=== PATIENT | male | born 1960 | race Two or more races ===

== ENCOUNTER 2023-02-27 11:47 | Emergency (ER) | payer OTHER, SELFPAY ==
[2023-02-27] VITALS (18 sets, daily range): BP systolic 170; BP diastolic 98; PULSE 60–78; RESP 14–24; TEMP 37.1; O2SAT 97; BMI 38.4
--- NOTE | 2023-02-27 12:08 | ECG_ITS ---
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
--- NOTE | 2023-02-27 12:08 | US_ITS ---
[facility] [place] [id number] Patient Name: BABAR GILLETTE MRN: [id number] date: 1960 Sex: M Assigned Patient Location: ER Current Patient Location: ER Accession/Order Number: [id number] Exam Date: 02/27/2023 12:30 Report Date: 02/27/2023 14:05 At the request of: ROSELYN FONTANEZ Procedure: US venous doppler LE RT EXAMINATION: US venous doppler LE RT HISTORY: pain, swelling of right leg COMPARISON: No relevant comparison available. FINDINGS: REGION: Right lower extremity THROMBI: None. COMPRESSIBILITY: Normal compressibility. FLOW: Normal waveform and antegrade flow between 5 and 20 cm/s. OTHER: None. US/US venous doppler LE RT IMPRESSION: 1. No deep vein thrombus within the right lower extremity. Electronically authenticated by: RAMSEY PATEL Date: 02/27/2023 14:05
--- NOTE | 2023-02-27 12:09 | US_ITS ---
[facility] [place] [address] Patient Name: BABAR GILLETTE MRN: [id number] date: 1960 Sex: M Assigned Patient Location: ER Current Patient Location: ER Accession/Order Number: [id number] Exam Date: 02/27/2023 12:40 Report Date: 02/27/2023 14:13 At the request of: ROSELYN FONTANEZ Procedure: US arterial duplex LE RT EXAMINATION: US arterial duplex LE RT HISTORY: pain COMPARISON: No relevant comparison available. TECHNIQUE: Color duplex Doppler ultrasound evaluation analysis was performed in the usual manner. FINDINGS: Right iliac and common femoral artery demonstrate normal arterial waveform. Degradation of waveforms throughout the femoral artery with biphasic waveform proximally in monophasic waveform within mid and distal femoral artery. Monophasic, venous type waveform within popliteal and marrow calf arteries. External Iliac PSV: 67.3 cm/s External Iliac EDV: 0.0 cm/s Common Femoral PSV: 54.1 cm/s Common Femoral EDV: 0.0 cm/s Superficial Femoral Proximal PSV: 18.1 cm/s Proximal EDV: 0.0 cm/s Mid PSV: 42.9 cm/s Mid EDV: 9.4 cm/s Distal PSV: Distal EDV: Popliteal Proximal PSV: 7.0 cm/s Popliteal Proximal EDV: 0.0 cm/s Posterior Tibial Proximal PSV: 10.3 cm/s Proximal EDV: 6.0 cm/s Mid PSV: 9.2 cm/s Mid EDV: 6.0 cm/s Distal PSV: 15.3 cm/s Distal EDV: 12.8 cm/s Anterior Tibial Proximal PSV: 18.1 cm/s Proximal EDV: 11.7 cm/s Mid PSV: 11.4 cm/s Mid EDV: 6.7 cm/s Distal PSV: 15.3 cm/s Distal EDV: 12.8 cm/s US/US arterial duplex LE RT IMPRESSION: 1. Narrowing of the vessels of the right leg secondary to calcified and noncalcified plaque, with decreased flow and abnormal waveform throughout. Electronically authenticated by: RAMSEY PATEL Date: 02/27/2023 14:13
[2023-02-27 12:33] LABS: Basophils Percent Auto 0.5 % (0.2-2.0); Eosinophils Absolute Auto 0.1 10^3/uL (0.0-0.7); Hematocrit 44.2 % (42.0-54.0); Hemoglobin 15.1 g/dL (14.0-18.0); Immature Granulocytes Abs Auto 0.01 10^3/uL (0.00-0.03); Immature Granulocytes Pct Auto 0.2 % (0.0-0.5); Lymphocytes Absolute Auto 2.2 10^3/uL (1.2-3.8); Lymphocytes Percent Auto 36.5 % (20.5-60.0); Mean Corpuscular HGB Conc 34.2 g/dL (29.9-35.2); Mean Corpuscular Hemoglobin 31.7 pg (25.9-34.0); Mean Corpuscular Volume 92.7 fL (80.0-94.0); Mean Platelet Volume 10.1 fL (9.5-13.5); Monocytes Absolute Auto 0.3 10^3/uL (0.3-0.8); Monocytes Percent Auto 5.4 % (1.7-12.0); Neutrophils Absolute Auto 3.4 10^3/uL (1.4-6.5); Neutrophils Percent Auto 56.4 % (43.0-75.0); Platelet Count 256 10^3/uL (150-450); Red Blood Count 4.77 10^6/uL (4.70-6.10); Red Cell Distribution Width 13.2 % (11.0-15.0)
[2023-02-27 12:36] LABS: Anion Gap 8.1; BUN Creatinine Ratio 11.8; Calcium 8.7 mg/dL (8.5-10.1); Carbon Dioxide 27.8 mmol/L (21.0-32.0); Chloride 105 mmol/L (98-107); Estimated GFR (African America >60 (>=60); Estimated GFR (Non-African Ame >60 (>=60); Glucose 117 mg/dL (74-106); Potassium 3.9 mmol/L (3.5-5.1); Sodium 137 mmol/L (136-145)
[2023-02-27 12:49] LABS: Partial Thromboplastin Time 24.9 sec (22.3-36.2); Prothrombin Time 9.6 sec (9.0-11.6)
[2023-02-27 12:51] LABS: INR <0.93
--- NOTE | 2023-02-27 13:06 | ED.EXTPRO1 ---
HPI - Extremity Problem General Chief complaint: Extremity Problem, Nontraumatic Stated complaint: LOWER LEG PAIN, RIGHT Time Seen by Provider: 02/27/23 12:00 Source: patient Mode of arrival: walk-in Limitations: no limitations History of Present Illness HPI Narrative: 62-year-old male presents for right leg pain. He's been having some issues since August of this year and he was in his physician's office today. The patient was directed here for further care. He is complaining of pain in the calf and a cold and numb feeling in his right foot. He had worsening symptoms for about three days. There has been no injury and he has no known history of peripheral vascular disease or deep vein thrombosis. No symptoms in the left leg and the pain is moderate in the right. Related Data Previous Rx's Medication Instructions Recorded hydrocodone 5 mg-acetaminophen 325 1 tab PO Q6H PRN pain 5 days #20 02/27/23 mg tablet tabs Allergies Allergy/AdvReac Type Severity Reaction Status Date / Time No Known Drug Allergies Allergy Verified 02/27/23 11:54 Review of Systems ROS Narrative A ten point review of systems is negative except as noted above. PFSH PFSH Social History Smoking status: Never smoker Exam Narrative Exam Narrative: Nurses note and vital signs reviewed and patient is not hypoxic. General: The patient appears well and in no apparent distress. Patient is resting comfortably on cart. Skin: Warm, dry, no pallor noted. There is no rash noted. Head: Normocephalic, atraumatic Eye: Normal conjunctiva, no drainage Ears, Nose, Mouth, and Throat: oral mucosa is moist. Nares patent. Mouth without vesicles. Ear canals patent. Tm's without Erythema Cardiovascular: Regular Rate and Rhythm; left dorsalis pedis pulses 2+ and capillary refill is brisk in his left foot. The right dorsalis pedis is quite diminished and the right foot is slightly cool to touch compared to contralateral. It is not pale. He has tenderness in the right calf, not the left. Respiratory: Patient is in no distress, no accessory muscle use, lungs are clear to auscultation, no wheezing, rales or rhonchi Back: non-tender GI: soft and nontender Musculoskeletal: The patient has no evidence of calf tenderness, no pitting edema, symmetrical pulses noted bilaterally Neurological: A&O, normal speech Psychiatric: Cooperative Constitutional Vital Signs, click to edit/add: Last Vital Signs Temp 98.7 F 02/27/23 11:55 Pulse 73 02/27/23 11:55 Resp 20 02/27/23 11:55 BP 170/98 H 02/27/23 11:55 Pulse Ox 97 02/27/23 11:55 O2 Del Method Room Air 02/27/23 11:55 Course Vital Signs Vital signs: Vital Signs Temperature 98.7 F 02/27/23 11:55 Pulse Rate 73 02/27/23 11:55 Respiratory Rate 20 02/27/23 11:55 Blood Pressure 170/98 H 02/27/23 11:55 Pulse Oximetry 97 02/27/23 11:55 Oxygen Delivery Method Room Air 02/27/23 11:55 Temperature 98.7 F 02/27/23 11:55 Pulse Rate 73 02/27/23 11:55 Respiratory Rate 20 02/27/23 11:55 Blood Pressure 170/98 H 02/27/23 11:55 Pulse Oximetry 97 02/27/23 11:55 Oxygen Delivery Method Room Air 02/27/23 11:55 MDM - Extremity (Nontraumatic) MDM Narrative Medical decision making narrative: Peripheral arterial disease is identified on the arterial Doppler. No deep vein thrombosis is present. He'll be referred to vascular surgeon and findings are discussed with the patient and his . Differential Diagnosis Differential diagnosis: Likely deep vein thrombosis of lower extremity and other (peripheral arterial disease) Lab Data Labs: Lab Results 02/27/23 Range/Units 12:21 WBC 6.0 (4.0-11.0) 10^3/uL RBC 4.77 (4.70-6.10) 10^6/uL Hgb 15.1 (14.0-18.0) g/dL Hct 44.2 (42.0-54.0) % MCV 92.7 (80.0-94.0) fL MCH 31.7 (25.9-34.0) pg MCHC 34.2 (29.9-35.2) g/dL RDW 13.2 (11.0-15.0) % Plt Count 256 (150-450) 10^3/uL MPV 10.1 (9.5-13.5) fL Neut % (Auto) 56.4 (43.0-75.0) % Lymph % (Auto) 36.5 (20.5-60.0) % [place] % (Auto) 5.4 (1.7-12.0) % Eos % (Auto) 1.0 (0.9-7.0) % Baso % (Auto) 0.5 (0.2-2.0) % Neut # (Auto) 3.4 (1.4-6.5) 10^3/uL Lymph # (Auto) 2.2 (1.2-3.8) 10^3/uL [place] # (Auto) 0.3 (0.3-0.8) 10^3/uL Eos # (Auto) 0.1 (0.0-0.7) 10^3/uL Baso # (Auto) 0.0 (0.0-0.1) 10^3/uL Abs Immat Gran (auto) 0.01 (0.00-0.03) 10^3/uL Imm/Tot Granulo (auto) 0.2 (0.0-0.5) % PT 9.6 (9.0-11.6) sec INR <0.93 APTT 24.9 (22.3-36.2) sec Sodium 137 (136-145) mmol/L Potassium 3.9 (3.5-5.1) mmol/L Chloride 105 (98-107) mmol/L Carbon Dioxide 27.8 (21.0-32.0) mmol/L Anion Gap 8.1 BUN 12.0 (7.0-18.0) mg/dL Creatinine 1.02 (0.70-1.30) mg/dL Est GFR ( Amer) >60 (>=60) Est GFR (Non-Af Amer) >60 (>=60) BUN/Creatinine Ratio 11.8 Glucose 117 H (74-106) mg/dL Calcium 8.7 (8.5-10.1) mg/dL Imaging Data arterial Doppler, venous Doppler: Radiologist's impression: Procedure: US venous doppler LE RT EXAMINATION: US venous doppler LE RT HISTORY: pain, swelling of right leg COMPARISON: No relevant comparison available. FINDINGS: REGION: Right lower extremity THROMBI: None. COMPRESSIBILITY: Normal compressibility. FLOW: Normal waveform and antegrade flow between 5 and 20 cm/s. OTHER: None. IMPRESSION: 1. No deep vein thrombus within the right lower extremity. Electronically authenticated by: RAMSEY PATEL Date: 02/27/2023 Procedure: US arterial duplex LE RT EXAMINATION: US arterial duplex LE RT HISTORY: pain COMPARISON: No relevant comparison available. TECHNIQUE: Color duplex Doppler ultrasound evaluation analysis was performed in the usual manner. FINDINGS: Right iliac and common femoral artery demonstrate normal arterial waveform. Degradation of waveforms throughout the femoral artery with biphasic waveform proximally in monophasic waveform within mid and distal femoral artery. Monophasic, venous type waveform within popliteal and marrow calf arteries. External Iliac PSV: 67.3 cm/s External Iliac EDV: 0.0 cm/s Common Femoral PSV: 54.1 cm/s Common Femoral EDV: 0.0 cm/s Superficial Femoral Proximal PSV: 18.1 cm/s Proximal EDV: 0.0 cm/s Mid PSV: 42.9 cm/s Mid EDV: 9.4 cm/s Distal PSV: Distal EDV: Popliteal Proximal PSV: 7.0 cm/s Popliteal Proximal EDV: 0.0 cm/s Posterior Tibial Proximal PSV: 10.3 cm/s Proximal EDV: 6.0 cm/s Mid PSV: 9.2 cm/s Mid EDV: 6.0 cm/s Distal PSV: 15.3 cm/s Distal EDV: 12.8 cm/s Anterior Tibial Proximal PSV: 18.1 cm/s Proximal EDV: 11.7 cm/s Mid PSV: 11.4 cm/s Mid EDV: 6.7 cm/s Distal PSV: 15.3 cm/s Distal EDV: 12.8 cm/s IMPRESSION: 1. Narrowing of the vessels of the right leg secondary to calcified and noncalcified plaque, with decreased flow and abnormal waveform throughout. Electronically authenticated by: RAMSEY PATEL Date: 02/27/2023 14:13 Discharge Plan Discharge Chief Complaint: Extremity Problem, Nontraumatic Clinical Impression: PAD (peripheral artery disease) Patient Disposition: Home, Self-Care Time of Disposition Decision: 14:42 Condition: Good Mode of Transportation: Private Vehicle Prescriptions / Home Meds: New hydrocodone-acetaminophen 5-325 mg tablet 1 tab PO Q6H PRN (Reason: pain) 5 Days Qty: 20 0RF Instructions: Peripheral Artery Disease (ED) Stand Alone Forms: Portal Instructions Referrals: BENIGNO WATSON [Primary Care Provider] - 1 week
== END 2023-02-27 15:11 | disposition home or self-care (01) ==
PROVIDERS: Emergency Provider Emergency Medicine; PCP Nurse Practitioner Family
DX: I73.9 Peripheral vascular disease, unspecified (principal)
CPT/HCPCS: 36415; 80048; 85025; 85610; 85730; 93005; 93926; 93971; 99285

== ENCOUNTER 2023-04-11 11:43 | Emergency (ER) | payer OTHER, SELFPAY ==
[2023-04-11 11:46] VITALS: BP 178/114; PULSE 94; RESP 16; TEMP 36.4; O2SAT 98; BMI 33.5
[2023-04-11 11:49] VITALS: BP 160/100
--- NOTE | 2023-04-11 11:55 | ED.LOWEXI1 ---
HPI - Extremity Injury (Lower) General Chief Complaint: Extremity Injury, Lower Stated Complaint: LOWER EXTREMITY PAIN RIGHT FOOT Time Seen by Provider: 04/11/23 11:45 Source: patient Mode of arrival: Wheelchair History of Present Illness HPI Narrative: 63-year-old male presents for injury to his right 5th toenail. The nail got caught in his sandal and it was pulled up. This happened just before coming into the emergency department. No other injury was sustained and the pain is mild. He has a history of vascular disease and has had leg bypass surgery. Related Data Previous Rx's Medication Instructions Recorded hydrocodone 5 mg-acetaminophen 325 1 tab PO Q6H PRN pain 5 days #20 02/27/23 mg tablet tabs cephalexin 500 mg capsule 500 mg PO TID 7 days #21 caps 04/11/23 Allergies Allergy/AdvReac Type Severity Reaction Status Date / Time No Known Drug Allergies Allergy Verified 02/27/23 11:54 Review of Systems ROS Narrative A ten point review of systems is negative except as noted above. PFSH PFSH Social History Smoking status: Never smoker Exam Narrative Exam Narrative: Nurses note and vital signs reviewed and patient is not hypoxic. General: The patient appears well and in no apparent distress. Patient is resting comfortably on cart. Skin: Warm, dry, no pallor noted. There is no rash noted. Head: Normocephalic, atraumatic Eye: Normal conjunctiva, no drainage Ears, Nose, Mouth, and Throat: oral mucosa is moist. Nares patent. Cardiovascular: not tachycardic Respiratory: Patient is in no distress, no accessory muscle use, lungs are clear to auscultation, no wheezing, rales or rhonchi Back: non-tender GI: nontender Musculoskeletal: right 5th toenail is partially avulsed but is firmly attached at the base. There is no bleeding or erythema. Neurological: A&O, normal speech Psychiatric: Cooperative Constitutional Vital Signs, click to edit/add: Last Vital Signs Temp 97.5 F L 04/11/23 11:46 Pulse 94 H 04/11/23 11:46 Resp 16 04/11/23 11:46 BP 160/100 H 04/11/23 11:49 Pulse Ox 98 04/11/23 11:46 O2 Del Method Room Air 04/11/23 11:46 Course Vital Signs Vital signs: Vital Signs Temperature 97.5 F L 04/11/23 11:46 Pulse Rate 94 H 04/11/23 11:46 Respiratory Rate 16 04/11/23 11:46 Blood Pressure 178/114 H 04/11/23 11:46 Pulse Oximetry 98 04/11/23 11:46 Oxygen Delivery Method Room Air 04/11/23 11:46 Temperature 97.5 F L 04/11/23 11:46 Pulse Rate 94 H 04/11/23 11:46 Respiratory Rate 16 04/11/23 11:46 Blood Pressure 160/100 H 04/11/23 11:49 Pulse Oximetry 98 04/11/23 11:46 Oxygen Delivery Method Room Air 04/11/23 11:46 MDM - Extremity Injury (Lower) MDM Narrative Medical decision making narrative: I've elected to leave the nail in place since it is firmly attached at the base. He was advised that he will most likely lose this nail but he'll follow-up with podiatry. I'm concerned about an infection and he is placed on Keflex. Treatment diagnosis and follow-up were discussed with the patient. Differential Diagnosis Differential diagnosis: Likely other (nail avulsion, partial nail avulsion) Discharge Plan Discharge Chief Complaint: Extremity Injury, Lower Clinical Impression: Avulsion of nail Patient Disposition: Home, Self-Care Time of Disposition Decision: 11:54 Condition: Good Mode of Transportation: Private Vehicle Prescriptions / Home Meds: New cephalexin 500 mg capsule 500 mg PO TID 7 Days Qty: 21 0RF No Action hydrocodone-acetaminophen 5-325 mg tablet 1 tab PO Q6H PRN (Reason: pain) 5 Days Qty: 20 0RF Instructions: Wound Healing and Your Diet (ED) Stand Alone Forms: Portal Instructions Referrals: BENIGNO WATSON [Primary Care Provider] - 1 week
[2023-04-11] MEDS: CEPHALEXIN 500 MG CAPSULE PO (11:58)
--- NOTE | 2023-04-11 12:12 | PC.NURSE ---
1150- PT STATES WAS ATTEMPTING TO PUT ON SANDAL AND PINKY TOENAIL GOT CAUGHT TO TOP OF SANDAL AND BENT BACKWARDS. THE NAIL APPEARS TO BE LOOSE WITH SCANT AMOUNT OF DRIED BLOOD.
== END 2023-04-11 12:10 | disposition home or self-care (01) ==
PROVIDERS: Emergency Provider Emergency Medicine; PCP Nurse Practitioner Family
DX: S91.204A Unspecified open wound of right lesser toe(s) with damage to nail, initial encounter (principal); W23.0XXA Caught, crushed, jammed, or pinched between moving objects, initial encounter
CPT/HCPCS: 99283

== ENCOUNTER 2023-08-02 14:17 | Emergency (ER) | payer OTHER, SELFPAY ==
[2023-08-02 14:23] VITALS: BP 176/95
[2023-08-02 14:24] VITALS: BP 176/95; PULSE 96; RESP 18; TEMP 36.6; O2SAT 95; O2SAT 97; BMI 31.3
--- NOTE | 2023-08-02 14:29 | ECG_ITS ---
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
[2023-08-02 14:45] VITALS: BP 158/94
[2023-08-02 15:00] VITALS: BP 148/90
--- NOTE | 2023-08-02 15:02 | ED.GENADUL1 ---
HPI - General Adult General Chief complaint: Recheck/Abnormal Lab/Rx Stated complaint: HIGH BLOOD PRESSURE Time Seen by Provider: 08/02/23 14:22 Source: patient Mode of arrival: walk-in Limitations: language barrier History of Present Illness HPI narrative: Patient is a 63-year-old male who is presenting to the ER with chief complaint and concern of hypertension. Patient's is at bedside. Patient very pleasant along with his . Patient has just started amlodipine 10 mg and has been taking it religiously for the past 8 to 9 days. Patient was admitted to the hospital last Saturday, for elevated blood pressure. Patient states his systolic blood pressure was in the 200s. Patient was seen at [facility]. Patient was started on blood pressure medication and then he went back to the ER again when his systolic pressure was in the 190s. Patient has some mild numbness and tingling to left arm/hand throughout the day intermittently, currently does not have any symptoms like that in the ER at this time. Patient states that he is taking his blood pressure every 20 minutes at home. Patient admits to some conscious anxiety and now his blood pressure has improved in the ER with no treatment prior to me arriving to the room for HPI and physical exam. Patient says that he feels safe in the ER, and he feels at ease. Patient currently has no headache, chest pain, shortness of breath, abdominal pain, nausea, vomiting, or any other acute complaints. Patient has had a stress test and echocardiogram approximately 4 months ago before he had surgery on his right knee. Patient has a female title vehicle service attendant at [facility] right now that he is seeing. Patient just saw his title vehicle service attendant 2 days ago. Patient is presenting with hypertension with no other acute symptoms. Patient's states that he is very nervous and anxious about this, takes his blood pressure too many times at home, and is not having any problems or symptoms. Patient is very pleasant, animated, and patient is now agreeing that yes this may be the root of the problem with his elevated blood pressure. All systems are negative except as noted/marked. All systems reviewed and otherwise negative. Nurses note and vital signs reviewed and patient is not hypoxic. General: The patient appears well and in no apparent distress. Patient smiling, laughing throughout exam along with his . patient is resting comfortably on cart. Patient is not toxic, lethargic, or listless Skin: Warm, dry, no pallor noted. There is no rash noted. No petechiae, purpura. Head: Normocephalic, atraumatic Eye: Normal conjunctiva, no drainage, EOMI. PERRL Ears, Nose, Mouth, and Throat: oral mucosa is moist. Nares patent. Mouth without vesicles. Cardiovascular: Regular Rate and Rhythm, no murmur, gallop, rub Respiratory: Patient is in no distress, no accessory muscle use, lungs are clear to auscultation, no wheezing, rales or rhonchi Back: non-tender, no CVA tenderness bilaterally to percussion. No CT LS midline pain GI: obese, no tenderness to palpation, no masses appreciated. No rebound, guarding, or rigidity noted. No distention Musculoskeletal: Patient has full range of motion of all of the extremities, no motor, sensory, or focal neurological deficits Neurological: A&O x4, normal speech; NIH 0 Psychiatric: Cooperative Related Data Home Medications Medication Instructions Recorded Confirmed amlodipine 10 mg tablet 10 mg PO DAILY 08/02/23 08/02/23 aspirin 81 mg tablet,delayed 81 mg PO DAILY 08/02/23 08/02/23 release Allergies Allergy/AdvReac Type Severity Reaction Status Date / Time No Known Drug Allergies Allergy Verified 02/27/23 11:54 [facility] Social History Smoking status: Never smoker Exam Constitutional Vital Signs, click to edit/add: Last Vital Signs Temp 97.9 F 08/02/23 14:24 Pulse 96 H 08/02/23 14:24 Resp 18 08/02/23 14:24 BP 148/90 H 08/02/23 15:00 Pulse Ox 97 08/02/23 14:24 O2 Del Method Room Air 08/02/23 14:24 Course Vital Signs Vital signs: Vital Signs Blood Pressure 176/95 H 08/02/23 14:23 Temperature 97.9 F 08/02/23 14:24 Pulse Rate 96 H 08/02/23 14:24 Respiratory Rate 18 08/02/23 14:24 Blood Pressure 148/90 H 08/02/23 15:00 Pulse Oximetry 97 08/02/23 14:24 Oxygen Delivery Method Room Air 08/02/23 14:24 Medical Decision Making MDM Narrative Medical decision making narrative: 10 min discussion was had with patient and his at discharge. Patient blood pressure had improved with doing no intervention in the ER. Patient will continue taking Norvasc 10 mg daily. Patient had education only taking his blood pressure twice today, he will start using and collecting a blood pressure log. This was discussed with patient and his . Patient will check his blood pressure before work once, and he is aware that might be more elevated in the morning because he has not taken his blood pressure pill yet. Patient will take his blood pressure again when he gets home from work or in the evening. Patient agrees to not take his blood pressure multiple times during the day. He is hearing this recommendation from his , title vehicle service attendant, and me. Patient looks well, has no headache, chest pain, shortness of breath, syncopal episodes, or any other acute symptoms at this time. Patient agrees no acute indication of lab testing, radiographs testing at this time. Patient just had this type of testing was admitted to the hospital at [facility] last week. Patient and happy with care, agree with the plan and will follow-up with cardiology. ECG Data Attestation: I personally reviewed and interpreted this ECG as follows: (EKG interpretation. Normal sinus rhythm at 91 beats a minute. Normal axis deviation. No acute ST elevation, no acute ectopy. QTc of 379. T wave inversion in the anterior leads. No significant reciprocal changes) Discharge Plan Discharge Stand Alone Forms: Portal Instructions Chief Complaint: Recheck/Abnormal Lab/Rx Clinical Impression: Hypertension Patient Disposition: Home, Self-Care Time of Disposition Decision: 15:24 Prescriptions / Home Meds: No Action amlodipine 10 mg tablet 10 mg PO DAILY aspirin 81 mg tablet,delayed release (DR/EC) 81 mg PO DAILY Instructions: Hypertension (ED) Additional Instructions: Only take your blood pressure twice a day, once in the morning, and once in the evening. Record the time of the blood pressure and what the results are. Do not continue taking your blood pressure over and over again, your blood pressure will most likely elevate secondary to subconscious anxiety as discussed. If your blood pressure is consistently 140/90 and higher, make sure that you follow-up with your title vehicle service attendant for a small dose change if needed. Referrals: BENIGNO WATSON [Primary Care Provider] - 1 week Discharge Date/Time: 08/02/23 15:41
== END 2023-08-02 15:41 | disposition home or self-care (01) ==
PROVIDERS: Emergency Provider Emergency Medicine; PCP Nurse Practitioner Family
DX: I10 Essential (primary) hypertension (principal); Z79.82 Long term (current) use of aspirin; Z79.899 Other long term (current) drug therapy
CPT/HCPCS: 93005; 99283

== ENCOUNTER 2024-03-01 18:39 | Emergency (ER) | payer OTHER, SELFPAY ==
[2024-03-01] VITALS (14 sets, daily range): BP systolic 163–166; BP diastolic 89–98; PULSE 100–116; TEMP 36.8; O2SAT 91–98; BMI 27.8
--- OUTSIDE RECORDS SUMMARY | 2024-03-01 18:46 | XMS_ITS | CCD ---
Author Organization [facility] [place] [facility] Team Providers Care Airline Pilot/First Officer Name Role Phone ELLI WATSON Admitting Unavailable ELLI WATSON Attending Unavailable WALTER, ELLI Primary Care Unavailable WALTER, ELLI Admitting Unavailable WALTER, ELLI Attending Unavailable ELLI WATSON Consulting Unavailable WALTER, ELLI Primary Care Unavailable ELLI WATSON S Primary Care Physician [phone] Jax HAWTHORNE Attending Unavailable Jax HAWTHORNE Attending Unavailable ELLI WATSON Referring Unavailable Walter, IOS DEVELOPER-C Elli Loyd Primary Care Provider DO Mohamud Block Emergency Provider MD Justin Deras Attending Provider [phone] MARIA GUADALUPE Watson-[place] Loyd Primary Care Provider DO Mohamud Block Emergency Provider MD Justin Deras Admit Provider [phone] MD Justin Deras Attending Provider MD Roberto Carlos Velazquez Other Provider Masha Mayorga Unavailable Justin Deras Unavailable [place] Watson Primary Care Provider DO Mohamud Block Emergency Provider MD Justin Deras Admit Provider [phone] MD Justin Deras Attending Provider [phone] MD Roberto Carlos Velazquez Other Provider Azul Jimenez Unavailable Santiago, Kianna Unavailable NON STAFF Primary Care Provider UnavailMD Adrian Bliss Jr Emergency Provider Rachel, GENERAL FARMWORKER- Josie E Emergency Provider DO Jack Kianna A Primary Care Provider MD Justin Deras Attending Provider [phone] DO Sara Santiagoria A Primary Care Provider DO Mariah Wolfe Emergency Provider MD Justin Deras Admit Provider [phone] MD Justin Deras Attending Provider Kianna Santiago Primary Care Unavailable Bullimore, Josie E Admitting Unavailable Bullimore, Josie E Attending Unavailable Sara Santiagoria A Primary Care Unavailable Justin Deras Admitting Unavailabl e Augusta, Justin Quintana Attending Unavailabl e Elli Watson Rach Primary Care Unavailable Augusta, Justin Quintana Admitting Unavailabl e Augusta, Justin Quintana Attending Unavailabl e Walter Elli Rach Primary Care Unavailable Roberto Carlos Velazquez Unavailable Augusta, Justin Quintana Admitting Unavailabl e Augusta, Justin Quintana Attending Unavailabl e Jack, Kianna A Primary Care Unavailable Augusta, Justin Quintana Attending Unavailabl e Augusta, Justin Quintana Admitting Unavailabl Adrian Westfall Jr Admitting Unavailable Adrian Ivory Jr Attending Unavailable NON STAFF Primary Care Unavailable MERLIN ROCA Referring Unavailable JACK KIANNA [place] Primary Care Unavailable AMBANI, RACHID Referring Unavailable AMBANIDORAI Attending Unavailable JACK, KIANNA [place] Primary Care Unavailable JACK, KIANNA [place] Primary Care Unavailable AMBANI, RACHID Referring Unavailable MERLIN ROCA Attending Unavailable JACK, KIANNA [place] Primary Care Unavailable Sara Santiago DOria [place] Primary Care Provider [phone] Allergies Allergy Classification Reported Allergen(s) Allergy Type Date of Onset Reaction(s) Facility (1 source) No Known Medication Allergies; Translations: [No Known Medication Allergies] Propensity to adverse reactions (disorder) [facility] Repository Medications Current Medications Medication Drug Class(es) Dates Sig (Normalized) Sig (Original) amLODIPine 10 mg oral tablet (20 sources) Dihydropyridine Calcium Channel Kathe Start: 03-12-2023 End: 09-04-2023 take 10 mg by mouth once daily Amlodipine Active 10 MG PO Daily 90 September 04, 2023 3:39pm apixaban 5 mg oral tablet (2 sources) Factor Xa Inhibitor Start: 02-05-2024 End: 03-06-2024 take 1 tablet by mouth twice daily apixaban (ELIQUIS) 5 mg tab(s) Take 1 tablet by mouth two times a day. 60 tablet 02/05/2024 03/06/2024 Active aspirin 81 mg delayed release oral tablet (20 sources) Platelet Aggregation Inhibitor, Nonsteroidal Anti-inflammatory Drug Start: 02-03-2024 aspirin, enteric coated (ASPIRIN, ENTERIC COATED) 81 mg EC tablet once daily. 02/03/2024 Active Start: 02-03-2024 aspirin Active .ROUTE February 03, 2024 12:00am QD Start: 09-04-2023 End: 02-03-2024 take 81 mg by mouth twice daily Aspirin Discontinued 81 MG PO Twice daily September 04, 2023 3:52pm February 03, 2024 12:52pm Start: 03-12-2023 End: 09-04-2023 take 81 mg by mouth once daily Aspirin Discontinued 81 MG PO Daily March 12, 2023 12:00am September 04, 2023 3:52pm atorvastatin 40 mg oral tablet (20 sources) HMG-CoA Reductase Inhibitor Start: 09-04-2023 End: 09-04-2023 atorvastatin (LIPITOR) 40 mg tablet once daily. 09/04/2023 Active Start: 03-12-2023 End: 07-31-2023 take 40 mg by mouth once daily in the evening Atorvastatin Discontinued 40 MG PO Every evening March 12, 2023 12:00am July 31, 2023 9:50am ciclopirox 80 mg/ml topical solution (3 sources) Start: 06-21-2023 Ciclodan 8 % 1 application Externally Once a day for 30 days Jun, Active lisinopril 10 mg oral tablet (14 sources) Angiotensin Converting Enzyme Inhibitor Start: 08-27-2023 take 1 tablet by mouth once daily Lisinopril Active 0 .ROUTE .COMPLEX August 27, 2023 1:37pm TAKE 1 TABLET BY MOUTH EVERY DAY FOR 30 DAYS Start: 08-05-2023 End: 08-27-2023 lisinopril (ZESTRIL) 10 mg t ablet 10 mg once daily. 08/27/2023 Active omeprazole 20 mg delayed release oral capsule (12 sources) Proton Pump Inhibitor Start: 09-04-2023 omeprazo le (PRILOSEC) 20 mg capsule 20 mg once daily. 09/04/2023 Active Start: 10-11-2022 take 1 mg by mouth once daily omeprazole 40 mg Cap-DR mg cap(s), Oral, Daily, Refills(s) 0 Start Date: 10/11/22 Status: Ordered Completed/Discontinued Medications Medication Drug Class(es) Dates Sig (Normalized) Sig (Original) acetaminophen 325 mg / oxyCODONE hydrochloride 5 mg oral tablet (6 sources) Opioid Agonist Start: 03-20-2023 take 1 tablet by mouth every six hours oxyCODONE-Acetamino phen 5-325 MG 1 tablet as needed Orally every 6 hrs for 7 days Mar, Not-Taking/PRN chlorthalidone 25 mg oral tablet (15 sources) Thiazide-like Diuretic Start: 03-12-2023 End: 07-31-2023 take 25 mg by mouth once daily in the morning Chlorthalidone Discontinued 25 MG PO Every morning March 12, 2023 12:00am July 31, 2023 9:50am clopidogrel 75 mg oral tablet (16 sources) P2Y12 Platelet Inhibitor Start: 03-12-2023 End: 07-31-2023 take 75 mg by mouth once daily Clopidogrel Discontinued 75 MG PO Daily March 12, 2023 12:00am July 31, 2023 9:50am docusate sodium 100 mg oral tablet (6 sources) Start: 03-20-2023 take 1 tablet by mouth every twelve hours Docusate Sodium 100 MG 1 tablet as needed Orally BID for 30 days Mar, Not-Taking/PRN hydrALAZINE hydrochloride 25 mg oral tablet (15 sources) Arteriolar Vasodilator Start: 03-12-2023 End: 07-31-2023 take 25 mg by mouth twice daily Hydralazine Discontinued 25 MG PO Twice daily March 12, 2023 12:00am July 31, 2023 9:50am oxyCODONE hydrochloride 10 mg oral tablet (10 sources) Opioid Agonist Start: 04-25-2023 take 1 tablet by mouth every six hours oxyCODONE HCl 10 MG 1 tablet as needed Orally every 6 hrs for 10 days Apr, Not-Taking/PRN Start: 04-04-2023 End: 07-31-2023 take 10 mg by mouth every six hours Oxycodone Discontinued 10 MG PO Every 6 hours 08 03April 04, 2023 July 31, 2023 9:50am valsartan 80 mg oral tablet (16 sources) Angiotensin 2 Receptor Kathe Start: 03-12-2023 End: 07-31-2023 take 80 mg by mouth once daily Valsartan Discontinued 80 MG PO Daily March 12, 2023 12:00am July 31, 2023 9:50am Problems Active Problems Problem Classification Problem Date Documented Date Episodic/Chronic Complication of device; implant or graft (3 sources) Other specified complication of vascular prosthetic devices, implants and grafts, initial encounter; Translations: [Occlusion of arterial bypass graft] Onset: 02-05-2024 02-05-2024 Chronic Coronary atherosclerosis and other heart disease (1 source) Coronary atherosclerosis and other heart disease; Translations: [Atherosclerosis of barrow arteries of extremities with intermittent claudication, bilateral legs] Onset: 04-25-2023 Diabetes mellitus without complication (6 sources) Prediabetes; Translations: [Prediabetes] 09-04-2023 Episodic Disorders of lipid metabolism (13 sources) Hyperlipidemia; Translations: [Hyperlipidemia, unspecified] 08-02-2023 Chronic Esophageal disorders (17 sources) Gastroesophageal reflux disease; Translations: [Gastro-esophageal reflux disease without esophagitis] 10-11-2022 Chronic Essential hypertension (20 sources) Hypertensive disorder; Translations: [Essential (primary) hypertension] Onset: 03-06-2023 03-06-2023 Chronic Genitourinary symptoms and ill-defined conditions (1 source) Sensation as if bladder still full; Translations: [Feeling of incomplete bladder emptying] Onset: 10-12-2022 Episodic Hyperplasia of prostate (3 sources) Benign prostatic hypertrophy with outflow obstruction; Translations: [Benign prostatic hyperplasia with lower urinary tract symptoms] Onset: 10-12-2022 Chronic Hypertension with complications and secondary hypertension (7 sources) Hypertensive urgency ; Translations: [Hypertensive urgency] 08-03-2023 Chronic Mycoses (1 source) Tinea unguium Episodic Other aftercare (1 source) Encounter for surgical aftercare following surgery on the circulatory system Episodic Other circulatory disease (2 sources) History of arterial bypass of lower limb artery; Translations: [Presence of other vascular implants and grafts] Onset: 02-05-2024 02-05-2024 Chronic Other connective tissue disease (1 source) Pain in right foot; Translations: [Right foot pain] Onset: 02-05-2024 Episodic Other nervous system disorders (1 source) Other acute postprocedural pain Episodic Peripheral and visceral atherosclerosis (20 sources) Critical lower limb ischemia ; Translations: [Atherosclerosis of barrow arteries of extremities with rest pain, right leg] Onset: 03-06-2023 03-06-2023 Chronic Residual codes; unclassified (7 sources) Difficulty sleeping ; Translations: [Sleep disorder, unspecified] 07-31-2023 Episodic Unclassified (2 sources) Finding of sensation of bladder 10-12-2022 Past or Other Problems Problem Classification Problem Date Documented Da te Episodic/Chronic Conditions associated with dizziness or vertigo (8 sources) Dizziness; Translations: [Dizziness and giddiness] Onset: 07-31-2023 08-03-2023 Episodic Other screening for suspected conditions (not mental disorders or infectious disease) (20 sources) Elevated prostate specific antigen [PSA]; Translations: [Encounter for screening for malignant neoplasm of prostate] Onset: 07-23-2022 Episodic Results Test Name Value Interpretation Reference Range Facility [facility] 02-25-2024 CNOV Office Visit (SCOTT ) -- MESFIN BROWN ([id number]) 1960 M HEATH Date Time Provider Department 02/25/24 8:00 AM RACHID MICHELLE During your visit today, we recorded the following information about you: Temperature Pulse Respiration Blood pressure 98 degrees 96/minute 16/minute 159/93 Rachid Michelle MD 02/25/2024 10:19 AM Signed [facility] [place] DEPARTMENT OF VASCULAR SURGERY OUTPATIENT VISIT DATE February 25, 2024 OUTPATIENT VISIT TYPE ESTABLISHED SERVICE DATE: 02/25/2024 SERVICE TIME: 10:11 AM PRIMARY CARE PHYSICIAN: Kianna Santiago DO HISTORY OF PRESENT ILLNESS: Mr. Brown is a 63 year old male who presents today for a vascular surgery follow-up visit for right lower extremity peripheral arterial disease. Patient has a history of CLTI s/p right akPop-DP bypass 02/2023 who presents following an episode of acute limb ischemia treated with angioplasty and lysis at [facility]. He was found to have an occluded bypass but no symptoms in January. He know states he has occasional pain in his forefoot. He does have a wound on the plantar aspect of his 4th toe that has been slow healing. PAST MEDICAL HISTORY Diagnosis Date PAD (peripheral artery disease) ([facility]) 02/05/2024 PAST SURGICAL HISTORY Procedure Laterality Date ARTERIAL BYPASS Right 02/2023 Right above-knee pop to DP SVG bypass for ALI SOCIAL HISTORY Social History Tobacco Use Smoking status: Never Smokeless tobacco: Never MEDICATIONS: aspirin, enteric coated (ASPIRIN, ENTERIC COATED) 81 mg EC tablet once daily. atorvastatin (LIPITOR) 40 mg tablet once daily. lisinopril (ZESTRIL) 10 mg tablet 10 mg once daily. valsartan (DIOVAN) 80 mg tablet 80 mg once daily. omeprazole (PRILOSEC) 20 mg capsule 20 mg once daily. apixaban (ELIQUIS) 5 mg tab(s) Take 1 tablet by mouth two times a day. ALLERGIES: ALLERGIES No Known Allergies PHYSICAL EXAM: BP 159/93 (BP Site: Right Arm, BP Position: Sitting) Pulse 96 Temp 36.7 ?C (98 ?F) (Oral) Resp 16 SpO2 95% General: Alert and oriented, No acute distress, Healthy appearance Integumentary: Normal color, no rash, no lesions. HEENT: EOM, pupils equal, round and reactive. Cardiovascular: Normal S1 AND S2, no rubs, murmurs or gallops. No JVD., Pulse regular. Lungs: Normal breath sounds, no wheezes or crackles. Abdomen: Soft, non-tender, no rigidity. Extremities: No deformity, no edema or tenderness, no joint swelling or clubbing. Neurological: Normal cognition and motor skills. Vascular: Femoral Pulse Right: Normal - Left: Normal Posterior Tibial Right: Absent - Left: Dopplerable Only Dorsalis Pedal Right: Absent - Left: Dopplerable Only Diagnostic tests reviewed for today's visit: Most recent imaging with STEVENSON on right 0.17 and no toe pressure IMPRESSION: Mr. Brown is a 63 year old male with PAD and CLTI s/p Right AK Pop to DP bypass now occluded . PLAN and RECOMMENDATIONS: Patient still is relatively symptom free with small wound on his plantar aspect of his right fourth toe Recommend he continues his anticoagulation and to walk as much as possible Encouraged him to call me if he develops rest pain or worsening tissue loss as this may be a sign that he needs an angiogram to assess if there are any other revascularization attempts Follow-up in 3 months to re-assess symptoms SIGNATURE: Rachid Michelle MD PATIENT NAME: Mesfin Brown DATE: February 25, 2024 TIME: 10:11 AM Referring Provider: RACHID MICHELLE [[id number]] Allergies As of Date: 02/25/2024 (No Known Allergies) Date Reviewed: 02/25/2024 Reviewed by: Amber Blake RN - Fully Assessed Reason for Visit: Established Patient [175] Primary Visit Diagnosis:Peripheral arterial disease (HCC) [I73.9] Other Visit Diagnosis:Critical lower limb ischemia (HCC) [I70.229] Prescriptions as of 02/25/2024 - aspirin, enteric coated (ASPIRIN, ENTERIC COATED) 81 mg EC tablet once daily. - atorvastatin (LIPITOR) 40 mg tablet once daily. - lisinopril (ZESTRIL) 10 mg tablet 10 mg once daily. - valsartan (DIOVAN) 80 mg tablet 80 mg once daily. - omeprazole (PRILOSEC) 20 mg capsule 20 mg once daily. - apixaban (ELIQUIS) 5 mg tab(s) Take 1 tablet by mouth two times a day. Problem List As Of Date 02/25/2024 Noted Resolved History of arterial bypass of lower extremity [*02/05/2024 Diagnosed: 02/2023 PAD (peripheral artery disease) (HCC) [I73.9] 02/05/2024 Critical limb ischemia of right lower extremity*02/05/2024 Occlusion of right femorotibial bypass graft (H*02/05/2024 Level of Service: OFFICE/OUTPATIENT ESTABLISHED MOD [facility] 30 MIN [38759] Additional E/M codes: VISIT CPLX INHERENT EANDM ASSOC WITH MED * Encounter Status:Closed by RACHID MICHELLE on 02/25/24 Normal [facility] PVR ANK/SNEED/TOE MARGUERITE VAS LAB on 02-25-2024 PVR ANK/SNEED/TOE MARGUERITE VAS LAB Non-Invasive Vascular Laboratory [facility] F30 Lower Extremity Arterial Physiology Study Bilateral/Complete Date of service/time: 02/25/2024 9:08:18 AM Name: MESFIN BROWN Date of : 1960 Age: 63 years Gender: M Clinical Indication Peripheral arterial disease and Known occluded right popliteal-dorsalis pedis bypass graft. TECHNIQUE -------- An arterial physiological examination was performed, including measurement of blood pressures using continuous wave Doppler and recording of plethysmographic with or without Doppler waveforms at the below-mentioned limb segments. FINDINGS -------- RIGHT SIDE AT REST Right Pressures Brachial: 134 mmHg Ankle dorsalis pedis: 0 mmHg STEVENSON: 0.00 Not audible. Ankle posterior tibial: 64 mmHg STEVENSON: 0.48 Digit: 0 mmHg Right PVR Waveforms Ankle: Moderately dampened. Transmetatarsal: Severely dampened. Digit: Severely dampened. LEFT SIDE AT REST Left Pressures Brachial: 132 mmHg Ankle dorsalis pedis: 186 mmHg STEVENSON: 1.39 Ankle posterior tibial: 170 mmHg STEVENSON: 1.27 Digit: 136 mmHg Left PVR Waveforms Ankle: Normal. Transmetatarsal: Normal. Digit: Normal. IMPRESSION RIGHT SIDE Resting right ankle brachial index: 0.48 Right toe brachial index: 0.00 Abnormal ankle brachial index at rest diagnostic of peripheral artery disease. Abnormal toe brachial index at rest is evidence of peripheral artery disease. Right ankle: Moderate disease at rest. LEFT SIDE Resting left ankle brachial index: 1.39 Left toe brachial index: 1.01 Normal ankle brachial index at rest in the left leg. Normal toe brachial index at rest in the left leg. Left ankle: Normal at rest. Technologist: Michelle Magana RVT, RDMS Ordering physician: RACHID MICHELLE Interpreting physician: FORD Petersen MD Final CC [employer] [facility] Image : [id number] See Link below for Image Normal [facility] Basic metabolic 2000 panelon 02-05-2024 Anion gap [Moles/Vol] 12 mmol/L Normal 8-15 [facility] Comment on above: Order Comment: Speci men Type: BLOOD SPECIMEN Ordering Facility: [facility] Address: [address] [place] [address] Performed By: #### 2 4321-2 #### [facility] CLIA [id number] [address] [place] [address] [place] Calcium [Mass/Vol] 8.9 mg/dL Normal 8.5-10.2 [facility] Comment on above: Order Comment: Speci men Type: BLOOD SPECIMEN Ordering Facility: [facility] Address: [address] [place] [address] Performed By: #### 2 4321-2 #### [facility] CLIA [id number] [address] [place] [address] [place] Chloride [Moles/Vol] 106 mmol/L Normal 98-107 [facility] Comment on above: Order Comment: Speci men Type: BLOOD SPECIMEN Ordering Facility: [facility] Address: [address] [place] [address] Performed By: #### 2 4321-2 #### [facility] CLIA [id number] [address] [place] [address] [place] CO2 [Moles/Vol] 21 mmol/L Low 22-30 [facility] Comment on above: Order Comment: Speci men Type: BLOOD SPECIMEN Ordering Facility: [facility] Address: [address] [place] [address] Performed By: #### 2 4321-2 #### [facility] CLIA [id number] [address] [place] [address] [place] Creatinine [Mass/Vol] 0.77 mg/dL Normal 0.73-1.22 [facility] Comment on above: Order Comment: Speci men Type: BLOOD SPECIMEN Ordering Facility: [facility] Address: [address] [place] [address] Performed By: #### 2 4321-2 #### [facility] CLIA [id number] [address] [place] [address] [place] Creatinine and Glomerular filtration rate.predicted panel (S/P/Bld) 101 mL/min/1.73m??? Normal >=60 [facility] Comment on above: Order Comment: Speci men Type: BLOOD SPECIMEN Ordering Facility: [facility] Address: [address] [place] [address] Result Comment: Jocelyn mated Glomerular Filtration Rate (eGFR) is calculated using the 2020 CKD-EPI creatinine equation. This equation utilizes serum creatinine, sex, and age as parameters. The creatinine assay has traceable calibration to isotope dilution-mass spectrometry. Refer to KDIGO guidelines for clinical interpretation. In patients with unstable renal function, e.g. those with acute kidney injury, the eGFR may not accurately reflect actual GFR. Performed By: #### 2 4321-2 #### [facility] CLIA [id number] [address] [place] [address] [place] Glucose [Mass/Vol] 113 mg/dL High 74-99 [facility] Comment on above: Order Comment: Speci men Type: BLOOD SPECIMEN Ordering Facility: [facility] Address: [address] [place] [address] Result Comment: The [place] Diabetes [employer] (ADA) provides guidance for cutoff values for fasting glucose and random glucose. The ADA defines fasting as no caloric intake for at least 8 hours. Fasting plasma glucose results between 100 to 125 mg/dL indicate increased risk for diabetes (prediabetes). Fasting plasma glucose results greater than or equal to 126 mg/dL meet the criteria for diagnosis of diabetes. In the absence of unequivocal hyperglycemia, results should be confirmed by repeat testing. In a patient with classic symptoms of hyperglycemia or hyperglycemic crisis, random plasma glucose results greater than or equal to 200 mg/dL meet the criteria for diagnosis of diabetes. Reference: Standards of Medical Care in Diabetes 2016, [place] [employer]. Diabetes Care. 2016.39(Suppl 1). Performed By: #### 2 4321-2 #### [facility] CLIA [id number] [address] [place] [address] [place] Potassium [Moles/Vol] 3.8 mmol/L Normal 3.7-5.1 [facility] Comment on above: Order Comment: Julia galindo Type: BLOOD SPECIMEN Ordering Facility: [facility] Address: [address] [place] [address] Performed By: #### 2 4321-2 #### [facility] CLIA [id number] [address] [place] [address] [place] Sodium [Moles/Vol] 139 mmol/L Normal 136-144 [facility] Comment on above: Order Comment: Julia galindo Type: BLOOD SPECIMEN Ordering Facility: [facility] Address: [address] [place] [address] Performed By: #### 2 4321-2 #### [facility] CLIA [id number] [address] [place] [address] [place] Urea nitrogen [Mass/Vol] 7 mg/dL Low 9-24 [facility] Comment on above: Order Comment: Julia galindo Type: BLOOD SPECIMEN Ordering Facility: [facility] Address: [address] [place] [address] Performed By: #### 2 4321-2 #### [facility] CLIA [id number] [address] [place] [address] [place] CBC panel Auto (Bld)on 02-04 Erythrocyte distribution width (RBC) [Ratio] 13.3 % Normal 11.5-15.0 [facility] Comment on above: Order Comment: Speci men Type: BLOOD SPECIMEN Ordering Facility: [facility] Address: [address] [place] [address] Performed By: #### 5 8410-2 #### [facility] CLIA [id number] [address] [place] [address] [place] Hematocrit (Bld) [Volume fraction] 41.4 % Normal 39.0-51.0 [facility] Comment on above: Order Comment: Speci men Type: BLOOD SPECIMEN Ordering Facility: [facility] Address: [address] [place] [address] Performed By: #### 5 8410-2 #### [facility] CLIA [id number] [address] [place] [address] [place] Hemoglobin (Bld) [Mass/Vol] 14.2 g/dL Normal 13.0-17.0 [facility] Comment on above: Order Comment: Speci men Type: BLOOD SPECIMEN Ordering Facility: [facility] Address: [address] [place] [address] Performed By: #### 5 8410-2 #### [facility] CLIA [id number] [address] [place] [address] [place] MCH (RBC) [Entitic mass] 30.9 pg Normal 26.0-34.0 [facility] Comment on above: Order Comment: Speci men Type: BLOOD SPECIMEN Ordering Facility: [facility] Address: [address] [place] [address] Performed By: #### 5 8410-2 #### [facility] CLIA [id number] [address] [place] [address] [place] MCHC (RBC) [Mass/Vol] 34.3 g/dL Normal 30.5-36.0 [facility] Comment on above: Order Comment: Speci men Type: BLOOD SPECIMEN Ordering Facility: [facility] Address: [address] [place] [address] Performed By: #### 5 8410-2 #### [facility] CLIA [id number] [address] [place] [address] [place] MCV (RBC) [Entitic vol] 90.2 fL Normal 80.0-100.0 [facility] Comment on above: Order Comment: Speci men Type: BLOOD SPECIMEN Ordering Facility: [facility] Address: [address] [place] [address] Performed By: #### 5 8410-2 #### [facility] CLIA [id number] [address] [place] [address] [place] Nucleated RBC (Bld) [#/Vol] 10*3/uL Normal <0.01 [facility] Comment on above: Order Comment: Speci men Type: BLOOD SPECIMEN Ordering Facility: [facility] Address: [address] [place] [address] Performed By: #### 5 8410-2 #### [facility] CLIA [id number] [address] [place] [address] [place] Platelet mean volume (Bld) [Entitic vol] 9.6 fL Normal 9.0-12.7 [facility] Comment on above: Order Comment: Speci men Type: BLOOD SPECIMEN Ordering Facility: [facility] Address: [address] [place] [address] Performed By: #### 5 8410-2 #### [facility] CLIA [id number] [address] [place] [address] [place] Platelets (Bld) [#/Vol] 224 10*3/uL Normal 150-400 [facility] Comment on above: Order Comment: Speci men Type: BLOOD SPECIMEN Ordering Facility: [facility] Address: [address] [place] [address] Performed By: #### 5 8410-2 #### [facility] CLIA [id number] [address] [place] [address] [place] RBC (Bld) [#/Vol] 4.59 10*6/uL Normal 4.20-6.00 [facility] Comment on above: Order Comment: Speci men Type: BLOOD SPECIMEN Ordering Facility: [facility] Address: [address] [place] [address] Performed By: #### 5 8410-2 #### [facility] CLIA [id number] [address] [place] [address] [place] WBC (Bld) [#/Vol] 7.68 10*3/uL Normal 3.70-11.00 [facility] Comment on above: Order Comment: Speci men Type: BLOOD SPECIMEN Ordering Facility: [facility] Address: [address] [place] [address] Performed By: #### 5 8410-2 #### [facility] CLIA [id number] [address] [place] [address] [place] CONSULTon 02-05-2024 CONSULT HNO ID: [id number] Author: RACHID MICHELLE MD Service: Vascular Surgery Author Type: Physician Type: Consults Filed: 02/05/2024 21:00 Note Text: [facility] Service Date: 02/05/2024 Admit Date: 02/05/2024 Service Time: 12:48 PM LOS: 0 Vascular Physician: Rachid Michelle MD Subjective Chief Complaint: Threatened bypass HPI: Mesfin Brown is a 63 year old male referred by No att. providers found for an opinion regarding management of threatened RLE bypass. 63M with PMH right above-knee pop-DP bypass 02/2023 at [facility] (Dr. Ross) for ALI with severe tibial disease. He did not have any issues with this bypass and had normal duplex in April, until last weekend, when he experienced acute lower extremity pain and presented to his local ED. He was taken for urgent angiogram with concern for ALI. 02/02 angio with R SFA and tibial balloon angioplasty, tPA, EKOS. Intra-op findings of patent above-knee pop to DP bypass following these interventions, however repeat angio on 02/03 showed it to be occluded with occluded right popliteal artery, with no distal runoff. At this time the patient was told he would need an amputation. However, the patient began to feel better and so left the hospital to seek a second opinion here. Today, the patient reports no pain at rest. He does have some claudication, states up to ~2/10 when walking into the ED today. He reports that he is only taking ASA currently. His foot is warm with intact peroneal, PT, and popliteal signals. No wounds. Consultation requested by Dr. Thomas att. providers found for an opinion regarding THE ABOVE. My final recommendations will be communicated back to the requesting physician by way of shared Medical record or letter to requesting physician via US mail PAST MEDICAL HISTORY Diagnosis Date PAD (peripheral artery disease) ([facility]) 02/05/2024 PAST SURGICAL HISTORY Procedure Laterality Date ARTERIAL BYPASS Right 02/2023 Right above-knee pop to DP SVG bypass for ALI No family history on file. (Not in a hospital admission) No current facility-administered medications for this encounter. Medication and Non-Pharmacologic VTE Prophylaxis/Anticoagulants VTE Prophylaxis: Needs to be revised ALLERGIES No Known Allergies COMPLETE REVIEW OF SYSTEMS Constitutional: No weight loss, malaise or fevers. HEENT: No changes in hearing or vision, no nose bleeds or other nasal problems Resp: Negative for cough, wheezing, or shortness of breath Cardiovascular: Negative for chest pain, leg swelling or palpitations. + RLE pain, resolved. 2/10 claudication with short distances GI: Negative for abdominal discomfort, blood in stools or black stools or change in bowel habits Musculoskeletal: Negative for joint pain or swelling, back pain or muscle pain Hematologic/Lymphatic: Negative for prolonged bleeding, bruising easily or swollen nodes Neurologic: No history or headaches, syncope, paralysis, seizures or tremors Integumentary: Negative for lesions, rash, and itching. Objective BP 136/75 Pulse 86 Temp (Src) 98.6 (Oral) Resp 16 Wt 200 lb (90.7kg) SpO2 95% O2 Therapy: Room Air PHYSICAL EXAM Physical Exam Performed CONSTITUTIONAL: Well developed, Well nourished , and No acute distress NEUROLOGIC/PSYCHIATRIC: Alert, Oriented, and No gross focal neurologic deficits HEENT: PERRLA and EOM's intact LUNGS: Respiratory effort: abnormal HEART: Regular rate. Warm and well perfused throughout ABDOMEN: Non-distended INTEGUMENTARY: Wound - No SURGICAL SITES: Yes - well-healed RLE bypass and SVG harvest sites MUSCULOSKELETAL: No joint deformities Pulses/Signals: Radial: right - palpable; left - palpable Femoral: right - palpable; left - palpable Popliteal: right - biphasic signal DP: right - no signal; left - palpable PT: right - biphasic signal Peroneal: biphasic signal Bypass graft: No palpable pulse DATA: Laboratory: Recent Labs 02/05/24 1136 WBC 7.68 HB 14.2 HCT 41.4 PLT 224 Recent Labs 02/05/24 1056 NA 139 K 3.8 BUN 7* CREAT 0.77 GLUC 113* Radiology: I have personally reviewed the following images/data: OSH Records of angiogram. Images not available at this time Duplex RLE IMPRESSION Rachid Michelle MD was notified with results at 4:30 pm. RIGHT SIDE External iliac artery distal: patent . Common femoral artery : . Homogeneous plaque vs thrombus at distal. Vessel is patent from proximal to mid. Profunda femoral artery : patent . Superficial femoral artery throughout: occluded . Homogeneous plaque vs thrombus. Popliteal artery Above knee: occluded . Popliteal artery to dorsalis pedis artery bypass graft : occluded . Dorsalis pedis artery : occluded . Popliteal artery above knee: occluded . Popliteal artery proximal: reconstituted . Vessel reconstitutes via collateral (more content not included)... Normal [facility] ED NOTEon 02-05-2024 ED NOTE HNO ID: [id number] Author: ARNULFO DA SILVA RN Service: ? Author Type: Registered Nurse Type: ED Notes Filed: 02/05/2024 15:27 Note Text: Pt at US. Normal [facility] ED PROV NOTEon 02-05-2024 ED PROV NOTE HNO ID: [id number] Author: MERLIN ROCA DO Service: Emergency Medicine Author Type: Resident Type: ED Provider Notes Filed: 02/05/2024 17:02 Note Text: -- Attestation signed by Merlin Roca DO at 02/05/2024 5:02 PM Attending Note I evaluated the patient and personally participated in the hunter components. I agree with the resident's findings and plan with the following revisions and/or additions: 1103 Patient seen and examined. He presents to the ER for a second opinion regarding peripheral vascular disease. He has a history of a bypass in his or lower extremity from about a year ago. He started with elevating mild foot discomfort last week. He presented to the ER this week at [facility] emergency department. He states he had a CT performed and he was told the graft is not functioning. He was offered amputation. He request a second opinion. He states the pain is very mild. Declines anything for pain. He is on aspirin, no other blood thinners. No chest pain or shortness of breath. No resting pain. Discomfort with walking. On my exam he is resting comfortably, no distress, significant other at bedside. Heart is regular rate rhythm. Lungs are clear to auscultation. Abdomen is soft nontender. The right foot does not appear acutely ischemic. Sensation is intact. He has no paresthesia. Perfusion appears to be suitable. No skin breakdown or sores appreciated. No ulcers appreciated. I feel I can palpate a soft DP PT pulse right lower extremity. Will try to obtain a vascular probe to confirm. Will consult vascular surgery further recommendations. We will try to obtain outside records as well. [GA] 1229 Palpated pulses were confirmed with Doppler. [GA] 1435 Patient evaluated by vascular surgery. They ordered a arterial peripheral ultrasound. They recommend discharge home on current therapy in addition to anticoagulation. They agree with Enrique. Discussed with pharmacist who agrees. Ultrasound and final disposition recommendations by vascular surgery. [GA] 1640 Results are obtained and reviewed. They are reviewed with the vascular surgery service. They recommend discharge home and outpatient follow-up they will help secure follow-up for him. They recommend anticoagulation. Patient instructed to avoid NSAIDs while on anticoagulation. He was instructed to return to the ER for any bleeding concerns. No other concerns voiced at this time. Appreciative of the care provided in the ED. [GA] Signature: Merlin Roca DO Date: 02/05/2024 Time: 5:01 PM -- ED Provider Note Patient Name: Mesfin Brown : 1960 SERVICE DATE: 02/05/24 History Patient presents with: Leg Pain: Had bypass in right leg last year. Developed pain in right leg and saw MD yesterday who was unable to palpate pulse 63 y/o male, PMH of Peripheral Artery Disease, s/p RLE arterial bypass in 2022. Patient comes to the ED for second opinion. Reports episode of pain and coldness in his right foot that started last Saturday. [facility]. Patient brings limited records from institution but reports that Vascular Surgeon told him the graft had failed and he would need to have his leg amputated. Reports improvement of pain and temperature since admission. History provided by: Medical records, patient and spouse No past medical history on file. No past surgical history on file. No family history on file. Social History Tobacco Use Smoking status: Not on file Smokeless tobacco: Not on file Substance and Sexual Activity Alcohol use: Not on file Drug use: Not on file Sexual activity: Not on file ALLERGIES Not on File Review of Systems Constitutional: Negative for chills and fever. Cardiovascular: Negative for chest pain and leg swelling. Neurological: Negative for seizures, weakness and headaches. Physical Exam Vitals [02/05/24 0937] BP Pulse Temp Temp src Resp SpO2 Weight Height 168/101 (!) 105 37.2 ?C (98.9 ?F) Oral 18 96 % 90.7 kg (200 lb) -- Physical Exam Constitutional: Appearance: Normal appearance. Cardiovascular: Rate and Rhythm: Normal rate and regular rhythm. Pulmonary: Effort: Pulmonary effort is normal. Breath sounds: Normal breath sounds. Musculoskeletal: Legs: Comments: Surgical scar on medial right lower limb. Signal transduction on posterior tibialis arterial area. Skin: General: Skin is warm. Capillary Refill: Capillary refill takes less than 2 seconds. Neurological: General: No focal deficit present. Mental Status: He is alert and oriented to person, place, and time. Psychiatric: Mood and Affect: Mood normal. Behavior: Behavior normal. Diagnostic Testing ED Labs Ordered and (more content not included)... Normal [facility] ED Triage Noteon 02-05-2024 ED Triage Note HNO ID: [id number] Author: RAMSEY ANAYA MD Service: Emergency Medicine Author Type: Physician Type: ED Triage Notes Filed: 02/05/2024 09:46 Note Text: ED TRIAGE PROVIDER NOTE Patient Name: Mesfin Brown Service Date: 02/05/24 BRIEF HPI: This is a 63 year old male who presents to the ED with: history of prior RLE bypass, having leg pain again. Told by local vascular surgeon that graft is not functioning. Here for second opinion. BRIEF EXAM: Alert No distress Right foot warm but I cannot palpate PT or DP INITIAL WORKUP AND DECISION MAKING: Orders Placed This Encounter LACTATE - ED (POC) Basic Metabolic Panel Complete Blood Count SIGNATURE: Ramsey Anaya MD Normal [facility] LEG ARTERIAL PERIPH UNL V LABon 02-05-2024 LEG ARTERIAL PERIPH UNL VAS LAB Non-Invasive Vascular Laboratory [facility] J35 Lower Extremity Arterial Duplex Unilateral - Right Date of service/time: 02/05/2024 2:46:00 PM Name: MESFIN BRONW Date of : 1960 Age: 63 years Gender: M Clinical Indication Thrombosis of bypass graft. Post operative repair surveillance Known Above knee popliteal artery to dorsalis pedis artery bypass graft. TECHNIQUE -------- An arterial duplex ultrasound examination was performed, including grayscale imaging and color Doppler and spectral Doppler examination of the below mentioned arteries. FINDINGS -------- RIGHT ARTERIES External iliac distal: PSV: 66 cm/s. EDV: 0 cm/s. Multiphasic waveform. Common femoral proximal: PSV: 68 cm/s. EDV: 0 cm/s. Multiphasic waveform. Common femoral mid: PSV: 65 cm/s. EDV: 0 cm/s. Multiphasic waveform. Common femoral distal: PSV: 62 cm/s. EDV: 0 cm/s. Multiphasic waveform. Profunda femoral proximal: PSV: 85 cm/s. EDV: 0 cm/s. Multiphasic waveform. Superficial femoral origin: PSV: 0 cm/s. EDV: 0 cm/s. Absent waveform. Superficial femoral proximal: PSV: 0 cm/s. EDV: 0 cm/s. Absent waveform. Superficial femoral mid: PSV: 0 cm/s. EDV: 0 cm/s. Absent waveform. Superficial femoral distal: PSV: 0 cm/s. EDV: 0 cm/s. Absent waveform. Popliteal proximal: PSV: 100 cm/s. EDV: 24 cm/s. Monophasic, low resistive waveform. Popliteal mid: PSV: 26 cm/s. EDV: 7 cm/s. Monophasic, low resistive waveform. Popliteal distal: PSV: 20 cm/s. EDV: 6 cm/s. Monophasic, low resistive waveform. Posterior tibial proximal: PSV: 12 cm/s. EDV: 0 cm/s. Monophasic, low resistive waveform. Posterior tibial mid: PSV: 0 cm/s. EDV: 0 cm/s. Absent waveform. Posterior tibial distal: Retrograde flow. Peroneal proximal: PSV: 44 cm/s. EDV: 19 cm/s. Monophasic, low resistive waveform. Peroneal mid: PSV: 31 cm/s. EDV: 15 cm/s. Monophasic, low resistive waveform. Peroneal distal: PSV: 11 cm/s. EDV: 6 cm/s. Monophasic, low resistive waveform. Anterior tibial proximal: PSV: 21 cm/s. EDV: 7 cm/s. Monophasic, low resistive waveform. Anterior tibial mid: PSV: 15 cm/s. EDV: 8 cm/s. Monophasic, low resistive waveform. Anterior tibial distal: PSV: 8 cm/s. EDV: 4 cm/s. Monophasic, low resistive waveform. Arteries/Graft Popliteal artery Above knee (Proximal): PSV: 0 cm/s. EDV: 0 cm/s. Absent waveform. Popliteal artery to dorsalis pedis artery bypass graft proximal anastomosis: PSV: 0 cm/s. EDV: 0 cm/s. Absent waveform. Graft proximal: PSV: 0 cm/s. EDV: 0 cm/s. Absent waveform. Graft knee crease: PSV: 0 cm/s. EDV: 0 cm/s. Absent waveform. Graft proximal calf: PSV: 0 cm/s. EDV: 0 cm/s. Absent waveform. Graft mid calf: PSV: 0 cm/s. EDV: 0 cm/s. Absent waveform. Graft distal calf: PSV: 0 cm/s. EDV: 0 cm/s. Absent waveform. Graft distal: PSV: 0 cm/s. EDV: 0 cm/s. Absent waveform. Graft distal anastomosis: PSV: 0 cm/s. EDV: 0 cm/s. Absent waveform. Dorsalis pedis artery : PSV: 0 cm/s. EDV: 0 cm/s. Absent waveform. IMPRESSION Rachid Michelle MD was notified with results at 4:30 pm. RIGHT SIDE External iliac artery distal: patent . Common femoral artery : . Homogeneous plaque vs thrombus at distal. Vessel is patent from proximal to mid. Profunda femoral artery : patent . Superficial femoral artery throughout: occluded . Homogeneous plaque vs thrombus. Popliteal artery Above knee: occluded . Popliteal artery to dorsalis pedis artery bypass graft : occluded . Dorsalis pedis artery : occluded . Popliteal artery above knee: occluded . Popliteal artery proximal: reconstituted . Vessel reconstitutes via collateral flow. Plaque from proximal to distal. Posterior tibial artery mid: occluded . Vessel occludes and reconstitutes with retrograde flow at mid calf and remains retrograde at distal calf. Peroneal artery throughout: plaque noted without evidence of hemodynamically significant stenosis . Anterior tibial artery throughout: plaque noted without evidence of hemodynamically significant stenosis . Visualized in segments. Dorsalis pedis artery : occluded . Technologist: Salma GONZALEZT, RDMS Ordering physician: MERLIN ROCA Interpreting physician: Evi Matute MD, FORD [employer] Image : [id number] See Link below for Image Normal [facility] Activated partial thrombopla stin time (aPTT) in platelet poor plasma by coagulation aOrdered By: Justin Deras on 02-04-2024 aPTT Coag (PPP) [Time] 37.4 s High 25.1-36.5 [facility] Comment on above: A hematocrit value g reater than 55% may lead to inaccurate results in coagulation testing. Patients having hematocrit values >55% require a special collection tube for coagulation studies. Please contact the laboratory at [phone] for redraw instructions. Automated basophil %Ordered By: Justin Deras on 02-04-2024 Basophils/100 WBC (Bld) 0.3 % Normal . [facility] Comment on above: Order Comment: Comme nt Every 6 hour while on tPA Performed By: #### C BC, CMP #### [facility] [address] [place] [address] Automated basophil countOrde red By: Justin Deras on 02-04-2024 Basophils (Bld) [#/Vol] 0.0 10*3/uL Normal 0.0-0.2 [facility] Comment on above: Order Comment: Comme nt Every 6 hour while on tPA Result Comment: PERF ORMED BY: [place] [address] PATHOLOGIST SPOUT POSITIONER RODRIGUEZ SHEIKH M.D. Performed By: #### C BC, CMP #### [facility] [address] [place] [address] Automated blood monocyte cou ntOrdered By: Justin Deras on 02-04-2024 Monocytes (Bld) [#/Vol] 0.6 10*3/uL Normal 0.0-0.8 [facility] Comment on above: Order Comment: Comme nt Every 6 hour while on tPA Performed By: #### C BC, CMP #### [address] Automated eosinophil %Ordere d By: Justin Deras on 02-04-2024 Eosinophils/100 WBC (Bld) 0.2 % Normal . [facility] Comment on above: Order Comment: Comme nt Every 6 hour while on tPA Performed By: #### C BC, CMP #### [address] Automated eosinophil countOr dered By: Justin Deras on 02-04-2024 Eosinophils (Bld) [#/Vol] 0.0 10*3/uL Normal 0.0-0.45 [facility] Comment on above: Order Comment: Comme nt Every 6 hour while on tPA Performed By: #### C BC, CMP #### [address] Automated monocyte %Ordered By: Justin Augusta on 02-04-2024 Monocytes/100 WBC (Bld) 8.5 % Normal . [facility] Comment on above: Order Comment: Comme nt Every 6 hour while on tPA Performed By: #### C BC, CMP #### [address] Automated neutrophil %Ordere d By: Justin Deras on 02-04-2024 Neutrophils/100 WBC (Bld) 72.4 % Normal . [facility] Comment on above: Order Comment: Comme nt Every 6 hour while on tPA Performed By: #### C BC, CMP #### [address] Coagulation Profileon 2023 aPTT Coag (Bld) [Time] 37.4 s High 25.1-36.5 [facility] Comment on above: Order Comment: Comme nt Every 6 hours while on tPA Result Comment: A he matocrit value greater than 55% may lead to inaccurate results in coagulation testing. Patients having hematocrit values >55% require a special collection tube for coagulation studies. Please contact the laboratory at [phone] for redraw instructions. Performed By: #### C BC, CMP #### [facility] [address] [place] [address] [facility] aPTT Coag (Bld) [Time] 33.7 s Normal 25.1-36.5 [facility] Comment on above: Order Comment: Comme nt Every 6 hour while on tPA Result Comment: A he matocrit value greater than 55% may lead to inaccurate results in coagulation testing. Patients having hematocrit values >55% require a special collection tube for coagulation studies. Please contact the laboratory at [phone] for redraw instructions. Performed By: #### C BC #### [address] [address] [facility] INR Coag (PPP) [Relative time] 1.2 {INR} Normal [facility] Comment on above: Order Comment: Comme nt Every 6 hour while on tPA Result Comment: INR Therapeutic Range A) Pre- and Peroperative OAT started two weeks before surgery. NOT HIP SURGERY: 1.5 - 2.5 HIP SURGERY: 2 - 3 B) Primary and secondary prevention of venous THROMBOSIS: 2 - 3 C) Active venous thrombosis, pulmonary embolism and prevention of recurrent venous thrombosis: 2 - 3 D) Prevention of arterial thromboembolism including patients with mechanical heart valves: 3 - 4.5 Performed By: #### C BC #### [place] [id number] [facility] PT Coag (PPP) [Time] 13.5 s High 9.0-12.9 [facility] Comment on above: Order Comment: Comme nt Every 6 hour while on tPA Result Comment: A he matocrit value greater than 55% may lead to inaccurate results in coagulation testing. Patients having hematocrit values >55% require a special collection tube for coagulation studies. Please contact the laboratory at [phone] for redraw instructions. Performed By: #### C BC #### [address] [address] [facility] Complete Blood Count Auto Di ffon 02-04-2024 Mean Corpuscular HGB Conc 34.2 g/dL Normal 32.5-35.6 [facility] Comment on above: Order Comment: Comme nt Every 6 hour while on tPA Performed By: #### C BC, CMP #### [address] NRBC% 0.1 /100{WBC} Normal 0-0.5 [facility] Comment on above: Order Comment: Comme nt Every 6 hour while on tPA Performed By: #### C BC, CMP #### [address] Basophils (Bld) [#/Vol] 0.1 10*3/uL Normal 0.0-0.2 [facility] Comment on above: Order Comment: Comme nt Every 6 hour while on tPA Result Comment: PERF ORMED BY: [place] [address] PATHOLOGIST SPOUT POSITIONER RODRIGUEZ SHEIKH M.D. Performed By: #### C BC #### [address] Basophils/100 WBC (Bld) 0.6 % Normal . [facility] Comment on above: Order Comment: Comme nt Every 6 hour while on tPA Performed By: #### C BC #### [address] Eosinophils (Bld) [#/Vol] 0.0 10*3/uL Normal 0.0-0.45 [facility] Comment on above: Order Comment: Comme nt Every 6 hour while on tPA Performed By: #### C BC #### [address] Eosinophils/100 WBC (Bld) 0.1 % Normal . [facility] Comment on above: Order Comment: Comme nt Every 6 hour while on tPA Performed By: #### C BC #### [address] Erythrocyte distribution width (RBC) [Ratio] 14.6 % Normal 12.0-14.8 [facility] Comment on above: Order Comment: Comme nt Every 6 hour while on tPA Performed By: #### C BC #### [address] Hematocrit (Bld) [Volume fraction] 40.5 % Normal 38.8-50.0 [facility] Comment on above: Order Comment: Comme nt Every 6 hour while on tPA Performed By: #### C BC #### [address] Hemoglobin (Bld) [Mass/Vol] 13.9 g/dL Normal 13.0-17.0 [facility] Comment on above: Order Comment: Comme nt Every 6 hour while on tPA Performed By: #### C BC #### [address] Lymphocytes (Bld) [#/Vol] 1.0 10*3/uL Normal 1.00-4.8 [facility] Comment on above: Order Comment: Comme nt Every 6 hour while on tPA Performed By: #### C BC #### [address] Lymphocytes/100 WBC (Bld) 11.2 % Normal . [facility] Comment on above: Order Comment: Comme nt Every 6 hour while on tPA Performed By: #### C BC #### [address] MCH (RBC) [Entitic mass] 31.5 pg Normal 27.5-35.2 [facility] Comment on above: Order Comment: Comme nt Every 6 hour while on tPA Performed By: #### C BC #### [address] MCV (RBC) [Entitic vol] 91.9 fL Normal 83.5-101 [facility] Comment on above: Order Comment: Comme nt Every 6 hour while on tPA Performed By: #### C BC #### [address] Mean Corpuscular HGB Conc 34.3 g/dL Normal 32.5-35.6 [facility] Comment on above: Order Comment: Comme nt Every 6 hour while on tPA Performed By: #### C BC #### [address] Monocytes (Bld) [#/Vol] 0.6 10*3/uL Normal 0.0-0.8 [facility] Comment on above: Order Comment: Comme nt Every 6 hour while on tPA Performed By: #### C BC #### [place] [address] [place] Monocytes/100 WBC (Bld) 6.9 % Normal . [facility] Comment on above: Order Comment: Comme nt Every 6 hour while on tPA Performed By: #### C BC #### [address] Neutrophils (Bld) [#/Vol] 7.1 10*3/uL Normal 1.8-7.7 [facility] Comment on above: Order Comment: Comme nt Every 6 hour while on tPA Performed By: #### C BC #### [address] Neutrophils/100 WBC (Bld) 81.2 % Normal . [facility] Comment on above: Order Comment: Comme nt Every 6 hour while on tPA Performed By: #### C BC #### [place] [address] [place] NRBC% 0.1 /100{WBC} Normal 0-0.5 [facility] Comment on above: Order Comment: Comme nt Every 6 hour while on tPA Performed By: #### C BC #### [place] [address] [place] Platelet mean volume (Bld) [Entitic vol] 7.1 fL Normal 6.6-10.1 [facility] Comment on above: Order Comment: Comme nt Every 6 hour while on tPA Performed By: #### C BC #### [place] [address] [place] Platelets (Bld) [#/Vol] 244 10*3/uL Normal 150-450 [facility] Comment on above: Order Comment: Comme nt Every 6 hour while on tPA Performed By: #### C BC #### [place] [address] [place] RBC (Bld) [#/Vol] 4.41 10*6/uL Normal 3.90-5.60 [facility] Comment on above: Order Comment: Comme nt Every 6 hour while on tPA Performed By: #### C BC #### [address] WBC (Bld) [#/Vol] 8.7 10*3/uL Normal 4.1-10.5 [facility] Comment on above: Order Comment: Comme nt Every 6 hour while on tPA Performed By: #### C BC #### [address] Erythrocyte distribution wid th [Ratio] by Automated countOrdered By: Justin Deras on 02-04-2024 Erythrocyte distribution width (RBC) [Ratio] 14.5 % Normal 12.0-14.8 [facility] Comment on above: Order Comment: Comme nt Every 6 hour while on tPA Performed By: #### C BC, CMP #### [address] Erythrocytes [#/volume] in B lood by Automated countOrdered By: Justin Deras on 02-04-2024 RBC (Bld) [#/Vol] 4.41 10*6/uL Normal 3.90-5.60 [facility] Comment on above: Order Comment: Comme nt Every 6 hour while on tPA Performed By: #### C BC, CMP #### [address] Fibrinogenon 02-04-2024 Fibrinogen 97 mg/dL Low 200-393 [facility] Comment on above: Order Comment: Comme nt Every 6 hours while on tPA Result Comment: A he matocrit value greater than 55% may lead to inaccurate results in coagulation testing. Patients having hematocrit values >55% require a special collection tube for coagulation studies. Please contact the laboratory at [phone] for redraw instructions. PERFORMED BY: [place] [address] PATHOLOGIST SPOUT POSITIONER RODRIGUEZ SHEIKH M.D. Performed By: #### C BC, CMP #### [address] Fibrinogen 101 mg/dL Low 200-393 [facility] Comment on above: Order Comment: Comme nt Every 6 hour while on tPA Result Comment: A he matocrit value greater than 55% may lead to inaccurate results in coagulation testing. Patients having hematocrit values >55% require a special collection tube for coagulation studies. Please contact the laboratory at [phone] for redraw instructions. PERFORMED BY: [place] [address] PATHOLOGIST SPOUT POSITIONER RODRIGUEZ SHEIKH M.D. Performed By: #### C BC #### [place] [address] [place] Fibrinogen [Mass/volume] in Platelet poor plasma by Coagulation assayOrdered By: Justin Deras on 02-04-2024 Fibrinogen Coag (PPP) [Mass/Vol] 97 mg/dL Low 200-393 [facility] Comment on above: A hematocrit value g reater than 55% may lead to inaccurate results in coagulation testing. Patients having hematocrit values >55% require a special collection tube for coagulation studies. Please contact the laboratory at [phone] for redraw instructions. Hematocrit [Volume Fraction] of Blood by Automated countOrdered By: Justin Deras on 02-04-2024 Hematocrit (Bld) [Volume fraction] 40.5 % Normal 38.8-50.0 [facility] Comment on above: Order Comment: Comme nt Every 6 hour while on tPA Performed By: #### C BC, CMP #### [place] [id number] [place] Hemoglobin [Mass/volume] in BloodOrdered By: Justin Deras on 02-04-2024 Hemoglobin (Bld) [Mass/Vol] 13.8 g/dL Normal 13.0-17.0 [facility] Comment on above: Order Comment: Comme nt Every 6 hour while on tPA Performed By: #### C BC, CMP #### [place] [id number] [place] INR in Platelet poor plasma by Coagulation assayOrdered By: Justin Deras on 02-04-2024 INR Coag (PPP) [Relative time] 1.2 {INR} Normal [facility] Comment on above: INR Therapeutic Rang e A) Pre- and Peroperative OAT started two weeks before surgery. NOT HIP SURGERY: 1.5 - 2.5 HIP SURGERY: 2 - 3B) Primary and secondary prevention of venous THROMBOSIS: 2 - 3C) Active venous thrombosis, pulmonary embolismand prevention of recurrent venous thrombosis: 2 - 3D) Prevention of arterial thromboembolismincluding patients with mechanical heart valves: 3 - 4.5 Order Comment: Comme nt Every 6 hours while on tPA Result Comment: INR Therapeutic Range A) Pre- and Peroperative OAT started two weeks before surgery. NOT HIP SURGERY: 1.5 - 2.5 HIP SURGERY: 2 - 3 B) Primary and secondary prevention of venous THROMBOSIS: 2 - 3 C) Active venous thrombosis, pulmonary embolism and prevention of recurrent venous thrombosis: 2 - 3 D) Prevention of arterial thromboembolism including patients with mechanical heart valves: 3 - 4.5 Performed By: #### C NOHEMY, CMP #### [facility] [address] Leukocytes [#/volume] correc shirley for nucleated erythrocytes in Blood by Automated counOrdered By: Justin Deras on 02-04-2024 WBC corrected for nucl RBC Auto (Bld) [#/Vol] 7.4 10*3/uL 4.1-10.5 [facility] Leukocytes [#/volume] in Blo od by Automated countOrdered By: Justin Deras on 02-04-2024 WBC (Bld) [#/Vol] 7.4 10*3/uL Normal 4.1-10.5 [facility] Comment on above: Order Comment: Comme nt Every 6 hour while on tPA Performed By: #### C NOHEMY, CMP #### [facility] [address] [place] [address] [place] Lymphocytes [#/volume] in Bl ood by Automated countOrdered By: Justin Deras on 02-04-2024 Lymphocytes (Bld) [#/Vol] 1.4 10*3/uL Normal 1.00-4.8 [facility] Comment on above: Order Comment: Comme nt Every 6 hour while on tPA Performed By: #### C BC, CMP #### [place] [address] [place] Lymphocytes/100 leukocytes i n Blood by Automated countOrdered By: Justin Deras on 02-04-2024 Lymphocytes/100 WBC (Bld) 18.6 % Normal . [facility] Comment on above: Order Comment: Comme nt Every 6 hour while on tPA Performed By: #### C BC, CMP #### [place] [address] [place] MCH [Entitic mass] by Automa shirley countOrdered By: Justin Deras on 02-04-2024 MCH (RBC) [Entitic mass] 31.3 pg Normal 27.5-35.2 [facility] Comment on above: Order Comment: Comme nt Every 6 hour while on tPA Performed By: #### C BC, CMP #### [address] MCHC Auto (RBC) [Mass/Vol]Or dered By: Justin Deras on 02-04-2024 MCHC (RBC) [Mass/Vol] 34.2 g/dL 32.5-35.[address] [facility] MCV [Entitic volume] by Auto mated countOrdered By: Justin Deras on 02-04-2024 MCV (RBC) [Entitic vol] 91.7 fL Normal 83.5-101 [facility] Comment on above: Order Comment: Comme nt Every 6 hour while on tPA Performed By: #### C BC, CMP #### [place] [address] [place] Neutrophils [#/volume] in Bl ood by Automated countOrdered By: Justin Deras on 02-04-2024 Neutrophils (Bld) [#/Vol] 5.3 10*3/uL Normal 1.8-7.7 [facility] Comment on above: Order Comment: Comme nt Every 6 hour while on tPA Performed By: #### C BC, CMP #### [place] [address] [place] Nucleated erythrocytes [Pres ence] in Blood by Automated countOrdered By: Justin Deras on 02-04-2024 Nucleated RBC Auto Ql (Bld) 0.1 /100{WBC} 0-0.5 [facility] Platelet mean volume [Entiti c volume] in Blood by Automated countOrdered By: Justin Deras on 02-04-2024 Platelet mean volume (Bld) [Entitic vol] 7.1 fL Normal 6.6-10.1 [facility] Comment on above: Order Comment: Comme nt Every 6 hour while on tPA Performed By: #### C BC, CMP #### [facility] [address] Platelets [#/volume] in Bloo d by Automated countOrdered By: Justin Deras on 02-04-2024 Platelets (Bld) [#/Vol] 219 10*3/uL Normal 150-450 [facility] Comment on above: Order Comment: Comme nt Every 6 hour while on tPA Performed By: #### C BC, CMP #### [facility] [address] Prothrombin time (PT)Ordered By: Justin Deras on 02-04-2024 PT Coag (PPP) [Time] 13.6 s High 9.0-12.9 [facility] Comment on above: A hematocrit value g reater than 55% may lead to inaccurate results in coagulation testing. Patients having hematocrit values >55% require a special collection tube for coagulation studies. Please contact the laboratory at [phone] for redraw instructions. Order Comment: Comme nt Every 6 hours while on tPA Result Comment: A he matocrit value greater than 55% may lead to inaccurate results in coagulation testing. Patients having hematocrit values >55% require a special collection tube for coagulation studies. Please contact the laboratory at [phone] for redraw instructions. Performed By: #### C BC, CMP #### [facility] [address] Activated partial thrombopla stin time (aPTT) in platelet poor plasma by coagulation aOrdered By: Mariah Wolfe on 02-03-2024 aPTT Coag (PPP) [Time] 29.2 s 25.1-36.5 [facility] Comment on above: A hematocrit value g reater than 55% may lead to inaccurate results in coagulation testing. Patients having hematocrit values >55% require a special collection tube for coagulation studies. Please contact the laboratory at [phone] for redraw instructions. Automated basophil %Ordered By: Mariah Wolfe on 02-03-2024 Basophils/100 WBC (Bld) 0.6 % Normal . [facility] Comment on above: Performed By: #### C BC, CMP #### [address] Automated basophil countOrde red By: Mariah Wolfe on 02-03-2024 Basophils (Bld) [#/Vol] 0.0 10*3/uL Normal 0.0-0.2 [facility] Comment on above: Result Comment: PERF ORMED BY: [place] [address] PATHOLOGIST SPOUT POSITIONER RODRIGUEZ SHEIKH M.D. Performed By: #### C BC, CMP #### [address] Automated blood monocyte cou ntOrdered By: Mariah Wolfe on 02-03-2024 Monocytes (Bld) [#/Vol] 0.3 10*3/uL Normal 0.0-0.8 [facility] Comment on above: Performed By: #### C BC, CMP #### [address] Automated eosinophil %Ordere d By: Mariah Wolfe on 02-03-2024 Eosinophils/100 WBC (Bld) 0.8 % Normal . [facility] Comment on above: Performed By: #### C BC, CMP #### [address] Automated eosinophil countOr dered By: Mariah Wolfe on 02-03-2024 Eosinophils (Bld) [#/Vol] 0.1 10*3/uL Normal 0.0-0.45 [facility] Comment on above: Performed By: #### C BC, CMP #### [address] Automated monocyte %Ordered By: Mariah Wolfe on 02-03-2024 Monocytes/100 WBC (Bld) 5.1 % Normal . [facility] Comment on above: Performed By: #### C BC, CMP #### [address] Automated neutrophil %Ordere d By: Mariah Wolfe on 02-03-2024 Neutrophils/100 WBC (Bld) 59.6 % Normal . [facility] Comment on above: Performed By: #### C BC, CMP #### [address] Basic Metabolic Panelon 01-18 Creatinine Clr Calc Pharmacy 86.07 Normal [facility] Comment on above: Result Comment: PERF ORMED BY: [place] [address] PATHOLOGIST SPOUT POSITIONER RODRIGUEZ SHEIKH M.D. Performed By: #### C BC, CMP #### [address] GFR/1.73 sq M.predicted MDRD (S/P/Bld) [Vol rate/Area] mL/min/{1.73_m2} Normal [facility] Comment on above: Performed By: #### C BC, CMP #### [address] Calcium [Mass/volume] in Ser um or PlasmaOrdered By: Mariah Wolfe on 02-03-2024 Calcium [Mass/Vol] 9.2 mg/dL Normal 8.6-10.3 [facility] Comment on above: Performed By: #### C BC, CMP #### [place] [address] [place] Carbon dioxide, total [Moles /volume] in Serum or PlasmaOrdered By: Mariah Wolfe on 02-03-2024 CO2 [Moles/Vol] 25.9 mmol/L Normal 21.0-31.0 [facility] Comment on above: Performed By: #### C BC, CMP #### [place] [address] [place] Chloride [Moles/volume] in [place] or PlasmaOrdered By: Mariah Wolfe on 02-03-2024 Chloride [Moles/Vol] 106 mmol/L Normal 98-107 [facility] Comment on above: Performed By: #### C BC, CMP #### [facility] [address] [place] [id number] [facility] Coagulation Profileon 2023 aPTT Coag (Bld) [Time] 30.9 s Normal 25.1-36.5 [facility] Comment on above: Order Comment: Comme nt Every 6 hours while on tPA Result Comment: A he matocrit value greater than 55% may lead to inaccurate results in coagulation testing. Patients having hematocrit values >55% require a special collection tube for coagulation studies. Please contact the laboratory at [phone] for redraw instructions. Performed By: #### P P, CBC, FIB-C #### [place] [id number] [facility] INR Coag (PPP) [Relative time] 1.1 {INR} Normal [facility] Comment on above: Order Comment: Comme nt Every 6 hours while on tPA Result Comment: INR Therapeutic Range A) Pre- and Peroperative OAT started two weeks before surgery. NOT HIP SURGERY: 1.5 - 2.5 HIP SURGERY: 2 - 3 B) Primary and secondary prevention of venous THROMBOSIS: 2 - 3 C) Active venous thrombosis, pulmonary embolism and prevention of recurrent venous thrombosis: 2 - 3 D) Prevention of arterial thromboembolism including patients with mechanical heart valves: 3 - 4.5 Performed By: #### P P, CBC, FIB-C #### [facility] [address] [place] [id number] [facility] PT Coag (PPP) [Time] 12.4 s Normal 9.0-12.9 [facility] Comment on above: Order Comment: Comme nt Every 6 hours while on tPA Result Comment: A he matocrit value greater than 55% may lead to inaccurate results in coagulation testing. Patients having hematocrit values >55% require a special collection tube for coagulation studies. Please contact the laboratory at [phone] for redraw instructions. Performed By: #### P P, CBC, FIB-C #### [facility] [address] aPTT Coag (Bld) [Time] 37.6 s High 25.1-36.5 [facility] Comment on above: Order Comment: Comme nt Every 6 hour while on tPA Result Comment: A he matocrit value greater than 55% may lead to inaccurate results in coagulation testing. Patients having hematocrit values >55% require a special collection tube for coagulation studies. Please contact the laboratory at [phone] for redraw instructions. Performed By: #### C BC #### [address] INR Coag (PPP) [Relative time] 1.0 {INR} Normal [facility] Comment on above: Order Comment: Comme nt Every 6 hour while on tPA Result Comment: INR Therapeutic Range A) Pre- and Peroperative OAT started two weeks before surgery. NOT HIP SURGERY: 1.5 - 2.5 HIP SURGERY: 2 - 3 B) Primary and secondary prevention of venous THROMBOSIS: 2 - 3 C) Active venous thrombosis, pulmonary embolism and prevention of recurrent venous thrombosis: 2 - 3 D) Prevention of arterial thromboembolism including patients with mechanical heart valves: 3 - 4.5 Performed By: #### C BC #### [place] [id number] [facility] PT Coag (PPP) [Time] 11.7 s Normal 9.0-12.9 [facility] Comment on above: Order Comment: Comme nt Every 6 hour while on tPA Result Comment: A he matocrit value greater than 55% may lead to inaccurate results in coagulation testing. Patients having hematocrit values >55% require a special collection tube for coagulation studies. Please contact the laboratory at [phone] for redraw instructions. Performed By: #### C BC #### [place] [id number] [facility] Complete Blood Count Auto Di ffon 02-03-2024 Basophils (Bld) [#/Vol] 0.0 10*3/uL Normal 0.0-0.2 [facility] Comment on above: Order Comment: Comme nt Every 6 hour while on tPA Result Comment: PERF ORMED BY: [place] [address] PATHOLOGIST SPOUT POSITIONER RODRIGUEZ SHEIKH M.D. Performed By: #### P P, CBC, FIB-C #### [address] Basophils/100 WBC (Bld) 0.3 % Normal . [facility] Comment on above: Order Comment: Comme nt Every 6 hour while on tPA Performed By: #### P P, CBC, FIB-C #### [address] Eosinophils (Bld) [#/Vol] 0.0 10*3/uL Normal 0.0-0.45 [facility] Comment on above: Order Comment: Comme nt Every 6 hour while on tPA Performed By: #### P P, CBC, FIB-C #### [address] Eosinophils/100 WBC (Bld) 0.1 % Normal . [facility] Comment on above: Order Comment: Comme nt Every 6 hour while on tPA Performed By: #### P P, CBC, FIB-C #### [address] Erythrocyte distribution width (RBC) [Ratio] 14.1 % Normal 12.0-14.8 [facility] Comment on above: Order Comment: Comme nt Every 6 hour while on tPA Performed By: #### P P, CBC, FIB-C #### [address] Hematocrit (Bld) [Volume fraction] 41.6 % Normal 38.8-50.0 [facility] Comment on above: Order Comment: Comme nt Every 6 hour while on tPA Performed By: #### P P, CBC, FIB-C #### [address] Hemoglobin (Bld) [Mass/Vol] 14.1 g/dL Normal 13.0-17.0 [facility] Comment on above: Order Comment: Comme nt Every 6 hour while on tPA Performed By: #### P P, CBC, FIB-C #### [address] Lymphocytes (Bld) [#/Vol] 0.8 10*3/uL Low 1.00-4.8 [facility] Comment on above: Order Comment: Comme nt Every 6 hour while on tPA Performed By: #### P P, CBC, FIB-C #### [address] Lymphocytes/100 WBC (Bld) 6.6 % Normal . [facility] Comment on above: Order Comment: Comme nt Every 6 hour while on tPA Performed By: #### P P, CBC, FIB-C #### [address] MCH (RBC) [Entitic mass] 31.2 pg Normal 27.5-35.2 [facility] Comment on above: Order Comment: Comme nt Every 6 hour while on tPA Performed By: #### P P, CBC, FIB-C #### [address] MCV (RBC) [Entitic vol] 91.8 fL Normal 83.5-101 [facility] Comment on above: Order Comment: Comme nt Every 6 hour while on tPA Performed By: #### P P, CBC, FIB-C #### [address] Mean Corpuscular HGB Conc 34.0 g/dL Normal 32.5-35.6 [facility] Comment on above: Order Comment: Comme nt Every 6 hour while on tPA Performed By: #### P P, CBC, FIB-C #### [address] Monocytes (Bld) [#/Vol] 0.7 10*3/uL Normal 0.0-0.8 [facility] Comment on above: Order Comment: Comme nt Every 6 hour while on tPA Performed By: #### P P, CBC, FIB-C #### [place] [address] [place] Monocytes/100 WBC (Bld) 6.1 % Normal . [facility] Comment on above: Order Comment: Comme nt Every 6 hour while on tPA Performed By: #### P P, CBC, FIB-C #### [facility] [address] Neutrophils (Bld) [#/Vol] 10.5 10*3/uL High 1.8-7.7 [facility] Comment on above: Order Comment: Comme nt Every 6 hour while on tPA Performed By: #### P P, CBC, FIB-C #### [address] Neutrophils/100 WBC (Bld) 86.9 % Normal . [facility] Comment on above: Order Comment: Comme nt Every 6 hour while on tPA Performed By: #### P P, CBC, FIB-C #### [address] NRBC% 0.1 /100{WBC} Normal 0-0.5 [facility] Comment on above: Order Comment: Comme nt Every 6 hour while on tPA Performed By: #### P P, CBC, FIB-C #### [address] Platelet mean volume (Bld) [Entitic vol] 7.5 fL Normal 6.6-10.1 [facility] Comment on above: Order Comment: Comme nt Every 6 hour while on tPA Performed By: #### P P, CBC, FIB-C #### [place] [address] [place] Platelets (Bld) [#/Vol] 266 10*3/uL Normal 150-450 [facility] Comment on above: Order Comment: Comme nt Every 6 hour while on tPA Performed By: #### P P, CBC, FIB-C #### [place] [address] [place] RBC (Bld) [#/Vol] 4.53 10*6/uL Normal 3.90-5.60 [facility] Comment on above: Order Comment: Comme nt Every 6 hour while on tPA Performed By: #### P P, CBC, FIB-C #### [address] WBC (Bld) [#/Vol] 12.0 10*3/uL High 4.1-10.5 [facility] Comment on above: Order Comment: Comme nt Every 6 hour while on tPA Performed By: #### P P, CBC, FIB-C #### [address] Basophils (Bld) [#/Vol] 0.0 10*3/uL Normal 0.0-0.2 [facility] Comment on above: Order Comment: Comme nt Every 6 hour while on tPA Result Comment: PERF ORMED BY: [place] [address] PATHOLOGIST SPOUT POSITIONER RODRIGUEZ SHEIKH M.D. Performed By: #### C BC, CMP #### [address] Basophils/100 WBC (Bld) 0.3 % Normal . [facility] Comment on above: Order Comment: Comme nt Every 6 hour while on tPA Performed By: #### C BC, CMP #### [address] Eosinophils (Bld) [#/Vol] 0.0 10*3/uL Normal 0.0-0.45 [facility] Comment on above: Order Comment: Comme nt Every 6 hour while on tPA Performed By: #### C BC, CMP #### [address] Eosinophils/100 WBC (Bld) 0.3 % Normal . [facility] Comment on above: Order Comment: Comme nt Every 6 hour while on tPA Performed By: #### C BC, CMP #### [address] Erythrocyte distribution width (RBC) [Ratio] 14.0 % Normal 12.0-14.8 [facility] Comment on above: Order Comment: Comme nt Every 6 hour while on tPA Performed By: #### C BC, CMP #### [address] Hematocrit (Bld) [Volume fraction] 42.7 % Normal 38.8-50.0 [facility] Comment on above: Order Comment: Comme nt Every 6 hour while on tPA Performed By: #### C BC, CMP #### [address] Hemoglobin (Bld) [Mass/Vol] 14.6 g/dL Normal 13.0-17.0 [facility] Comment on above: Order Comment: Comme nt Every 6 hour while on tPA Performed By: #### C BC, CMP #### [address] Lymphocytes (Bld) [#/Vol] 1.7 10*3/uL Normal 1.00-4.8 [facility] Comment on above: Order Comment: Comme nt Every 6 hour while on tPA Performed By: #### C BC, CMP #### [address] Lymphocytes/100 WBC (Bld) 15.8 % Normal . [facility] Comment on above: Order Comment: Comme nt Every 6 hour while on tPA Performed By: #### C BC, CMP #### [address] MCH (RBC) [Entitic mass] 31.6 pg Normal 27.5-35.2 [facility] Comment on above: Order Comment: Comme nt Every 6 hour while on tPA Performed By: #### C BC, CMP #### [address] MCV (RBC) [Entitic vol] 92.8 fL Normal 83.5-101 [facility] Comment on above: Order Comment: Comme nt Every 6 hour while on tPA Performed By: #### C BC, CMP #### [address] Mean Corpuscular HGB Conc 34.1 g/dL Normal 32.5-35.6 [facility] Comment on above: Order Comment: Comme nt Every 6 hour while on tPA Performed By: #### C BC, CMP #### [place] [address] [place] Monocytes (Bld) [#/Vol] 0.4 10*3/uL Normal 0.0-0.8 [facility] Comment on above: Order Comment: Comme nt Every 6 hour while on tPA Performed By: #### C BC, CMP #### [place] [address] [place] Monocytes/100 WBC (Bld) 3.2 % Normal . [facility] Comment on above: Order Comment: Comme nt Every 6 hour while on tPA Performed By: #### C BC, CMP #### [place] [address] [place] Neutrophils (Bld) [#/Vol] 8.8 10*3/uL High 1.8-7.7 [facility] Comment on above: Order Comment: Comme nt Every 6 hour while on tPA Performed By: #### C BC, CMP #### [place] [address] [place] Neutrophils/100 WBC (Bld) 80.4 % Normal . [facility] Comment on above: Order Comment: Comme nt Every 6 hour while on tPA Performed By: #### C BC, CMP #### [place] [address] [place] NRBC% 0.1 /100{WBC} Normal 0-0.5 [facility] Comment on above: Order Comment: Comme nt Every 6 hour while on tPA Performed By: #### C BC, CMP #### [place] [address] [place] Platelet mean volume (Bld) [Entitic vol] 8.3 fL Normal 6.6-10.1 [facility] Comment on above: Order Comment: Comme nt Every 6 hour while on tPA Performed By: #### C BC, CMP #### [place] [id number] [place] Platelets (Bld) [#/Vol] 277 10*3/uL Normal 150-450 [facility] Comment on above: Order Comment: Comme nt Every 6 hour while on tPA Performed By: #### C BC, CMP #### [address] RBC (Bld) [#/Vol] 4.61 10*6/uL Normal 3.90-5.60 [facility] Comment on above: Order Comment: Comme nt Every 6 hour while on tPA Performed By: #### C BC, CMP #### [address] WBC (Bld) [#/Vol] 11.0 10*3/uL High 4.1-10.5 [facility] Comment on above: Order Comment: Comme nt Every 6 hour while on tPA Performed By: #### C BC, CMP #### [address] Mean Corpuscular HGB Conc 34.0 g/dL Normal 32.5-35.6 [facility] Comment on above: Performed By: #### C BC, CMP #### [place] [address] [place] Monocytes/100 WBC (Bld) 20.84 % High 0.00-20.00 [facility] Comment on above: Result Comment: For adults in ED, MDW > 20.0 may be associated with a higher risk of sepsis during the first 12 hrs of hospital admission Performed By: #### C BC, CMP #### [place] [address] [place] NRBC% 0.1 /100{WBC} Normal 0-0.5 [facility] Comment on above: Performed By: #### C BC, CMP #### [place] [address] [place] Creatinine [Mass/volume] in Serum or PlasmaOrdered By: Mariah Wolfe on 02-03-2024 Creatinine [Mass/Vol] 0.96 mg/dL Normal 0.70-1.[address] [facility] Comment on above: Performed By: #### C BC, CMP #### [address] Erythrocyte distribution wid th [Ratio] by Automated countOrdered By: Mariah Wolfe on 02-03-2024 Erythrocyte distribution width (RBC) [Ratio] 14.2 % Normal 12.0-14.8 [facility] Comment on above: Performed By: #### C BC, CMP #### [address] Erythrocytes [#/volume] in B lood by Automated countOrdered By: Mariah Wolfe on 02-03-2024 RBC (Bld) [#/Vol] 4.92 10*6/uL Normal 3.90-5.60 [facility] Comment on above: Performed By: #### C BC, CMP #### [address] Fibrinogenon 02-03-2024 Fibrinogen 152 mg/dL Low 200-393 [facility] Comment on above: Order Comment: Comme nt Every 6 hours while on tPA Result Comment: A he matocrit value greater than 55% may lead to inaccurate results in coagulation testing. Patients having hematocrit values >55% require a special collection tube for coagulation studies. Please contact the laboratory at [phone] for redraw instructions. PERFORMED BY: [place] [address] PATHOLOGIST SPOUT POSITIONER RODRIGUEZ SHEIKH M.D. Performed By: #### P P, CBC, FIB-C #### [address] Fibrinogen 239 mg/dL Normal 200-393 [facility] Comment on above: Order Comment: Comme nt Every 6 hour while on tPA Result Comment: A he matocrit value greater than 55% may lead to inaccurate results in coagulation testing. Patients having hematocrit values >55% require a special collection tube for coagulation studies. Please contact the laboratory at [phone] for redraw instructions. PERFORMED BY: [place] [address] PATHOLOGIST SPOUT POSITIONER RODRIGUEZ SHEIKH M.D. Performed By: #### C BC #### [address] Glucose [Mass/volume] in Ser um or PlasmaOrdered By: Mariah Wolfe on 02-03-2024 Glucose [Mass/Vol] 113 mg/dL High 70-100 [facility] Comment on above: ADA recommended refe rence rangeRandom Glucose Reference Range is dependent on time and content of last meal. Glucose of more than 200 mg/dL in a nonstressed, ambulatory subject supports the diagnosis of Diabetes Mellitus. Result Comment: [place] om Glucose Reference Range is dependent on time and content of last meal. Glucose of more than 200 mg/dL in a nonstressed, ambulatory subject supports the diagnosis of Diabetes Mellitus. ADA recommended reference range Performed By: #### C BC, CMP #### [address] Hematocrit [Volume Fraction] of Blood by Automated countOrdered By: Mariah Wolfe on 02-03-2024 Hematocrit (Bld) [Volume fraction] 45.5 % Normal 38.8-50.0 [facility] Comment on above: Performed By: #### C BC, CMP #### [address] Hemoglobin [Mass/volume] in BloodOrdered By: Mariah Wolfe on 02-03-2024 Hemoglobin (Bld) [Mass/Vol] 15.5 g/dL Normal 13.0-17.0 [facility] Comment on above: Performed By: #### C BC, CMP #### [address] INR in Platelet poor plasma by Coagulation assayOrdered By: Mariah Wolfe on 02-03-2024 INR Coag (PPP) [Relative time] 0.9 {INR} Normal [facility] Comment on above: INR Therapeutic Rang e A) Pre- and Peroperative OAT started two weeks before surgery. NOT HIP SURGERY: 1.5 - 2.5 HIP SURGERY: 2 - 3B) Primary and secondary prevention of venous THROMBOSIS: 2 - 3C) Active venous thrombosis, pulmonary embolismand prevention of recurrent venous thrombosis: 2 - 3D) Prevention of arterial thromboembolismincluding patients with mechanical heart valves: 3 - 4.5 Result Comment: INR Therapeutic Range A) Pre- and Peroperative OAT started two weeks before surgery. NOT HIP SURGERY: 1.5 - 2.5 HIP SURGERY: 2 - 3 B) Primary and secondary prevention of venous THROMBOSIS: 2 - 3 C) Active venous thrombosis, pulmonary embolism and prevention of recurrent venous thrombosis: 2 - 3 D) Prevention of arterial thromboembolism including patients with mechanical heart valves: 3 - 4.5 Performed By: #### C BC, CMP #### [facility] [address] ISTAT XRay CREon 02-03-2024 ISTAT GFR > 60.0 Normal [facility] Comment on above: Result Comment: PERF ORMED BY: [place] [address] PATHOLOGIST SPOUT POSITIONER RODRIGUEZ SHEIKH M.D. Performed By: #### I SCRE ####[facility] Leukocytes [#/volume] correc shirley for nucleated erythrocytes in Blood by Automated counOrdered By: Mariah Wolfe on 02-03-2024 WBC corrected for nucl RBC Auto (Bld) [#/Vol] 6.6 10*3/uL 4.1-10.5 [facility] Leukocytes [#/volume] in Blo od by Automated countOrdered By: Mariah Wolfe on 02-03-2024 WBC (Bld) [#/Vol] 6.6 10*3/uL Normal 4.1-10.5 [facility] Comment on above: Performed By: #### C BC, CMP #### [facility] [address] [place] [address] Lymphocytes [#/volume] in Bl ood by Automated countOrdered By: Mariah Wolfe on 02-03-2024 Lymphocytes (Bld) [#/Vol] 2.2 10*3/uL Normal 1.00-4.8 [facility] Comment on above: Performed By: #### C BC, CMP #### [place] [address] [place] Lymphocytes/100 leukocytes i n Blood by Automated countOrdered By: Mariah Wolfe on 02-03-2024 Lymphocytes/100 WBC (Bld) 33.9 % Normal . [facility] Comment on above: Performed By: #### C BC, CMP #### [address] MCH [Entitic mass] by Automa shirley countOrdered By: Mariah Wolfe on 02-03-2024 MCH (RBC) [Entitic mass] 31.4 pg Normal 27.5-35.2 [facility] Comment on above: Performed By: #### C BC, CMP #### [address] MCHC Auto (RBC) [Mass/Vol]Or dered By: Mariah Wofle on 02-03-2024 MCHC (RBC) [Mass/Vol] 34.0 g/dL 32.5-35.[address] [facility] MCV [Entitic volume] by Auto mated countOrdered By: Mariah Wolfe on 02-03-2024 MCV (RBC) [Entitic vol] 92.4 fL Normal 83.5-101 [facility] Comment on above: Performed By: #### C BC, CMP #### [address] Monocyte distribution width [Entitic volume] in Blood by AutomatedOrdered By: Mariah Wolfe on 02-03-2024 Monocyte distribution width Auto (Bld) [Entitic vol] 20.84 % High 0.00-20.00 [facility] Comment on above: For adults in ED, MD W > 20.0 may be associated with a higher risk of sepsis during the first 12 hrs of hospital admission Neutrophils [#/volume] in Bl ood by Automated countOrdered By: Mariah Wolfe on 02-03-2024 Neutrophils (Bld) [#/Vol] 3.9 10*3/uL Normal 1.8-7.7 [facility] Comment on above: Performed By: #### C BC, CMP #### [address] No Panel InformationOrdered By: Mariah Wolfe on 02-03-2024 Bedside Estimated GFR (eGFR) > 60.0 [facility] Estimated GFR (CKD-EPI) > 60.0 mL/Min [facility] Creatinine Clearance (Chem 86.07 [facility] Nucleated erythrocytes [Pres ence] in Blood by Automated countOrdered By: Mariah Wolfe on 02-03-2024 Nucleated RBC Auto Ql (Bld) 0.1 /100{WBC} 0-0.5 [facility] Partial Thromboplastin Timeo n 02-03-2024 aPTT Coag (Bld) [Time] 29.2 s Normal 25.1-36.5 [facility] Comment on above: Result Comment: A he matocrit value greater than 55% may lead to inaccurate results in coagulation testing. Patients having hematocrit values >55% require a special collection tube for coagulation studies. Please contact the laboratory at [phone] for redraw instructions. PERFORMED BY: [place] [address] PATHOLOGIST SPOUT POSITIONER RODRIGUEZ SHEIKH M.D. Performed By: #### C BC, CMP #### [place] [address] [place] Platelet mean volume [Entiti c volume] in Blood by Automated countOrdered By: Mariah Wolfe on 02-03-2024 Platelet mean volume (Bld) [Entitic vol] 7.9 fL Normal 6.6-10.1 [facility] Comment on above: Performed By: #### C BC, CMP #### [facility] [address] [place] [address] [place] Platelets [#/volume] in Bloo d by Automated countOrdered By: Mariah Wolfe on 02-03-2024 Platelets (Bld) [#/Vol] 379 10*3/uL Normal 150-450 [facility] Comment on above: Performed By: #### C BC, CMP #### [place] [address] [place] Potassium [Moles/volume] in Serum or PlasmaOrdered By: Mariah Wolfe on 02-03-2024 Potassium [Moles/Vol] 3.8 mmol/L Normal 3.5-5.[address] [facility] Comment on above: Performed By: #### C BC, CMP #### [address] Prothrombin time (PT)Ordered By: Mariah Wolfe on 02-03-2024 PT Coag (PPP) [Time] 10.9 s Normal 9.0-12.9 [facility] Comment on above: A hematocrit value g reater than 55% may lead to inaccurate results in coagulation testing. Patients having hematocrit values >55% require a special collection tube for coagulation studies. Please contact the laboratory at [phone] for redraw instructions. Result Comment: A he matocrit value greater than 55% may lead to inaccurate results in coagulation testing. Patients having hematocrit values >55% require a special collection tube for coagulation studies. Please contact the laboratory at [phone] for redraw instructions. Performed By: #### C BC, CMP #### [address] Serum or plasma anion gap de terminationOrdered By: Mariah Wolfe on 02-03-2024 Anion gap [Moles/Vol] 10.9 mmol/L Normal 6.0-15.0 [facility] Comment on above: Performed By: #### C BC, CMP #### [address] Sodium [Moles/volume] in Ser um or PlasmaOrdered By: Mariah Wolfe on 02-03-2024 Sodium [Moles/Vol] 139 mmol/L Normal 136-145 [facility] Comment on above: Performed By: #### C BC, CMP #### [address] Type and Screenon 02-03-2024 ABO and Rh group Nom (Bld) Blood group O Rh(D) positive Normal [facility] Urea nitrogen [Mass/volume] in Serum or PlasmaOrdered By: Mariah Wolfe on 02-03-2024 Urea nitrogen [Mass/Vol] 10 mg/dL Normal 7-25 [facility] Comment on above: Performed By: #### C BC, CMP #### [address] Whole blood creatinine measu rementOrdered By: Mariah Wolfe on 02-03-2024 Creatinine [Mass/Vol] 1.0 mg/dL Normal 0.6-1.[address] [facility] Comment on above: ER/ESD physician is notified/shown all ISTAT results.Critical values may be confirmed by laboratory testing ifdeemed necessary by ER attending doctor. Result Comment: ER/E SD physician is notified/shown all ISTAT results. Critical values may be confirmed by laboratory testing if deemed necessary by ER attending doctor. Performed By: #### I SCRE ####[facility] [id number] [place] [id number] [facility] US UNI ankle/arm indiceson 0 09-04-2023 US UNI ankle/arm indices [facility] [address] [place] [address] Ultrasound Report Signed Patient: Mesfin Solis MR#: [id number] : 1960 Acct:[id number] Age/Sex: 63 / M ADM Date: 09/04/23 Loc: [facility] Room: Type: [facility] Attending Dr: Justin Deras MD Ordering Provider: Justin Deras MD Date of Service: 09/04/23 US/US UNI ankle/arm indices: I70.211 Copies to: Justin Deras MD LOWER EXTREMITY SEGMENTAL ARTERIAL DOPSCAN (PVR) INDICATION: Postoperative surveillance study after right leg bypass surgery. PROCEDURE: Right arm blood pressure is 144 , left is 143 . Pressures at the right ankle are 170 using the posterior tibial artery, and 171 using the dorsalis pedis artery with ankle-brachial index of 1.18 1.19 . Wave forms by plethysmography are normal. US/US UNI ankle/arm indices IMPRESSION: NO HEMODYNAMICALLY SIGNIFICANT PERIPHERAL VASCULAR OCCLUSIVE DISEASE AT REST IN THE RIGHT LOWER EXTREMITY. Impression dictated by: Justin Deras MD09/04/2023 3:23 PM Dictation Location: [place] [address] Tech: Therese Damon Transcribed By: TESS 09/04/23 1523 Dictated By: Justin Deras MD 09/04/23 1523 Signed By: 09/04/23 1523 Normal [facility] US arterial duplex LE RTon 0 09-04-2023 US arterial duplex LE RT [facility] [address] [place] [address] Ultrasound Report Signed Patient: Mesfin Solis MR#: [id number] : 1960 Acct:[id number] Age/Sex: 63 / M ADM Date: 09/04/23 Loc: [facility] Room: Type: [facility] Attending Dr: Justin Deras MD Ordering Provider: Justin Deras MD Date of Service: 09/04/23 US/US arterial duplex LE RT: I70.211 Copies to: Justin Deras MD Right lower extremity arterial duplex evaluation INDICATIONS: Graft surveillance after bypass surgery. FINDINGS: Right lower extremity: The right lower extremity bypass is patent. Velocities are ideal. US/US arterial duplex LE RT IMPRESSION: As above. Impression dictated by: Justin Deras MD09/04/2023 3:23 PM Dictation Location: [place] [address] Tech: Therese Nelson Transcribed By: TESS 09/04/23 1523 Dictated By: Justin Deras MD 09/04/23 1522 Signed By: 09/04/23 1523 Normal [facility] Alanine aminotransferase [En zymatic activity/volume] in Serum or PlasmaOrdered By: Josie Ramos on 07-31-2023 ALT [Catalytic activity/Vol] 55 U/L High 7-52 [facility] Comment on above: Performed By: #### C BC, CMP #### [facility] [address] Albumin [Mass/volume] in Ser um or Plasma by Bromocresol green (BCG) dye binding methoOrdered By: Josie Ramos on 07-31-2023 Albumin BCG dye [Mass/Vol] 4.3 g/dL 3.5-5.7 [facility] Alkaline phosphatase [Enzyma tic activity/volume] in Serum or PlasmaOrdered By: Josie Ramos on 07-31-2023 ALP [Catalytic activity/Vol] 121 U/L High 34-104 [facility] Comment on above: Performed By: #### C BC, CMP #### [address] Aspartate aminotransferase [ Enzymatic activity/volume] in Serum or PlasmaOrdered By: Josie Bullimore on 07-31-2023 AST [Catalytic activity/Vol] 31 U/L Normal 13-39 [facility] Comment on above: Performed By: #### C BC, CMP #### [address] Automated basophil %Ordered By: Josie Bullimore on 07-31-2023 Basophils/100 WBC (Bld) 0.6 % Normal . [facility] Comment on above: Performed By: #### C BC, CMP #### [address] Automated basophil countOrde red By: Josie Bullimore on 07-31-2023 Basophils (Bld) [#/Vol] 0.0 10*3/uL Normal 0.0-0.2 [facility] Comment on above: Result Comment: PERF ORMED BY: [place] [address] PATHOLOGIST SPOUT POSITIONER RODRIGUEZ SHEIKH M.D. Performed By: #### C BC, CMP #### [address] Automated blood monocyte cou ntOrdered By: Josie Bullimore on 07-31-2023 Monocytes (Bld) [#/Vol] 0.5 10*3/uL Normal 0.0-0.8 [facility] Comment on above: Performed By: #### C BC, CMP #### [address] Automated eosinophil %Ordere d By: Josie Bullimore on 07-31-2023 Eosinophils/100 WBC (Bld) 1.6 % Normal . [facility] Comment on above: Performed By: #### C BC, CMP #### [address] Automated eosinophil countOr dered By: Josie Bullimore on 07-31-2023 Eosinophils (Bld) [#/Vol] 0.1 10*3/uL Normal 0.0-0.45 [facility] Comment on above: Performed By: #### C BC, CMP #### [address] Automated monocyte %Ordered By: Josie Bullimore on 07-31-2023 Monocytes/100 WBC (Bld) 6.4 % Normal . [facility] Comment on above: Performed By: #### C BC, CMP #### [address] Automated neutrophil %Ordere d By: Josie Bullimore on 07-31-2023 Neutrophils/100 WBC (Bld) 72.3 % Normal . [facility] Comment on above: Performed By: #### C BC, CMP #### [address] BNP ser/plasOrdered By: Ging er Bullimore on 07-31-2023 Natriuretic peptide B (Bld) [Mass/Vol] 7.0 pg/mL Normal 5-100 [facility] Comment on above: Result Comment: PERF ORMED BY: [place] [address] PATHOLOGIST SPOUT POSITIONER RODRIGUEZ SHEIKH M.D. Performed By: #### C BC, CMP #### [address] Bilirubin.total [Mass/volume ] in Serum or PlasmaOrdered By: Josie Bullimore on 07-31-2023 Bilirubin [Mass/Vol] 0.4 mg/dL Normal 0.3-1.0 [facility] Comment on above: Performed By: #### C BC, CMP #### [address] angio chest PE protocolon 07-31-2023 CT angio chest PE protocol [facility] [place] [address] [place] [address] CT Scan Report Signed Patient: Kevin WhiteheadMesfin MR#: [id number] : 1960 Acct:[id number] Age/Sex: 63 / M ADM Date: 07/31/23 Loc: ER Room: Type: [facility] ER Attending Dr: Copies to: REECE Hoyos Ordering Provider: REECE Hoyos Date of Service: 07/31/23 CT/CT angio chest PE protocol: dizziness, chest pain elev dimer CT ANGIOGRAM OF THE CHEST, PULMONARY EMBOLISM PROTOCOL: CLINICAL INFORMATION: Dizziness chest pain and elevated d-dimer COMPARISON: Chest 07/31/2023 TECHNIQUE: Following intravenous injection of contrast CT scans of the chest were obtained using pulmonary embolism protocol. Coronal and sagittal reconstructed images, as well as volume rendered CT pulmonary angiographic images were also submitted.The CT exam was performed using one or more of the following dose reduction techniques: Automated exposure control, adjustment of the MA and/or Kv according to patient size, or use of the iterative reconstruction technique. FINDINGS: Pulmonary Vasculature: Contrast bolus is adequate for evaluation of pulmonary embolism. Pulmonary trunk appears nondilated. No filling defects are identified to suggest pulmonary embolism. Mediastinum : Thoracic aorta is normal in caliber. No pericardial effusion. No lymphadenopathy. The esophagus is grossly unremarkable. Lungs: Mild lung scarring. No consolidation pneumothorax or pleural effusion. Upper abdomen: Hepatic steatosis. No acute findings. Soft tissue/bones: Soft tissues surrounding the chest wall demonstrate no acute findings. Osseous structures demonstrate degenerative change. CT/CT angio chest PE protocol IMPRESSION: NO EVIDENCE OF ACUTE PULMONARY EMBOLISM OR PROCESS. Impression dictated by: Stephen Dawson Jr., D.O.07/31/2023 11:40 AM Dictation Location: [place] [address] Transcribed By: [facility] 07/31/23 1140 Dictated By: Stephen Dawson Jr, DO 07/31/23 1136 Signed By: 07/31/23 1140 Normal [facility] Calcium [Mass/volume] in Ser um or PlasmaOrdered By: Josie Ramos on 07-31-2023 Calcium [Mass/Vol] 9.2 mg/dL Normal 8.6-10.3 [facility] Comment on above: Performed By: #### C BC, CMP #### [address] Carbon dioxide, total [Moles /volume] in Serum or PlasmaOrdered By: Josie Ramos on 07-31-2023 CO2 [Moles/Vol] 25.5 mmol/L Normal 21.0-31.0 [facility] Comment on above: Performed By: #### C BC, CMP #### [address] Chloride [Moles/volume] in [place] or PlasmaOrdered By: Josie Bullimore on 07-31-2023 Chloride [Moles/Vol] 104 mmol/L Normal 98-107 [facility] Comment on above: Performed By: #### C BC, CMP #### [address] Complete Blood Count Auto Di ffon 07-31-2023 Mean Corpuscular HGB Conc 33.9 g/dL Normal 32.5-35.6 [facility] Comment on above: Performed By: #### C BC, CMP #### [address] Monocytes/100 WBC (Bld) 15.06 % Normal 0.00-20.00 [facility] Comment on above: Performed By: #### C BC, CMP #### [address] NRBC% 0.0 /100{WBC} Normal 0-0.5 [facility] Comment on above: Performed By: #### C BC, CMP #### [address] Comprehensive Metabolic Pane thomas 07-31-2023 Albumin [Mass/Vol] 4.3 g/dL Normal 3.5-5.7 [facility] Group Comment on above: Performed By: #### C BC, CMP #### [address] Creatinine Clr Calc Pharmacy 87.86 Normal [facility] Comment on above: Result Comment: PERF ORMED BY: [place] [address] PATHOLOGIST SPOUT POSITIONER RODRIGUEZ SHEIKH M.D. Performed By: #### C BC, CMP #### [address] GFR/1.73 sq M.predicted MDRD (S/P/Bld) [Vol rate/Area] mL/min/{1.73_m2} Normal [facility] Comment on above: Performed By: #### C BC, CMP #### [address] Creatinine [Mass/volume] in Serum or PlasmaOrdered By: Josie Ramos on 07-31-2023 Creatinine [Mass/Vol] 0.92 mg/dL Normal 0.70-1.[address] [facility] Comment on above: Performed By: #### C BC, CMP #### [address] D-Dimer High Sensitivityon 0 07-31-2023 D-Dimer High Sensitivity 265 ng/mL High 0-243 [facility] Comment on above: Result Comment: The reference range for D-dimer is <243 ng/mL D-dimer units. D-dimer results must be used in conjunction with a clinical pretest probability (PTP) assessment model for deep vein thrombosis (DVT) and pulmonary embolism (PE). Results <230 ng/mL d-dimer units can be used as a negative predictor in patients with low or moderate probability for DVT/PE. Results above the exclusion threshold of 230 ng/ml D-dimer units for DVT/PE may indicate the need for further diagnostic testing. D-Dimer can be increased in hospitalized patients due to co-morbid conditions. A hematocrit value greater than 55% may lead to inaccurate results in coagulation testing. Patients having hematocrit values >55% require a special collection tube for coagulation studies. Please contact the laboratory at [phone] for redraw instructions. PERFORMED BY: [place] [address] PATHOLOGIST SPOUT POSITIONER RODRIGUEZ SHEIKH M.D. Performed By: #### C BC, CMP #### [address] ECG 12 lead ECGon 07-31-2023 ECG 12 lead ECG [facility] [place] [address] [place] [address] Electrocardiograph Report Signed Patient: Mesfin Solis MR#: [id number] : 1960 Acct:[id number] Age/Sex: 63 / M ADM Date: 07/31/23 Loc: ER Room: Type: [facility] ER Attending Dr: Ordering Provider: REECE Hoyos Date of Service: 07/31/23 ECG/ECG 12 lead ECG: Recheck/Abnormal Lab/Rx Copies to: Test Reason : Blood Pressure : 156/082 mmHG Vent. Rate : 097 BPM Atrial Rate : 097 BPM P-R Int : 162 ms QRS Dur : 092 ms QT Int : 336 ms P-R-T Axes : 045 085 -11 degrees QTc Int : 426 ms Sinus rhythm with occasional premature ventricular complexes Possible Inferior infarct (cited on or before 07-MAR-2023) T wave abnormality, consider anterior ischemia Abnormal ECG When compared with ECG of 26-JUL-2023 18:20, premature ventricular complexes are now present Confirmed by MARIAH WOLFE DO ([id number]) on 07/31/2023 4:47:11 PM Referred By: Electronically Signed By:MARIAH WOLFE DO Transcribed By: MUS Signed By Mariah Wolfe DO 07/30 1647 Normal [facility] Erythrocyte distribution wid th [Ratio] by Automated countOrdered By: Josie Ramos on 07-31-2023 Erythrocyte distribution width (RBC) [Ratio] 14.3 % Normal 12.0-14.8 [facility] Comment on above: Performed By: #### C BC, CMP #### [facility] [address] Erythrocytes [#/volume] in B lood by Automated countOrdered By: Josie Ramos on 07-31-2023 RBC (Bld) [#/Vol] 4.78 10*6/uL Normal 3.90-5.60 [facility] Comment on above: Performed By: #### C BC, CMP #### [facility] [address] Fibrin D-dimer [Presence] in Platelet poor plasma by Latex agglutinationOrdered By: Josie Ramos on 07-31-2023 Fibrin D-dimer LA Ql (PPP) 265 ng/mL 0-243 [facility] Comment on above: The reference range for D-dimer is <243 ng/mL D-dimer units.D-dimer results must be used in conjunction with a clinicalpretest probability (PTP) assessment model for deep veinthrombosis (DVT) and pulmonary embolism (PE). Results <230ng/mL d-dimer units can be used as a negative predictor inpatients with low or moderate probability for DVT/PE.Results above the exclusion threshold of 230 ng/ml D-dimerunits for DVT/PE may indicate the need for furtherdiagnostic testing.D-Dimer can be increased in hospitalized patients due toco-morbid conditions.A hematocrit value greater than 55% may lead to inaccurate results in coagulation testing. Patients having hematocrit values >55% require a special collection tube for coagulation studies. Please contact the laboratory at [phone] for redraw instructions. Glucose [Mass/volume] in Ser um or PlasmaOrdered By: Josie Ramos on 07-31-2023 Glucose [Mass/Vol] 136 mg/dL High 70-100 [facility] Comment on above: ADA recommended refe rence rangeRandom Glucose Reference Range is dependent on time and content of last meal. Glucose of more than 200 mg/dL in a nonstressed, ambulatory subject supports the diagnosis of Diabetes Mellitus. Result Comment: [place] om Glucose Reference Range is dependent on time and content of last meal. Glucose of more than 200 mg/dL in a nonstressed, ambulatory subject supports the diagnosis of Diabetes Mellitus. ADA recommended reference range Performed By: #### C BC, CMP #### [facility] [address] Hematocrit [Volume Fraction] of Blood by Automated countOrdered By: Josie Ramos on 07-31-2023 Hematocrit (Bld) [Volume fraction] 43.6 % Normal 38.8-50.0 [facility] Comment on above: Performed By: #### C BC, CMP #### [facility] [address] Hemoglobin [Mass/volume] in BloodOrdered By: Josie Bullimore on 07-31-2023 Hemoglobin (Bld) [Mass/Vol] 14.8 g/dL Normal 13.0-17.0 [facility] Comment on above: Performed By: #### C BC, CMP #### [address] Leukocytes [#/volume] correc shirley for nucleated erythrocytes in Blood by Automated counOrdered By: Josie Bullimore on 07-31-2023 WBC corrected for nucl RBC Auto (Bld) [#/Vol] 7.8 10*3/uL 4.1-10.5 [facility] Leukocytes [#/volume] in Blo od by Automated countOrdered By: Josie Bullimore on 07-31-2023 WBC (Bld) [#/Vol] 7.8 10*3/uL Normal 4.1-10.5 [facility] Comment on above: Performed By: #### C BC, CMP #### [address] Lymphocytes [#/volume] in Bl ood by Automated countOrdered By: Josie Bullimore on 07-31-2023 Lymphocytes (Bld) [#/Vol] 1.5 10*3/uL Normal 1.00-4.8 [facility] Comment on above: Performed By: #### C BC, CMP #### [place] [address] [place] Lymphocytes/100 leukocytes i n Blood by Automated countOrdered By: Josie Bullimore on 07-31-2023 Lymphocytes/100 WBC (Bld) 19.1 % Normal . [facility] Comment on above: Performed By: #### C BC, CMP #### [place] [address] [place] MCH [Entitic mass] by Automa shirley countOrdered By: Josie Bullimore on 07-31-2023 MCH (RBC) [Entitic mass] 30.9 pg Normal 27.5-35.2 [facility] Comment on above: Performed By: #### C NOHEMY, CMP #### [facility] [address] [place] [address] MCHC Auto (RBC) [Mass/Vol]Or dered By: Josie Bullimore on 07-31-2023 MCHC (RBC) [Mass/Vol] 33.9 g/dL 32.5-35.[address] [facility] MCV [Entitic volume] by Auto mated countOrdered By: Josie Bullimore on 07-31-2023 MCV (RBC) [Entitic vol] 91.2 fL Normal 83.5-101 [facility] Comment on above: Performed By: #### C NOHEMY, CMP #### [facility] [address] [place] [address] Monocyte distribution width [Entitic volume] in Blood by AutomatedOrdered By: Josie Bullimore on 07-31-2023 Monocyte distribution width Auto (Bld) [Entitic vol] 15.06 % 0.00-20.00 [facility] Neutrophils [#/volume] in Bl ood by Automated countOrdered By: Josie Bullimore on 07-31-2023 Neutrophils (Bld) [#/Vol] 5.6 10*3/uL Normal 1.8-7.7 [facility] Comment on above: Performed By: #### C NOHEMY, CMP #### [facility] [address] [place] [address] No Panel InformationOrdered By: Josie Bullimore on 07-31-2023 Estimated GFR (CKD-EPI) > 60.0 mL/Min [facility] Creatinine Clearance (Chem 87.86 [facility] Nucleated erythrocytes [Pres ence] in Blood by Automated countOrdered By: Josie Bullimore on 07-31-2023 Nucleated RBC Auto Ql (Bld) 0.0 /100{WBC} 0-0.5 [facility] Platelet mean volume [Entiti c volume] in Blood by Automated countOrdered By: Josie Bullimore on 07-31-2023 Platelet mean volume (Bld) [Entitic vol] 8.1 fL Normal 6.6-10.1 [facility] Comment on above: Performed By: #### C BC, CMP #### [address] Platelets [#/volume] in Bloo d by Automated countOrdered By: Josie Bullimore on 07-31-2023 Platelets (Bld) [#/Vol] 315 10*3/uL Normal 150-450 [facility] Comment on above: Performed By: #### C BC, CMP #### [address] Potassium [Moles/volume] in Serum or PlasmaOrdered By: Josie Bullimore on 07-31-2023 Potassium [Moles/Vol] 3.5 mmol/L Normal 3.5-5.[address] [facility] Comment on above: Performed By: #### C BC, CMP #### [address] Protein [Mass/volume] in Ser um or PlasmaOrdered By: Josie Bullimore on 07-31-2023 Protein [Mass/Vol] 7.7 g/dL Normal 6.4-8.9 [facility] Comment on above: Performed By: #### C BC, CMP #### [address] Serum globulin measurement b y calculation (mass/volume)Ordered By: Josie Bullimore on 07-31-2023 Globulin (S) [Mass/Vol] 3.4 g/dL [facility] Comment on above: Performed By: #### C BC, CMP #### [address] Serum or plasma albumin/glob ulin mass ratioOrdered By: Josie Bullimore on 07-31-2023 Albumin/Globulin [Mass ratio] 1.3 {ratio} [facility] Comment on above: Performed By: #### C BC, CMP #### [address] Serum or plasma anion gap de terminationOrdered By: Josie Bullimore on 07-31-2023 Anion gap [Moles/Vol] 11.0 mmol/L Normal 6.0-15.0 [facility] Comment on above: Performed By: #### C BC, CMP #### [address] Sodium [Moles/volume] in Ser um or PlasmaOrdered By: Josie Bullimore on 07-31-2023 Sodium [Moles/Vol] 137 mmol/L Normal 136-145 [facility] Comment on above: Performed By: #### C BC, CMP #### [address] Troponin I High Sensitivityo n 07-31-2023 Troponin I High Sensitivity 10.4 pg/mL Normal 0.0-20.0 [facility] Comment on above: Result Comment: PERF ORMED BY: [place] [address] PATHOLOGIST SPOUT POSITIONER RODRIGUEZ SHEIKH M.D. Performed By: #### C BC, CMP #### [address] Troponin I.cardiac [Mass/vol ume] in Serum or Plasma by Detection limit <= 0.01 ng/Ordered By: Josie Chungimcamilo on 07-31-2023 Troponin I.cardiac DL <= 0.01 ng/mL [Mass/Vol] 10.4 pg/mL 0.0-20.0 [facility] Urea nitrogen [Mass/volume] in Serum or PlasmaOrdered By: Josie Bullimore on 07-31-2023 Urea nitrogen [Mass/Vol] 11 mg/dL Normal 7-25 [facility] Comment on above: Performed By: #### C BC, CMP #### [place] [address] [place] XR chest 2V*on 07-31-2023 XR chest 2V* [facility] [place] [address] [place] [address] XRay Report Signed Patient: Mesfin Solis MR#: [id number] : 1960 Acct:[id number] Age/Sex: 63 / M ADM Date: 07/31/23 Loc: ER Room: Type: [facility] ER Attending Dr: Copies to: REECE Hoyos Ordering Provider: REECE Hoyos Date of Service: 07/31/23 XR/XR chest 2V*: Recheck/Abnormal Lab/Rx Chest 2 views CLINICAL HISTORY: High blood pressure COMPARISON: Chest 07/26/2023 FINDINGS: Heart normal in size. Lungs are clear. No free air. XR/XR chest 2V* IMPRESSION: NO ACUTE CARDIOPULMONARY ABNORMALITY. Impression dictated by: Stephen Dawson Jr., D.OJesus Alberto07/31/2023 10:33 AM Dictation Location: [facility] [address]--[address] Transcribed By: [facility] 07/31/23 1033 Dictated By: Stephen Dawson Jr, DO 07/31/23 1031 Signed By: 07/31/23 1033 Normal [facility] XR chest 1V portableon 07-26 XR chest 1V portable [facility] [place] [address] [place] [address] XRay Report Signed Patient: Mesfin Solis MR#: [id number] : 1960 Acct:[id number] Age/Sex: 63 / M ADM Date: 07/26/23 Loc: ER Room: Type: [facility] ER Attending Dr: Copies to: Adrian Ivory Jr, MD Ordering Provider: Adrian Ivory Jr, MD Date of Service: 07/26/23 XR/XR chest 1V portable: Recheck/Abnormal Lab/Rx PORTABLE AP ERECT CHEST 2110 hours CLINICAL HISTORY: Dizziness and hypertension COMPARISON: 03/07/2023 The heart is within normal limits. There is no vascular congestion. The lungs, as visualized, are clear. There is no effusion or pneumothorax. The osseous structures are intact. XR/XR chest 1V portable IMPRESSION: NO ACUTE FINDINGS Impression dictated by: Katrina Meneses M.D.07/27/2023 8:58 AM Dictation Location: [facility]--02 Transcribed By: [facility] 07/27/23 0858 Dictated By: Katrina Meneses MD 03/09/24 0857 Signed By: 07/27/23 0858 Normal [facility] Activated partial thrombopla stin time (aPTT) in platelet poor plasma by coagulation aOrdered By: Adrian Ivory on 07-26-2023 aPTT Coag (PPP) [Time] 27.4 s 25.1-36.5 [facility] Comment on above: A hematocrit value g reater than 55% may lead to inaccurate results in coagulation testing. Patients having hematocrit values >55% require a special collection tube for coagulation studies. Please contact the laboratory at [phone] for redraw instructions. Automated basophil %Ordered By: Adrian Ivory on 07-26-2023 Basophils/100 WBC (Bld) 1.0 % Normal . [facility] Comment on above: Performed By: #### C K, CBC, BMP, HS TROP, PT, BNP, PTT ####[place] [address] [address] Automated basophil countOrde red By: Adrian Ivory on 07-26-2023 Basophils (Bld) [#/Vol] 0.1 10*3/uL Normal 0.0-0.2 [facility] Comment on above: Result Comment: PERF ORMED BY: [facility] [address] [place] [address] PATHOLOGIST SPOUT POSITIONER RODRIGUEZ SHEIKH M.D. Performed By: #### C K, CBC, BMP, HS TROP, PT, BNP, PTT ####[address] Automated blood monocyte cou ntOrdered By: Adrian Ivory on 07-26-2023 Monocytes (Bld) [#/Vol] 0.4 10*3/uL Normal 0.0-0.8 [facility] Comment on above: Performed By: #### C K, CBC, BMP, HS TROP, PT, BNP, PTT ####[address] Automated eosinophil %Ordere d By: Adrian Ivory on 07-26-2023 Eosinophils/100 WBC (Bld) 2.7 % Normal . [facility] Comment on above: Performed By: #### C K, CBC, BMP, HS TROP, PT, BNP, PTT ####[address] Automated eosinophil countOr dered By: Adrian Ivory on 07-26-2023 Eosinophils (Bld) [#/Vol] 0.2 10*3/uL Normal 0.0-0.45 [facility] Comment on above: Performed By: #### C K, CBC, BMP, HS TROP, PT, BNP, PTT ####[address] Automated monocyte %Ordered By: Adrian Ivory on 07-26-2023 Monocytes/100 WBC (Bld) 5.9 % Normal . [facility] Comment on above: Performed By: #### C K, CBC, BMP, HS TROP, PT, BNP, PTT ####[address] Automated neutrophil %Ordere d By: Adrian Ivory on 07-26-2023 Neutrophils/100 WBC (Bld) 63.5 % Normal . [facility] Comment on above: Performed By: #### C K, CBC, BMP, HS TROP, PT, BNP, PTT ####[address] BNP ser/plasOrdered By: Cornell Ivory on 07-26-2023 Natriuretic peptide B (Bld) [Mass/Vol] 9.0 pg/mL Normal 5-100 [facility] Comment on above: Result Comment: PERF ORMED BY: [facility] [address] [address] PATHOLOGIST SPOUT POSITIONER RODRIGUEZ SHEIKH M.D. Performed By: #### C K, CBC, BMP, HS TROP, PT, BNP, PTT ####[place] [id number] [facility] Basic Metabolic Panelon Creatinine Clr Calc Pharmacy 89.31 Normal [facility] Comment on above: Result Comment: PERF ORMED BY: [facility] [address] [place] [address] PATHOLOGIST SPOUT POSITIONER RODRIGUEZ SHEIKH M.D. Performed By: #### C K, CBC, BMP, HS TROP, PT, BNP, PTT ####[address] GFR/1.73 sq M.predicted MDRD (S/P/Bld) [Vol rate/Area] mL/min/{1.73_m2} Normal [facility] Comment on above: Performed By: #### C K, CBC, BMP, HS TROP, PT, BNP, PTT ####[place] [id number] [facility] Calcium [Mass/volume] in Ser um or PlasmaOrdered By: Adrian Ivory on 07-26-2023 Calcium [Mass/Vol] 9.1 mg/dL Normal 8.6-10.3 [facility] Comment on above: Performed By: #### C K, CBC, BMP, HS TROP, PT, BNP, PTT ####[address] Carbon dioxide, total [Moles /volume] in Serum or PlasmaOrdered By: Adrian Ivory on 07-26-2023 CO2 [Moles/Vol] 25.4 mmol/L Normal 21.0-31.0 [facility] Comment on above: Performed By: #### C K, CBC, BMP, HS TROP, PT, BNP, PTT ####[place] [id number] [facility] Chloride [Moles/volume] in S [place] or PlasmaOrdered By: Adrian Ivory on 07-26-2023 Chloride [Moles/Vol] 105 mmol/L Normal 98-107 [facility] Comment on above: Performed By: #### C K, CBC, BMP, HS TROP, PT, BNP, PTT ####[place] [id number] [facility] Complete Blood Count Auto Di ffon 07-26-2023 Mean Corpuscular HGB Conc 33.7 g/dL Normal 32.5-35.6 [facility] Comment on above: Performed By: #### C K, CBC, BMP, HS TROP, PT, BNP, PTT ####[place] [id number] [place] [id number] [facility] Monocytes/100 WBC (Bld) 15.40 % Normal 0.00-20.00 [facility] Comment on above: Performed By: #### C K, CBC, BMP, HS TROP, PT, BNP, PTT ####[place] [address] [place] [id number] [facility] NRBC% 0.1 /100{WBC} Normal 0-0.5 [facility] Comment on above: Performed By: #### C K, CBC, BMP, HS TROP, PT, BNP, PTT ####[place] [address] [address] Creatine kinase [Enzymatic a ctivity/volume] in Serum or PlasmaOrdered By: Adrian Ivory on 07-26-2023 CK [Catalytic activity/Vol] 143 U/L Normal 30-223 [facility] Comment on above: Performed By: #### C K, CBC, BMP, HS TROP, PT, BNP, PTT ####[place] [id number] [facility] Creatinine [Mass/volume] in Serum or PlasmaOrdered By: Adrian Ivory on 07-26-2023 Creatinine [Mass/Vol] 0.94 mg/dL Normal 0.70-1.[address] [facility] Comment on above: Performed By: #### C K, CBC, BMP, HS TROP, PT, BNP, PTT ####[place] [id number] [facility] ECG 12 lead ECGon 07-26-2023 ECG 12 lead ECG [facility] [place] [address] Electrocardiograph Report Signed Patient: Mesfin Solis MR#: [id number] : 1960 Acct:[id number] Age/Sex: 63 / M ADM Date: 07/26/23 Loc: ER Room: Type: [facility] ER Attending Dr: Ordering Provider: Adrian Ivory Jr, MD Date of Service: 07/26/2301/10/1818 ECG/ECG 12 lead ECG: Recheck/Abnormal Lab/Rx Copies to: Test Reason : Blood Pressure : 199/112 mmHG Vent. Rate : 091 BPM Atrial Rate : 091 BPM P-R Int : 162 ms QRS Dur : 092 ms QT Int : 356 ms P-R-T Axes : 054 091 011 degrees QTc Int : 437 ms Normal sinus rhythm Rightward axis Cannot rule out Inferior infarct (cited on or before 07-MAR-2023) T wave abnormality, consider anterior ischemia Abnormal ECG When compared with ECG of 08-MAR-2023 04:10, T wave inversion less evident in Anterolateral leads Confirmed by ADRIAN IVORY MD ([id number]) on 07/27/2023 3:33:50 AM Referred By: Electronically Signed By:ADRIAN IVORY MD Transcribed By: MUS Signed By Adrian Ivory Jr, MD 0333 Normal [facility] Erythrocyte distribution wid th [Ratio] by Automated countOrdered By: Adrian Ivory on 07-26-2023 Erythrocyte distribution width (RBC) [Ratio] 14.5 % Normal 12.0-14.8 [facility] Comment on above: Performed By: #### C K, CBC, BMP, HS TROP, PT, BNP, PTT ####[facility] [id number] [place] [id number] [facility] Erythrocytes [#/volume] in B lood by Automated countOrdered By: Adrian Ivory on 07-26-2023 RBC (Bld) [#/Vol] 4.64 10*6/uL Normal 3.90-5.60 [facility] Comment on above: Performed By: #### C K, CBC, BMP, HS TROP, PT, BNP, PTT ####[facility] [id number] [place] [address] [facility] Glucose [Mass/volume] in Ser um or PlasmaOrdered By: Adrian Ivory on 07-26-2023 Glucose [Mass/Vol] 102 mg/dL High 70-100 [facility] Comment on above: ADA recommended refe rence rangeRandom Glucose Reference Range is dependent on time and content of last meal. Glucose of more than 200 mg/dL in a nonstressed, ambulatory subject supports the diagnosis of Diabetes Mellitus. Result Comment: [place] om Glucose Reference Range is dependent on time and content of last meal. Glucose of more than 200 mg/dL in a nonstressed, ambulatory subject supports the diagnosis of Diabetes Mellitus. ADA recommended reference range Performed By: #### C K, CBC, BMP, HS TROP, PT, BNP, PTT ####[facility] Hematocrit [Volume Fraction] of Blood by Automated countOrdered By: Adrian Ivory on 07-26-2023 Hematocrit (Bld) [Volume fraction] 42.6 % Normal 38.8-50.0 [facility] Comment on above: Performed By: #### C K, CBC, BMP, HS TROP, PT, BNP, PTT ####[place] [id number] [address] Hemoglobin [Mass/volume] in BloodOrdered By: Adrian Ivory on 07-26-2023 Hemoglobin (Bld) [Mass/Vol] 14.4 g/dL Normal 13.0-17.0 [facility] Comment on above: Performed By: #### C K, CBC, BMP, HS TROP, PT, BNP, PTT ####[facility] INR in Platelet poor plasma by Coagulation assayOrdered By: Adrian Ivory on 07-26-2023 INR Coag (PPP) [Relative time] 0.9 {INR} Normal [facility] Comment on above: INR Therapeutic Rang e A) Pre- and Peroperative OAT started two weeks before surgery. NOT HIP SURGERY: 1.5 - 2.5 HIP SURGERY: 2 - 3B) Primary and secondary prevention of venous THROMBOSIS: 2 - 3C) Active venous thrombosis, pulmonary embolismand prevention of recurrent venous thrombosis: 2 - 3D) Prevention of arterial thromboembolismincluding patients with mechanical heart valves: 3 - 4.5 Result Comment: INR Therapeutic Range A) Pre- and Peroperative OAT started two weeks before surgery. NOT HIP SURGERY: 1.5 - 2.5 HIP SURGERY: 2 - 3 B) Primary and secondary prevention of venous THROMBOSIS: 2 - 3 C) Active venous thrombosis, pulmonary embolism and prevention of recurrent venous thrombosis: 2 - 3 D) Prevention of arterial thromboembolism including patients with mechanical heart valves: 3 - 4.5 Performed By: #### C K, CBC, BMP, HS TROP, PT, BNP, PTT ####[address] Leukocytes [#/volume] correc shirley for nucleated erythrocytes in Blood by Automated counOrdered By: Adrian Ivory on 07-26-2023 WBC corrected for nucl RBC Auto (Bld) [#/Vol] 6.3 10*3/uL 4.1-10.5 [facility] Leukocytes [#/volume] in Blo od by Automated countOrdered By: Adrian Ivory on 07-26-2023 WBC (Bld) [#/Vol] 6.3 10*3/uL Normal 4.1-10.5 [facility] Comment on above: Performed By: #### C K, CBC, BMP, HS TROP, PT, BNP, PTT ####[address] Lymphocytes [#/volume] in Bl ood by Automated countOrdered By: Adrian Ivory on 07-26-2023 Lymphocytes (Bld) [#/Vol] 1.7 10*3/uL Normal 1.00-4.8 [facility] Comment on above: Performed By: #### C K, CBC, BMP, HS TROP, PT, BNP, PTT ####[address] Lymphocytes/100 leukocytes i n Blood by Automated countOrdered By: Adrian Ivory on 07-26-2023 Lymphocytes/100 WBC (Bld) 26.9 % Normal . [facility] Comment on above: Performed By: #### C K, CBC, BMP, HS TROP, PT, BNP, PTT ####[address] MCH [Entitic mass] by Automa shirley countOrdered By: Adrian Ivory on 07-26-2023 MCH (RBC) [Entitic mass] 31.0 pg Normal 27.5-35.2 [facility] Comment on above: Performed By: #### C K, CBC, BMP, HS TROP, PT, BNP, PTT ####[address] MCHC Auto (RBC) [Mass/Vol]Or dered By: Adrian Ivory on 07-26-2023 MCHC (RBC) [Mass/Vol] 33.7 g/dL 32.5-35.[address] [facility] MCV [Entitic volume] by Auto mated countOrdered By: Adrian Ivory on 07-26-2023 MCV (RBC) [Entitic vol] 91.8 fL Normal 83.5-101 [facility] Comment on above: Performed By: #### C K, CBC, BMP, HS TROP, PT, BNP, PTT ####[facility] [id number] Monocyte distribution width [Entitic volume] in Blood by AutomatedOrdered By: Adrian Ivory on 07-26-2023 Monocyte distribution width Auto (Bld) [Entitic vol] 15.40 % 0.00-20.00 [facility] Neutrophils [#/volume] in Bl ood by Automated countOrdered By: Adrian Ivory on 07-26-2023 Neutrophils (Bld) [#/Vol] 4.0 10*3/uL Normal 1.8-7.7 [facility] Comment on above: Performed By: #### C K, CBC, BMP, HS TROP, PT, BNP, PTT ####[facility] Vit[address] No Panel InformationOrdered By: Adrian Ivory on 07-26-2023 Estimated GFR (CKD-EPI) > 60.0 mL/Min [facility] Creatinine Clearance (Chem 89.31 [facility] Nucleated erythrocytes [Pres ence] in Blood by Automated countOrdered By: Adrian Ivory on 07-26-2023 Nucleated RBC Auto Ql (Bld) 0.1 /100{WBC} 0-0.5 [facility] Partial Thromboplastin Timeo n 07-26-2023 aPTT Coag (Bld) [Time] 27.4 s Normal 25.1-36.5 [facility] Comment on above: Result Comment: A he matocrit value greater than 55% may lead to inaccurate results in coagulation testing. Patients having hematocrit values >55% require a special collection tube for coagulation studies. Please contact the laboratory at [phone] for redraw instructions. PERFORMED BY: [facility] [address] [place] [id number] PATHOLOGIST SPOUT POSITIONER RODRIGUEZ SHEIKH M.D. Performed By: #### C K, CBC, BMP, HS TROP, PT, BNP, PTT ####[place] [address] [place] [id number] [facility] Platelet mean volume [Entiti c volume] in Blood by Automated countOrdered By: Adrian Ivory on 07-26-2023 Platelet mean volume (Bld) [Entitic vol] 8.2 fL Normal 6.6-10.1 [facility] Comment on above: Performed By: #### C K, CBC, BMP, HS TROP, PT, BNP, PTT ####[place] [address] [place] [id number] [facility] Platelets [#/volume] in Bloo d by Automated countOrdered By: Adrian Ivory on 07-26-2023 Platelets (Bld) [#/Vol] 313 10*3/uL Normal 150-450 [facility] Comment on above: Performed By: #### C K, CBC, BMP, HS TROP, PT, BNP, PTT ####[place] [address] [place] [id number] [facility] Potassium [Moles/volume] in Serum or PlasmaOrdered By: Adrian Ivory on 07-26-2023 Potassium [Moles/Vol] 3.7 mmol/L Normal 3.5-5.[address] [facility] Comment on above: Performed By: #### C K, CBC, BMP, HS TROP, PT, BNP, PTT ####[place] [id number] [facility] Prothrombin time (PT)Ordered By: Adrian Ivory on 07-26-2023 PT Coag (PPP) [Time] 10.8 s Normal 9.0-12.9 [facility] Comment on above: A hematocrit value g reater than 55% may lead to inaccurate results in coagulation testing. Patients having hematocrit values >55% require a special collection tube for coagulation studies. Please contact the laboratory at [phone] for redraw instructions. Result Comment: A he matocrit value greater than 55% may lead to inaccurate results in coagulation testing. Patients having hematocrit values >55% require a special collection tube for coagulation studies. Please contact the laboratory at [phone] for redraw instructions. Performed By: #### C K, CBC, BMP, HS TROP, PT, BNP, PTT ####[place] [address] [place] [address] [facility] Serum or plasma anion gap de terminationOrdered By: Adrian Ivory on 07-26-2023 Anion gap [Moles/Vol] 11.3 mmol/L Normal 6.0-15.0 [facility] Comment on above: Performed By: #### C K, CBC, BMP, HS TROP, PT, BNP, PTT ####[place] [address] [place] [id number] [facility] Sodium [Moles/volume] in Ser um or PlasmaOrdered By: Adrian Ivory on 07-26-2023 Sodium [Moles/Vol] 138 mmol/L Normal 136-145 [facility] Comment on above: Performed By: #### C K, CBC, BMP, HS TROP, PT, BNP, PTT ####[place] [id number] [facility] Troponin I High Sensitivityo n 07-26-2023 Troponin I High Sensitivity 10.6 pg/mL Normal 0.0-20.0 [facility] Comment on above: Result Comment: PERF ORMED BY: [facility] [address] [place] [id number] PATHOLOGIST SPOUT POSITIONER RODRIGUEZ SHEIKH M.D. Performed By: #### C K, CBC, BMP, HS TROP, PT, BNP, PTT ####[place] [address] [place] [id number] [facility] Troponin I.cardiac [Mass/vol ume] in Serum or Plasma by Detection limit <= 0.01 ng/Ordered By: Adrian Ivory on 07-26-2023 Troponin I.cardiac DL <= 0.01 ng/mL [Mass/Vol] 10.6 pg/mL 0.0-20.0 [facility] Urea nitrogen [Mass/volume] in Serum or PlasmaOrdered By: Adrian Ivory on 07-26-2023 Urea nitrogen [Mass/Vol] 12 mg/dL Normal 7-25 [facility] Comment on above: Performed By: #### C K, CBC, BMP, HS TROP, PT, BNP, PTT ####[facility] Uhw[address] [place] [id number] [facility] US ankle/arm indiceson 04-25 US ankle/arm indices [facility] [place] [address] Ultrasound Report Signed Patient: Mesfin Solis MR#: [id number] : 1960 Acct:[id number] Age/Sex: 63 / M ADM Date: 04/25/23 Loc: [facility] Room: Type: REG CLI Attending Dr: Justin Deras MD Ordering Provider: Justin Deras MD Date of Service: 04/25/23 US/US ankle/arm indices: I70.213 BLE STEVENSON Copies to: Justin Deras MD Right lower extremity arterial duplex evaluation INDICATIONS: Surveillance study for right leg bypass FINDINGS: Right lower extremity: The bypass is patent. No elevated velocities are identified. No low velocities identified. The vessels are adequate. US/US ankle/arm indices IMPRESSION: As above. Impression dictated by: Justin Deras MD04/25/2023 2:30 PM Dictation Location: [place] [address] Tech: Dariela Blanco Transcribed By: TESS 04/25/23 1430 Dictated By: Justin Deras MD 04/25/23 1430 Signed By: 04/25/23 1430 Normal [facility] US arterial duplex LE RTon 1 06-26-2022 US arterial duplex LE RT [facility] [place] [address] Ultrasound Report Signed Patient: Mesfin Solis MR#: [id number] : 1960 Acct:[id number] Age/Sex: 63 / M ADM Date: 04/25/23 Loc: [facility] Room: Type: REG CLI Attending Dr: Justin Deras MD Ordering Provider: Justin Deras MD Date of Service: 04/25/23 US/US arterial duplex LE RT: I70.213 Copies to: Justin Deras MD LOWER EXTREMITY SEGMENTAL ARTERIAL DOPSCAN (PVR) INDICATION: Surveillance after right leg bypass PROCEDURE: Right arm blood pressure is 169 , left is 165 . Pressures at the right ankle are 195 using the posterior tibial artery, and 202 using the dorsalis pedis artery with ankle-brachial index of 1.15 0.2 . Pressures at the left ankle are 198 using the posterior tibial artery, and 191 with ankle-brachial index of 1.2 1 . Wave forms by plethysmography are normal. US/US arterial duplex LE RT IMPRESSION: NO HEMODYNAMICALLY SIGNIFICANT PERIPHERAL VASCULAR OCCLUSIVE DISEASE AT REST IN EITHER LOWER EXTREMITY. Impression dictated by: Justin Deras MD04/25/2023 2:29 PM Dictation Location: [place] [address] Tech: Michelle Benson Transcribed By: TESS 04/25/23 1429 Dictated By: Justin Deras MD 04/25/23 1428 Signed By: 04/25/23 1429 Normal [facility] NM cecelia perf SPECT rest stron 03-12-2023 NM cecelia perf SPECT rest str [facility] [place] [address] Nuclear Medicine Report Signed Patient: Mesfin Solis MR#: [id number] : 1960 Acct:[id number] Age/Sex: 62 / M ADM Date: 03/06/23 Loc: Room: [address] [place] [address] Type: DIS IN Attending Dr: Justin Deras MD Copies to: Renetta Cintron MD, [facility] Justin Deras MD Ordering Provider: Renetta Cintron MD, [facility] Date of Service: 03/11/23 NM/NM cecelia perf SPECT rest str: Elevated troponin ORDERED BY: Renetta Cintron MD INDICATION: A 62-year-old patient with PAD and abnormal EKG. Resting images were obtained after intravenous administration of 27.8 mCi of Cardiolite given on 03/12/2023, and stress images were obtained after intravenous administration of 25.7 mCi of Car diolite given after Lexiscan administration on 03/11/2023. Subsequently, gated SPECT MPI was obtained. TOMOGRAPHIC DATA: The study is normal and demonstrated homogeneous tracer uptake. Left ventricular volume and wall motions are normal. Ejection fraction measured 75% with normal TID at 0.77. CONCLUSION: 1. Normal Lexiscan Cardiolite SPECT MPI. 2. No tomographic evidence of ischemia or prior myocardial infarction. 3. Normal left ventricular volume and wall motion, ejection fraction 75% with normal TID at 0.77. No previous studies are available for comparison. Transcribed By: NAIF 03/12/23 1412 Dictated By: Renetta Cintron MD, FACC 03/12/23 1345 Signed By: 03/13/23 1418 Normal [facility] STR cardiac stress/lexiscano n 03-12-2023 STR cardiac stress/lexiscan [facility] [place] [address] Cardiac Stress Test Signed Patient: Mesfin Solis MR#: [id number] : 1960 Acct:[id number] Age/Sex: 62 / M ADM Date: 03/06/23 Loc: Room: [address] [place] [address] Type: DIS IN Attending Dr: Justin Deras MD Copies to: Renetta Cintron MD, [facility] Ordering Provider: Renetta Cintron MD, [facility] Date of Service: 03/11/23 STR/STR cardiac stress/lexiscan: Elevated troponin ORDERED BY: Renetta Cintron MD INDICATION: A 62-year-old patient with PAD and acute limb ischemia with abnormal EKG. Resting EKG revealed sinus rhythm, heart rate 99 beats per minute, diffuse ST and T changes were noted. Resting blood pressure 176/84 mmHg. Following intravenous administration of 400 mcg of Lexiscan over 10 seconds, no changes from baseline were noted. No chest pain was reported by the patient. No cardiac arrhythmias were seen. Cardiolite study followed. CONCLUSION: 1. No Lexiscan-induced ischemic EKG changes, chest pain or cardiac arrhythmias. 2. Cardiolite studies to be reported separately by nuclear cardiology. Transcribed By: NAIF 03/13/23 1405 Dictated By: Renetta Cintron MD, FACC 03/12/23 1758 Signed By: 03/13/23 1418 Normal [facility] US UNI ankle/arm indiceson 1 US UNI ankle/arm indices [facility] [address] [place] [address] [place] [address] Ultrasound Report Signed Patient: Mesfin Solis MR#: [id number] : 1960 Acct:[id number] Age/Sex: 62 / M ADM Date: 03/06/23 Loc: 4 Room: [address] [place] [address] Type: ADM IN Attending Dr: Justin Deras MD Ordering Provider: Justin Deras MD Date of Service: 03/11/23 US/US UNI ankle/arm indices: New post procedure STEVENSON, right leg only please Copies to: Justin Deras MD LOWER EXTREMITY SEGMENTAL ARTERIAL DOPSCAN (PVR) INDICATION: New post procedure baseline study. PROCEDURE: Right arm blood pressure is 143 , left is 146 . Pressures at the right ankle are 176 using the posterior tibial artery, and 190 using the dorsalis pedis artery with ankle-brachial index of 1.21 1.30 . Wave forms by plethysmography are normal. US/US UNI ankle/arm indices IMPRESSION: NO HEMODYNAMICALLY SIGNIFICANT PERIPHERAL VASCULAR OCCLUSIVE DISEASE AT REST IN EITHER LOWER EXTREMITY. Impression dictated by: Justin Deras MD03/11/2023 4:31 PM Dictation Location: [place] [address] Tech: Loree Lewis Transcribed By: [facility] 03/11/23 1631 Dictated By: Justin Deras MD 03/11/23 1630 Signed By: 03/11/23 1631 Normal [facility] A1C with Estimated Average G taylor 03-09-2023 Glucose [Mass/Vol] 137 mg/dL Normal [facility] Comment on above: Result Comment: PERF ORMED BY: [place] [address] PATHOLOGIST SPOUT POSITIONER RODRIGUEZ SHEIKH M.D. Performed By: #### C BC, CMP #### [address] Automated basophil %Ordered By: Justin Deras on 03-09-2023 Basophils/100 WBC (Bld) 0.2 % Normal . [facility] Comment on above: Performed By: #### P P, CBC, FIB-C #### [address] Automated basophil countOrde red By: Justin Deras on 03-09-2023 Basophils (Bld) [#/Vol] 0.0 10*3/uL Normal 0.0-0.2 [facility] Comment on above: Result Comment: PERF ORMED BY: [place] [address] PATHOLOGIST SPOUT POSITIONER RODRIGUEZ SHEIKH M.D. Performed By: #### P P, CBC, FIB-C #### [address] Automated blood monocyte cou ntOrdered By: Justni Deras on 03-09-2023 Monocytes (Bld) [#/Vol] 0.7 10*3/uL Normal 0.0-0.8 [facility] Comment on above: Performed By: #### P P, CBC, FIB-C #### [address] Automated eosinophil %Ordere d By: Justin Deras on 03-09-2023 Eosinophils/100 WBC (Bld) 0.4 % Normal . [facility] Comment on above: Performed By: #### P P, CBC, FIB-C #### [address] Automated eosinophil countOr dered By: Justin Deras on 03-09-2023 Eosinophils (Bld) [#/Vol] 0.0 10*3/uL Normal 0.0-0.45 [facility] Comment on above: Performed By: #### P P, CBC, FIB-C #### [address] Automated monocyte %Ordered By: Justin Deras on 03-09-2023 Monocytes/100 WBC (Bld) 8.9 % Normal . [facility] Comment on above: Performed By: #### P P, CBC, FIB-C #### [address] Automated neutrophil %Ordere d By: Justin Deras on 03-09-2023 Neutrophils/100 WBC (Bld) 67.0 % Normal . [facility] Comment on above: Performed By: #### P P, CBC, FIB-C #### [address] Basic Metabolic Panelon 02-18 Creatinine Clr Calc Pharmacy 89.75 Normal [facility] Comment on above: Result Comment: PERF ORMED BY: [place] [address] PATHOLOGIST SPOUT POSITIONER RODRIGUEZ SHEIKH M.D. Performed By: #### P P, CBC, FIB-C #### [address] GFR/1.73 sq M.predicted MDRD (S/P/Bld) [Vol rate/Area] mL/min/{1.73_m2} Normal [facility] Comment on above: Performed By: #### P P, CBC, FIB-C #### [address] Calcium [Mass/volume] in Ser um or PlasmaOrdered By: Justin Deras on 03-09-2023 Calcium [Mass/Vol] 8.4 mg/dL Low 8.6-10.3 [facility] Comment on above: Performed By: #### P P, CBC, FIB-C #### [address] Carbon dioxide, total [Moles /volume] in Serum or PlasmaOrdered By: Justin Deras on 03-09-2023 CO2 [Moles/Vol] 26.2 mmol/L Normal 21.0-31.0 [facility] Comment on above: Performed By: #### P P, CBC, FIB-C #### [address] Chloride [Moles/volume] in S [place] or PlasmaOrdered By: Justin Deras on 03-09-2023 Chloride [Moles/Vol] 106 mmol/L Normal 98-107 [facility] Comment on above: Performed By: #### P P, CBC, FIB-C #### [address] Complete Blood Count Auto Di ffon 03-09-2023 Mean Corpuscular HGB Conc 33.7 g/dL Normal 32.5-35.6 [facility] Comment on above: Performed By: #### P P, CBC, FIB-C #### [facility] [address] [place] [address] NRBC% 0.1 /100{WBC} Normal 0-0.5 [facility] Comment on above: Performed By: #### P P, CBC, FIB-C #### [facility] [address] [place] [address] Creatinine [Mass/volume] in Serum or PlasmaOrdered By: Justin Deras on 03-09-2023 Creatinine [Mass/Vol] 0.95 mg/dL Normal 0.70-1.[address] [facility] Comment on above: Performed By: #### P P, CBC, FIB-C #### [address] Erythrocyte distribution wid th [Ratio] by Automated countOrdered By: Justin Deras on 03-09-2023 Erythrocyte distribution width (RBC) [Ratio] 13.8 % Normal 12.0-14.8 [facility] Comment on above: Performed By: #### P P, CBC, FIB-C #### [facility] [address] [place] [address] Erythrocytes [#/volume] in B lood by Automated countOrdered By: Justin Deras on 03-09-2023 RBC (Bld) [#/Vol] 3.94 10*6/uL Normal 3.90-5.60 [facility] Comment on above: Performed By: #### P P, CBC, FIB-C #### [facility] [address] [place] [address] [place] Glucose [Mass/volume] in Ser um or PlasmaOrdered By: Justin Deras on 03-09-2023 Glucose [Mass/Vol] 127 mg/dL High 70-100 [facility] Comment on above: ADA recommended refe rence rangeRandom Glucose Reference Range is dependent on time and content of last meal. Glucose of more than 200 mg/dL in a nonstressed, ambulatory subject supports the diagnosis of Diabetes Mellitus. Result Comment: [place] om Glucose Reference Range is dependent on time and content of last meal. Glucose of more than 200 mg/dL in a nonstressed, ambulatory subject supports the diagnosis of Diabetes Mellitus. ADA recommended reference range Performed By: #### P P, CBC, FIB-C #### [facility] [address] Glucose mean value [Mass/vol ume] in Blood Estimated from glycated hemoglobinOrdered By: Azul Jimenez on 03-09-2023 Average glucose Estimated from glycated hemoglobin (Bld) [Mass/Vol] 137 mg/dL [facility] Hematocrit [Volume Fraction] of Blood by Automated countOrdered By: Justin Deras on 03-09-2023 Hematocrit (Bld) [Volume fraction] 36.9 % Low 38.8-50.0 [facility] Comment on above: Performed By: #### P P, CBC, FIB-C #### [address] Hemoglobin A1c percentageOrd ered By: Azul Jimenez on 03-09-2023 HbA1c (Bld) [Mass fraction] 6.4 % High 4.3-5.6 [facility] Comment on above: Increased risk for d iabetes: 5.7 - 6.4diabetes: >6.4glycemic control for adults with diabetes: <7.0 Result Comment: Incr eased risk for diabetes: 5.7 - 6.4 diabetes: >6.4 glycemic control for adults with diabetes: <7.0 Performed By: #### C BC, CMP #### [place] [address] [place] Hemoglobin [Mass/volume] in BloodOrdered By: Justin Deras on 03-09-2023 Hemoglobin (Bld) [Mass/Vol] 12.5 g/dL Low 13.0-17.0 [facility] Comment on above: Performed By: #### P P, CBC, FIB-C #### [address] Leukocytes [#/volume] correc shirley for nucleated erythrocytes in Blood by Automated counOrdered By: Justin Deras on 03-09-2023 WBC corrected for nucl RBC Auto (Bld) [#/Vol] 8.0 10*3/uL 4.1-10.5 [facility] Leukocytes [#/volume] in Blo od by Automated countOrdered By: Justin Deras on 03-09-2023 WBC (Bld) [#/Vol] 8.0 10*3/uL Normal 4.1-10.5 [facility] Comment on above: Performed By: #### P P, CBC, FIB-C #### [address] Lymphocytes [#/volume] in Bl ood by Automated countOrdered By: Justin Deras on 03-09-2023 Lymphocytes (Bld) [#/Vol] 1.9 10*3/uL Normal 1.00-4.8 [facility] Comment on above: Performed By: #### P P, CBC, FIB-C #### [address] Lymphocytes/100 leukocytes i n Blood by Automated countOrdered By: Justin Deras on 03-09-2023 Lymphocytes/100 WBC (Bld) 23.5 % Normal . [facility] Comment on above: Performed By: #### P P, CBC, FIB-C #### [place] [address] [place] MCH [Entitic mass] by Automa shirley countOrdered By: Justin Deras on 03-09-2023 MCH (RBC) [Entitic mass] 31.6 pg Normal 27.5-35.2 [facility] Comment on above: Performed By: #### P P, CBC, FIB-C #### [facility] [address] [place] [address] MCHC Auto (RBC) [Mass/Vol]Or dered By: Justin Deras on 03-09-2023 MCHC (RBC) [Mass/Vol] 33.7 g/dL 32.5-35.[address] [facility] MCV [Entitic volume] by Auto mated countOrdered By: Justin Deras on 03-09-2023 MCV (RBC) [Entitic vol] 93.8 fL Normal 83.5-101 [facility] Comment on above: Performed By: #### P P, CBC, FIB-C #### [facility] [address] [place] [address] Neutrophils [#/volume] in Bl ood by Automated countOrdered By: Jsutin Deras on 03-09-2023 Neutrophils (Bld) [#/Vol] 5.4 10*3/uL Normal 1.8-7.7 [facility] Comment on above: Performed By: #### P P, CBC, FIB-C #### [facility] [address] [place] [address] No Panel InformationOrdered By: Justin Deras on 03-09-2023 Estimated GFR (CKD-EPI) > 60.0 mL/Min [facility] Creatinine Clearance (Chem 89.75 [facility] Nucleated erythrocytes [Pres ence] in Blood by Automated countOrdered By: Justin Deras on 03-09-2023 Nucleated RBC Auto Ql (Bld) 0.1 /100{WBC} 0-0.5 [facility] Platelet mean volume [Entiti c volume] in Blood by Automated countOrdered By: Justin Deras on 03-09-2023 Platelet mean volume (Bld) [Entitic vol] 7.6 fL Normal 6.6-10.1 [facility] Comment on above: Performed By: #### P P, CBC, FIB-C #### [facility] [address] [place] [address] Platelets [#/volume] in Bloo d by Automated countOrdered By: Justin Deras on 03-09-2023 Platelets (Bld) [#/Vol] 232 10*3/uL Normal 150-450 [facility] Comment on above: Performed By: #### P P, CBC, FIB-C #### [address] Potassium [Moles/volume] in Serum or PlasmaOrdered By: Justin Deras on 03-09-2023 Potassium [Moles/Vol] 4.0 mmol/L Normal 3.5-5.[address] [facility] Comment on above: Performed By: #### P P, CBC, FIB-C #### [address] Serum or plasma anion gap de terminationOrdered By: Justin Deras on 03-09-2023 Anion gap [Moles/Vol] 10.8 mmol/L Normal 6.0-15.0 [facility] Comment on above: Performed By: #### P P, CBC, FIB-C #### [facility] [address] [place] [address] Sodium [Moles/volume] in Ser um or PlasmaOrdered By: Justin Deras on 03-09-2023 Sodium [Moles/Vol] 139 mmol/L Normal 136-145 [facility] Comment on above: Performed By: #### P P, CBC, FIB-C #### [address] Urea nitrogen [Mass/volume] in Serum or PlasmaOrdered By: Justin Deras on 03-09-2023 Urea nitrogen [Mass/Vol] 11 mg/dL Normal 7-25 [facility] Comment on above: Performed By: #### P P, CBC, FIB-C #### [place] [address] [place] Activated partial thrombopla stin time (aPTT) in platelet poor plasma by coagulation aOrdered By: Justin Deras on 03-08-2023 aPTT Coag (PPP) [Time] 27.6 s 25.1-36.5 [facility] Comment on above: A hematocrit value g reater than 55% may lead to inaccurate results in coagulation testing. Patients having hematocrit values >55% require a special collection tube for coagulation studies. Please contact the laboratory at [phone] for redraw instructions. Arterial blood standard base excess determination by calculationOrdered By: Justin Deras on 03-08-2023 Base excess standard Calc (BldA) [Moles/Vol] -2 mmol/L -2-3 [facility] Basic Metabolic Panelon 02-18 Anion gap [Moles/Vol] 10.9 mmol/L Normal 6.0-15.0 [facility] Comment on above: Performed By: #### C BC, CMP #### [address] Calcium [Mass/Vol] 8.7 mg/dL Normal 8.6-10.3 [facility] Comment on above: Performed By: #### C BC, CMP #### [address] Chloride [Moles/Vol] 106 mmol/L Normal 98-107 [facility] Comment on above: Performed By: #### C BC, CMP #### [place] [address] [place] CO2 [Moles/Vol] 23.1 mmol/L Normal 21.0-31.0 [facility] Comment on above: Performed By: #### C BC, CMP #### [address] Creatinine [Mass/Vol] 0.79 mg/dL Normal 0.70-1.30 [facility] Comment on above: Performed By: #### C BC, CMP #### [place] [address] [place] Creatinine Clr Calc Pharmacy 107.92 Normal [facility] Comment on above: Result Comment: PERF ORMED BY: [place] [address] PATHOLOGIST SPOUT POSITIONER RODRIGUEZ SHEIKH M.D. Performed By: #### C BC, CMP #### [place] [address] [place] GFR/1.73 sq M.predicted MDRD (S/P/Bld) [Vol rate/Area] mL/min/{1.73_m2} Normal [facility] Comment on above: Performed By: #### C BC, CMP #### [facility] [address] Glucose [Mass/Vol] 143 mg/dL High 70-100 [facility] Comment on above: Result Comment: [place] Glucose Reference Range is dependent on time and content of last meal. Glucose of more than 200 mg/dL in a nonstressed, ambulatory subject supports the diagnosis of Diabetes Mellitus. ADA recommended reference range Performed By: #### C BC, CMP #### [address] Potassium [Moles/Vol] 4.0 mmol/L Normal 3.5-5.1 [facility] Comment on above: Performed By: #### C BC, CMP #### [address] [address] Sodium [Moles/Vol] 136 mmol/L Normal 136-145 [facility] Comment on above: Performed By: #### C BC, CMP #### [address] Urea nitrogen [Mass/Vol] 11 mg/dL Normal 7-25 [facility] Comment on above: Performed By: #### C BC, CMP #### [address] Blood carbon dioxide, total measurement by calculation (moles/volume)Ordered By: Justin Deras on 03-08-2023 CO2 Calc (Bld) [Moles/Vol] 25 mmol/L 23-29 [facility] Blood hemoglobin measurement by calculation (mass/volume)Ordered By: Justin Deras on 03-08-2023 Hemoglobin (Bld) [Mass/Vol] 12.9 g/dL Normal 12.0-17.0 [facility] Comment on above: Performed By: #### P P, CBC, FIB-C #### [address] biopsyOrdered By: Justin Deras on 03-08-2023 Hematocrit (Bld) [Volume fraction] 38.0 % Normal 38.0-51.0 [facility] Comment on above: Performed By: #### P P, CBC, FIB-C #### [address] Capillary blood glucose michelle urement by glucometer (mass/volume)Ordered By: Justin Deras on 03-08-2023 Glucose [Mass/Vol] 135 mg/dL High 70-105 [facility] Comment on above: Result Comment: PERF ORMED BY: [place] [address] PATHOLOGIST SPOUT POSITIONER RODRIGUEZ SHEIKH M.D. Performed By: #### P P, CBC, FIB-C #### [address] Glucose [Mass/Vol] 127 mg/dL Normal [facility] Comment on above: Random Glucose Refer ence Range is dependent on time and content of last meal. Glucose of more than 200 mg/dL in a nonstressed, ambulatory subject supports the diagnosis of Diabetes Mellitus. Result Comment: [place] om Glucose Reference Range is dependent on time and content of last meal. Glucose of more than 200 mg/dL in a nonstressed, ambulatory subject supports the diagnosis of Diabetes Mellitus. PERFORMED BY: [place] [address] PATHOLOGIST SPOUT POSITIONER RODRIGUEZ SHEIKH M.D. Performed By: #### C BC, CMP #### [place] [id number] [facility] Complete Blood Count Auto Di ffon 03-08-2023 Basophils (Bld) [#/Vol] 0.0 10*3/uL Normal 0.0-0.2 [facility] Comment on above: Result Comment: PERF ORMED BY: [place] [address] PATHOLOGIST SPOUT POSITIONER RODRIGUEZ SHEIKH M.D. Performed By: #### C BC, CMP #### [address] Basophils/100 WBC (Bld) 0.4 % Normal . [facility] Comment on above: Performed By: #### C BC, CMP #### [address] Eosinophils (Bld) [#/Vol] 0.1 10*3/uL Normal 0.0-0.45 [facility] Comment on above: Performed By: #### C BC, CMP #### [address] Eosinophils/100 WBC (Bld) 0.9 % Normal . [facility] Comment on above: Performed By: #### C BC, CMP #### [address] Erythrocyte distribution width (RBC) [Ratio] 14.1 % Normal 12.0-14.8 [facility] Comment on above: Performed By: #### C BC, CMP #### [address] Hematocrit (Bld) [Volume fraction] 42.0 % Normal 38.8-50.0 [facility] Comment on above: Performed By: #### C BC, CMP #### [address] Hemoglobin (Bld) [Mass/Vol] 14.1 g/dL Normal 13.0-17.0 [facility] Comment on above: Performed By: #### C BC, CMP #### [address] Lymphocytes (Bld) [#/Vol] 1.8 10*3/uL Normal 1.00-4.8 [facility] Comment on above: Performed By: #### C BC, CMP #### [address] Lymphocytes/100 WBC (Bld) 26.9 % Normal . [facility] Comment on above: Performed By: #### C BC, CMP #### [address] MCH (RBC) [Entitic mass] 31.6 pg Normal 27.5-35.2 [facility] Comment on above: Performed By: #### C BC, CMP #### [address] MCV (RBC) [Entitic vol] 94.0 fL Normal 83.5-101 [facility] Comment on above: Performed By: #### C BC, CMP #### [address] Mean Corpuscular HGB Conc 33.6 g/dL Normal 32.5-35.6 [facility] Comment on above: Performed By: #### C BC, CMP #### [address] Monocytes (Bld) [#/Vol] 0.5 10*3/uL Normal 0.0-0.8 [facility] Comment on above: Performed By: #### C BC, CMP #### [address] Monocytes/100 WBC (Bld) 8.3 % Normal . [facility] Comment on above: Performed By: #### C BC, CMP #### [address] Neutrophils (Bld) [#/Vol] 4.2 10*3/uL Normal 1.8-7.7 [facility] Comment on above: Performed By: #### C BC, CMP #### [address] Neutrophils/100 WBC (Bld) 63.5 % Normal . [facility] Comment on above: Performed By: #### C BC, CMP #### [address] NRBC% 0.1 /100{WBC} Normal 0-0.5 [facility] Comment on above: Performed By: #### C BC, CMP #### [address] Platelet mean volume (Bld) [Entitic vol] 7.6 fL Normal 6.6-10.1 [facility] Comment on above: Performed By: #### C BC, CMP #### [facility] [address] Platelets (Bld) [#/Vol] 219 10*3/uL Normal 150-450 [facility] Comment on above: Performed By: #### C BC, CMP #### [facility] [address] RBC (Bld) [#/Vol] 4.47 10*6/uL Normal 3.90-5.60 [facility] Comment on above: Performed By: #### C BC, CMP #### [facility] [address] WBC (Bld) [#/Vol] 6.6 10*3/uL Normal 4.1-10.5 [facility] Comment on above: Performed By: #### C BC, CMP #### [address] ECG 12 lead ECGon 03-08-2023 ECG 12 lead ECG [facility] [place] [address] [place] [address] Electrocardiograph Report Signed Patient: Mesfin Solis MR#: [id number] : 1960 Acct:[id number] Age/Sex: 62 / M ADM Date: 03/06/23 Loc: Room: [address] [place] [address] Type: ADM IN Attending Dr: Justin Deras MD Ordering Provider: Isra Larkin DO Date of Service: 03/08/23 ECG/ECG 12 lead ECG: recheck for preop, ST depression on previous EKG Copies to: Test Reason : Blood Pressure : / mmHG Vent. Rate : 092 BPM Atrial Rate : 092 BPM P-R Int : 158 ms QRS Dur : 086 ms QT Int : 344 ms P-R-T Axes : 058 091 -32 degrees QTc Int : 425 ms Normal sinus rhythm Rightward axis Cannot rule out Inferior infarct (cited on or before 07-MAR-2023) Abnormal ECG When compared with ECG of 07-MAR-2023 16:48, (Unconfirmed) No significant change was found Confirmed by SRIRAM [facility]RA[facility]JO [facility] ([id number] on 03/10/2023 10:47:06 AM Referred By: Electronically Signed By:JAX MERA MD [facility] Transcribed By: MUS Signed By Pradip Mera MD 03/10/23 1047 Normal [facility] echo transthoracicon [facility] echo transthoracic [facility] Main [place] [address] [place] [address] Echocardiogram Signed Patient: Mesfin Solis MR#: [id number] : 1960 Acct:[id number] Age/Sex: 62 / M ADM Date: 03/06/23 Loc: Room: [address] [place] [address] Type: ADM IN Attending Dr: Justin Deras MD Ordering Provider: Azul Jimenez MD Date of Service: 03/08/23 [facility] echo transthoracic: Ischemic changes on pre-op EKG Copies to: MD Pradip Murry MD Height: 67 in Weight: 215 lb Performed By: SAMIRA Love BSA: 2.1 m2 BP: 169/75 mmHg HR: 89 Reason For Study: Ischemic changes on pre-op EKG History: PAD Interpretation Summary Moderate concentric left ventricular hypertrophy. Ejection Fraction = 65-70%. A variety of Doppler measurements indicate normal left ventricular diastolic function. Procedure/Quality: A two-dimensional transthoracic echocardiogram with color flow and Doppler was performed. The study was technically fair in quality. Left Ventricle: The left ventricular size is normal. Moderate concentric left ventricular hypertrophy. Ejection Fraction = 65-70%. A variety of Doppler measurements indicate normal left ventricular diastolic function. No left ventricular thrombus or mass is seen. Left Atrium: The left atrium appears normal in size. The atrial septum appears normal. Right Atrium: The right atrium appears normal in size. Right Ventricle: The right ventricular size, thickness and function are normal. Aortic Valve: The aortic valve is normal in structure and function. Mitral Valve: The mitral valve is normal. Tricuspid Valve: The tricuspid valve is normal in structure and function. Pulmonic Valve: The pulmonic valve is not well visualized. Arteries: The aortic root is normal size. The aortic arch was visualized and no abnormalities were seen. Pericardium/Pleura: No pericardial effusion seen. There is no pleural effusion. IVC/Hepatic Viens: The inferior vena cava is normal in size, with a normal collapsibility index. Measurements with Normals IVSd: 1.5 cm (0.7-1.1 cm)LVIDd: 4.5 cm (3.7-5.4 cm) LVPWd: 1.3 cm (0.7-1.1 cm)LVIDs: 2.4 cm (2.3-3.6 cm) LA dimension: 3.0 cm (2.3-4.0 cm)Ao root diam: 3.1 cm(2.0-3.6 cm) asc Aorta Diam: 3.0 cm(2.1-3.4cm) Doppler with Normals MV E max deep: 63.8 cm/sec(0.8-1.3m/s) MV A max deep: 95.5 cm/sec(0.0-0.0m/s) MV E/A: 0.67 (<1.5) MMode/2D Measurements Calculations RVDd: 3.2 cm FS: 46.7 % Ao root area: LVLd ap4: 7.3 cm TAPSE: 2.3 cm EDV(Teich): 92.3 ml 7.3 cm2 EDV(MOD-sp4): RV S Deep: ESV(Teich): 20.1 ml 50.7 ml 17.4 cm/sec EF(Teich): 78.2 % LVLs ap4: 6.2 cm ESV(MOD-sp4): 11.3 ml EF(MOD-sp4): 77.7 % __ SV(MOD-sp4): LAV(MOD-sp4): LA A2 area: 8.4 cm2 39.4 ml 26.6 ml LAV(MOD-sp2): LA A4 area: 12.6 cm2 11.8 ml LA length (vol): 5.0 cm LA vol: 18.1 ml LA vol index: 8.7 ml/m2 Doppler Measurements Calculations MV dec time: 0.24 sec E/E' lat: 8.1 E/E' med: 8.1 MV dec slope: 268.6 cm/sec2 Transcribed By: JORGE Performed At: 03/08/23 1536 Signed By: Pradip Mera MD 03/08/23 1638 Normal [facility] ISTAT ABGon 03-08-2023 CO2 [Moles/Vol] 25 mmol/L Normal 23-29 [facility] Comment on above: Performed By: #### P P, CBC, FIB-C #### [facility] [address] [place] [address] [place] ISTAT Base Excess -2 mmol/L Normal -2 TO 3 [facility] Comment on above: Performed By: #### P P, CBC, FIB-C #### [facility] [address] [place] [address] ISTAT Ionized Calcium 1.22 mol/L Normal 1.12-1.32 [facility] Comment on above: Performed By: #### P P, CBC, FIB-C #### [facility] [address] [place] [address] [place] ISTAT PCO2 40.7 mm[Hg] Normal 35-51 [facility] Comment on above: Performed By: #### P P, CBC, FIB-C #### [facility] [address] [place] [address] [place] ISTAT Ph 7.373 Normal 7.31-7.45 [facility] Comment on above: Performed By: #### P P, CBC, FIB-C #### [facility] [address] [place] [address] [place] ISTAT PO2 275 mm[Hg] High 80-105 [facility] Comment on above: Performed By: #### P P, CBC, FIB-C #### [address] Monocyte %Ordered By: Kyra Deras on 03-08-2023 Monocyte % 40.7 mm[Hg] 35-51 [facility] Monocyte % 275 mm[Hg] 80-105 [facility] Partial Thromboplastin Timeo n 03-08-2023 aPTT Coag (Bld) [Time] 27.6 s Normal 25.1-36.5 [facility] Comment on above: Result Comment: A matocrit value greater than 55% may lead to inaccurate results in coagulation testing. Patients having hematocrit values >55% require a special collection tube for coagulation studies. Please contact the laboratory at [phone] for redraw instructions. PERFORMED BY: [place] [address] PATHOLOGIST SPOUT POSITIONER RODRIGUEZ SHEIKH M.D. Performed By: #### P P, CBC, FIB-C #### [address] aPTT Coag (Bld) [Time] 102.5 s Off scale high 25.1-36.5 [facility] Comment on above: Result Comment: Crit ical value result called at 0531 on 03/08/23 A hematocrit value greater than 55% may lead to inaccurate results in coagulation testing. Patients having hematocrit values >55% require a special collection tube for coagulation studies. Please contact the laboratory at [phone] for redraw instructions. PERFORMED BY: [place] [address] PATHOLOGIST SPOUT POSITIONER RODRIGUEZ SHEIKH M.D. Performed By: #### C BC, CMP #### [address] Troponin I High Sensitivityo n 03-08-2023 Troponin I High Sensitivity 15.7 pg/mL Normal 0.0-20.0 [facility] Comment on above: Order Comment: Comme nt in PACU post-op Result Comment: PERF ORMED BY: [place] [phone] PATHOLOGIST SPOUT POSITIONER RODRIGUEZ SHEIKH M.D. Performed By: #### C BC, CMP #### [address] Troponin I.cardiac [Mass/vol ume] in Serum or Plasma by Detection limit <= 0.01 ng/Ordered By: Isra Larkin on 03-08-2023 Troponin I.cardiac DL <= 0.01 ng/mL [Mass/Vol] 15.7 pg/mL 0.0-20.0 [facility] Whole blood bicarbonate michelle urementOrdered By: Justin Deras on 03-08-2023 HCO3 (Bld) [Moles/Vol] 23.7 mmol/L Normal 22.0-28.0 [facility] Comment on above: Performed By: #### P P, CBC, FIB-C #### [address] Whole blood ionized calcium measurement (moles/volume)Ordered By: Justin Deras on 03-08-2023 Calcium.ionized (Bld) [Moles/Vol] 1220 mmol/L 1.12-1.32 [facility] Whole blood oxygen saturatio n measurementOrdered By: Justin Deras on 03-08-2023 Oxygen saturation in Blood 100 % High 95-98 [facility] Comment on above: Reference ranges ref lect baseline specimens only Result Comment: Refe rence ranges reflect baseline specimens only Performed By: #### P P, CBC, FIB-C #### [address] Whole blood pHOrdered By: Kyle Deras on 03-08-2023 pH (Bld) 7.373 Units 7.31-7.45 [facility] Whole blood potassium measur ementOrdered By: Justin Deras on 03-08-2023 Potassium [Moles/Vol] 3.5 mmol/L Normal 3.5-4.[address] [facility] Comment on above: Performed By: #### P P, CBC, FIB-C #### [address] Whole blood sodium measureme ntOrdered By: Justin Deras on 03-08-2023 Sodium [Moles/Vol] 138 mmol/L Normal 138-146 [facility] Comment on above: Performed By: #### P P, CBC, FIB-C #### [address] Basic Metabolic Panelon 02-17 Anion gap [Moles/Vol] 12.1 mmol/L Normal 6.0-15.0 [facility] Comment on above: Performed By: #### P P, CBC, FIB-C #### [address] Calcium [Mass/Vol] 8.4 mg/dL Low 8.6-10.3 [facility] Comment on above: Performed By: #### P P, CBC, FIB-C #### [address] Chloride [Moles/Vol] 105 mmol/L Normal 98-107 [facility] Comment on above: Performed By: #### P P, CBC, FIB-C #### [address] CO2 [Moles/Vol] 22.9 mmol/L Normal 21.0-31.0 [facility] Comment on above: Performed By: #### P P, CBC, FIB-C #### [address] Creatinine [Mass/Vol] 0.89 mg/dL Normal 0.70-1.30 [facility] Comment on above: Performed By: #### P P, CBC, FIB-C #### [address] Creatinine Clr Calc Pharmacy 96.48 Normal [facility] Comment on above: Result Comment: PERF ORMED BY: [place] [address] PATHOLOGIST SPOUT POSITIONER RODRIGUEZ SHEIKH M.D. Performed By: #### P P, CBC, FIB-C #### [address] GFR/1.73 sq M.predicted MDRD (S/P/Bld) [Vol rate/Area] mL/min/{1.73_m2} Normal [facility] Comment on above: Performed By: #### P P, CBC, FIB-C #### [address] Glucose [Mass/Vol] 132 mg/dL High 70-100 [facility] Comment on above: Result Comment: [facility] Glucose Reference Range is dependent on time and content of last meal. Glucose of more than 200 mg/dL in a nonstressed, ambulatory subject supports the diagnosis of Diabetes Mellitus. ADA recommended reference range Performed By: #### P P, CBC, FIB-C #### [address] Potassium [Moles/Vol] 4.0 mmol/L Normal 3.5-5.1 [facility] Comment on above: Performed By: #### P P, CBC, FIB-C #### [address] Sodium [Moles/Vol] 136 mmol/L Normal 136-145 [facility] Comment on above: Performed By: #### P P, CBC, FIB-C #### [address] Urea nitrogen [Mass/Vol] 11 mg/dL Normal 7-25 [facility] Comment on above: Performed By: #### P P, CBC, FIB-C #### [address] Complete Blood Count Auto Di ffon 03-07-2023 Basophils (Bld) [#/Vol] 0.0 10*3/uL Normal 0.0-0.2 [facility] Comment on above: Order Comment: Comme nt Every 6 hour while on tPA Result Comment: PERF ORMED BY: [place] [address] PATHOLOGIST SPOUT POSITIONER JIANLAN SUN M.D. Performed By: #### C BC, FIB-C ####[address] Basophils/100 WBC (Bld) 0.2 % Normal . [facility] Comment on above: Order Comment: Comme nt Every 6 hour while on tPA Performed By: #### C BC, FIB-C ####[address] Eosinophils (Bld) [#/Vol] 0.0 10*3/uL Normal 0.0-0.45 [facility] Comment on above: Order Comment: Comme nt Every 6 hour while on tPA Performed By: #### C BC, FIB-C ####[address] Eosinophils/100 WBC (Bld) 0.3 % Normal . [facility] Comment on above: Order Comment: Comme nt Every 6 hour while on tPA Performed By: #### C BC, FIB-C ####[address] Erythrocyte distribution width (RBC) [Ratio] 13.7 % Normal 12.0-14.8 [facility] Comment on above: Order Comment: Comme nt Every 6 hour while on tPA Performed By: #### C BC, FIB-C ####[address] Hematocrit (Bld) [Volume fraction] 40.5 % Normal 38.8-50.0 [facility] Comment on above: Order Comment: Comme nt Every 6 hour while on tPA Performed By: #### C BC, FIB-C ####[address] Hemoglobin (Bld) [Mass/Vol] 13.8 g/dL Normal 13.0-17.0 [facility] Comment on above: Order Comment: Comme nt Every 6 hour while on tPA Performed By: #### C BC, FIB-C ####[address] Lymphocytes (Bld) [#/Vol] 1.4 10*3/uL Normal 1.00-4.8 [facility] Comment on above: Order Comment: Comme nt Every 6 hour while on tPA Performed By: #### C BC, FIB-C ####[address] Lymphocytes/100 WBC (Bld) 20.5 % Normal . [facility] Comment on above: Order Comment: Comme nt Every 6 hour while on tPA Performed By: #### C BC, FIB-C ####[address] MCH (RBC) [Entitic mass] 31.6 pg Normal 27.5-35.2 [facility] Comment on above: Order Comment: Comme nt Every 6 hour while on tPA Performed By: #### C BC, FIB-C ####[address] MCV (RBC) [Entitic vol] 93.1 fL Normal 83.5-101 [facility] Comment on above: Order Comment: Comme nt Every 6 hour while on tPA Performed By: #### C BC, FIB-C ####[address] Mean Corpuscular HGB Conc 34.0 g/dL Normal 32.5-35.6 [facility] Comment on above: Order Comment: Comme nt Every 6 hour while on tPA Performed By: #### C BC, FIB-C ####[address] Monocytes (Bld) [#/Vol] 0.5 10*3/uL Normal 0.0-0.8 [facility] Comment on above: Order Comment: Comme nt Every 6 hour while on tPA Performed By: #### C BC, FIB-C ####[address] Monocytes/100 WBC (Bld) 8.0 % Normal . [facility] Comment on above: Order Comment: Comme nt Every 6 hour while on tPA Performed By: #### C BC, FIB-C ####[place] [id number] [facility] Neutrophils (Bld) [#/Vol] 4.8 10*3/uL Normal 1.8-7.7 [facility] Comment on above: Order Comment: Comme nt Every 6 hour while on tPA Performed By: #### C BC, FIB-C ####[place] [id number] [facility] Neutrophils/100 WBC (Bld) 71.0 % Normal . [facility] Comment on above: Order Comment: Comme nt Every 6 hour while on tPA Performed By: #### C BC, FIB-C ####[address] NRBC% 0.1 /100{WBC} Normal 0-0.5 [facility] Comment on above: Order Comment: Comme nt Every 6 hour while on tPA Performed By: #### C BC, FIB-C ####[address] Platelet mean volume (Bld) [Entitic vol] 7.5 fL Normal 6.6-10.1 [facility] Comment on above: Order Comment: Comme nt Every 6 hour while on tPA Performed By: #### C BC, FIB-C ####[place] [id number] [facility] Platelets (Bld) [#/Vol] 218 10*3/uL Normal 150-450 [facility] Comment on above: Order Comment: Comme nt Every 6 hour while on tPA Performed By: #### C BC, FIB-C ####[place] [id number] [facility] RBC (Bld) [#/Vol] 4.35 10*6/uL Normal 3.90-5.60 [facility] Comment on above: Order Comment: Comme nt Every 6 hour while on tPA Performed By: #### C BC, FIB-C ####[place] [id number] [facility] WBC (Bld) [#/Vol] 6.8 10*3/uL Normal 4.1-10.5 [facility] Comment on above: Order Comment: Comme nt Every 6 hour while on tPA Performed By: #### C BC, FIB-C ####[address] Basophils (Bld) [#/Vol] 0.0 10*3/uL Normal 0.0-0.2 [facility] Comment on above: Order Comment: Comme nt Every 6 hour while on tPA Result Comment: PERF ORMED BY: [facility] [address] [place] [address] PATHOLOGIST SPOUT POSITIONER RODRIGUEZ SHEIKH M.D. Performed By: #### C BC, FIB-C ####[address] Basophils/100 WBC (Bld) 0.3 % Normal . [facility] Comment on above: Order Comment: Comme nt Every 6 hour while on tPA Performed By: #### C BC, FIB-C ####[address] Eosinophils (Bld) [#/Vol] 0.0 10*3/uL Normal 0.0-0.45 [facility] Comment on above: Order Comment: Comme nt Every 6 hour while on tPA Performed By: #### C BC, FIB-C ####[address] Eosinophils/100 WBC (Bld) 0.1 % Normal . [facility] Comment on above: Order Comment: Comme nt Every 6 hour while on tPA Performed By: #### C BC, FIB-C ####[address] Erythrocyte distribution width (RBC) [Ratio] 13.7 % Normal 12.0-14.8 [facility] Comment on above: Order Comment: Comme nt Every 6 hour while on tPA Performed By: #### C BC, FIB-C ####[address] Hematocrit (Bld) [Volume fraction] 40.6 % Normal 38.8-50.0 [facility] Comment on above: Order Comment: Comme nt Every 6 hour while on tPA Performed By: #### C BC, FIB-C ####[address] Hemoglobin (Bld) [Mass/Vol] 13.7 g/dL Normal 13.0-17.0 [facility] Comment on above: Order Comment: Comme nt Every 6 hour while on tPA Performed By: #### C BC, FIB-C ####[address] Lymphocytes (Bld) [#/Vol] 1.5 10*3/uL Normal 1.00-4.8 [facility] Comment on above: Order Comment: Comme nt Every 6 hour while on tPA Performed By: #### C BC, FIB-C ####[address] Lymphocytes/100 WBC (Bld) 21.8 % Normal . [facility] Comment on above: Order Comment: Comme nt Every 6 hour while on tPA Performed By: #### C BC, FIB-C ####[address] MCH (RBC) [Entitic mass] 31.3 pg Normal 27.5-35.2 [facility] Comment on above: Order Comment: Comme nt Every 6 hour while on tPA Performed By: #### C BC, FIB-C ####[address] MCV (RBC) [Entitic vol] 92.8 fL Normal 83.5-101 [facility] Comment on above: Order Comment: Comme nt Every 6 hour while on tPA Performed By: #### C BC, FIB-C ####[address] Mean Corpuscular HGB Conc 33.7 g/dL Normal 32.5-35.6 [facility] Comment on above: Order Comment: Comme nt Every 6 hour while on tPA Performed By: #### C BC, FIB-C ####[address] [address] [facility] Monocytes (Bld) [#/Vol] 0.5 10*3/uL Normal 0.0-0.8 [facility] Comment on above: Order Comment: Comme nt Every 6 hour while on tPA Performed By: #### C BC, FIB-C ####[place] [id number] [facility] Monocytes/100 WBC (Bld) 7.5 % Normal . [facility] Comment on above: Order Comment: Comme nt Every 6 hour while on tPA Performed By: #### C BC, FIB-C ####[place] [id number] [facility] Neutrophils (Bld) [#/Vol] 4.9 10*3/uL Normal 1.8-7.7 [facility] Comment on above: Order Comment: Comme nt Every 6 hour while on tPA Performed By: #### C BC, FIB-C ####[place] [id number] [facility] Neutrophils/100 WBC (Bld) 70.3 % Normal . [facility] Comment on above: Order Comment: Comme nt Every 6 hour while on tPA Performed By: #### C BC, FIB-C ####[place] [id number] [facility] NRBC% 0.1 /100{WBC} Normal 0-0.5 [facility] Comment on above: Order Comment: Comme nt Every 6 hour while on tPA Performed By: #### C BC, FIB-C ####[place] [id number] [facility] Platelet mean volume (Bld) [Entitic vol] 7.7 fL Normal 6.6-10.1 [facility] Comment on above: Order Comment: Comme nt Every 6 hour while on tPA Performed By: #### C BC, FIB-C ####[place] [id number] [facility] Platelets (Bld) [#/Vol] 222 10*3/uL Normal 150-450 [facility] Comment on above: Order Comment: Comme nt Every 6 hour while on tPA Performed By: #### C BC, FIB-C ####[facility] RBC (Bld) [#/Vol] 4.38 10*6/uL Normal 3.90-5.60 [facility] Comment on above: Order Comment: Comme nt Every 6 hour while on tPA Performed By: #### C BC, FIB-C ####[facility] [place] [address] [facility] WBC (Bld) [#/Vol] 6.9 10*3/uL Normal 4.1-10.5 [facility] Comment on above: Order Comment: Comme nt Every 6 hour while on tPA Performed By: #### C BC, FIB-C ####[facility] [place] [address] ECG 12 lead ECGon 03-07-2023 ECG 12 lead ECG [facility] [place] [address] Electrocardiograph Report Signed Patient: Mesfin Solis MR#: [id number] : 1960 Acct:[id number] Age/Sex: 62 / M ADM Date: 03/06/23 Loc: Room: [address] [place] [address] Type: ADM IN Attending Dr: Justin Deras MD Ordering Provider: Justin Deras MD Date of Service: 03/07/23 ECG/ECG 12 lead ECG: Pre op Copies to: Test Reason : Blood Pressure : / mmHG Vent. Rate : 090 BPM Atrial Rate : 090 BPM P-R Int : 160 ms QRS Dur : 084 ms QT Int : 344 ms P-R-T Axes : 062 088 -34 degrees QTc Int : 420 ms Normal sinus rhythm Cannot rule out Inferior infarct , age undetermined T wave abnormality, consider anterior ischemia Abnormal ECG No previous ECGs available Confirmed by SRIRAM [facility]RA[facility]JO [facility] ([id number] on 03/10/2023 10:46:45 AM Referred By: Electronically Signed By:JAX MERA MD [facility] Transcribed By: MUS Signed By Pradpi Mera MD 03/10/23 1046 Normal [facility] Fibrinogenon 03-07-2023 Fibrinogen 181 mg/dL Low 200-393 [facility] Comment on above: Order Comment: Comme nt Every 6 hours while on tPA Result Comment: A he matocrit value greater than 55% may lead to inaccurate results in coagulation testing. Patients having hematocrit values >55% require a special collection tube for coagulation studies. Please contact the laboratory at [phone] for redraw instructions. PERFORMED BY: [place] [address] PATHOLOGIST SPOUT POSITIONER RODRIGUEZ SHEIKH M.D. Performed By: #### C BC, FIB-C ####[facility] Fibrinogen 141 mg/dL Low 200-393 [facility] Comment on above: Order Comment: Comme nt Every 6 hour while on tPA Result Comment: A he matocrit value greater than 55% may lead to inaccurate results in coagulation testing. Patients having hematocrit values >55% require a special collection tube for coagulation studies. Please contact the laboratory at [phone] for redraw instructions. PERFORMED BY: [place] [address] PATHOLOGIST SPOUT POSITIONER RODRIGUEZ SHEIKH M.D. Performed By: #### C BC #### [facility] [address] [place] [address] Fibrinogen [Mass/volume] in Platelet poor plasma by Coagulation assayOrdered By: Justin Deras on 03-07-2023 Fibrinogen Coag (PPP) [Mass/Vol] 181 mg/dL 200-393 [facility] Comment on above: A hematocrit value g reater than 55% may lead to inaccurate results in coagulation testing. Patients having hematocrit values >55% require a special collection tube for coagulation studies. Please contact the laboratory at [phone] for redraw instructions. Partial Thromboplastin Timeo n 03-07-2023 aPTT Coag (Bld) [Time] 38.2 s High 25.1-36.5 [facility] Comment on above: Result Comment: A he matocrit value greater than 55% may lead to inaccurate results in coagulation testing. Patients having hematocrit values >55% require a special collection tube for coagulation studies. Please contact the laboratory at [phone] for redraw instructions. PERFORMED BY: [place] [address] PATHOLOGIST SPOUT POSITIONER RODRIGUEZ SHEIKH M.D. Performed By: #### P TT ####[facility] [place] [id number] [facility] US venous mapping BI loweron 03-07-2023 US venous mapping BI lower [facility] Main [place] [address] [place] [address] Ultrasound Report Signed Patient: Mesfin Solis MR#: [id number] : 1960 Acct:[id number] Age/Sex: 62 / M ADM Date: 03/06/23 Loc: Room: [address] [place] [address] Type: ADM IN Attending Dr: Justin Deras MD Ordering Provider: Adonis Lyons MD Date of Service: 03/07/23 US/US venous mapping BI lower: need for bypass Copies to: MD Justin Rodriguez MD Bilateral lower extremity vein mapping INDICATIONS: Need for lower extremity bypass conduit FINDINGS: Right lower extremity: The greater saphenous vein was of adequate diameter in the right lower extremity for conduit. There is left lower extremity: The greater saphenous vein in the thigh and around the knee area was of adequate size for conduit. The calf segment appeared too small. US/US venous mapping BI lower IMPRESSION: As above. Impression dictated by: Justin Deras MD03/07/2023 3:16 PM [facility]ation [facility] Tech: Dariela Miguel Transcribed By: [facility] 03/07/23 1516 Dictated By: Justin Deras MD 03/07/23 151 Signed By: 03/07/23 1516 Normal [facility] XR chest 1V portableon 03-07 XR chest 1V portable [facility] [place] [address] [place] [address] XRay Report Signed Patient: Mesfin Solis MR#: [id number] : 1960 Acct:[id number] Age/Sex: 62 / M ADM Date: 03/06/23 Loc: Room: [address] [place] [address] Type: ADM IN Attending Dr: Justin Deras MD Copies to: Justin Deras MD Ordering Provider: Justin Deras MD Date of Service: 03/07/23 XR/XR chest 1V portable: Pre op XR chest 1V portable 03/07/2023 7:37 AM SIGNS AND SYMPTOMS: Preop, limb ischemia PROTOCOL: Frontal radiograph of the chest COMPARISON: None FINDINGS: The trachea is midline. The heart and mediastinal structures are within normal limits. There is mild linear scarring or atelectasis at the left lung base. The lung parenchyma is clear otherwise. The bony thorax is intact. XR/XR chest 1V portable IMPRESSION: No acute cardiopulmonary pathology. Impression dictated by: Jake Rivero M.D.03/07/2023 3:07 PM Dictation Location: [place] [address] Transcribed By: [facility] 03/07/23 1507 Dictated By: Jake Rivero II, MD 03/07/23 1506 Signed By: 03/07/23 1507 Normal [facility] ABO/Rh Retypeon 03-06-2023 ABO/RH Recheck Result Positive Normal [facility] Comment on above: Result Comment: PERF ORMED BY: [place] [address] PATHOLOGIST SPOUT POSITIONER RODRIGUEZ SHEIKH M.D. Alanine aminotransferase [En zymatic activity/volume] in Serum or PlasmaOrdered By: Mohamud Block on 03-06-2023 ALT [Catalytic activity/Vol] 54 U/L High [facility] Comment on above: Performed By: #### C BC, CMP #### [place] [address] [place] Albumin [Mass/volume] in Ser um or Plasma by Bromocresol green (BCG) dye binding methoOrdered By: Mohamud Block on 03-06-2023 Albumin BCG dye [Mass/Vol] 4.2 g/dL 3.5-5.7 [facility] Alkaline phosphatase [Enzyma tic activity/volume] in Serum or PlasmaOrdered By: Mohamud Block on 03-06-2023 ALP [Catalytic activity/Vol] 108 U/L High 34-104 [facility] Comment on above: Performed By: #### C BC, CMP #### [address] Aspartate aminotransferase [ Enzymatic activity/volume] in Serum or PlasmaOrdered By: Mohamud Block on 03-06-2023 AST [Catalytic activity/Vol] 34 U/L Normal 13-39 [facility] Comment on above: Performed By: #### C BC, CMP #### [address] Automated basophil %Ordered By: Mohamud Block on 03-06-2023 Basophils/100 WBC (Bld) 0.5 % Normal . [facility] Comment on above: Performed By: #### C BC, CMP #### [address] Automated basophil countOrde red By: Mohamud Block on 03-06-2023 Basophils (Bld) [#/Vol] 0.0 10*3/uL Normal 0.0-0.2 [facility] Comment on above: Result Comment: PERF ORMED BY: [place] [address] PATHOLOGIST SPOUT POSITIONER RODRIGUEZ SHEIKH M.D. Performed By: #### C BC, CMP #### [address] Automated blood monocyte cou ntOrdered By: Mohamud Block on 03-06-2023 Monocytes (Bld) [#/Vol] 0.5 10*3/uL Normal 0.0-0.8 [facility] Comment on above: Performed By: #### C BC, CMP #### [address] Automated eosinophil %Ordere d By: Mohamud Mckayla on 03-06-2023 Eosinophils/100 WBC (Bld) 0.8 % Normal . [facility] Comment on above: Performed By: #### C BC, CMP #### [address] Automated eosinophil countOr dered By: Mohamud Mckayla on 03-06-2023 Eosinophils (Bld) [#/Vol] 0.1 10*3/uL Normal 0.0-0.45 [facility] Comment on above: Performed By: #### C BC, CMP #### [address] Automated monocyte %Ordered By: Mohamud Mckayla on 03-06-2023 Monocytes/100 WBC (Bld) 7.3 % Normal . [facility] Comment on above: Performed By: #### C BC, CMP #### [address] Automated neutrophil %Ordere d By: Mohamud Mckayla on 03-06-2023 Neutrophils/100 WBC (Bld) 56.2 % Normal . [facility] Comment on above: Performed By: #### C BC, CMP #### [address] Bilirubin.total [Mass/volume ] in Serum or PlasmaOrdered By: Mohamud Block on 03-06-2023 Bilirubin [Mass/Vol] 0.4 mg/dL Normal 0.3-1.0 [facility] Comment on above: Performed By: #### C BC, CMP #### [address] Calcium [Mass/volume] in Ser um or PlasmaOrdered By: Mohamud Block on 03-06-2023 Calcium [Mass/Vol] 9.5 mg/dL Normal 8.6-10.3 [facility] Comment on above: Performed By: #### C BC, CMP #### [address] Carbon dioxide, total [Moles /volume] in Serum or PlasmaOrdered By: Mohamud Block on 03-06-2023 CO2 [Moles/Vol] 25.3 mmol/L Normal 21.0-31.0 [facility] Comment on above: Performed By: #### C BC, CMP #### [address] Chloride [Moles/volume] in [place] or PlasmaOrdered By: Mohamud Block on 03-06-2023 Chloride [Moles/Vol] 105 mmol/L Normal 98-107 [facility] Comment on above: Performed By: #### C BC, CMP #### [address] Complete Blood Count Auto Di ffon 03-06-2023 Basophils (Bld) [#/Vol] 0.0 10*3/uL Normal 0.0-0.2 [facility] Comment on above: Order Comment: Comme nt Every 6 hour while on tPA Result Comment: PERF ORMED BY: [place] [address] PATHOLOGIST SPOUT POSITIONER RODRIGUEZ SHEIKH M.D. Performed By: #### C BC, CMP #### [address] Basophils/100 WBC (Bld) 0.2 % Normal . [facility] Comment on above: Order Comment: Comme nt Every 6 hour while on tPA Performed By: #### C BC, CMP #### [address] Eosinophils (Bld) [#/Vol] 0.0 10*3/uL Normal 0.0-0.45 [facility] Comment on above: Order Comment: Comme nt Every 6 hour while on tPA Performed By: #### C BC, CMP #### [address] Eosinophils/100 WBC (Bld) 0.0 % Normal . [facility] Comment on above: Order Comment: Comme nt Every 6 hour while on tPA Performed By: #### C BC, CMP #### [address] Erythrocyte distribution width (RBC) [Ratio] 14.0 % Normal 12.0-14.8 [facility] Comment on above: Order Comment: Comme nt Every 6 hour while on tPA Performed By: #### C BC, CMP #### [address] Hematocrit (Bld) [Volume fraction] 41.6 % Normal 38.8-50.0 [facility] Comment on above: Order Comment: Comme nt Every 6 hour while on tPA Performed By: #### C BC, CMP #### [address] Hemoglobin (Bld) [Mass/Vol] 14.2 g/dL Normal 13.0-17.0 [facility] Comment on above: Order Comment: Comme nt Every 6 hour while on tPA Performed By: #### C NOHEMY, CMP #### [address] Lymphocytes (Bld) [#/Vol] 0.7 10*3/uL Low 1.00-4.8 [facility] Comment on above: Order Comment: Comme nt Every 6 hour while on tPA Performed By: #### C NOHEMY, CMP #### [address] Lymphocytes/100 WBC (Bld) 7.3 % Normal . [facility] Comment on above: Order Comment: Comme nt Every 6 hour while on tPA Performed By: #### C BC, CMP #### [address] MCH (RBC) [Entitic mass] 31.5 pg Normal 27.5-35.2 [facility] Comment on above: Order Comment: Comme nt Every 6 hour while on tPA Performed By: #### C BC, CMP #### [address] MCV (RBC) [Entitic vol] 92.5 fL Normal 83.5-101 [facility] Comment on above: Order Comment: Comme nt Every 6 hour while on tPA Performed By: #### C BC, CMP #### [address] Mean Corpuscular HGB Conc 34.1 g/dL Normal 32.5-35.6 [facility] Comment on above: Order Comment: Comme nt Every 6 hour while on tPA Performed By: #### C BC, CMP #### [place] [address] [place] Monocytes (Bld) [#/Vol] 0.7 10*3/uL Normal 0.0-0.8 [facility] Comment on above: Order Comment: Comme nt Every 6 hour while on tPA Performed By: #### C BC, CMP #### [address] Monocytes/100 WBC (Bld) 6.5 % Normal . [facility] Comment on above: Order Comment: Comme nt Every 6 hour while on tPA Performed By: #### C BC, CMP #### [address] Neutrophils (Bld) [#/Vol] 8.8 10*3/uL High 1.8-7.7 [facility] Comment on above: Order Comment: Comme nt Every 6 hour while on tPA Performed By: #### C BC, CMP #### [address] Neutrophils/100 WBC (Bld) 86.0 % Normal . [facility] Comment on above: Order Comment: Comme nt Every 6 hour while on tPA Performed By: #### C BC, CMP #### [place] [address] [place] NRBC% 0.0 /100{WBC} Normal 0-0.5 [facility] Comment on above: Order Comment: Comme nt Every 6 hour while on tPA Performed By: #### C BC, CMP #### [address] Platelet mean volume (Bld) [Entitic vol] 7.2 fL Normal 6.6-10.1 [facility] Comment on above: Order Comment: Comme nt Every 6 hour while on tPA Performed By: #### C BC, CMP #### [place] [address] [place] Platelets (Bld) [#/Vol] 226 10*3/uL Normal 150-450 [facility] Comment on above: Order Comment: Comme nt Every 6 hour while on tPA Performed By: #### C BC, CMP #### [place] [address] [place] RBC (Bld) [#/Vol] 4.50 10*6/uL Normal 3.90-5.60 [facility] Comment on above: Order Comment: Comme nt Every 6 hour while on tPA Performed By: #### C BC, CMP #### [place] [address] [place] WBC (Bld) [#/Vol] 10.2 10*3/uL Normal 4.1-10.5 [facility] Comment on above: Order Comment: Comme nt Every 6 hour while on tPA Performed By: #### C BC, CMP #### [place] [address] [place] Basophils (Bld) [#/Vol] 0.0 10*3/uL Normal 0.0-0.2 [facility] Comment on above: Order Comment: Comme nt Every 6 hour while on tPA Result Comment: PERF ORMED BY: [place] [address] PATHOLOGIST SPOUT POSITIONER RODRIGUEZ SHEIKH M.D. Performed By: #### C BC #### [place] [address] [place] Basophils/100 WBC (Bld) 0.3 % Normal . [facility] Comment on above: Order Comment: Comme nt Every 6 hour while on tPA Performed By: #### C BC #### [place] [address] [place] Eosinophils (Bld) [#/Vol] 0.0 10*3/uL Normal 0.0-0.45 [facility] Comment on above: Order Comment: Comme nt Every 6 hour while on tPA Performed By: #### C BC #### [address] Eosinophils/100 WBC (Bld) 0.3 % Normal . [facility] Comment on above: Order Comment: Comme nt Every 6 hour while on tPA Performed By: #### C BC #### [address] Erythrocyte distribution width (RBC) [Ratio] 14.0 % Normal 12.0-14.8 [facility] Comment on above: Order Comment: Comme nt Every 6 hour while on tPA Performed By: #### C BC #### [address] Hematocrit (Bld) [Volume fraction] 45.4 % Normal 38.8-50.0 [facility] Comment on above: Order Comment: Comme nt Every 6 hour while on tPA Performed By: #### C BC #### [address] Hemoglobin (Bld) [Mass/Vol] 15.3 g/dL Normal 13.0-17.0 [facility] Comment on above: Order Comment: Comme nt Every 6 hour while on tPA Performed By: #### C BC #### [address] Lymphocytes (Bld) [#/Vol] 1.9 10*3/uL Normal 1.00-4.8 [facility] Comment on above: Order Comment: Comme nt Every 6 hour while on tPA Performed By: #### C BC #### [address] Lymphocytes/100 WBC (Bld) 22.4 % Normal . [facility] Comment on above: Order Comment: Comme nt Every 6 hour while on tPA Performed By: #### C BC #### [address] MCH (RBC) [Entitic mass] 31.6 pg Normal 27.5-35.2 [facility] Comment on above: Order Comment: Comme nt Every 6 hour while on tPA Performed By: #### C BC #### [address] MCV (RBC) [Entitic vol] 93.5 fL Normal 83.5-101 [facility] Comment on above: Order Comment: Comme nt Every 6 hour while on tPA Performed By: #### C BC #### [address] Mean Corpuscular HGB Conc 33.8 g/dL Normal 32.5-35.6 [facility] Comment on above: Order Comment: Comme nt Every 6 hour while on tPA Performed By: #### C BC #### [address] Monocytes (Bld) [#/Vol] 0.4 10*3/uL Normal 0.0-0.8 [facility] Comment on above: Order Comment: Comme nt Every 6 hour while on tPA Performed By: #### C BC #### [address] Monocytes/100 WBC (Bld) 4.3 % Normal . [facility] Comment on above: Order Comment: Comme nt Every 6 hour while on tPA Performed By: #### C BC #### [address] Neutrophils (Bld) [#/Vol] 6.3 10*3/uL Normal 1.8-7.7 [facility] Comment on above: Order Comment: Comme nt Every 6 hour while on tPA Performed By: #### C BC #### [address] Neutrophils/100 WBC (Bld) 72.7 % Normal . [facility] Comment on above: Order Comment: Comme nt Every 6 hour while on tPA Performed By: #### C BC #### [address] NRBC% 0.1 /100{WBC} Normal 0-0.5 [facility] Comment on above: Order Comment: Comme nt Every 6 hour while on tPA Performed By: #### C BC #### [address] Platelet mean volume (Bld) [Entitic vol] 7.9 fL Normal 6.6-10.1 [facility] Comment on above: Order Comment: Comme nt Every 6 hour while on tPA Performed By: #### C BC #### [place] [address] [place] Platelets (Bld) [#/Vol] 245 10*3/uL Normal 150-450 [facility] Comment on above: Order Comment: Comme nt Every 6 hour while on tPA Performed By: #### C BC #### [place] [address] [place] RBC (Bld) [#/Vol] 4.85 10*6/uL Normal 3.90-5.60 [facility] Comment on above: Order Comment: Comme nt Every 6 hour while on tPA Performed By: #### C BC #### [address] WBC (Bld) [#/Vol] 8.7 10*3/uL Normal 4.1-10.5 [facility] Comment on above: Order Comment: Comme nt Every 6 hour while on tPA Performed By: #### C BC #### [address] Mean Corpuscular HGB Conc 34.0 g/dL Normal 32.5-35.6 [facility] Comment on above: Performed By: #### C BC, CMP #### [address] Monocytes/100 WBC (Bld) 16.72 % Normal 0.00-20.00 [facility] Comment on above: Performed By: #### C BC, CMP #### [address] NRBC% 0.1 /100{WBC} Normal 0-0.5 [facility] Comment on above: Performed By: #### C BC, CMP #### [facility] [address] [place] [address] Comprehensive Metabolic Pane thomas 03-06-2023 Albumin [Mass/Vol] 4.2 g/dL Normal 3.5-5.7 [facility] Comment on above: Performed By: #### C BC, CMP #### [address] Creatinine Clr Calc Pharmacy 87.25 Normal [facility] Comment on above: Result Comment: PERF ORMED BY: [place] [address] PATHOLOGIST SPOUT POSITIONER RODRIGUEZ SHEIKH M.D. Performed By: #### C BC, CMP #### [address] GFR/1.73 sq M.predicted MDRD (S/P/Bld) [Vol rate/Area] mL/min/{1.73_m2} Normal [facility] Comment on above: Performed By: #### C BC, CMP #### [address] Creatinine [Mass/volume] in Serum or PlasmaOrdered By: Mohamud Block on 03-06-2023 Creatinine [Mass/Vol] 0.97 mg/dL Normal 0.70-1.[address] [facility] Comment on above: Performed By: #### C BC, CMP #### [address] Erythrocyte distribution wid th [Ratio] by Automated countOrdered By: Mohamud Block on 03-06-2023 Erythrocyte distribution width (RBC) [Ratio] 13.7 % Normal 12.0-14.8 [facility] Comment on above: Performed By: #### C BC, CMP #### [place] [address] [place] Erythrocytes [#/volume] in B lood by Automated countOrdered By: Mohamud Block on 03-06-2023 RBC (Bld) [#/Vol] 4.89 10*6/uL Normal 3.90-5.60 [facility] Comment on above: Performed By: #### C BC, CMP #### [facility] [address] [id number] [place] Fibrinogenon 03-06-2023 Fibrinogen 101 mg/dL Low 200-393 [facility] Comment on above: Order Comment: Comme nt Every 6 hour while on tPA Result Comment: A he matocrit value greater than 55% may lead to inaccurate results in coagulation testing. Patients having hematocrit values >55% require a special collection tube for coagulation studies. Please contact the laboratory at [phone] for redraw instructions. PERFORMED BY: [place] [address] PATHOLOGIST SPOUT POSITIONER RODRIGUEZ SHEIKH M.D. Performed By: #### P P, CBC, FIB-C #### [address] Fibrinogen 313 mg/dL Normal 200-393 [facility] Comment on above: Order Comment: Comme nt Every 6 hour while on tPA Result Comment: A he matocrit value greater than 55% may lead to inaccurate results in coagulation testing. Patients having hematocrit values >55% require a special collection tube for coagulation studies. Please contact the laboratory at [phone] for redraw instructions. PERFORMED BY: [place] [address] PATHOLOGIST SPOUT POSITIONER RODRIGUEZ SHEIKH M.D. Performed By: #### C BC #### [address] Glucose [Mass/volume] in Ser um or PlasmaOrdered By: Mohamud Block on 03-06-2023 Glucose [Mass/Vol] 102 mg/dL High 70-100 [facility] Comment on above: ADA recommended refe rence rangeRandom Glucose Reference Range is dependent on time and content of last meal. Glucose of more than 200 mg/dL in a nonstressed, ambulatory subject supports the diagnosis of Diabetes Mellitus. Result Comment: [place] om Glucose Reference Range is dependent on time and content of last meal. Glucose of more than 200 mg/dL in a nonstressed, ambulatory subject supports the diagnosis of Diabetes Mellitus. ADA recommended reference range Performed By: #### C BC, CMP #### [address] Hematocrit [Volume Fraction] of Blood by Automated countOrdered By: Mohamud Block on 03-06-2023 Hematocrit (Bld) [Volume fraction] 45.4 % Normal 38.8-50.0 [facility] Comment on above: Performed By: #### C BC, CMP #### [address] Hemoglobin [Mass/volume] in BloodOrdered By: Mohamud Block on 03-06-2023 Hemoglobin (Bld) [Mass/Vol] 15.4 g/dL Normal 13.0-17.0 [facility] Comment on above: Performed By: #### C BC, CMP #### [address] INR in Platelet poor plasma by Coagulation assayOrdered By: Mohamud Block on 03-06-2023 INR Coag (PPP) [Relative time] 1.0 {INR} Normal [facility] Comment on above: INR Therapeutic Rang e A) Pre- and Peroperative OAT started two weeks before surgery. NOT HIP SURGERY: 1.5 - 2.5 HIP SURGERY: 2 - 3B) Primary and secondary prevention of venous THROMBOSIS: 2 - 3C) Active venous thrombosis, pulmonary embolismand prevention of recurrent venous thrombosis: 2 - 3D) Prevention of arterial thromboembolismincluding patients with mechanical heart valves: 3 - 4.5 Order Comment: Comme nt Every 6 hour while on tPA Result Comment: INR Therapeutic Range A) Pre- and Peroperative OAT started two weeks before surgery. NOT HIP SURGERY: 1.5 - 2.5 HIP SURGERY: 2 - 3 B) Primary and secondary prevention of venous THROMBOSIS: 2 - 3 C) Active venous thrombosis, pulmonary embolism and prevention of recurrent venous thrombosis: 2 - 3 D) Prevention of arterial thromboembolism including patients with mechanical heart valves: 3 - 4.5 Performed By: #### C BC #### [address] Leukocytes [#/volume] correc shirley for nucleated erythrocytes in Blood by Automated counOrdered By: Mohamud Block on 03-06-2023 WBC corrected for nucl RBC Auto (Bld) [#/Vol] 6.5 10*3/uL 4.1-10.5 [facility] Leukocytes [#/volume] in Blo od by Automated countOrdered By: Mohamud Block on 03-06-2023 WBC (Bld) [#/Vol] 6.5 10*3/uL Normal 4.1-10.5 [facility] Comment on above: Performed By: #### C BC, CMP #### [facility] [address] [place] [address] Lymphocytes [#/volume] in Bl ood by Automated countOrdered By: Mohamud Block on 03-06-2023 Lymphocytes (Bld) [#/Vol] 2.3 10*3/uL Normal 1.00-4.8 [facility] Comment on above: Performed By: #### C NOHEMY, CMP #### [address] Lymphocytes/100 leukocytes i n Blood by Automated countOrdered By: Mohamud Block on 03-06-2023 Lymphocytes/100 WBC (Bld) 35.2 % Normal . [facility] Comment on above: Performed By: #### C NOHEMY, CMP #### [address] MCH [Entitic mass] by Automa shirley countOrdered By: Mohamud Block on 03-06-2023 MCH (RBC) [Entitic mass] 31.6 pg Normal 27.5-35.2 [facility] Comment on above: Performed By: #### C BC, CMP #### [address] MCHC Auto (RBC) [Mass/Vol]Or dered By: Mohamud Block on 03-06-2023 MCHC (RBC) [Mass/Vol] 34.0 g/dL 32.5-35.[address] [facility] MCV [Entitic volume] by Auto mated countOrdered By: Mohamud Block on 03-06-2023 MCV (RBC) [Entitic vol] 92.8 fL Normal 83.5-101 [facility] Comment on above: Performed By: #### C BC, CMP #### [facility] [address] Monocyte distribution width [Entitic volume] in Blood by AutomatedOrdered By: Mohamud Block on 03-06-2023 Monocyte distribution width Auto (Bld) [Entitic vol] 16.72 % 0.00-20.00 [facility] Neutrophils [#/volume] in Bl ood by Automated countOrdered By: Mohamud Block on 03-06-2023 Neutrophils (Bld) [#/Vol] 3.7 10*3/uL Normal 1.8-7.7 [facility] Comment on above: Performed By: #### C BC, CMP #### [address] No Panel InformationOrdered By: Mohamud Block on 03-06-2023 Estimated GFR (CKD-EPI) > 60.0 mL/Min [facility] Creatinine Clearance (Chem 87.25 [facility] Nucleated erythrocytes [Pres ence] in Blood by Automated countOrdered By: Mohamud Block on 03-06-2023 Nucleated RBC Auto Ql (Bld) 0.1 /100{WBC} 0-0.5 [facility] Partial Thromboplastin Timeo n 03-06-2023 aPTT Coag (Bld) [Time] 32.9 s Normal 25.1-36.5 [facility] Comment on above: Order Comment: Comme nt Every 6 hour while on tPA Result Comment: A he matocrit value greater than 55% may lead to inaccurate results in coagulation testing. Patients having hematocrit values >55% require a special collection tube for coagulation studies. Please contact the laboratory at [phone] for redraw instructions. Performed By: #### C BC #### [facility] [address] [place] [address] Platelet mean volume [Entiti c volume] in Blood by Automated countOrdered By: Mohamud Block on 03-06-2023 Platelet mean volume (Bld) [Entitic vol] 7.9 fL Normal 6.6-10.1 [facility] Comment on above: Performed By: #### C BC, CMP #### [facility] [address] [id number] [place] Platelets [#/volume] in Bloo d by Automated countOrdered By: Mohamud Block on 03-06-2023 Platelets (Bld) [#/Vol] 307 10*3/uL Normal 150-450 [facility] Comment on above: Performed By: #### C BC, CMP #### [facility] [address] [place] [address] [place] Potassium [Moles/volume] in Serum or PlasmaOrdered By: Mohamud Block on 03-06-2023 Potassium [Moles/Vol] 3.9 mmol/L Normal 3.5-5.[address] [facility] Comment on above: Performed By: #### C BC, CMP #### [address] Protein [Mass/volume] in Ser um or PlasmaOrdered By: Mohamud Block on 03-06-2023 Protein [Mass/Vol] 7.9 g/dL Normal 6.4-8.9 [facility] Comment on above: Performed By: #### C BC, CMP #### [facility] [address] Prothrombin time (PT)Ordered By: Mohamud Block on 03-06-2023 PT Coag (PPP) [Time] 11.6 s Normal 9.0-12.9 [facility] Comment on above: A hematocrit value g reater than 55% may lead to inaccurate results in coagulation testing. Patients having hematocrit values >55% require a special collection tube for coagulation studies. Please contact the laboratory at [phone] for redraw instructions. Order Comment: Comme nt Every 6 hour while on tPA Result Comment: A he matocrit value greater than 55% may lead to inaccurate results in coagulation testing. Patients having hematocrit values >55% require a special collection tube for coagulation studies. Please contact the laboratory at [phone] for redraw instructions. Performed By: #### C BC #### [address] [place] [id number] [facility] Serum globulin measurement b y calculation (mass/volume)Ordered By: Mohamud Block on 03-06-2023 Globulin (S) [Mass/Vol] 3.7 g/dL Normal [facility] Comment on above: Performed By: #### C BC, CMP #### [address] Serum or plasma albumin/glob ulin mass ratioOrdered By: Mohamud Block on 03-06-2023 Albumin/Globulin [Mass ratio] 1.1 {ratio} [facility] Comment on above: Performed By: #### C BC, CMP #### [address] Serum or plasma anion gap de terminationOrdered By: Mohamud Block on 03-06-2023 Anion gap [Moles/Vol] 11.6 mmol/L Normal 6.0-15.0 [facility] Comment on above: Performed By: #### C BC, CMP #### [address] Sodium [Moles/volume] in Ser um or PlasmaOrdered By: Mohamud Block on 03-06-2023 Sodium [Moles/Vol] 138 mmol/L Normal 136-145 [facility] Comment on above: Performed By: #### C BC, CMP #### [address] Type and Screenon 03-06-2023 ABO and Rh group Nom (Bld) Blood group O Rh(D) positive Normal [facility] Comment on above: Result Comment: PERF ORMED BY: [place] [address] PATHOLOGIST SPOUT POSITIONER RODRIGUEZ SHEIKH M.D. Urea nitrogen [Mass/volume] in Serum or PlasmaOrdered By: Mohamud Block on 03-06-2023 Urea nitrogen [Mass/Vol] 13 mg/dL Normal 7-25 [facility] Comment on above: Performed By: #### C BC, CMP #### [address] [place] 10-16-2022 Forms [id number]:127 [facility] Physician Referralon 023 Physician Referral [id number]:127 [facility] Ambulatory Visit Summaryon 0 10-12-2022 Ambulatory Visit Summary MESFIN BOX :1960 Visit Date:10/12/2022 Ambulatory Visit Instructions Your Diagnosis Elevated PSA BPH with urinary obstruction Feeling of incomplete bladder emptying Tests Performed Urnls Dip Stick Auto w/o Microscopy POC 14701 Your Care Team Attending Physician - Jax HAWTHORNE MD Primary Care Physician - ELLI WATSON CNP Referring Physician - ELLI WATSON CNP This Is Your Medications List Contact prescribing physician if questions or concerns omeprazole (omeprazole 40 mg Cap-DR) Procedures Performed Appendectomy, Vasectomy. Discharge Vitals Heart Rate (Peripheral) 69 Respiratory Rate 16 Blood Pressure 130/82 Height 170 cm Height 67 in Weight 96 kg Weight 211.2 lb BMI 33.22 What to do next Scheduled Follow-Up Appointments Saturday 8:15 AM EDT With: Jax HAWTHORNE MD Where: [facility] Patient Educationon 10-13-19 23 Patient Education Oncology Prostate Cancer Screening Prostate cancer screening is testing that is done to check for the presence of prostate cancer in men. The prostate gland is a walnut-sized gland that is located below the bladder and in front of the rectum in males. The function of the prostate is to add fluid to semen during ejaculation. Prostate cancer is one of the most common types of cancer in men. Who should have prostate cancer screening? Screening recommendations vary based on age and other risk factors, as well as between the professional organizations who make the recommendations. In general, screening is recommended if: ? You are age 50 to 70 and have an average risk for prostate cancer. You should talk with your health care provider about your need for screening and how often screening should be done. Because most prostate cancers are slow growing and will not cause , screening in this age group is generally reserved for men who have a 10- to 15-year life expectancy. ? You are younger than age 50, and you have these risk factors: ? Having a father, brother, or uncle who has been diagnosed with prostate cancer. The risk is higher if your family member's cancer occurred at an early age or if you have multiple family members with prostate cancer at an early age. ? Being a male who is Black or is of [place] or sub-Saharan descent. In general, screening is not recommended if: ? You are younger than age 40. ? You are between the ages of 40 and 49 and you have no risk factors. ? You are 70 years of age or older. At this age, the risks that screening can cause are greater than the benefits that it may provide. If you are at high risk for prostate cancer, your health care provider may recommend that you have screenings more often or that you start screening at a younger age. How is screening for prostate cancer done? The recommended prostate cancer screening test is a blood test called the prostate-specific antigen (PSA) test. PSA is a protein that is made in the prostate. As you age, your prostate naturally produces more PSA. Abnormally high PSA levels may be caused by: ? Prostate cancer. ? An enlarged prostate that is not caused by cancer (benign prostatic hyperplasia, or BPH). This condition is very common in older men. ? A prostate gland infection (prostatitis) or urinary tract infection. ? Certain medicines such as male hormones (like testosterone) or other medicines that raise testosterone levels. A rectal exam may be done as part of prostate cancer screening to help provide information about the size of your prostate gland. When a rectal exam is performed, it should be done after the PSA level is drawn to avoid any effect on the results. Depending on the PSA results, you may need more tests, such as: ? A physical exam to check the size of your prostate gland, if not done as part of screening. ? Blood and imaging tests. ? A procedure to remove tissue samples from your prostate gland for testing (biopsy). This is the only way to know for certain if you have prostate cancer. What are the benefits of prostate cancer screening? ? Screening can help to identify cancer at an early stage, before symptoms start and when the cancer can be treated more easily. ? There is a small chance that screening may lower your risk of dying from prostate cancer. The chance is small because prostate cancer is a slow-growing cancer, and most men with prostate cancer from a different cause. What are the risks of prostate cancer screening? The main risk of prostate cancer screening is diagnosing and treating prostate cancer that would never have caused any symptoms or problems. This is called overdiagnosisand overtreatment. PSA screening cannot tell you if your PSA is high due to cancer or a different cause. A prostate biopsy is the only procedure to diagnose prostate cancer. Even the results of a biopsy may not tell you if your cancer needs to be treated. Slow-growing prostate cancer may not need any treatment other than monitoring, so diagnosing and treating it may cause unnecessary stress or other side effects. Questions to ask your health care provider ? When should I start prostate cancer screening? ? What is my risk for prostate cancer? ? How often do I need screening? ? What type of screening tests do I need? ? How do I get my test results? ? What do my results mean? ? Do I need treatment? Where to find more information ? The [place] [employer]: www.cancer.org ? [place] [employer]: www.auanet.org Contact a health care provider if: ? You have difficulty urinating. ? You have pain when you urinate or ejaculate. ? You have blood in your urine or semen. ? You have pain in your back or in the area of your prostate. Summary ? Prostate cancer is a common type of cancer in men. The prostate gland is located below the bladder and in front of the rectum. This gland adds flu (more content not included)... Normal [facility] Urology Office/Clinic Noteon 10-12-2022 Urology Office/Clinic Note Chief Complaint elevated PSA HPI Staff Referral for elevated PSA from Elli Watson CNP. Called PCP office for more PSA results, they didn't have any due to him being a new pt to them in June of this year. No PSA's found on Clinisync either. PSA done 07/19/22 is 4.22. PSA F&T done 07/19/22 was 4.0 and 9.3% Pt was unsure if he is emptying his bladder due to frequency of urination and some urgency. PVR is 51ml. Dysuria: no Incomplete bladder emptying: unsure Hematuria: no Frequency: yes Urgency: yes Nocturia: 3x if he is drinking a lot of water or beer Stream: steady stream no straining but sometimes weak Leaking: no Post void dripping: no Wearing pads/ Depends: no Urge incontinence: no Stress incontinence: no Incontinence without Sensory Awareness: no Abdominal pain: no Flank pain: no Sexual complaints: no History of Present Illness Tests reviewed: reviewed UA, referral records, PSA. I have reviewed the previous health record information and history for this patient from Elli Watson. I have reviewed and verified the staff HPI to be accurate for this encounter. There have been no associated fever, chills, flank pain, or blood in the urine. Denies any urinary infections since last encounter. Review of Systems PHQ Score Initial Depression Screen Score: 0 ROS - Provider Constitutional: denies weight loss, denies hot flashes. Eyes: denies eye problems. Gastrointestinal: denies nausea, denies vomiting. Cardiovascular: denies chest pain or angina. Integumentary: no dryness Musculoskeletal: denies musculoskeletal symptoms. ENMT: denies otolaryngeal symptoms. Respiratory: no shortness of breath. Heme/Lymph: denies easy bleeding tendency, denies easy bruising tendency. Psychiatric: no confusion, no anxiety. Genitourinary: See HPI. Physical Exam Vitals & Measurements HR: 69(Peripheral) RR: 16 BP: 130/82 HT: 67 in HT: 170 cm WT: 96 kg WT: 211.2 lb BMI: 33.22 General Appearance: alert, no distress, well nourished, well developed male. Head: normocephalic . Eyes: normal orbit and globe. ENMT: normal examination of external ears. Chest: Lungs CTA, respirations non labored. Cardiovascular: regular rate and rhythm. Abdomen: soft, non distended, no tenderness, no mass or organomegaly, no hernia. Genitourinary: normal scrotum, normal testes, normal urethra, normal epididymis, normal vas deferens/spermatic cord. Flank Pain: none. Bladder: nonpalpable. Penis: normal shaft, normal glans. Prostate: normal prostate, estimated weight 40 gms, no hard nodule observed. Lymph Nodes: unremarkable palpation of the cervical area. Skin: warm, dry, no bruising. Psychiatric: cooperative, affect appropriate for age, normal judgement, euthymic mood. Assessment/Plan Mesfin is a 62 yo male new pt referred by Elli Watson CNP due to elevated PSA. 1. Elevated PSA (R97.20: Elevated prostate specific antigen [PSA]) PSA: 07/19/22 - 4.22 07/19/22 - 4.00 & 9.3% pt's first PSA. Had total and F&T on the same day. UA today negative for blood and infection. No hx of UTI. No family hx of prostate ca. Educated pt that subclinical low-grade prostatitis can cause false PSA elevation. CAITLIN today 40 gm, no nodules. Follow up 4 mos with PSA FT or sooner if needed. Pt understands and agrees with plan. 2. BPH with urinary obstruction (N40.1: Benign prostatic hyperplasia with lower urinary tract symptoms) See #3. Discussed starting oral med to help pt with urination/empty completely. -Start Alfuzosin 10 mg ER qd. SEs discussed. Rx sent to [facility] [place]. 3. Feeling of incomplete bladder emptying (R39.14: Feeling of incomplete bladder emptying) PVR today is 51 ml. Voids then can void small volume a few minutes later. Follow-up With When Contact Information CHRISTOPH ARAUJO, Jax Mahoney, URL [facility] [address], [place] [address]- Additional Instructions: 4 mos PSA FT Patient Education Prostate Cancer Screening I, Antonieta Gambino, personally scribed for Dr. Hawthorne on 10/12/2022 10:16:19. . Documentation recorded by the scribe, Antonieta Gambino, accurately reflects the services(s) I performed and decisions made by me. Authenticated by Dr. Hawthorne on 10/12/2022 10:19:12. Problem List/Past Medical History Ongoing BPH with urinary obstruction Chronic GERD Elevated PSA Feeling of incomplete bladder emptying Historical No qualifying data Procedure/Surgical History Appendectomy, Vasectomy. Medications omeprazole 40 mg Cap-DR, Oral, Daily Allergies No Known Medication Allergies Social History Tobacco Never (less than 100 in lifetime) Tobacco Use:., 10/12/2022 Family History Arthritis: Mother and Father. Diabetes mellitus type 1: Mother and Father. Hypertension: Mother and Father. Lab Results Ambulatory Point of Care Results Bilirubin Urine Dipstick: Negative (10/12/22 09:20:00) Blood Uri (more content not included)... Normal [facility] Comment on above: Result Comment: Elec tronically Signed By: Jax HAWTHORNE MD\.br\Date and Time Signed: 10/12/22 10:19 EDT\.br\Electronically Co-Signed By: Antonieta Gambino\.br\Date and Time Co-Signed: 10/12/22 10:16 EDT PSA, FREE AND TOTAL RATIOon 07-21-2022 % Free PSA 9.3 % Normal [facility] Comment on above: Result Comment: The table below lists the probability of prostate cancer for men with non-suspicious CAITLIN results and total PSA between 4 and 10 ng/mL, by patient age (Mau et al, SADIA 1998, 279:1542). % Free PSA 50-64 yr 65-75 yr 0.00-10.00% 56% 55% 10.01-15.00% 24% 35% 15.01-20.00% 17% 23% 20.01-25.00% 10% 20% >25.00% 5% 9% Please note: Mau et al did not make specific recommendations regarding the use of percent free PSA for any other population of men. Performed By: #### P SAFREE #### [facility] [address] [place] [address] Dr. Brendan Aviles Prostate specific Ag [Mass/Vol] 4.0 ng/mL Normal 0.0-4.0 [facility] Comment on above: Result Comment: Christina SMITH methodology. . According to the [place] [employer], Serum PSA should decrease and remain at undetectable levels after radical prostatectomy. The AUA defines biochemical recurrence as an initial PSA value 0.2 ng/mL or greater followed by a subsequent confirmatory PSA value 0.2 ng/mL or greater. Values obtained with different assay methods or kits cannot be used interchangeably. Results cannot be interpreted as absolute evidence of the presence or absence of malignant disease. Performed By: #### P SAFREE #### [facility] [address] [address] [address] Brendan Aviles PSA, Free 0.37 ng/mL Normal N/A [facility] Comment on above: Result Comment: Christina deshpande ECLIA methodology. Performed By: #### P SAFREE #### [facility] [address] [place] [address] Dr. Brendan Aviles INSULINon 07-20-2022 Insulin 11.5 uIU/mL Normal 2.6-24.[address] [facility] Comment on above: Performed By: #### I NSULIN #### [facility] [address] [place] [address] Dr. Brendan Aviles CBC AUTO DIFFon 07-19-2022 BASO # 0.0 103/ul Normal 0.0-0.1 [facility] Comment on above: Performed By: #### C BC #### [facility] [address] [place] [address] Dr. Brendan Aviles Basophils/100 WBC (Bld) 0.4 % Normal 0.2-2.0 [facility] Comment on above: Performed By: #### C BC #### [facility] [address] [place] [address] Dr. Brendan Aviles EO # 0.1 103/ul Normal 0.0-0.7 [facility] Comment on above: Performed By: #### C BC #### [facility] [address] [place] [address] Dr. Brendan Aviles Eosinophils/100 WBC (Bld) 1.5 % Normal 0.9-7.0 [facility] Comment on above: Performed By: #### C BC #### [facility] [address] [place] [address] Dr. Brendan Aviles Erythrocyte distribution width (RBC) [Ratio] 13.3 % Normal 11.0-15.0 [facility] Comment on above: Performed By: #### C BC #### [facility] [address] [place] [address] Dr. Brendan Aviles Hematocrit (Bld) [Volume fraction] 45.4 % Normal 42.0-54.0 [facility] Comment on above: Performed By: #### C BC #### [facility] [address] [place] [address] Dr. Brendan Aviles Hemoglobin (Bld) [Mass/Vol] 15.3 g/dL Normal 14.0-18.0 [facility] Comment on above: Performed By: #### C BC #### [facility] [address] [place] [address] Dr. Brendan Aviles IG # 0.02 10e3/ul Normal 0.00-0.03 [facility] Comment on above: Performed By: #### C BC #### [facility] [address] [place] [address] Dr. Brendan Aviles IG % 0.4 % Normal 0.0-0.5 [facility] Comment on above: Performed By: #### C BC #### [facility] [address] [place] [address] Dr. Brendan Aviles LYMPH # 2.2 103/ul Normal 1.2-3.[address] [facility] Comment on above: Performed By: #### C BC #### [facility] [address] [place] [address] Dr. Brendan Aviles Lymphocytes/100 WBC (Bld) 41.8 % Normal 20.5-60.0 [facility] Comment on above: Performed By: #### C BC #### [facility] [address] [place] [address] Dr. Brendan Aviles MANUAL DIFF REQ NO Normal [facility] Comment on above: Performed By: #### C BC #### [facility] [address] [place] [address] Dr. Brendan Aviles MCH (RBC) [Entitic mass] 31.9 pg Normal 25.9-34.0 [facility] Comment on above: Performed By: #### C BC #### [facility] [address] [place] [address] Dr. Brendan Aviles MCHC (RBC) [Mass/Vol] 33.7 g/dL Normal 29.9-35.[address] [facility] Comment on above: Performed By: #### C BC #### [facility] [address] [place] [address] Dr. Brendan Aviles MCV (RBC) [Entitic vol] 94.6 fL Critically high 80.0-94.0 [facility] Comment on above: Performed By: #### C BC #### [facility] [address] [place] [address] Dr. Brendan Aviles MONO # 0.3 103/ul Normal 0.3-0.[address] [facility] Comment on above: Performed By: #### C BC #### [facility] [address] [place] [address] Dr. Brendan Aviles Monocytes/100 WBC (Bld) 5.9 % Normal 1.7-12.[address] [facility] Comment on above: Performed By: #### C BC #### [facility] [address] [place] [address] Dr. Brendan Aviles NEUT # 2.7 103/ul Normal 1.4-6.[address] [facility] Comment on above: Performed By: #### C BC #### [facility] [address] [place] [address] Dr. Brendan Aviles Neutrophils/100 WBC (Bld) 50.0 % Normal 43.0-75.[address] [facility] Comment on above: Performed By: #### C BC #### [facility] [address] [place] [address] Dr. Brendan Aviles Platelet mean volume (Bld) [Entitic vol] 9.6 fL Normal 9.5-13.[address] [facility] Comment on above: Performed By: #### C BC #### [facility] [address] [place] [address] Dr. Brendan Aviles PLT 299 103/ul Normal 150-[address] [facility] Comment on above: Performed By: #### C BC #### [facility] [address] [place] [address] Dr. Brendan Aviles RBC 4.80 106/ul Normal 4.70-6.[address] [facility] Comment on above: Performed By: #### C BC #### [facility] [address] [place] [address] Dr. Brendan Aviles WBC 5.3 103/ul Normal 4.0-11.[address] [facility] Comment on above: Performed By: #### C BC #### [facility] [address] [place] [address] Dr. Brendan Aviles GLYCOHEMOGLOBIN A1Con 03-02- 2023 ADA RECOMMENDATION SEE BELOW Normal [facility] Comment on above: Result Comment: ADA RECOMMENDED LIMIT 4.0 - 6.0 ADA THERAPEUTIC TARGET < 7.0 ACTION SUGGESTED > 7.0 Performed By: #### A 1C #### [facility] [address] [address] [address] Brendan Aviles Glucose [Mass/Vol] 131 mg/dL Normal [facility] Comment on above: Performed By: #### A 1C #### [facility] [address] [address] [address] Brendan Aviles HbA1c (Bld) [Mass fraction] 6.2 % Normal 4.5-6.2 [facility] Comment on above: Performed By: #### A 1C #### [facility] [address] [place] [address] Dr. Brendan Aviles LIPID PROFILEon 07-19-2022 CHOL-HDL RATIO NORM SEE BELOW Normal [facility] Comment on above: Result Comment: 3.3 - 4.4 LOW RISK 4.4 - 7.1 AVERAGE RISK 7.1 - 11.0 MODERATE RISK >11.0 HIGH RISK Performed By: #### U JAIRON, CMP, LIPID #### [facility] [address] [place] [address] Dr. Brendan Aviles Cholesterol [Mass/Vol] 261 mg/dL Critically high <=200 [facility] Comment on above: Performed By: #### U JAIRON, CMP, LIPID #### [facility] [address] [place] [address] Dr. Brendan Aviles Cholesterol in HDL [Mass/Vol] 48 mg/dL Normal 40-[address] [facility] Comment on above: Performed By: #### U JAIRON, CMP, LIPID #### [facility] [address] [address] [address] Brendan Aviles Cholesterol in LDL [Mass/Vol] 188.0 mg/dL Normal [facility] Comment on above: Performed By: #### U JAIRON, CMP, LIPID #### [facility] [address] [place] [address] Dr. Brendan Aviles Cholesterol.total/Chol esterol in HDL [Mass ratio] 5.4 {ratio} Normal [facility] Comment on above: Performed By: #### U JAIRON, CMP, LIPID #### [facility] [address] [address] [address] Brendan Aviles HDL NORMAL > or = 60 mg/dl - LO W CARDIOVASCULAR RISK <40 mg/dl - HIGH CARDIOVASCULAR RISK Normal [facility] Comment on above: Performed By: #### U JAIRON, CMP, LIPID #### [facility] [address] [address] [address] Brendan Aviles LDL CALC NORMAL SEE BELOW Normal [facility] Comment on above: Result Comment: <100 mg/dl OPTIMAL 100 - 129 mg/dl NEAR OR ABOVE OPTIMAL 130 - 159 mg/dl BORDERLINE HIGH 160 - 189 mg/dl HIGH >190 mg/dl VERY HIGH Performed By: #### U JAIRON, CMP, LIPID #### [facility] [address] [address] [address] Brendan Aviles Triglyceride [Mass/Vol] 125 mg/dL Normal <=150 [facility] Comment on above: Performed By: #### U JAIRON, CMP, LIPID #### [facility] [address] [address] [address] Brendan Avlies VLDL CALC 25.0 mg/dL Normal [facility] Comment on above: Performed By: #### U JAIRON, CMP, LIPID #### [facility] [address] [address] [address] Brendan Aviles PROF 14(COMP METB)on 023 Albumin [Mass/Vol] 3.6 g/dL Normal 3.4-5.0 [facility] Comment on above: Performed By: #### U JAIRON, CMP, LIPID #### [facility] [address] [address] [address] Brendan Aviles Albumin/Globulin [Mass ratio] 1.0 {ratio} Normal [facility] Comment on above: Performed By: #### U JAIRON, CMP, LIPID #### [facility] [address] [address] [address] Brendan Aviles ALP [Catalytic activity/Vol] 113 U/L Normal 46-116 [facility] Comment on above: Performed By: #### U JAIRON, CMP, LIPID #### [facility] [address] [address] [address] rBendan Aviles ALT [Catalytic activity/Vol] 66 U/L Critically high 16-[address] [facility] Comment on above: Performed By: #### U JAIRON, CMP, LIPID #### [facility] [address] [address] [address] Brendan Aviles Anion gap [Moles/Vol] 9.2 mmol/L Normal [facility] Comment on above: Performed By: #### U JAIRON, CMP, LIPID #### [facility] [address] [address] [address] Brendan Aviles AST [Catalytic activity/Vol] 35 U/L Normal 15-37 [facility] Comment on above: Performed By: #### U JAIRON, CMP, LIPID #### [facility] [address] [address] [address] Brendan Aviles Bilirubin [Mass/Vol] 0.4 mg/dL Normal 0.2-1.0 [facility] Comment on above: Performed By: #### U JAIRON, CMP, LIPID #### [facility] [address] [address] [address] Brendan Aviles Calcium [Mass/Vol] 9.1 mg/dL Normal 8.5-10.1 [facility] Comment on above: Performed By: #### U JAIRON, CMP, LIPID #### [facility] [address] [address] [address] Brendan Aviles Chloride [Moles/Vol] 106 mmol/L Normal 98-[address] [facility] Comment on above: Performed By: #### U JAIRON, CMP, LIPID #### [facility] [address] [address] [address] Brendan Aviles CO2 [Moles/Vol] 30.0 mmol/L Normal 21.0-32.0 [facility] Comment on above: Performed By: #### U JAIRON, CMP, LIPID #### [facility] [address] [address] [address] Brendan Aviles Creatinine [Mass/Vol] 0.94 mg/dL Normal 0.70-1.30 [facility] Comment on above: Performed By: #### U JAIRON, CMP, LIPID #### [facility] [address] [place] [address] Dr. Brendan Aviles EGFR-AF CHADIAN >60 Normal >=60 [facility] Comment on above: Performed By: #### U JAIRON, CMP, LIPID #### [facility] [address] [place] [address] Dr. Brendan Aviles EGFR-NON AF CHADIAN >60 Normal >=60 [facility] Comment on above: Performed By: #### U JAIRON, CMP, LIPID #### [facility] [address] [place] [address] Dr. Brendan Aviles Globulin (S) [Mass/Vol] 3.5 g/dL Normal [facility] Comment on above: Performed By: #### U JAIRON, CMP, LIPID #### [facility] [address] [place] [address] Dr. Brendan Aviles Glucose [Mass/Vol] 120 mg/dL Critically high 74-106 [facility] Comment on above: Performed By: #### U JAIRON, CMP, LIPID #### [facility] [address] [place] [address] Dr. Brendan Aviles Potassium [Moles/Vol] 4.2 mmol/L Normal 3.5-5.1 [facility] Comment on above: Performed By: #### U JAIRON, CMP, LIPID #### [facility] [address] [place] [address] Dr. Brendan Aviles Protein [Mass/Vol] 7.1 g/dL Normal 6.4-8.2 [facility] Comment on above: Performed By: #### U JAIRON, CMP, LIPID #### [facility] [address] [place] [address] Dr. Brendan Aviles Sodium [Moles/Vol] 141 mmol/L Normal 136-145 [facility] Comment on above: Performed By: #### U JAIRON, CMP, LIPID #### [facility] [address] [place] [address] Dr. Brendan Aviles Urea nitrogen [Mass/Vol] 10.0 mg/dL Normal 7.0-18.0 [facility] Comment on above: Performed By: #### U JAIRON, CMP, LIPID #### [facility] [address] [place], [place] [address] Dr. Brendan Aviles Urea nitrogen/Creatinine [Mass ratio] 10.6 mg/mg Normal [facility] Comment on above: Performed By: #### U JAIRON, CMP, LIPID #### [facility] [address] [place], [place] [address] Dr. Brendan Aviles URIC ACID SERUMon 07-19-2022 Urate [Mass/Vol] 5.5 mg/dL Normal 3.5-7.2 [facility] Comment on above: Performed By: #### U JAIRON, CMP, LIPID #### [facility] [address] [place], [place] [address] Dr. Brendan Aviles Vital Signs Date Time Vital Sign Value Performing Clinician Facility 02-25-2024 09:42-0400 Body temperature 98.01 [degF] Rachid Mihcelle MD Work Phone: [facility] 02-25-2024 09:42-0400 Diastolic blood pressure 93 mm[Hg] Rachid Michelle MD Work Phone: [facility] 02-25-2024 09:42-0400 Heart rate 96 /min Rachid Michelle MD Work Phone: [facility] 02-25-2024 09:42-0400 Respiratory rate 16 /min Rachid Michelle MD Work Phone: [facility] 02-25-2024 09:42-0400 SaO2% (BldA) [Mass fraction] 95 % Rachid Michelle MD Work Phone: [facility] 02-25-2024 09:42-0400 Systolic blood pressure 159 mm[Hg] Rachid Michelle MD Work Phone: [facility] 02-04-2024 16:00-0400 Diastolic blood pressure 81 mm[Hg] DO Kianna Santiago Work Phone: [facility] 02-04-2024 16:00-0400 Heart rate 85 /min DO Kianna Santiago Work Phone: [facility] 02-04-2024 16:00-0400 Respiratory rate 20 /min DO Kianna Santiago Work Phone: [facility] 02-04-2024 16:00-0400 SaO2% (BldA) [Mass fraction] 91 % DO Kianna Santiago Work Phone: [facility] 02-04-2024 16:00-0400 Systolic blood pressure 156 mm[Hg] DO Kianna Santiago Work Phone: [facility] 02-04-2024 12:00-0400 Inhaled oxygen flow rate 1 L/min DO Kianna Santiago Work Phone: [facility] 02-04-2024 10:00-0400 Body temperature 98 [degF] DO Kianna Santiago Work Phone: [facility] 02-04-2024 06:00-0400 Body weight 94 kg DO Kianna Santiago Work Phone: [facility] 02-03-2024 17:45-0400 Diastolic blood pressure 67 mm[Hg] DO Kianna Santiago Work Phone: [facility] 02-03-2024 17:45-0400 Heart rate 63 /min DO Kianna Santiago Work Phone: [facility] 02-03-2024 17:45-0400 Inhaled oxygen flow rate 3 L/min DO Kianna Santiago Work Phone: [facility] 02-03-2024 17:45-0400 Respiratory rate 22 /min DO Kianna Santiago Work Phone: [facility] 02-03-2024 17:45-0400 SaO2% (BldA) [Mass fraction] 95 % DO Kianna Santiago Work Phone: [facility] 02-03-2024 17:45-0400 Systolic blood pressure 126 mm[Hg] DO Kianna Santiago Work Phone: [facility] 02-03-2024 17:23-0400 Body height 170.18 cm DO Kianna Santiago Work Phone: [facility] 02-03-2024 17:23-0400 Body weight 94 kg DO Kianna Santiago Work Phone: [facility] 02-03-2024 11:19-0400 Body temperature 98.6 [degF] DO Kianna [facility] Work Phone: [facility] 09-04-2023 15:49-0400 Body height 170.18 cm [facility] 09-04-2023 15:49-0400 Body mass index (BMI) [Ratio] 32.4 kg/m2 [facility] 09-04-2023 15:49-0400 Body weight 93.97 kg [facility] 09-04-2023 15:49-0400 Diastolic blood pressure 82 mm[Hg] [facility] 09-04-2023 15:49-0400 Heart rate 59 /min [facility] 09-04-2023 15:49-0400 Respiratory rate 18 /min [facility] 09-04-2023 15:49-0400 SaO2% (BldA) [Mass fraction] 96 % [facility] 09-04-2023 15:49-0400 Systolic blood pressure 142 mm[Hg] [facility] 09-04-2023 14:41-0400 Body height 170.18 cm [facility] 09-04-2023 14:41-0400 Body mass index (BMI) [Ratio] 32.2 kg/m2 [facility] 09-04-2023 14:41-0400 Body weight 93.44 kg [facility] 09-04-2023 14:41-0400 Diastolic blood pressure 80 mm[Hg] [facility] 09-04-2023 14:41-0400 Heart rate 77 /min [facility] 09-04-2023 14:41-0400 Respiratory rate 18 /min [facility] 09-04-2023 14:41-0400 SaO2% (BldA) [Mass fraction] 95 % [facility] 09-04-2023 14:41-0400 Systolic blood pressure 136 mm[Hg] [facility] 09-04-2023 08:38-0400 Body height 170.18 cm [facility] 09-04-2023 08:38-0400 Body mass index (BMI) [Ratio] 32.4 kg/m2 [facility] 09-04-2023 08:38-0400 Body temperature 97.6 [degF] [facility] 09-04-2023 08:38-0400 Body weight 93.89 kg [facility] 09-04-2023 08:38-0400 Diastolic blood pressure 68 mm[Hg] [facility] 09-04-2023 08:38-0400 Heart rate 67 /min [facility] 09-04-2023 08:38-0400 Respiratory rate 16 /min [facility] 09-04-2023 08:38-0400 SaO2% (BldA) [Mass fraction] 98 % [facility] 09-04-2023 08:38-0400 Systolic blood pressure 116 mm[Hg] [facility] 08-05-2023 11:12-0400 Body height 170.18 cm [facility] 08-05-2023 11:12-0400 Body mass index (BMI) [Ratio] 32.4 kg/m2 [facility] 08-05-2023 11:12-0400 Body weight 93.89 kg [facility] 08-05-2023 11:12-0400 Diastolic blood pressure 86 mm[Hg] [facility] 08-05-2023 11:12-0400 Heart rate 78 /min [facility] 08-05-2023 11:12-0400 Respiratory rate 18 /min [facility] 08-05-2023 11:12-0400 SaO2% (BldA) [Mass fraction] 95 % [facility] 08-05-2023 11:12-0400 Systolic blood pressure 150 mm[Hg] [facility] 07-31-2023 12:30-0400 Diastolic blood pressure 81 mm[Hg] [facility] 07-31-2023 12:30-0400 Heart rate 89 /min [facility] 07-31-2023 12:30-0400 Respiratory rate 16 /min [facility] 07-31-2023 12:30-0400 SaO2% (BldA) [Mass fraction] 98 % [facility] 07-31-2023 12:30-0400 Systolic blood pressure 147 mm[Hg] [facility] 07-31-2023 09:48-0400 Body height 170.18 cm [facility] 07-31-2023 09:48-0400 Body temperature 97.7 [degF] [facility] 07-31-2023 09:48-0400 Body weight 89.81 kg [facility] 07-26-2023 23:30-0500 Diastolic blood pressure 88 mm[Hg] [facility] 07-26-2023 23:30-0500 Heart rate 74 /min [facility] 07-26-2023 23:30-0500 Respiratory rate 16 /min [facility] 07-26-2023 23:30-0500 SaO2% (BldA) [Mass fraction] 96 % [facility] 07-26-2023 23:30-0500 Systolic blood pressure 150 mm[Hg] [facility] 07-26-2023 18:17-0500 Body height 170.18 cm [facility] 07-26-2023 18:17-0500 Body temperature 98.3 [degF] [facility] 07-26-2023 18:17-0500 Body weight 97.1 kg [facility] 06-21-2023 09:15-0500 Body height 170.18 cm Kianna Santiago Other [facility] 06-21-2023 09:15-0500 Body mass index (BMI) [Ratio] 32.57 kg/m2 Kianna Santiago Other [facility] Other 06-21-2023 09:15-0500 Body weight 94.35 kg Kiannayang Santiago Other [facility] Other 06-21-2023 09:15-0500 Body weight 94.34 kg [facility] 06-21-2023 09:15-0500 Diastolic blood pressure 102 mm[Hg] Kianna Santiago Other [facility] 06-21-2023 09:15-0500 Respiratory rate 18 /min Kianna Santiago Other [facility] Other 06-21-2023 09:15-0500 SaO2% (BldA) [Mass fraction] 95 % Kianna Santiago Other [facility] Other 06-21-2023 09:15-0500 Systolic blood pressure 166 mm[Hg] Kianna Jack Other [facility] 06-14-2023 09:20-0500 Body height 170.18 cm Azul Jimenez Other [facility] 06-14-2023 09:20-0500 Body mass index (BMI) [Ratio] 32.42 kg/m2 Azul Jimenez Other [facility] Other 06-14-2023 09:20-0500 Body weight 93.9 kg Azul Tony Other [facility] Other 06-14-2023 09:20-0500 Body weight 93.89 kg [facility] 06-14-2023 09:20-0500 Diastolic blood pressure 84 mm[Hg] Azul Tony Other [facility] 06-14-2023 09:20-0500 Respiratory rate 18 /min Azul Jimenez Other [facility] Other 06-14-2023 09:20-0500 SaO2% (BldA) [Mass fraction] 96 % Azul Jimenez Other [facility] Other 06-14-2023 09:20-0500 Systolic blood pressure 146 mm[Hg] Azul Jimenez Other [facility] 06-05-2023 09:15-0500 Body height 170.18 cm Justin Deras Other [facility] 06-05-2023 09:15-0500 Body mass index (BMI) [Ratio] 31.16 kg/m2 Justin Deras Other [facility] Other 06-05-2023 09:15-0500 Body temperature 96.6 [degF] Justin Deras Other [facility] Other 06-05-2023 09:15-0500 Body weight 90.27 kg Justin Deras Other [facility] Other 06-05-2023 09:15-0500 Body weight 90.26 kg [facility] 06-05-2023 09:15-0500 Diastolic blood pressure 92 mm[Hg] Justin Deras Other [facility] 06-05-2023 09:15-0500 SaO2% (BldA) [Mass fraction] 97 % Justin Deras Other [facility] Other 06-05-2023 09:15-0500 Systolic blood pressure 134 mm[Hg] Justin Deras Other [facility] 05-02-2023 09:00-0500 Body height 170.18 cm Azul Petersonoroge Other [facility] Other 05-02-2023 09:00-0500 Body mass index (BMI) [Ratio] 31.16 kg/m2 Azul Petersonoroge Other [facility] Other 05-02-2023 09:00-0500 Body weight 90.27 kg Azul Petersonoroge Other [facility] Other 05-02-2023 09:00-0500 Diastolic blood pressure 88 mm[Hg] Azul Tony Other [facility] Other 05-02-2023 09:00-0500 Respiratory rate 16 /min Azul Petersonoroge Other [facility] Other 05-02-2023 09:00-0500 SaO2% (BldA) [Mass fraction] 97 % Azul Tony Other [facility] Other 05-02-2023 09:00-0500 Systolic blood pressure 156 mm[Hg] Azul Tony Other [facility] Other 04-04-2023 08:30-0500 Body height 170.18 cm Justin Deras Other [facility] Other 04-04-2023 08:30-0500 Body mass index (BMI) [Ratio] 33.2 kg/m2 Justin Deras Other [facility] Other 04-04-2023 08:30-0500 Body temperature 97.6 [degF] Justin Deras Other [facility] Other 04-04-2023 08:30-0500 Body weight 96.16 kg Justin Deras Other [facility] Other 04-04-2023 08:30-0500 Diastolic blood pressure 66 mm[Hg] Justin Dialloshaquille Other [facility] Other 04-04-2023 08:30-0500 SaO2% (BldA) [Mass fraction] 98 % Justin Dialloshaquille Other [facility] Other 04-04-2023 08:30-0500 Systolic blood pressure 124 mm[Hg] Justin Dialloshaquille Other [facility] Other 03-20-2023 08:30-0400 Body height 170.18 cm Masha Mayorga Other [facility] Other 03-20-2023 08:30-0400 Body mass index (BMI) [Ratio] 33.2 kg/m2 Masha Woodmauriciomarjorie Other [facility] Other 03-20-2023 08:30-0400 Body temperature 97.8 [degF] Masha Woodraffaele Other [facility] Other 03-20-2023 08:30-0400 Body weight 96.16 kg Masha Woodraffaele Other [facility] Other 03-20-2023 08:30-0400 Diastolic blood pressure 62 mm[Hg] Masha Woodraffaele Other [facility] Other 03-20-2023 08:30-0400 SaO2% (BldA) [Mass fraction] 98 % Masha Mayorga Other [facility] Other 03-20-2023 08:30-0400 Systolic blood pressure 110 mm[Hg] Masha Mayorga Other [facility] Other 03-12-2023 15:50-0400 Body temperature 98.5 [degF] [employer] Elli Walter Work Phone: [facility] 03-12-2023 15:50-0400 Diastolic blood pressure 72 mm[Hg] [employer] Elli Walter Work Phone: [facility] 03-12-2023 15:50-0400 Heart rate 85 /min [employer] Elli Walter Work Phone: [facility] 03-12-2023 15:50-0400 Respiratory rate 16 /min [employer] Elli Walter Work Phone: [facility] 03-12-2023 15:50-0400 SaO2% (BldA) [Mass fraction] 95 % [employer] Elli Walter Work Phone: [facility] 03-12-2023 15:50-0400 Systolic blood pressure 142 mm[Hg] [employer] Elli Walter Work Phone: [facility] 03-10-2023 08:00-0400 Inhaled oxygen flow rate 2 L/min [employer] Elli Walter Work Phone: [facility] 03-10-2023 06:00-0400 Body weight 97.7 kg [employer] Elli Walter Work Phone: [facility] 03-08-2023 09:06-0400 Body mass index (BMI) [Ratio] 33.7 kg/m2 [employer] Elli Walter Work Phone: [facility] 03-08-2023 07:33-0400 Body height 170.18 cm [employer] Elli Walter Work Phone: [facility] 03-06-2023 16:00-0400 Diastolic blood pressure 91 mm[Hg] IOS DEVELOPER-C Elli Watson Work Phone: [facility] 03-06-2023 16:00-0400 Heart rate 76 /min IOS DEVELOPER-C Elli Benitezmer Work Phone: [facility] 03-06-2023 16:00-0400 Respiratory rate 17 /min IOS DEVELOPER-C Elliarpit Benitezmer Work Phone: [facility] 03-06-2023 16:00-0400 SaO2% (BldA) [Mass fraction] 98 % IOS DEVELOPER-C Elil Watson Work Phone: [facility] 03-06-2023 16:00-0400 Systolic blood pressure 168 mm[Hg] IOS DEVELOPER-C Elli Watson Work Phone: [facility] 03-06-2023 11:27-0400 Body height 170.18 cm IOS DEVELOPER-C Elli Watson Work Phone: [facility] 03-06-2023 11:27-0400 Body temperature 98.5 [degF] IOS DEVELOPER-C Elli Watson Work Phone: [facility] 03-06-2023 11:27-0400 Body weight 96.16 kg IOS DEVELOPER-C Elli Watson Work Phone: [facility] 10-12-2022 09:08-0400 Blood Pressure Location Jax HAWTHORNE [facility] 10-12-2022 09:08-0400 Diastolic blood pressure 82 mm[Hg] Jax HAWTHORNE [facility] 10-12-2022 09:08-0400 Heart rate 69 /min Jax HAWTHORNE [facility] 10-12-2022 09:08-0400 Respiratory rate 16 /min Jax HAWTHORNE [facility] 10-12-2022 09:08-0400 Systolic blood pressure 130 mm[Hg] Jax HAWTHORNE [facility] Encounters Encounter Date Encounter Type Care Provider Facility Start: 02-25-2024 End: 02-25-2024 ambulatory KIANNA SANTIAGO Facility:[facility] Start: 02-25-2024 End: 02-25-2024 Office outpatient visit 25 minutes Rachid Michelle MD Work Phone: Vascular Surg Dept Comment on above: Peripheral arterial disease (HCC) (Primary Dx); Critical lower limb ischemia (HCC) Start: 02-21-2024 End: 02-21-2024 Orders Only Rachid Michelle MD Work Phone: Vascular Surg Dept Comment on above: PAD (peripheral lian ry disease) (HCC) (Primary Dx) Start: 02-05-2024 End: 02-05-2024 Emergency department patient visit MERLIN Maru ABELINO Facility:[facility] Start: 02-03-2024 End: 02-04-2024 Evaluation and management of inpatient DO Kiannayang Santiago Work Phone: [facility] [place] [facility] Work Phone: Start: 02-03-2024 Non-patient / Non-visit DO Sara Santiago Work Phone: [facility] Vascular Surgery Work Phone: Start: 09-04-2023 Physical examination [facility] Start: 09-04-2023 End: 09-04-2023 ambulatory NON STAFF [facility] Work Phone: Start: 09-04-2023 End: 09-04-2023 Encounter for general adult medical examination without abnormal findings [facility] Start: 09-04-2023 End: 09-04-2023 Patient encounter procedure [facility] Family Medicine [place] Work Phone: Start: 09-04-2023 End: 09-04-2023 ambulatory NON STAFF [facility] Work Phone: Start: 09-04-2023 End: 09-04-2023 Patient encounter procedure [facility] Cardiology Work Phone: Start: 09-04-2023 End: 09-04-2023 ambulatory NON STAFF [facility] Work Phone: Start: 09-04-2023 End: 09-04-2023 Patient encounter procedure [facility] Vascular Surgery Work Phone: Start: 08-05-2023 End: 08-05-2023 ambulatory NON STAFF [facility] Work Phone: Start: 08-05-2023 End: 08-05-2023 Patient encounter procedure [facility] Work Phone: Start: 08-01-2023 Non-patient / Non-visit [facility] Professional Anna Lozabai Work Phone: Start: 07-31-2023 End: 07-31-2023 Emergency department patient visit [facility] Work Phone: Start: 07-26-2023 End: 07-26-2023 Emergency department patient visit [facility] Work Phone: Start: 06-24-2023 End: 06-24-2023 ambulatory Justin Deras Other [facility] [employer] Other Start: 06-24-2023 Telephone encounter Justin London [facility] Start: 06-21-2023 End: 06-21-2023 ambulatory Kianna [employer] Other [employer] Other Start: 06-21-2023 Office outpatient ne w 45 minutes Kianna Santiago [facility] Start: 06-21-2023 End: 06-21-2023 Patient encounter procedure [facility]- Start: 06-14-2023 End: 06-14-2023 ambulatory Azul Tony Other [employer] Other Start: 06-14-2023 Office outpatient vi sit 25 minutes Azul Tony [facility] Start: 06-14-2023 End: 06-14-2023 Patient encounter procedure [facility]- Start: 06-05-2023 End: 06-05-2023 ambulatory Justin Deras Other [employer] Other Start: 06-05-2023 Office outpatient vi sit 15 minutes Justin Deras [facility] Start: 06-05-2023 End: 06-05-2023 Patient encounter procedure [facility]- Start: 05-02-2023 End: 05-02-2023 ambulatory Azul Petersonoroge Other [employer] Other Start: 05-02-2023 Office outpatient vi sit 25 minutes Azul Tony [facility] Start: 04-25-2023 End: 04-25-2023 ambulatory IOS DEVELOPER-C Elli Rach Walter Work Phone: [facility] Work Phone: Start: 04-25-2023 End: 04-25-2023 Patient encounter procedure IOS DEVELOPER-C Elli Walter Work Phone: [facility] Start: 04-24-2023 End: 04-24-2023 ambulatory Masha Mayorga Other [employer] Other Start: 04-24-2023 Telephone encounter Masha Cline [facility] Start: 04-17-2023 End: 04-17-2023 ambulatory Justin Deras Other [employer] Other Start: 04-17-2023 Telephone encounter Justin London [facility] Start: 04-04-2023 End: 04-04-2023 ambulatory Justin Deras Other [employer] Other Start: 04-04-2023 Postop follow up vis it related to original px Justin Deras [facility] Start: 03-20-2023 End: 03-20-2023 ambulatory Masha Mayorga Other [employer] Other Start: 03-20-2023 Follow-up encounter Masha Mayorga [facility] Surgery Start: 03-06-2023 End: 03-12-2023 Evaluation and management of inpatient IOS DEVELOPER-C Elli Watson Work Phone: [address] Work Phone: Start: 03-06-2023 Admission to [facility] IOS DEVELOPER-C Elli Watson [facility] [place] [facility] [place] Start: 03-06-2023 ambulatory IOS DEVELOPER-C Elli Beebe Work Phone: [facility] Work Phone: Start: 02-15-2023 End: 02-16-2023 ambulatory Jax HAWTHORNE Facility:[facility] Start: 02-15-2023 End: 02-15-2023 Patient encounter procedure Jax HAWTHORNE [facility] Start: 10-12-2022 End: 10-13-2022 ambulatory Jax HAWTHORNE Facility:[facility] Start: 10-12-2022 End: 10-12-2022 Patient encounter procedure Jax HAWTHORNE [facility] Start: 08-06-2022 ambulatory Jax HAWTHORNE Facility :[facility] Start: 08-02-2022 ambulatory ELLI WATSON Facility: Start: 07-23-2022 Encounter for genera l adult medical examination without abnormal findings ELLI WATSON [facility] Start: 07-19-2022 End: 07-20-2022 ambulatory ELLI WATSON Facility:[facility] Start: 07-19-2022 End: 07-20-2022 Encounter for general adult medical examination without abnormal findings ELLI WATSON Facility:[facility] Procedures Date Procedure Procedure Detail Performing Clinician Start: 02-04-2024 Angiography DO Kianna Santiago Work Phone: Start: 02-03-2024 Antibody screen Kianna Santiago Comment on above: Result Comment: PERF ORMED BY: [facility] [address] [place] [address] PATHOLOGIST SPOUT POSITIONER RODRIGUEZ SHEIKH M.D. Start: 02-03-2024 Abdominal aortogram DO Kianna Santiago Work Phone: Start: 09-04-2023 Duplex scan of lower limb arteries Start: 07-31-2023 CT angiography of thorax Start: 07-31-2023 Plain chest X-ray Start: 07-26-2023 Plain chest X-ray Start: 04-25-2023 Ankle brachial press ure index IOS DEVELOPER-C Elli Watson Work Phone: Start: 04-25-2023 Duplex scan of lower limb arteries IOS DEVELOPER-C Elli Watson Work Phone: Start: 03-11-2023 Radionuclide myocard ial perfusion stress study IOS DEVELOPER-C Elli Watson Work Phone: Start: 03-08-2023 Femoral-popliteal ar donnell bypass graft IOS DEVELOPER-C Elli Watson Work Phone: Start: 03-07-2023 US scan venography o f lower limbs IOS DEVELOPER-C Elli Watson Work Phone: Start: 03-07-2023 Angiography IOS DEVELOPER-C Sean Watson Work Phone: Start: 03-07-2023 Plain chest X-ray IOS DEVELOPER-C Elli Watson Work Phone: Start: 03-06-2023 Antibody screen Kianna Santiago Comment on above: Result Comment: PERF ORMED BY: [facility] [address] [place] [address] PATHOLOGIST SPOUT POSITIONER RODRIGUEZ SHEIKH M.D. Start: 03-06-2023 Angiography IOS DEVELOPER-C Sean Watson Work Phone: Start: 07-19-2022 PSA screening ELLI KRUEGER Comment on above: Performed By: #### P [facility] #### [facility] [address] [address] [address] Brendan Aviles Appendectomy Jax CHRISTOPH Vasectomy Jax HAWTHORNE Plan of Treatment Date Care Activity Detail Author Start: 2035 RSV Vaccine (1 - 1-d ose 75+ series) RSV Vaccine (1 - 1-dose 75+ series) [facility] Start: 02-04-2027 Diabetes Screening Diabetes Screenin g [facility] Start: 09-22-2026 Urine microalbumin profile DTaP,Tdap,Td Vaccine (3 - Td or Tdap) [facility] Start: 05-26-2024 End: 05-26-2024 Patient encounter procedure 05/26/2024 10:30 AM EST Office Visit Vascular Surg Dept [address] [id number] Dariela Wilkes APRN.CORPORATE TRAVEL COUNSELOR [address] [facility] [place] [address] 3 month follow up [facility] Comment on above: 3 month follow up Start: 02-25-2024 End: 02-25-2024 Patient encounter procedure 02/25/2024 8:00 AM EDT Office Visit Vascular Surg Dept [address] [id number] Rachid Michelle MD [address] [place], [place] [id number] DX: Critical limb ischemia of right lower extremity [facility] Comment on above: DX: Critical limb is chemia of right lower extremity Start: 02-04-2024 Fibrinogen [Mass/vol ume] in Platelet poor plasma by Coagulation assay [facility] Start: 02-04-2024 [facility] Start: 02-04-2024 Fibrinogen [Mass/vol ume] in Platelet poor plasma by Coagulation assay [facility] Start: 02-04-2024 [facility] Start: 02-04-2024 Fibrinogen [Mass/vol ume] in Platelet poor plasma by Coagulation assay [facility] Start: 02-04-2024 End: 02-04-2024 [facility] Start: 02-03-2024 [facility] Start: 02-03-2024 [facility] Start: 02-03-2024 Hospital admission [facility] Start: 01-19-2024 Covid-19 Vaccine () Covid-19 Vaccine () [facility] Start: 01-19-2024 Influenza vaccination Influenza Vacc ine (#1) [facility] Start: 09-04-2023 Duplex scan of lower limb arteries US arterial duplex LE RT [facility] Start: 09-04-2023 US Lower extremity - right [facility] Start: 03-12-2023 [facility] Start: 03-11-2023 Radionuclide myocard ial perfusion stress study NM cecelia perf SPECT rest & str [facility] Start: 03-07-2023 Fibrinogen [Mass/vol ume] in Platelet poor plasma by Coagulation assay [facility] Start: 03-07-2023 Fibrinogen [Mass/vol ume] in Platelet poor plasma by Coagulation assay [facility] Start: 03-07-2023 Angiography IR TPA Recheck (Right) [facility] Start: 03-07-2023 Blood chemistry [facility] Start: 03-07-2023 Fibrinogen [Mass/vol ume] in Platelet poor plasma by Coagulation assay [facility] Start: 03-07-2023 End: 03-07-2023 [facility] Start: 03-06-2023 Referral to clinical event planning manager [facility] Start: 03-06-2023 Consultation [facility] Start: 03-06-2023 Hospital admission [facility] Start: 03-06-2023 End: 03-06-2023 [facility] Start: 03-06-2023 Bypass Right Poplite al Artery to Foot Artery with Autologous Venous Tissue, Open Approach Bypass Right Popliteal Artery to Foot Artery with Autologous Venous Tissue, Open Approach [facility] Start: 03-06-2023 Excision of Right Saphenous Vein, Open Approach Excision of Right Saphenous Vein, Open Approach [facility] Start: 03-06-2023 Fluoroscopy of Abdom inal Aorta using Low Osmolar Contrast Fluoroscopy of Abdominal Aorta using Low Osmolar Contrast [facility] Start: 03-06-2023 Fluoroscopy of Right Lower Extremity Arteries using Low Osmolar Contrast Fluoroscopy of Right Lower Extremity Arteries using Low Osmolar Contrast [facility] Start: 03-06-2023 Fragmentation of Rig ht Popliteal Artery, Percutaneous Approach Fragmentation of Right Popliteal Artery, Percutaneous Approach [facility] Start: 03-06-2023 Introduction of Othe r Thrombolytic into Peripheral Vein, Percutaneous Approach Introduction of Other Thrombolytic into Peripheral Vein, Percutaneous Approach [facility] Start: 2015 Prostate specific antigen measurement Prostate Cancer Screening Discussion [facility] Start: 2010 Shingrix Vaccine (1 of 2) Shingrix Vaccine (1 of 2) [facility] Start: 2005 Screening for malign ant neoplasm of colon [facility] Start: 1995 Lipid panel Lipid Screening [facility] Start: 1978 Anxiety Screening Anxiety Screening [facility] Start: 1978 [facility]: [facility]atitis C [facility] Start: 1978 HIV screening HIV Screening [facility] Ankle brachial press ure index [facility] aPTT in Platelet poo r plasma by Coagulation assay [facility] aPTT in Platelet poo r plasma by Coagulation assay [facility] aPTT in Platelet poo r plasma by Coagulation assay [facility] Basophils [#/volume] in Blood by Automated count [facility] Basophils [#/volume] in Blood by Automated count [facility] Basophils [#/volume] in Blood by Automated count [facility] Basophils/100 leukoc ytes in Blood by Automated count [facility] Basophils/100 leukoc ytes in Blood by Automated count [facility] Basophils/100 leukoc ytes in Blood by Automated count [facility] Eosinophils [#/volum e] in Blood [facility] Eosinophils/100 leukocytes in Blood by Automated count [facility] Eosinophils/100 leukocytes in Blood by Automated count [facility] Eosinophils/100 leukocytes in Blood by Automated count [facility] Erythrocyte distribu tion width [Ratio] by Automated count [facility] Erythrocyte distribu tion width [Ratio] by Automated count [facility] Erythrocyte distribu tion width [Ratio] by Automated count [facility] Erythrocytes [#/volu me] in Blood [facility] Erythrocytes [#/volu me] in Blood [facility] Erythrocytes [#/volu me] in Blood [facility] Fibrinogen [Mass/vol ume] in Platelet poor plasma by Coagulation assay [facility] Fibrinogen [Mass/vol ume] in Platelet poor plasma by Coagulation assay [facility] Fibrinogen [Mass/vol ume] in Platelet poor plasma by Coagulation assay [facility] Fibrinogen [Mass/vol ume] in Platelet poor plasma by Coagulation assay [facility] Hematocrit [Volume Fraction] of Blood [facility] Hematocrit [Volume Fraction] of Blood [facility] Hematocrit [Volume Fraction] of Blood [facility] Hemoglobin [Mass/vol ume] in Blood [facility] Hemoglobin [Mass/vol ume] in Blood [facility] Hemoglobin [Mass/vol ume] in Blood [facility] INR in Platelet poor plasma by Coagulation assay [facility] INR in Platelet poor plasma by Coagulation assay [facility] INR in Platelet poor plasma by Coagulation assay [facility] Leukocytes [#/volume ] corrected for nucleated erythrocytes in Blood by Automated coun [facility] Leukocytes [#/volume ] corrected for nucleated erythrocytes in Blood by Automated coun [facility] Leukocytes [#/volume ] corrected for nucleated erythrocytes in Blood by Automated coun [facility] Leukocytes [#/volume ] in Blood [facility] Leukocytes [#/volume ] in Blood [facility] Leukocytes [#/volume ] in Blood [facility] Lymphocytes [#/volum e] in Blood by Automated count [facility] Lymphocytes [#/volum e] in Blood by Automated count [facility] Lymphocytes [#/volum e] in Blood by Automated count [facility] Lymphocytes/100 leukocytes in Blood by Automated count [facility] Lymphocytes/100 leukocytes in Blood by Automated count [facility] Lymphocytes/100 leukocytes in Blood by Automated count [facility] MCH [Entitic mass] b y Automated count [facility] MCH [Entitic mass] b y Automated count [facility] MCH [Entitic mass] b y Automated count [facility] MCHC [Mass/volume] b y Automated count [facility] MCHC [Mass/volume] b y Automated count [facility] MCHC [Mass/volume] b y Automated count [facility] MCV [Entitic volume] by Automated count [facility] MCV [Entitic volume] by Automated count [facility] MCV [Entitic volume] by Automated count [facility] Monocytes [#/volume] in Blood by Automated count [facility] Monocytes [#/volume] in Blood by Automated count [facility] Monocytes [#/volume] in Blood by Automated count [facility] Monocytes/100 leukoc ytes in Blood by Automated count [facility] Monocytes/100 leukoc ytes in Blood by Automated count [facility] Monocytes/100 leukoc ytes in Blood by Automated count [facility] Neutrophils [#/volum e] in Blood by Automated count [facility] Neutrophils [#/volum e] in Blood by Automated count [facility] Neutrophils [#/volum e] in Blood by Automated count [facility] Neutrophils/100 leukocytes in Blood by Automated count [facility] Neutrophils/100 leukocytes in Blood by Automated count [facility] Neutrophils/100 leukocytes in Blood by Automated count [facility] Nucleated erythrocyt es [Presence] in Blood by Automated count [facility] Nucleated erythrocyt es [Presence] in Blood by Automated count [facility] Nucleated erythrocyt es [Presence] in Blood by Automated count [facility] Patient Education [facility] Work Phone: Patient referral [facility] Work Phone: Platelet mean volume [Entitic volume] in Blood by Automated count [facility] Platelet mean volume [Entitic volume] in Blood by Automated count [facility] Platelet mean volume [Entitic volume] in Blood by Automated count [facility] Platelets [#/volume] in Blood [facility] Platelets [#/volume] in Blood [facility] Platelets [#/volume] in Blood [facility] Prothrombin time (PT) [facility] Prothrombin time (PT) [facility] Prothrombin time (PT) [facility] US Lower extremity - right [facility] End: 02-20-2025 US.doppler Extremity arteries - bilateral for physiologic artery study [facility] Vascular Lab Routine PAD (peripheral artery disease) (HCC) 1 Occurrences starting 02/21/2024 until 02/20/2025 [facility] Work Phone: Comment on above: 1 Occurrences starti ng 02/21/2024 until 02/20/[address] [facility] Immunizations Immunization Date Immunization Notes Care Provider Fa cility 03-30-2022 COVID-19 Pfizer (bivalent) Azul Jimenez Other [facility] 10-10-2021 COVID-19 Pfizer Azul Nicholasorog e Other [facility] 04-14-2021 COVID-19 Vaccine Pfizer - Documentation Purposes Only Azul Jimenez Other [facility] 09-10-2020 COVID-19 Vaccine Pfizer - Documentation Purposes Only Azul Jimenez Other [facility] 08-17-2020 COVID-19 Vaccine Pfizer - Documentation Purposes Only Azul Jimenez Other [facility] 09-22-2016 tetanus toxoid, reduced diphtheria toxoid, and acellular pertussis vaccine, adsorbed Azul Tony Other [facility] 09-17-2016 tetanus toxoid, reduced diphtheria toxoid, and acellular pertussis vaccine, adsorbed Azul Tony Other [facility] NEGATED: Highlighted row has not occurred!06-21-2023 Flu Shot - Documentation Purposes Only Patient Objection Azul Jimenez Other [facility] Payers Date Payer Category Payer Private Health Insurance [facility] [employer] [id number] 2022-Present [phone] [address] [address] [place] [address] PPO [id number] 1960 Unknown [id number] 1960 Unknown [id number] 1960 Unknown [id number] 1960 Unknown [id number] 1959 Self-pay 1959 Unknown [id number] Unknown [id number] .[id number] Unknown [id number] .[id number] Unknown [id number] .[id number] Unknown [id number] .[id number] Unknown [id number] .[id number] Unknown [id number] Social History Date Type Detail Facility Start: 10-12-2022 End: 02-25-2024 Tobacco smoking status Never smoked tobacco (finding) [facility] Start: 02-25-2024 Sex Assigned At Male F [facility] Start: 1960 Sex Assigned At Male F [facility] Tobacco smoking status NYIS Tobacco smoking consumption unknown [facility] Start: 1960 Sex assigned at Not on file C [facility] Start: 02-25-2024 Tobacco use and exposure Smokeless tobacco non-user [facility] Start: 02-25-2024 History of Social function [facility] Goals Date Patient Goal Desired Activity /State Personal health goal Functional Status Date Assessment Result Facility 02-03-2024 Functional status Patient at Baseline [facility] Work Phone: 03-12-2023 Functional status Patient at Baseline [facility] Work Phone: 10-12-2022 Functional Status N/A [facility] Mental Status Date Assessment Result Facility 02-03-2024 Cognitive function Cognitive Sta tus Patient at Baseline [facility] Work Phone: 03-12-2023 Cognitive function Cognitive Sta tus Patient at Baseline [facility] Work Phone: Clinical Notes 10-12-2022 to 02-25-2024 Rachid Michelle MD - 02/25/2024 10:11 AM EDT Note Date & Type Note Facility 02-25-2024 Note HNO ID: [id number] Author: RACHID MICHELLE MD Service: ? Author Type: Physician Type: Progress Notes Filed: 02/25/2024 10:19 Note Text: [facility] V[facility] Thor[facility] [place] DEPARTMENT OF VASCULAR SURGERY OUTPATIENT VISIT DATE February 25, 2024 OUTPATIENT VISIT TYPE ESTABLISHED SERVICE DATE: 02/25/2024 SERVICE TIME: 10:11 AM PRIMARY CARE PHYSICIAN: Kianna Santiago DO HISTORY OF PRESENT ILLNESS: Mr. Brown is a 63 year old male who presents today for a vascular surgery follow-up visit for right lower extremity peripheral arterial disease. Patient has a history of CLTI s/p right akPop-DP bypass 02/2023 who presents following an episode of acute limb ischemia treated with angioplasty and lysis at [facility]. He was found to have an occluded bypass but no symptoms in January. He know states he has occasional pain in his forefoot. He does have a wound on the plantar aspect of his 4th toe that has been slow healing. PAST MEDICAL HISTORY Diagnosis Date PAD (peripheral artery disease) ([facility]) 02/05/2024 PAST SURGICAL HISTORY Procedure Laterality Date ARTERIAL BYPASS Right 02/2023 Right above-knee pop to DP SVG bypass for ALI SOCIAL HISTORY Social History Tobacco Use Smoking status: Never Smokeless tobacco: Never MEDICATIONS: aspirin, enteric coated (ASPIRIN, ENTERIC COATED) 81 mg EC tablet once daily. atorvastatin (LIPITOR) 40 mg tablet once daily. lisinopril (ZESTRIL) 10 mg tablet 10 mg once daily. valsartan (DIOVAN) 80 mg tablet 80 mg once daily. omeprazole (PRILOSEC) 20 mg capsule 20 mg once daily. apixaban (ELIQUIS) 5 mg tab(s) Take 1 tablet by mouth two times a day. ALLERGIES: ALLERGIES No Known Allergies PHYSICAL EXAM: BP 159/93 (BP Site: Right Arm, BP Position: Sitting) Pulse 96 Temp 36.7 ?C (98 ?F) (Oral) Resp 16 SpO2 95% General: Alert and oriented, No acute distress, Healthy appearance Integumentary: Normal color, no rash, no lesions. HEENT: EOM, pupils equal, round and reactive. Cardiovascular: Normal S1 AND S2, no rubs, murmurs or gallops. No JVD., Pulse regular. Lungs: Normal breath sounds, no wheezes or crackles. Abdomen: Soft, non-tender, no rigidity. Extremities: No deformity, no edema or tenderness, no joint swelling or clubbing. Neurological: Normal cognition and motor skills. Vascular: Femoral Pulse Right: Normal - Left: Normal Posterior Tibial Right: Absent - Left: Dopplerable Only Dorsalis Pedal Right: Absent - Left: Dopplerable Only Diagnostic tests reviewed for today's visit: Most recent imaging with STEVENSON on right 0.17 and no toe pressure IMPRESSION: Mr. Brown is a 63 year old male with PAD and CLTI s/p Right AK Pop to DP bypass now occluded . PLAN and RECOMMENDATIONS: Patient still is relatively symptom free with small wound on his plantar aspect of his right fourth toe Recommend he continues his anticoagulation and to walk as much as possible Encouraged him to call me if he develops rest pain or worsening tissue loss as this may be a sign that he needs an angiogram to assess if there are any other revascularization attempts Follow-up in 3 months to re-assess symptoms SIGNATURE: Rachid Michelle MD PATIENT NAME: Mesfin Brown DATE: February 25, 2024 TIME: 10:11 AM [facility] 02-25-2024 History of Present illness Narrative Images from the original note were not included. Heart , Vascular and Thoracic [place] DEPARTMENT OF VASCULAR SURGERY OUTPATIENT VISIT DATE February 25, 2024 OUTPATIENT VISIT TYPE ESTABLISHED SERVICE DATE: 02/25/2024 SERVICE TIME: 10:11 AM PRIMARY CARE PHYSICIAN: Kianna Santiago DO HISTORY OF PRESENT ILLNESS: Mr. Brown is a 63 year old male who presents today for a vascular surgery follow-up visit for right lower extremity peripheral arterial disease. Patient has a history of CLTI s/p right akPop-DP bypass 02/2023 who presents following an episode of acute limb ischemia treated with angioplasty and lysis at [facility]. He was found to have an occluded bypass but no symptoms in January. He know states he has occasional pain in his forefoot. He does have a wound on the plantar aspect of his 4th toe that has been slow healing. PAST MEDICAL HISTORY Diagnosis Date PAD (peripheral artery disease) (HCC) 02/05/2024 PAST SURGICAL HISTORY Procedure Laterality Date ARTERIAL BYPASS Right 02/2023 Right above-knee pop to DP SVG bypass for ALI SOCIAL HISTORY Social History Tobacco Use Smoking status: Never Smokeless tobacco: Never MEDICATIONS: aspirin, enteric coated (ASPIRIN, ENTERIC COATED) 81 mg EC tablet once daily. atorvastatin (LIPITOR) 40 mg tablet once daily. lisinopril (ZESTRIL) 10 mg tablet 10 mg once daily. valsartan (DIOVAN) 80 mg tablet 80 mg once daily. omeprazole (PRILOSEC) 20 mg capsule 20 mg once daily. apixaban (ELIQUIS) 5 mg tab(s) Take 1 tablet by mouth two times a day. ALLERGIES: ALLERGIES No Known Allergies PHYSICAL EXAM: BP 159/93 (BP Site: Right Arm, BP Position: Sitting) Pulse 96 Temp 36.7 C (98 F) (Oral) Resp 16 SpO2 95% General: Alert and oriented, No acute distress, Healthy appearance Integumentary: Normal color, no rash, no lesions. HEENT: EOM, pupils equal, round and reactive. Cardiovascular: Normal S1 & S2, no rubs, murmurs or gallops. No JVD., Pulse regular. Lungs: Normal breath sounds, no wheezes or crackles. Abdomen: Soft, non-tender, no rigidity. Extremities: No deformity, no edema or tenderness, no joint swelling or clubbing. Neurological: Normal cognition and motor skills. Vascular: Femoral Pulse Right: Normal - Left: Normal Posterior Tibial Right: Absent - Left: Dopplerable Only Dorsalis Pedal Right: Absent - Left: Dopplerable Only Diagnostic tests reviewed for today's visit: Most recent imaging with STEVENSON on right 0.17 and no toe pressure IMPRESSION: Mr. Brown is a 63 year old male with PAD and CLTI s/p Right AK Pop to DP bypass now occluded . PLAN and RECOMMENDATIONS: Patient still is relatively symptom free with small wound on his plantar aspect of his right fourth toe Recommend he continues his anticoagulation and to walk as much as possible Encouraged him to call me if he develops rest pain or worsening tissue loss as this may be a sign that he needs an angiogram to assess if there are any other revascularization attempts Follow-up in 3 months to re-assess symptoms SIGNATURE: Rachid Michelle MD PATIENT NAME: Mesfin Brown DATE: February 25, 2024 TIME: 10:11 AM documented in this encounter [facility] 02-05-2024 Note HNO ID: [id number] Author: SILVANA PLASCENCIA, ? Service: Pharmacy Author Type: Quality Control Technician Type: Plan of Care Filed: 02/05/2024 14:49 Note Text: Reason for test claim: HVTI Eliquis Medication: Eliquis Starter pack Qty: 74 tablets Day supply: 30 days Cost on Insurance: $300.00 Does patient have a deductible? No Requires Prior Authorization? No 30-day voucher available, can only be used once per lifetime. $10 copay card available for commercially insured patients. Total number of vyas checks: 1 Any questions, please reach out to your medication corporate coordinator. Thank you (Prices may vary at different pharmacy locations, this is the cost at [facility]) [facility] 02-04-2024 Procedure note [facility] 02-03-2024 History and physical note Note Date/Time February 03, 2024 1:15pm [facility] [address] [place] [address] Vascular Surgery H&P Signed Patient: Mesfin Solis MR #: [id number] : 1960 Acct:[id number] Age/Sex: 63 / M Adm Date: 4 Loc: ER Room: Type: [facility] ER Attending Dr: Copies to: DO Kianna Aceves, DO Justin Deras MD~ Date of Service: 02/03/2024 HPI History of Present Illness HPI: Mr. Kevin Whitehead is a 63 year old male who presents to the emergency departmentat [facility] with chief complaint of right foot pain. The patient states has been going on for about 3 days. He is also noticed that he can feel a pulse in his foot after. The patient also has noticed discoloration of the foot. He can move his toes on the right side currently. The right foot feels numb and is cool. The patient has a history of a right above-knee popliteal artery to dorsalis pedis bypass with ipsilateral reversed greater saphenous vein due to critical limb ischemia last February 2023. He was last seen in the office in August of this year with normal surveillance studies. He does not smoke. [facility] Medical History PAD (peripheral artery disease) Problem List clean-up per [facility] of Phys[facility] Surgical History H/O vasectomy History of peripheral artery bypass History of vascular surgery Right leg History of appendectomy Problem List clean-up per request of Phys. [facility] Family History Father Hypertension Diabetes Family/Other Family history of other condition Legacy FamHx Problem: father, --complications from covid:mother, -- old age complications Mother Hypertension Social History Smoking Status: Never smoker Substance Use Type: Alcohol Substance Abuse Comment: socially Meds Medications and Allergies Allergies No Known Allergies Allergy (Verified 02/03/24 11:24) Home Medications lisinopril 10 mg tablet See Rx Instructions .Route .COMPLEX #90 tabs 08/27/23 [Rx Confirmed 02/03/24] amlodipine 10 mg tablet 10 mg PO DAILY 90 days #90 tabs 09/04/23 [Rx Confirmed 02/03/24] atorvastatin 40 mg tablet 40 mg PO DAILY 09/04/23 [History Confirmed 02/03/24] omeprazole 20 mg capsule,delayed release 20 mg PO DAILY #90 caps 09/04/23 [Rx Confirmed 02/03/24] Exam Physical Exam Vital Signs: Temp Pulse Resp BP Pulse Ox O2 Del Method 98.6 F 72 18 163/84 H 94 L Room Air 02/03/24 11:19 02/03/24 12:33 02/03/24 12:33 02/03/24 12:33 02/03/24 12:33 02/03/24 12:33 Const Other: On exam the patient is pleasant polite and appropriate he is following commands he is in no distress. He has complaining of right foot pain. He can move his right foot and toes. His HEENT isatraumatic tongue is midline neck is supple chest is symmetric lungs are clear abdomen soft nontender he has no palpable pulse in the right foot. The bypass is occluded based on clinical exam. I knowthis patient very well instability of the bypass clinically under the skin near the foot. He has mottling of the right foot and toes. He has no palpable rightpopliteal pulse. He has normal groin pulses bilaterally. A&P - Vascular (1) Critical limb ischemia of right lower extremity: Plan This patient has critical limb ischemia of the right foot. Apparently this started 3 or 3 days ago or so. The patient can move his right foot and toes. He does have mottling and his right foot is ischemic. Clearly the bypass is occluded. Will take him to the [facility] urgently for diagnostic and possibly therapeutic measures. This patient is at high risk for limb loss. He is aware of this. The risks and benefits were explained as well as medical surgical alternatives. He agrees to proceed. We will give him a bolus of fluid and get labs and move through the [facility] soon as feasible. I explained to the patientthat it is possible he could end up with a right below the knee amputation during this admission. Documented By: Justin Deras MD 02/03/24 1311 Signed By: <Electronically signed by Justin Deras MD> 02/03/24 1315 [facility] Work Phone: 1(657) 219-641809-16-2024 History and physical note Author Justin Deras [facility] February 03, 2024 1:15pm Note Date/Time February 03, 2024 1:15pm [facility] [address] [place] [address] Vascular Surgery H&P Signed Patient: Mesfin Solis MR #: [id number] : 1960 Acct:[id number] Age/Sex: 63 / M Adm Date: 4 Loc: ER Room: Type: [facility] ER Attending Dr: Copies to: Mariah Wolfe, DO Kianna Santiago, DO Justin Deras MD~ Date of Service: 02/03/2024 HPI History of Present Illness HPI: Mr. Kevin Whitehead is a 63 year old male who presents to the emergency departmentat [facility] with chief complaint of right foot pain. The patient states has been going on for about 3 days. He is also noticed that he can feel a pulse in his foot after. The patient also has noticed discoloration of the foot. He can move his toes on the right side currently. The right foot feels numb and is cool. The patient has a history of a right above-knee popliteal artery to dorsalis pedis bypass with ipsilateral reversed greater saphenous vein due to critical limb ischemia last February 2023. He was last seen in the office in August of this year with normal surveillance studies. He does not smoke. [facility] Medical History PAD (peripheral artery disease) Problem List clean-up per request of Phys. [facility] Surgical History H/O vasectomy History of peripheral artery bypass History of vascular surgery Right leg History of appendectomy Problem List clean-up per request of Phys. [facility] Family History Father Hypertension Diabetes Family/Other Family history of other condition Legacy FamHx Problem: father, --complications from covid:mother, -- old age complications Mother Hypertension Social History Smoking Status: Never smoker Substance Use Type: Alcohol Substance Abuse Comment: socially Meds Medications and Allergies Allergies No Known Allergies Allergy (Verified 02/03/24 11:24) Home Medications lisinopril 10 mg tablet See Rx Instructions .Route .COMPLEX #90 tabs 08/27/23 [Rx Confirmed 02/03/24] amlodipine 10 mg tablet 10 mg PO DAILY 90 days #90 tabs 09/04/23 [Rx Confirmed 02/03/24] atorvastatin 40 mg tablet 40 mg PO DAILY 09/04/23 [History Confirmed 02/03/24] omeprazole 20 mg capsule,delayed release 20 mg PO DAILY #90 caps 09/04/23 [Rx Confirmed 02/03/24] Exam Physical Exam Vital Signs: Temp Pulse Resp BP Pulse Ox O2 Del Method 98.6 F 72 18 163/84 H 94 L Room Air 02/03/24 11:19 02/03/24 12:33 02/03/24 12:33 02/03/24 12:33 02/03/24 12:33 02/03/24 12:33 Const Other: On exam the patient is pleasant polite and appropriate he is following commands he is in no distress. He has complaining of right foot pain. He can move his right foot and toes. His HEENT isatraumatic tongue is midline neck is supple chest is symmetric lungs are clear abdomen soft nontender he has no palpable pulse in the right foot. The bypass is occluded based on clinical exam. I knowthis patient very well instability of the bypass clinically under the skin near the foot. He has mottling of the right foot and toes. He has no palpable rightpopliteal pulse. He has normal groin pulses bilaterally. A&P - Vascular (1) Critical limb ischemia of right lower extremity: Plan This patient has critical limb ischemia of the right foot. Apparently this started 3 or 3 days ago or so. The patient can move his right foot and toes. He does have mottling and his right foot is ischemic. Clearly the bypass is occluded. Will take him to the [facility] urgently for diagnostic and possibly therapeutic measures. This patient is at high risk for limb loss. He is aware of this. The risks and benefits were explained as well as medical surgical alternatives. He agrees to proceed. We will give him a bolus of fluid and get labs and move through the [facility] soon as feasible. I explained to the patientthat it is possible he could end up with a right below the knee amputation during this admission. Documented By: Justin Deras MD 02/03/24 1311 Signed By: <Electronically signed by Justin Deras MD> 02/03/24 1315 [facility] Work Phone: 1(260) 308-827809-16-2024 [facility]02-02-2024 Evaluation note* Encounter Date Diagnosis Assessment Notes Treatment Notes Treatment Clinical Notes Jun, Onychomycosis of toenail (ICD-10 - B35.1) Will treat with topical antifungal, discussed can take several months for healthy nail to start to grow in Jun, PAD (peripheral artery disease) (ICD-10 - I73.9) On baby ASA currently, He is no longer taking statin or plavix. We will f/u in 2 months for AWV, plan to check FLP at that time. Following with vascular surgery Jun, Essential hypertension (ICD-10 - I10) BP elevated in office today, tolerating amlodpine without side effect. He is recommended to obtain home cuff and check home readings. Will recheck at well visit. Can add medication if remains uncontrolled. [facility] 01-26-2024 Evaluation note* Encounter Date Diagnosis Assessment Notes Treatment Notes Treatment Clinical Notes May, Essential hypertension (ICD-10 - I10) Mr. Kevin Whitehead is a 63 year old male with history of PAD recently admitted to [facility] 03/06/23 with critical limb ischemia and underwent fem-dorsalis pedis artery bypass. Preop EKG showed inferior Q waves with subtle ST depressions and TWI V2-V5 and cardiology was consulted to r/o ischemic heart disease. Pt was asymptomatic from a cardiac stand point. He underwent Lexiscan stress MPI that showed normal perfusion. Echo showed EF 65-70% with moderate concentric LVH. Normal wall motion. *LATE ENTRY DUE TO [facility] DOWNTIME* Assessment: Peripheral arterial disease s/p fem-DP bypass Abnormal pre-op EKG with normal stress MPI Essential hypertension Plan: - Pt doing relatively well. BP above goal today but has not taken his medication today. - Advised to obtain BP machine to monitor BP at home. - Continue Amlodipine 10mg daily - Follow up in 3 months May, Peripheral arterial disease (ICD-10 - I73.9) [facility] 01-17-2024 Evaluation note* Encounter Date Diagnosis Assessment Notes Treatment Notes Treatment Clinical Notes May, PAD (peripheral artery disease) (ICD-10 - I73.9) Will schedule the patient for an STEVENSON and a right leg graft duplex evaluation for routine postoperative surveillance studies in 3 months. We will also give the patient a return to work slip today. I am very pleased with his progress. [facility] 12-14-2023 Evaluation note* Encounter Date Diagnosis Assessment Notes Treatment Notes Treatment Clinical Notes Apr, Essential hypertension (ICD-10 - I10) Mr. Kevin Whitehead is a 63 year old male with history of PAD recently admitted to [facility] 03/06/23 with critical limb ischemia and underwent fem-dorsalis pedis artery bypass. Preop EKG showed inferior Q waves with subtle ST depressions and TWI V2-V5 and cardiology was consulted to r/o ischemic heart disease. Pt was asymptomatic from a cardiac stand point. He underwent Lexiscan stress MPI that showed normal perfusion. Echo showed EF 65-70% with moderate concentric LVH. Normal wall motion. Assessment: Peripheral arterial disease s/p fem-DP bypass Abnormal pre-op EKG with normal stress MPI Essential hypertension Plan: - Pt doing relatively well since discharge. Has occasional RLE pain likely due to reperfusion. He is on narcotics for pain control. - BP above goal today but not as elevated as it was during the hospitalization which was likely driven by limb pain. - Will restart Amlodipine 10mg daily and monitor response - Advised to keep BP log and will follow up in 2 weeks. Apr, Peripheral arterial disease (ICD-10 - I73.9) [facility] 11-16-2023 Evaluation note* Encounter Date Diagnosis Assessment Notes Treatment Notes Treatment Clinical Notes Mar, PAD (peripheral artery disease) (ICD-10 - I73.9) I will give this patient additional pain medicine of also recommended he does take a lot of Colace daily. He should continue to ambulate elevate the leg. I believe everything is going fine after surgery. We will see him back in 4 weeks and delay his work start date until the first of the year. [facility] 11-01-2023 Evaluation note* Encounter Date Diagnosis Assessment Notes Treatment Notes Treatment Clinical Notes Mar, Encounter for surgical aftercare following surgery of circulatory system (ICD-10 - Z48.812) Overall he looks great after his bypass procedure. His incision is healing nicely. Patient complains of ongoing postoperative pain in the right leg. We did send Rx for pain medication along with stool softener to the pharmacy for pickup. Patient was instructed on the use of the medication and warned against the addictive nature of narcotic medication. He knows to take the medication only as prescribed. We removed half of his rupert today in the office, he will return for 2-week follow-up for wound check and remainder of his rupert/stitches removal. He knows to call us in the meantime with any issues or concerns whatsoever. Mar, PAD (peripheral artery disease) (ICD-10 - I73.9) Mar, Post-op pain (ICD-10 - G89.18) [facility] 10-23-2023 Progress note Author Azul Jimenez [facility] March 11, 2023 5:25pm Note Date/Time March 11, 2023 5 :21pm [facility] [address] [place] [address] Cardiology Progress Note Signed Patient: Mesfin Solis MR #: [id number] : 1960 Acct:[id number] Age/Sex: 62 / M Adm Date: 3 Loc: 4N Room: [address] [place] [address] Type: ADM IN Attending Dr: Justin Deras MD Copies to: ~ Date of Service: 03/11/2023 Subjective Principal diagnosis: Abnormal ECG/PAD Interval history: -No acute events overnight. Doing well,no complaints. -Lexiscan stress test today Exam Physical Exam Vital Signs: Temp Pulse Resp BP Pulse Ox O2 Del Method O2 Flow Rate 98.5 F 91 H 16 145/78 H 94 L Room Air 2 03/11/23 15:43 03/11/23 15:43 03/11/23 15:43 03/11/23 15:43 03/11/23 15:43 03/11/23 15:43 03/10/23 08:00 Narrative: GEN: AAOx3. No acute distress. Neck: No JVD. Lungs: Clear to auscultation bilaterally Heart: Regular rate and rhythm. Normal S1 and S2. No murmurs or rubs appreciated. Abdomen: Soft, nontender, nondistended, bowel sounds present. Extremities: No BLE edema. RLE with dressing clean dry and intact Neuro: AAOx3. No focal deficits. Objective Labs 03/09/23 04:03 03/09/23 04:03 A&P - Cardiology (1) Abnormal EKG: Code(s): R94.31 - Abnormal electrocardiogram [ECG] [EKG] Status: Acute (2) HTN (hypertension): Code(s): I10 - Essential (primary) hypertension Status: Acute (3) Critical limb ischemia of right lower extremity: Code(s): I70.221 - Atherosclerosis of barrow arteries of extremities with rest pain, right leg Status: Acute Plan Mr. Kevin Whitehead is a 62 year old male with no significant medical history who presented with right lower extremity pain and was found to have critical ischemia with no pulses below the groin. Preop EKG showed inferior Q waves with subtle ST depressions and TWI V2-V5. Assessment: PAD-critical limb ischemia s/p fem-dorsalis pedis artery bypass Abnormal EKG Hypertension Recommendations: - Pt undergoing 2-day protocol Lexiscan stress test. Final result following rest images tomorrow. -Echo showed EF 65-70% with moderate concentric LVH. Normal wall motion. -BP better controlled continue current regimen. -Will follow Documented By: Azul Jimenez MD 03/11/231718 Signed By: <Electronically signed by Azul Jimenez MD> 03/11/231724 [facility] Work Phone: 1(135) 952-142210-23-2023 Progress note Author Justin Deras [facility] March 11, 2023 2:50pm Note Date/Time March 11, 2023 1 :46pm [facility] [address] [place] [address] Vascular Surgery Progress Note Signed Patient: Msefin Solis MR #: [id number] : 1960 Acct:[id number] Age/Sex: 62 / M Adm Date: 3 Loc: 4N Room: [address] [place] [address] Type: ADM IN Attending Dr: Justin Deras MD Copies to: ~ Date of Service: 03/11/2023 Subjective Subjective Interval history: Patient is resting comfortably in his bed this morning on my rounds. He is currently n.p.o. with planned cardiac testing this afternoon. He tells me his right leg feels much better and he denies any rest pain. He has been up and about walking a little bit with no complaints. Exam Physical Exam Vital Signs: Temp Pulse Resp BP Pulse Ox O2 Del Method O2 Flow Rate 98.6 F 88 16 136/75 93 L Room Air 2 03/11/23 11:59 03/11/23 11:59 03/11/23 11:59 03/11/23 11:59 03/11/23 11:59 03/11/23 11:59 03/10/23 08:00 Narrative: 62-year-old male, no acute distress. He is resting comfortably in his bed this morning on my rounds. He has no shortness of breath with conversation. Dressings to the right leg are clean, dry, and intact. His foot is warm well perfused. He has strong distal signal with hand-held Doppler. He is able to move his foot and toes without issue. Objective Labs 03/09/23 04:03 03/09/23 04:03 A&P - Vascular Assessment/Plan (1) Critical limb ischemia of right lower extremity: Patient is doing well this morning after bypass at the end of last week. He hasno remaining rest pain and is overall feeling pretty good. He is scheduled to undergo cardiac testing sometime today. From a peripheral vascular standpoint he looks good. He should continue working with PT/OT. He should remain on dualantiplatelet and statin medication. Code(s): I70.221 - Atherosclerosis of barrow arteries of extremities with rest pain, right leg Status: Acute (2) PAD (peripheral artery disease): Code(s): I73.9 - Peripheral vascular disease, unspecified Status: Acute Documented By: Masha Mayorga APRN 03/11/23 1 342 Signed By: <Electronically signed by JAYCE Mayorga> 03/11/23 1346 <Electronically signed by Justin Deras MD> 03/11/23 1450 [facility] Work Phone: 1(246) 719-518710-23-2023 Progress note Author Justin Deras [facility] March 11, 2023 8:25am Note Date/Time March 11, 2023 8 :25am [facility] [address] [place] [address] Vascular Surgery Progress Note Signed Patient: Mesfin Solis MR #: [id number] : 1960 Acct:[id number] Age/Sex: 62 / M Adm Date: 3 Loc: 4N Room: [address] [place] [address] Type: ADM IN Attending Dr: Justin Deras MD Copies to: ~ Date of Service: 03/09/2023 Subjective Subjective Interval history: Saturday morning. He was alone in the room. He was doing very well he had no complaints. He can move his right foot with no difficulty he had no pain with passive flexion of his right foot and ankle. Subjective: no new complaints and feels better Exam Physical Exam Vital Signs: Temp Pulse Resp BP Pulse Ox O2 Del Method O2 Flow Rate 98.5 F 94 H 16 159/85 H 94 L Room Air 2 03/11/23 07:43 03/11/23 07:43 03/11/23 07:43 03/11/23 07:43 03/11/23 07:43 03/11/23 07:43 03/10/23 08:00 Narrative: Patient's right foot is warm and well-perfused he has excellent Doppler signal in the dorsalis pedis location. The dressing was not taken down on purpose today. There is no pain with passive flexion of the right foot. There are no signs of compartment syndrome clinically. Const General: cooperative, comfortable and no acute distress Orientation: oriented x3 Objective Labs 03/09/23 04:03 03/09/23 04:03 A&P - Vascular Assessment/Plan (1) Critical limb ischemia of right lower extremity: This patient is doing well after above the need to dorsalis pedis artery bypass with ipsilateral reverse greater saphenous vein. I am very pleased with his progress. We will get PT and OT involved to get him up and moving around and initiate the rehabilitation process after major vascular surgery. Szymanski catheter is out we will Hep-Lock the IVs and transfer him out of the ICU today. Cardiology is following the patient for abnormal preoperative EKG. I appreciatetheir input. The patient is currently on dual antiplatelet therapy and high intensity statin. Code(s): I70.221 - Atherosclerosis of barrow arteries of extremities with rest pain, right leg Status: Acute (2) PAD (peripheral artery disease): Code(s): I73.9 - Peripheral vascular disease, unspecified Status: Acute Documented By: Justin Deras MD 03/11/23821 Signed By: <Electronically signed by Justin Deras MD> 03/11/23824 [facility] Work Phone: [phone]) 918-284710-22-2023 Progress note Author Roberto Carlos Velazquez [facility] March 10, 2023 6:57pm Note Date/Time March 09, 2023 1 2:48pm [facility] [address] [place] [address] Hospitalist Progress Note Signed Patient: Mesfin Solis MR #: [id number] : 1960 Acct:[id number] Age/Sex: 62 / M Adm Date: 3 Loc: 4N Room: [address] [place] [address] Type: ADM IN Attending Dr: Justin Deras MD Copies to: ~ Date of Service: 03/09/2023 Subjective Subjective Narrative: Seen and examined at bedside, resting comfortably in bed. Denies any pain or discomfort, on room air with saturations above 90%. Afebrile. Denies chest pain, palpitations, dizziness or lightheaded. Exam Physical Exam Vital Signs: Temp Pulse Resp BP Pulse Ox O2 Del Method O2 Flow Rate 97.7 F 96 H 20 157/72 H 96 Room Air 2 03/09/23 11:50 03/09/23 11:50 03/09/23 11:50 03/09/23 11:50 03/09/23 11:50 03/09/23 12:00 03/09/23 08:00 Narrative: CONST-obese alert, comfortable, cooperative CARDIAC-normal rate, regular rhythm, normal S1 & S2. PULM-diminished without wheeze or rhonchi, RA, no accessory muscle use or cough noted ABD - Soft. Bowel sounds are normal. Obese. No tenderness EXTREM-no edema BLE calves nontender. R PPP. SKIN- W/D good turgo Objective Lab Results 03/09/23 04:03 03/09/23 04:03 Meds Allergies and Active Meds Allergies No Known Allergies Allergy (Verified 03/06/23 11:29) Active Meds: Active Medications Generic Name Dose Route Start Last Admin Trade Name Freq PRN Reason Stop Dose Admin Acetaminophen 500 mg 03/08/23 11:44 03/09/23 12:00 Acetaminophen 500 Mg Tablet PO 03/11/23 11:43 500 mg Q6H BRENDA Administration Hydrocodone Bitart/Acetaminophen 1 tab 03/07/23 08:25 03/09/23 04:08 Hydrocodone/Acetaminophen 5-325 Mg Tablet PO 1 tab Q4H PRN Administration Pain Scale 1 - 3 Amlodipine Besylate 10 mg 03/08/23 09:00 03/09/23 08:32 Amlodipine 10 Mg Tablet PO 03/07/24 08:59 10 mg DAILY BRENDA Administration Aspirin 81 mg 03/08/23 13:15 03/09/23 08:32 Aspirin 81 Mg Tablet.Dr PO 03/07/24 13:14 81 mg DAILY BRENDA Administration Atorvastatin Calcium 40 mg 03/06/23 21:00 03/08/23 21:35 Atorvastatin 40 Mg Tablet PO 03/05/24 20:59 40 mg QPM BRENDA Administration Clopidogrel Bisulfate 75 mg 03/08/23 13:05 03/09/23 08:31 Clopidogrel Bisulfate 75 Mg Tablet PO 03/07/24 13:04 75 mg DAILY BRENDA Administration Docusate Sodium 100 mg 03/06/23 21:00 03/09/23 08:32 Docusate 100 Mg Capsule PO 03/05/24 20:59 100 mg BID BRENDA Administration Hydralazine HCl 10 mg 03/06/23 20:57 03/07/23 21:36 Hydralazine 20 Mg/Ml Vial IV-PUSH 03/05/24 20:56 10 mg Q4H PRN Administration if SBP > 170 Hydrochlorothiazide 12.5 mg 03/09/23 08:00 03/09/23 08:32 Hydrochlorothiazide 12.5 Mg Tablet PO 03/08/24 07:59 12.5 mg DAILY.8A BRENDA Administration Hydromorphone HCl 1 mg 03/08/23 12:46 Hydromorphone 1 Mg/Ml Syringe IV-PUSH Q4H PRN Pain Scale 8 - 10 Ondansetron HCl 4 mg 03/06/23 21:19 Ondansetron 4 Mg/2 Ml Vial IV-PUSH 03/05/24 21:18 Q6H PRN Nausea And Vomiting Oxycodone HCl 10 mg 03/06/23 16:19 03/06/23 17:19 Oxycodone Ir 5 Mg Tablet PO 10 mg Q6HR PRN Administration Pain Scale 6 - 10 Oxycodone HCl 10 mg 03/06/23 21:00 03/09/23 08:33 Oxycodone Er.12hr 10 Mg Tab.Er.12h PO Not Given Q12HR BRENDA Sodium Chloride 0 ml 03/08/23 05:44 Sodium Chloride 0.9 % 10 Ml Syringe IV-PUSH 03/07/24 05:43 PRN PRN Flush Valsartan 80 mg 03/09/23 14:00 Valsartan 80 Mg Tablet PO 03/08/24 13:59 DAILY BRENDA A&P - Hospitalist Assessment/Plan (1) HTN (hypertension): (2) Critical limb ischemia of right lower extremity: (3) PAD (peripheral artery disease): Plan HTN, uncontrolled ? On amlodipine to 10 mg daily, hydrochlorothiazide and valsartan starting todayby cardiology ?Continue hydralazine as needed for SBP greater than 170 mmHg ? Monitor closely PAD /critical limb ischemia of the RLE ?POD #3 s/p right tibial angiogram with catheter placement in the right popliteal artery ?Continue plan of care per vascular surgeon ? Continue pain management as needed Abnormal EKG?preop EKG showed inferior Q waves with subtle ST depression ?Cardiology following Documented By: Azul Mario APRN 03/09/23 1246 Signed By: <Electronically signed by JAYCE Mario> 03/09/23 1407 <Electronically signed by Roberto Carlos Velazquez MD> 03/10/23 5367 [facility] Work Phone: 1(902) 378-739410-22-2023 Progress note Author Roberto Carlos Velazquez [facility] March 10, 2023 6:57pm Note Date/Time March 10, 2023 1 :25pm [facility] [address] [place], [place] [id number] Hospitalist Progress Note Signed Patient: Mesfin Solis MR #: [id number] : 1960 Acct:[id number] Age/Sex: 62 / M Adm Date: 3 Loc: 4N Room: [address] [place] [address] Type: ADM IN Attending Dr: Justin Deras MD Copies to: ~ Date of Service: 03/10/2023 Subjective Subjective Narrative: Seen and examined at bedside, resting comfortably in bed. Denies any pain or discomfort, on room air with saturations above 90%. Afebrile. Denies chest pain, palpitations, dizziness or lightheaded. Discussed about antihypertensive medications increment, patient agreeable. Exam Physical Exam Vital Signs: Temp Pulse Resp BP Pulse Ox O2 Del Method O2 Flow Rate 98.5 F 98 H 16 139/69 92 L Room Air 2 03/10/23 12:59 03/10/23 12:59 03/10/23 12:59 03/10/23 12:59 03/10/23 12:59 03/10/23 12:59 03/10/23 08:00 Narrative: CONST-obese alert, comfortable, cooperative CARDIAC-normal rate, regular rhythm, normal S1 & S2. PULM-diminished without wheeze or rhonchi, RA, no accessory muscle use or cough noted ABD - Soft. Bowel sounds are normal. Obese. No tenderness EXTREM-no edema BLE calves nontender. R PPP. SKIN- W/D good turgo Objective Lab Results 03/09/23 04:03 03/09/23 04:03 Meds Allergies and Active Meds Allergies No Known Allergies Allergy (Verified 03/06/23 11:29) Active Meds: Active Medications Generic Name Dose Route Start Last Admin Trade Name Freq PRN Reason Stop Dose Admin Acetaminophen 500 mg 03/08/23 11:44 03/10/23 09:28 Acetaminophen 500 Mg Tablet PO 03/11/23 11:43 500 mg Q6H BRENDA Administration Hydrocodone Bitart/Acetaminophen 1 tab 03/07/23 08:25 03/09/23 04:08 Hydrocodone/Acetaminophen 5-325 Mg Tablet PO 1 tab Q4H PRN Administration Pain Scale 1 - 3 Amlodipine Besylate 10 mg 03/08/23 09:00 03/10/23 09:29 Amlodipine 10 Mg Tablet PO 03/07/24 08:59 10 mg DAILY BRENDA Administration Aspirin 81 mg 03/08/23 13:15 03/10/23 09:29 Aspirin 81 Mg Tablet.Dr PO 03/07/24 13:14 81 mg DAILY BRENDA Administration Atorvastatin Calcium 40 mg 03/06/23 21:00 03/09/23 20:30 Atorvastatin 40 Mg Tablet PO 03/05/24 20:59 40 mg QPM BRENDA Administration Chlorthalidone 25 mg 03/10/23 11:00 03/10/23 12:25 Chlorthalidone 25 Mg Tablet PO 03/09/24 10:59 25 mg QAM BRENDA Administration Clopidogrel Bisulfate 75 mg 03/08/23 13:05 03/10/23 09:29 Clopidogrel Bisulfate 75 Mg Tablet PO 03/07/24 13:04 75 mg DAILY BRENDA Administration Docusate Sodium 100 mg 03/06/23 21:00 03/10/23 09:29 Docusate 100 Mg Capsule PO 03/05/24 20:59 100 mg BID BRENDA Administration Hydralazine HCl 10 mg 03/06/23 20:57 03/07/23 21:36 Hydralazine 20 Mg/Ml Vial IV-PUSH 03/05/24 20:56 10 mg Q4H PRN Administration if SBP > 170 Hydralazine HCl 25 mg 03/10/23 09:10 03/10/23 09:32 Hydralazine 25 Mg Tablet PO 03/09/24 09:09 25 mg BID BRENDA Administration Hydromorphone HCl 1 mg 03/08/23 12:46 Hydromorphone 1 Mg/Ml Syringe IV-PUSH Q4H PRN Pain Scale 8 - 10 Ondansetron HCl 4 mg 03/06/23 21:19 Ondansetron 4 Mg/2 Ml Vial IV-PUSH 03/05/24 21:18 Q6H PRN Nausea And Vomiting Oxycodone HCl 10 mg 03/06/23 16:19 03/06/23 17:19 Oxycodone Ir 5 Mg Tablet PO 10 mg Q6HR PRN Administration Pain Scale 6 - 10 Oxycodone HCl 10 mg 03/06/23 21:00 03/10/23 09:10 Oxycodone Er.12hr 10 Mg Tab.Er.12h PO 10 mg Q12HR BRENDA Administration Regadenoson 0.4 mg 03/11/23 09:00 Regadenoson 0.4 Mg/5 Ml Syringe IV-PUSH 03/11/23 09:01 ONCE ONE Sodium Chloride 0 ml 03/08/23 05:44 Sodium Chloride 0.9 % 10 Ml Syringe IV-PUSH 03/07/24 05:43 PRN PRN Flush Sodium Chloride 0 ml 03/10/23 10:49 Sodium Chloride 0.9 % 10 Ml Syringe IV-PUSH 03/09/24 10:48 PRN PRN Flush Sodium Chloride 0 ml 03/10/23 12:05 Sodium Chloride 0.9 % 10 Ml Syringe IV-PUSH 03/09/24 12:04 PRN PRN Flush Valsartan 80 mg 03/09/23 14:00 03/10/23 09:29 Valsartan 80 Mg Tablet PO 03/08/24 13:59 80 mg DAILY BRENDA Administration A&P - Hospitalist Assessment/Plan (1) HTN (hypertension): (2) Critical limb ischemia of right lower extremity: (3) PAD (peripheral artery disease): Plan HTN, uncontrolled ? On amlodipine, Diovan, will add hydralazine scheduled ?Continue hydralazine as needed for SBP greater than 170 mmHg ? Monitor closely PAD /critical limb ischemia of the RLE ?POD #3 s/p right tibial angiogram with catheter placement in the right popliteal artery ?Continue plan of care per vascular surgeon ? Continue pain management as needed Abnormal EKG?preop EKG showed inferior Q waves with subtle ST depression ?Cardiology following, plan for Lexiscan Cardiolite nuclear stress test tomorrow. Documented By: Azul Mario APRN 03/10/23 1325 Signed By: <Electronically signed by JAYCE Mario> 03/10/23 1621 <Electronically signed by Roberto Carlos Velazquez MD> 03/10/23 7535 [facility] Work Phone: 1(212) 613-969110-22-2023 Progress note Author Renetta Cintron [facility] March 10, 2023 10:54am Note Date/Time March 10, 2023 1 0:52am [facility] [address] [place] [address] Cardiology Progress Note Signed Patient: Mesfin Solis MR #: [id number] : 1960 Acct:[id number] Age/Sex: 62 / M Adm Date: 3 Loc: 4N Room: [address] [place] [address] Type: ADM IN Attending Dr: Justin Deras MD Copies to: ~ Date of Service: 03/10/2023 Subjective Principal diagnosis: Abnormal ECG/PAD Interval history: Patient is doing well from the vascular standpoint and has no pain. He has no dyspnea palpitations or chest pain and no cardiac arrhythmias. His echocardiogram demonstrated normal left ventricle with no wall motion normalities. Patient is lifelong non-smoker and nondiabetic. He remains hypertensive, will add chlorthalidone daily to his current therapy with amlodipine . We will schedule Lexiscan Cardiolite nuclear stress test tomorrow. He is currently on high intensity statin and dual antiplatelet therapy Exam Physical Exam Vital Signs: Temp Pulse Resp BP Pulse Ox O2 Del Method O2 Flow Rate 98.3 F 93 H 18 162/79 H 91 L Room Air 2 03/10/23 09:29 03/10/23 09:29 03/10/23 09:29 03/10/23 09:29 03/10/23 09:29 03/10/23 09:29 03/09/23 08:00 Const General: cooperative, healthy appearing, comfortable and no acute distress Nutritional Appearance: obese Orientation: alert, awake and oriented x3 HEENT Head: normal to inspection, normocephalic and atraumatic Ears: hearing grossly normal bilaterally Nose: external nose normal Face and sinus: normal facial exam Eyes Conjunctivae: conjunctivae normal Pupils: PERRL Neck Neck: normal visual inspection, no lymphadenopathy, trachea midline and supple Neck mass: No Thyroid: thyroid normal Carotids: normal carotid upstroke Resp Effort & Inspection: normal respiratory effort Auscultation: clear to auscultation bilaterally Cardio Jugular venous pressure: no JVD Palpation: normal PMI Rate: regular rate Rhythm: regular rhythm Heart Sounds: S1 normal and S2 normal GI Inspection: normal to inspection Palpation: soft and no hepatosplenomegaly Auscultation: normal bowel sounds Objective Labs 03/09/23 04:03 03/09/23 04:03 A&P - Cardiology (1) Abnormal EKG: Assessment/Problem Details: This is of unknown significance and may require further investigation for underlying ischemic heart disease given the fact that he already has PAD Code(s): R94.31 - Abnormal electrocardiogram [ECG] [EKG] Status: Acute Plan: myocardial perfusion imaging study (2) HTN (hypertension): Assessment/Problem Details: Not completely under control Code(s): I10 - Essential (primary) hypertension Status: Acute Plan: Add chlorthalidone 25 mg daily (3) Critical limb ischemia of right lower extremity: Assessment/Problem Details: Status post revascularization by vascular surgery Code(s): I70.221 - Atherosclerosis of barrow arteries of extremities with rest pain, right leg Status: Acute Plan: Patient follows with vascular surgery Documented By: Renetta Cintron MD, [facility] 3 1052 Signed By: <Electronically signed by [facility] Renetta Cintron> 03/10/23 1054 [facility] Work Phone: 1([phone]) 166-617210-21-2023 Progress note Author Renetta Soloahim [facility] March 09, 2023 11:24am Note Date/Time March 09, 2023 1 1:24am [facility] [address] [place] [address] Cardiology Progress Note Signed Patient: Mesfin Solis MR #: [id number] : 1960 Acct:[id number] Age/Sex: 62 / M Adm Date: 3 Loc: Room: [address] [place] [address] Type: ADM IN Attending Dr: Justin Deras MD Copies to: ~ Date of Service: 03/09/2023 Subjective Principal diagnosis: Abnormal ECG/PAD Interval history: Patient is doing well from the vascular standpoint and has no pain. He has no dyspnea palpitations or chest pain and no cardiac arrhythmias. His echocardiogram demonstrated normal left ventricle with no wall motion normalities. Patient is lifelong non-smoker and nondiabetic. He remains hypertensive, will add valsartan 80 mg daily to his current therapy with amlodipine and hydrochlorothiazide. Patient will be transferred to [facility] when bed is available. Later on as an outpatient he will likely undergo evaluation for ischemic heart disease noninvasively. He is currently on high intensity statin and dual antiplatelet therapy Exam Physical Exam Vital Signs: Temp Pulse Resp BP Pulse Ox O2 Del Method O2 Flow Rate 98.0 F 84 20 144/79 H 95 Nasal Cannula 2 03/09/23 08:00 03/09/23 08:00 03/09/23 08:00 03/09/23 08:00 03/09/23 08:00 03/09/23 08:00 03/09/23 08:00 Const General: cooperative, healthy appearing, comfortable and no acute distress Nutritional Appearance: obese Orientation: alert, awake and oriented x3 HEENT Head: normal to inspection, normocephalic and atraumatic Ears: hearing grossly normal bilaterally Nose: external nose normal Face and sinus: normal facial exam Eyes Conjunctivae: conjunctivae normal Pupils: PERRL Neck Neck: normal visual inspection, no lymphadenopathy, trachea midline and supple Neck mass: No Thyroid: thyroid normal Carotids: normal carotid upstroke Resp Effort & Inspection: normal respiratory effort Auscultation: clear to auscultation bilaterally Cardio Jugular venous pressure: no JVD Palpation: normal PMI Rate: regular rate Rhythm: regular rhythm Heart Sounds: S1 normal and S2 normal GI Inspection: normal to inspection Palpation: soft and no hepatosplenomegaly Auscultation: normal bowel sounds Objective Labs 03/09/23 04:03 03/09/23 04:03 Labs: Laboratory Results - last 24 hr 03/08/23 03/08/23 03/09/23 12:37 19:48 04:03 Corrected WBC 8.0 Uncorrected WBC Count 8.0 RBC 3.94 Hgb 12.5 L Hct 36.9 L MCV 93.8 MCH 31.6 MCHC 33.7 RDW 13.8 Plt Count 232 MPV 7.6 Neut % (Auto) 67.0 Lymph % (Auto) 23.5 Benzie % (Auto) 8.9 Eos % (Auto) 0.4 Baso % (Auto) 0.2 Nucleat RBC Rel Count 0.1 Neut # (Auto) 5.4 Lymph # (Auto) 1.9 Benzie # (Auto) 0.7 Eos # (Auto) 0.0 Baso # (Auto) 0.0 APTT 27.6 PHA Creatinine Clear Sodium Potassium Chloride Carbon Dioxide Anion Gap BUN Creatinine Est GFR (CKD-EPI) Glucose Estimat Average Glucose Hemoglobin A1c Calcium Troponin I High Sens 15.7 03/09/23 03/09/23 04:03 04:03 Corrected WBC Uncorrected WBC Count RBC Hgb Hct MCV MCH MCHC RDW Plt Count MPV Neut % (Auto) Lymph % (Auto) Benzie % (Auto) Eos % (Auto) Baso % (Auto) Nucleat RBC Rel Count Neut # (Auto) Lymph # (Auto) Benzie # (Auto) Eos # (Auto) Baso # (Auto) APTT PHA Creatinine Clear 89.75 Sodium 139 Potassium 4.0 Chloride 106 Carbon Dioxide 26.2 Anion Gap 10.8 BUN 11 Creatinine 0.95 Est GFR (CKD-EPI) > 60.0 Glucose 127 H Estimat Average Glucose 137 Hemoglobin A1c 6.4 H Calcium 8.4 L Troponin I High Sens A&P - Cardiology (1) Abnormal EKG: Assessment/Problem Details: This is of unknown significance and may require further investigation for underlying ischemic heart disease given the fact that he already has PAD Code(s): R94.31 - Abnormal electrocardiogram [ECG] [EKG] Status: Acute Plan: Outpatient myocardial perfusion imaging study (2) HTN (hypertension): Assessment/Problem Details: Not completely under control Code(s): I10 - Essential (primary) hypertension Status: Acute Plan: Add valsartan 80 mg daily (3) Critical limb ischemia of right lower extremity: Assessment/Problem Details: Status post revascularization by vascular surgery Code(s): I70.221 - Atherosclerosis of barrow arteries of extremities with rest pain, right leg Status: Acute Plan: Patient follows with vascular surgery Documented By: Renetta Cintron MD, [facility] 3 1121 Signed By: <Electronically signed by [facility] Renetta Cintron> 03/09/23 1124 [facility] Work Phone: 1(315) 382-247210-20-2023 Consult note Author Roberto Carlos Velazquez [facility] March 08, 2023 6:55pm Note Date/Time March 06, 2023 8 :38pm [facility] [address] [place] [address] Hospitalist Consult Note Signed Patient: Brown WhiteheadMesfin cameron MR #: [id number] : 1960 Acct:[id number] Age/Sex: 62 / M Adm Date: 3 Loc: Room: 1S7536-8 Type: ADM IN Attending Dr: Justin Deras MD Copies to: MD Justin Ramsey MD Pamela Sue Cramer, JUSTIN Vega APRN~ HPI DATE OF CONSULTATION: 03/06/23 REQUESTING PROVIDER: Justin Deras Consult Narrative Reason for Consult: Hypertension, possible new onset HPI: Mr. Brown is a 62-year-old male that denies past medical history, denies taking any prescription medications that is here with right lower extremity pain was found to have critical limb ischemia no palpable pulses below the groin. He underwent aortogram with runoff and interpretation initiation of tPA therapy, right leg angiogram via the right popliteal artery with interpretation with vascular surgery. Hospitalist team has been consulted for medical management ofhypertension. Patient seen and examined at bedside postoperatively. He states that he does not take any prescription medications, has never been diagnosed with any health issues. Reports his mother had a history of diabetes and hypertension. His father also had diabetes. He reports pain to the right lowerextremity, rates the pain 8/10, worsens with movement. He reports that he has never smoked, drinks alcohol occasionally. He denies fever, chills, chest pain, shortness of breath. Thank you for this consultation. Review of Systems Review of Systems Review of systems: A 10 point review of systems was obtained, negative unless noted in the HPI or below. [facility] Medical History (Updated 03/06/23 @ 20:48 by Katarzyna Vega APRN) PAD (peripheral artery disease) Surgical History History of appendectomy Social History Smoking Status: Never smoker Substance Use Type: None Meds Medications and Allergies Allergies No Known Allergies Allergy (Verified 03/06/23 11:29) Home Medications No known home meds 03/06/23 [History Confirmed 03/06/23] Active Medications: Active Medications Generic Name Dose Route Start Last Admin Trade Name Freq PRN Reason Stop Dose Admin Atorvastatin Calcium 40 mg 03/06/23 21:00 Atorvastatin 40 Mg Tablet PO 03/05/24 20:59 QPM BRENDA Docusate Sodium 100 mg 03/06/23 21:00 Docusate 100 Mg Capsule PO 03/05/24 20:59 BID BRENDA Sodium Chloride 1,000 mls @ 115 mls/hr 03/06/23 15:30 03/06/23 17:00 0.9% Sodium Chloride 1,000 Ml IV 03/05/24 15:29 115 mls/hr .Q8H42M [facility] Infusion Alteplase, Recombinant 6 mg/ 100 mls @ 16.667 mls/hr 03/06/23 16:00 03/06/23 16:41 Sodium Chloride IV 03/07/23 15:59 1 mg/hr .Q6H BRENDA 16.67 mls/hr Administration 1 MG/HR Sodium Chloride 1,000 mls @ 35 mls/hr 03/06/23 16:00 03/06/23 16:48 0.9% Sodium Chloride 1,000 Ml INTRACATH 03/05/24 15:59 35 mls/hr .Q24H BRENDA Administration Heparin Sodium/Sodium Chloride 25,000 unit in 250 mls @ 3 mls/hr 03/06/23 17:00 03/06/23 16:41 Heparin IV 03/05/24 16:59 300 unit/hr .Q24H BRENDA 3 mls/hr Administration 300 UNIT/HR Cefazolin Sodium 1 gm in 50 mls @ 100 mls/hr 03/06/23 19:00 03/06/23 19:27 Ancef IV 03/07/23 19:29 100 mls/hr Q12H BRENDA Administration Morphine Sulfate 4 mg 03/06/23 17:33 03/06/23 18:43 Morphine Sulfate 4 Mg/Ml Cartridge IV-PUSH 4 mg Q2H PRN Administration Pain Oxycodone HCl 10 mg 03/06/23 16:19 03/06/23 17:19 Oxycodone Ir 5 Mg Tablet PO 10 mg Q6HR PRN Administration Pain Scale 6 - 10 Oxycodone HCl 10 mg 03/06/23 21:00 Oxycodone Er.12hr 10 Mg Tab.Er.12h PO Q12HR [facility] Sodium Chloride 0 ml 03/06/23 11:29 03/06/23 17:58 Sodium Chloride 0.9 % 10 Ml Syringe IV-PUSH 03/05/24 11:28 10 ml PRN PRN Administration Flush Exam Physical Exam Vital Signs: Temp Pulse Resp BP Pulse Ox O2 Del Method 97.4 F L 81 20 135/65 95 Room Air 03/06/23 18:40 03/06/23 19:18 03/06/23 19:18 03/06/23 19:18 03/06/23 19:18 03/06/23 19:18 Narrative: CONST- Appears well -developed and well nourished. Obese HEAD - Normocephalic and atraumatic EENT-Sclera nonicteric, conjunctive are non-erythemic, moist oral mucosa, pharynx clear NECK-Supple, no cervical lymphadenopathy CARDIAC-normal rate, regular rhythm, S1 & S2. PULM-diminished without wheeze or rhonchi, RA, no accessory muscle use or cough noted ABD - Soft. Bowel sounds are normal. No distention. No tenderness EXTREM-no edema BLE calves, tenderness and pain to RLE, right foot and ankle cool to touch, no pedal pulse, nursing also reports no doppler pulse-tPa and heparin drip infusing SKIN- W/D good turgor MS- MAEX4 spontaneously, weakness and pain to RLE NEURO- A&Ox3 speech clear and tongue midline, equal facial symmetry, no focal motor deficits PSYCH-Mood, affect, and behavior appropriate Results Lab Results Labs: Laboratory Results - last 72 hr 03/06/23 19:07: Blood Type Recheck O Positive 03/06/23 17:36: Corrected WBC 8.7, Uncorrected WBC Count 8.7, RBC 4.85, Hgb 15.3, Hct 45.4, MCV 93.5, MCH 31.6, MCHC 33.8, RDW 14.0, Plt Count 245, MPV 7.9,Neut % (Auto) 72.7, Lymph % (Auto) 22.4, Benzie % (Auto) 4.3, Eos % (Auto) 0.3, Baso % (Auto) 0.3, Nucleat RBC Rel Count 0.1, Neut # (Auto) 6.3, Lymph # (Auto) 1.9, Benzie # (Auto) 0.4, Eos # (Auto) 0.0, Baso # (Auto) 0.0 03/06/23 17:36: Blood Type O Positive, Antibody Screen Negative 03/06/23 17:36: PT 11.6, INR 1.0, APTT 32.9, Fibrinogen 313 03/06/23 12:03: PHA Creatinine Clear 87.25, Sodium 138, Potassium 3.9, Chloride 105, Carbon Dioxide 25.3, Anion Gap 11.6, BUN 13, Creatinine 0.97, Est GFR (CKD-EPI) > 60.0, Glucose 102 H, Calcium 9.5, Total Bilirubin 0.4, AST 34, ALT 54 H, Alkaline Phosphatase 108 H, Total Protein 7.9, Albumin 4.2, Globulin 3.7, Albumin/Globulin Ratio 1.1 03/06/23 12:03: PT Cancelled, INR Cancelled, APTT Cancelled 03/06/23 12:03: Corrected WBC 6.5, Uncorrected WBC Count 6.5, RBC 4.89, Hgb 15.4, Hct 45.4, MCV 92.8, MCH 31.6, MCHC 34.0, RDW 13.7, Plt Count 307, MPV 7.9,Neut % (Auto) 56.2, Lymph % (Auto) 35.2, Benzie % (Auto) 7.3, Eos % (Auto) 0.8, Baso % (Auto) 0.5, Nucleat RBC Rel Count 0.1, Neut # (Auto) 3.7, Lymph # (Auto) 2.3, Benzie # (Auto) 0.5, Eos # (Auto) 0.1, Baso # (Auto) 0.0, Monocyte Dist Width16.72 Assessment & Plan Assessment/Plan (1) HTN (hypertension): (2) Critical limb ischemia of right lower extremity: (3) PAD (peripheral artery disease): Plan HTN ? Hydralazine as needed for SBP greater than 170 mmHg ? Start amlodipine 5 mg daily now ? Monitor closely Critical limb ischemia of the RLE PAD ? Plan of care per vascular surgeon ? Pain control Critical Care Time: 35 Documented By: Katarzyna Vega APRN 03/06/232037 Signed By: <Electronically signed by JAYCE Vega> 03/06/232100 <Electronically signed by Roberto Carlos Velazquez MD> 03/08/23 8998 [facility] Work Phone: 1(854) 124-511110-20-2023 Progress note Author Roberto Carlos Velazquez [facility] March 08, 2023 6:55pm Note Date/Time March 07, 2023 1 :20pm [facility] [address] [place], [place] [id number] Hospitalist Progress Note Signed Patient: Mesfin Solis MR #: [id number] : 1960 Acct:[id number] Age/Sex: 62 / M Adm Date: 3 Loc: Room: [address] [place] [address] Type: ADM IN Attending Dr: Justin Deras MD Copies to: ~ Date of Service: 03/07/2023 Subjective Subjective Narrative: Seen and examined at bedside, resting comfortably in bed. Denies any pain or discomfort, on room air with saturations above 90%. Afebrile. Exam Physical Exam Vital Signs: Temp Pulse Resp BP Pulse Ox O2 Del Method O2 Flow Rate 98.0 F 100 H 22 177/84 H 95 Room Air 2 03/07/23 12:30 03/07/23 12:30 03/07/23 12:30 03/07/23 12:30 03/07/23 12:30 03/07/23 12:30 03/07/23 10:32 Narrative: CONST-obese alert, comfortable, cooperative CARDIAC-normal rate, regular rhythm, normal S1 & S2. PULM-diminished without wheeze or rhonchi, RA, no accessory muscle use or cough noted ABD - Soft. Bowel sounds are normal. Obese. No tenderness EXTREM-no edema BLE calves nontender. R PPP. SKIN- W/D good turgo Objective Lab Results 03/07/23 10:12 03/07/23 03:47 Meds Allergies and Active Meds Allergies No Known Allergies Allergy (Verified 03/06/23 11:29) Active Meds: Active Medications Generic Name Dose Route Start Last Admin Trade Name Freq PRN Reason Stop Dose Admin Hydrocodone Bitart/Acetaminophen 1 tab 03/07/23 08:25 Hydrocodone/Acetaminophen 5-325 Mg Tablet PO Q4H PRN Pain Scale 1 - 3 Amlodipine Besylate 10 mg 03/08/23 09:00 Amlodipine 10 Mg Tablet PO 03/07/24 08:59 DAILY BRENDA Atorvastatin Calcium 40 mg 03/06/23 21:00 03/06/23 20:55 Atorvastatin 40 Mg Tablet PO 03/05/24 20:59 40 mg QPM BRENDA Administration Docusate Sodium 100 mg 03/06/23 21:00 03/07/23 10:47 Docusate 100 Mg Capsule PO 03/05/24 20:59 Not Given BID BRENDA Hydralazine HCl 10 mg 03/06/23 20:57 03/07/23 12:26 Hydralazine 20 Mg/Ml Vial IV-PUSH 03/05/24 20:56 10 mg Q4H PRN Administration if SBP > 170 Heparin Sodium/Sodium Chloride 25,000 unit in 250 mls @ 6 mls/hr 03/06/23 17:00 03/06/23 16:41 Heparin IV 03/05/24 16:59 300 unit/hr .Q24H BRENDA 3 mls/hr Administration 600 UNIT/HR Morphine Sulfate 4 mg 03/06/23 17:33 03/07/23 03:48 Morphine Sulfate 4 Mg/Ml Cartridge IV-PUSH 4 mg Q2H PRN Administration Pain Ondansetron HCl 4 mg 03/06/23 21:19 Ondansetron 4 Mg/2 Ml Vial IV-PUSH 03/05/24 21:18 Q6H PRN Nausea And Vomiting Oxycodone HCl 10 mg 03/06/23 16:19 03/06/23 17:19 Oxycodone Ir 5 Mg Tablet PO 10 mg Q6HR PRN Administration Pain Scale 6 - 10 Oxycodone HCl 10 mg 03/06/23 21:00 03/07/23 10:48 Oxycodone Er.12hr 10 Mg Tab.Er.12h PO Not Given Q12HR BRENDA Sodium Chloride 0 ml 03/06/23 11:29 03/06/23 17:58 Sodium Chloride 0.9 % 10 Ml Syringe IV-PUSH 03/05/24 11:28 10 ml PRN PRN Administration Flush A&P - Hospitalist Assessment/Plan (1) HTN (hypertension): (2) Critical limb ischemia of right lower extremity: (3) PAD (peripheral artery disease): Plan HTN, uncontrolled ?We will increase amlodipine to 10 mg daily ?Continue hydralazine as needed for SBP greater than 170 mmHg ? Monitor closely Critical limb ischemia of the RLE PAD ? S/p right tibial angiogram with catheter placement in the right popliteal artery ?Continue plan of care per vascular surgeon ? Continue pain management as needed Documented By: Azul Mario APRN 03/07/23 1318 Signed By: <Electronically signed by JAYCE Mario> 03/07/23 1326 <Electronically signed by Roberto Carlos Velazquez MD> 03/08/23 55[address] [facility] Work Phone: 1(217) 315-264110-20-2023 Progress note Author Roberto Carlos Velazquez [facility] March 08, 2023 6:55pm Note Date/Time March 08, 2023 4 :21pm [facility] [address] [place] [address] Hospitalist Progress Note Signed Patient: Mesfin Solis MR #: [id number] : 1960 Acct:[id number] Age/Sex: 62 / M Adm Date: 3 Loc: Room: [address] [place] [address] Type: ADM IN Attending Dr: Justin Deras MD Copies to: ~ Date of Service: 03/08/2023 Subjective Subjective Narrative: Seen and examined at bedside, resting comfortably in bed. Denies any pain or discomfort, on room air with saturations above 90%. Afebrile. Exam Physical Exam Vital Signs: Temp Pulse Resp BP Pulse Ox O2 Del Method O2 Flow Rate 97.9 F 86 20 169/75 H 96 Nasal Cannula 2 03/08/23 12:46 03/08/23 14:31 03/08/23 14:31 03/08/23 14:31 03/08/23 14:31 03/08/23 14:31 03/08/23 14:31 Narrative: CONST-obese alert, comfortable, cooperative CARDIAC-normal rate, regular rhythm, normal S1 & S2. PULM-diminished without wheeze or rhonchi, RA, no accessory muscle use or cough noted ABD - Soft. Bowel sounds are normal. Obese. No tenderness EXTREM-no edema BLE calves nontender. R PPP. SKIN- W/D good turgo Objective Lab Results 03/08/23 04:04 03/08/23 04:04 Meds Allergies and Active Meds Allergies No Known Allergies Allergy (Verified 03/06/23 11:29) Active Meds: Active Medications Generic Name Dose Route Start Last Admin Trade Name Freq PRN Reason Stop Dose Admin Acetaminophen 500 mg 03/08/23 11:44 03/08/23 13:57 Acetaminophen 500 Mg Tablet PO 03/11/23 11:43 Not Given Q6H BRENDA Hydrocodone Bitart/Acetaminophen 1 tab 03/07/23 08:25 Hydrocodone/Acetaminophen 5-325 Mg Tablet PO Q4H PRN Pain Scale 1 - 3 Amlodipine Besylate 10 mg 03/08/23 09:00 03/08/23 13:47 Amlodipine 10 Mg Tablet PO 03/07/24 08:59 Not Given DAILY BRENDA Aspirin 81 mg 03/08/23 13:15 03/08/23 13:58 Aspirin 81 Mg Tablet.Dr PO 03/07/24 13:14 81 mg DAILY BRENDA Administration Atorvastatin Calcium 40 mg 03/06/23 21:00 03/07/23 21:21 Atorvastatin 40 Mg Tablet PO 03/05/24 20:59 40 mg QPM BRENDA Administration Clopidogrel Bisulfate 75 mg 03/08/23 13:05 03/08/23 13:57 Clopidogrel Bisulfate 75 Mg Tablet PO 03/07/24 13:04 75 mg DAILY BRENDA Administration Docusate Sodium 100 mg 03/06/23 21:00 03/08/23 13:47 Docusate 100 Mg Capsule PO 03/05/24 20:59 Not Given BID BRENDA Hydralazine HCl 10 mg 03/06/23 20:57 03/07/23 21:36 Hydralazine 20 Mg/Ml Vial IV-PUSH 03/05/24 20:56 10 mg Q4H PRN Administration if SBP > 170 Hydrochlorothiazide 12.5 mg 03/09/23 08:00 Hydrochlorothiazide 12.5 Mg Tablet PO 03/08/24 07:59 DAILY.8A BRENDA Hydromorphone HCl 1 mg 03/08/23 12:46 Hydromorphone 1 Mg/Ml Syringe IV-PUSH Q4H PRN Pain Scale 8 - 10 Sodium Chloride 1,000 mls @ 80 mls/hr 03/08/23 13:00 0.9% Sodium Chloride 1,000 Ml IV 03/07/24 12:59 .[id number] BRENDA Ondansetron HCl 4 mg 03/06/23 21:19 Ondansetron 4 Mg/2 Ml Vial IV-PUSH 03/05/24 21:18 Q6H PRN Nausea And Vomiting Oxycodone HCl 10 mg 03/06/23 16:19 03/06/23 17:19 Oxycodone Ir 5 Mg Tablet PO 10 mg Q6HR PRN Administration Pain Scale 6 - 10 Oxycodone HCl 10 mg 03/06/23 21:00 03/08/23 13:47 Oxycodone Er.12hr 10 Mg Tab.Er.12h PO Not Given Q12HR BRENDA Sodium Chloride 0 ml 03/08/23 05:44 Sodium Chloride 0.9 % 10 Ml Syringe IV-PUSH 03/07/24 05:43 PRN PRN Flush A&P - Hospitalist Assessment/Plan (1) HTN (hypertension): (2) Critical limb ischemia of right lower extremity: (3) PAD (peripheral artery disease): Plan HTN, uncontrolled ? On amlodipine to 10 mg daily, will start hydrochlorothiazide and continue to titrate until blood pressure is controlled ?Continue hydralazine as needed for SBP greater than 170 mmHg ? Monitor closely Critical limb ischemia of the RLE PAD ? S/p right tibial angiogram with catheter placement in the right popliteal artery ?Continue plan of care per vascular surgeon ? Continue pain management as needed Documented By: Azul Mario APRN 03/08/23 1619 Signed By: <Electronically signed by JAYCE Mario> 03/08/23 1621 <Electronically signed by Roberto Carlos Velazquez MD> 03/08/23 8[address] [facility] Work Phone: [phone]) 886-390310-20-2023 Consult note Author Azul Jimenez [facility] March 08, 2023 3:39pm Note Date/Time March 08, 2023 3 :31pm [facility] [address] [place] [address] Cardiology Consult Note Signed Patient: Mesfin Solis MR #: [id number] : 1960 Acct:[id number] Age/Sex: 62 / M Adm Date: 3 Loc: Room: [address] [place] [address] Type: ADM IN Attending Dr: Justin Deras MD Copies to: MD Justin Murry MD Pamela Sue Cramer, [employer]PORATE TRAVEL COUNSELOR~ Cardiology HPI History of Present Illness Consult Date: 03/08/23 Reason for Consult: Ischemic changes noted on pre-op EKG HPI: Mr. Kevin Whitehead is a 62 year old male with no significant medical history who presented with right lower extremity pain and was found to have critical ischemia with no pulses below the groin. He underwent arteriogram that showed occluded right femoral artery and underwent EKOS catheter placement with heparinand tPA. Given lack of a palpable pulse in the right foot, it was recommended that he proceed with a fem-dorsalis pedis artery bypass. EKG obtained as preop work-up was significant for inferior Q waves with subtle ST depressions and TWI V2-V5. Given the emergent nature of procedure, decision was made to proceed with peripheral bypass surgery which he underwent without any complications. Cardiology consulted given EKG changes. Patient denies any history of chest pain, dyspnea, palpitations, dizziness, lightheadedness or syncope. He is active without limitations. No known cardiachistory. Denies tobacco, alcohol or illicit drug use. Denies any mild medical problems however has been noted to be hypertensive this admission. Troponin obtained postsurgery was negative. Review of Systems Review of Systems All other systems reviewed & are negative unless noted below or in HPI [facility] Medical History (Updated 03/08/23 @ 15:31 by Azul Jimenez MD) PAD (peripheral artery disease) Surgical History History of appendectomy Social History Smoking Status: Never smoker Substance Use Type: None Meds Medications and Allergies Allergies No Known Allergies Allergy (Verified 03/06/23 11:29) Home Medications No known home meds 03/06/23 [History Confirmed 03/06/23] Exam Physical Exam Vital Signs: Temp Pulse Resp BP Pulse Ox O2 Del Method O2 Flow Rate 97.9 F 86 20 169/75 H 96 Nasal Cannula 2 03/08/23 12:46 03/08/23 14:31 03/08/23 14:31 03/08/23 14:31 03/08/23 14:31 03/08/23 14:31 03/08/23 14:31 Narrative: GEN: AAOx3. No acute distress. Lying comfortably flat in bed Neck: No JVD. Lungs: Clear to auscultation bilaterally Heart: Regular rate and rhythm. Normal S1 and S2. No murmurs or rubs appreciated. Abdomen: Soft, nontender, nondistended, bowel sounds present. Extremities: No BLE edema. RLE with dressing clean dry and intact Neuro: AAOx3. No focal deficits. Results Labs 03/08/23 04:04 03/08/23 04:04 Lab results: CBC 03/08/23 Range/Units 04:04 RBC 4.47 (3.90-5.60) X10E6/uL Hgb 14.1 (13.0-17.0) g/dL Hct 42.0 (38.8-50.0) % Plt Count 219 (150-450) x10E3/uL Neut # (Auto) 4.2 (1.8-7.7) x10E3/uL Lymph # (Auto) 1.8 (1.00-4.8) x10E3/uL Benzie # (Auto) 0.5 (0.0-0.8) x10E3/uL Eos # (Auto) 0.1 (0.0-0.45) x10E3/uL Baso # (Auto) 0.0 (0.0-0.2) x10E3/uL Comprehensive Metabolic Panel 03/08/23 Range/Units 04:04 Sodium 136 (136-145) mmol/L Potassium 4.0 (3.5-5.1) mmol/L Chloride 106 (98-107) mmol/L Carbon Dioxide 23.1 (21.0-31.0) mmol/L BUN 11 (7-25) mg/dL Creatinine 0.79 (0.70-1.30) mg/dL Glucose 143 H (70-100) mg/dL Calcium 8.7 (8.6-10.3) mg/dL Intake and Output 03/07/23 03/08/23 03/08/23 23:59 07:59 15:59 Intake Total 820 / 2610 250 / 3550 3300 / 3550 Balance 820 / 2210 250 / 3550 3300 / 3550 Intake: IV 250 / 3250 3000 / 3250 Heparin 25,000Unit-*0.45 NaCl* 250 / 250 25,000 unit In 250 ml @ 1,000 UNIT/HR 10 mls/hr IV .Q24H BRENDA Rx#:[id number] Lactated Ringers 1,000 ml @ 20 3000 / 3000 mls/hr IV .Q24H ONE Rx#: [id number] Oral 820 / 1560 300 / 300 Other: # Unmeasured Voids 3 1 2 # Bowel Movements 0 Weight 97.6 kg Date of Last Bowel Movement 03/05/23 Patient Weight 03/08/23 23:59 Weight 97.6 kg Lab 03/06/23 03/06/23 03/07/23 12:03 17:36 19:55 PT Cancelled 11.6 INR Cancelled 1.0 APTT Cancelled 32.9 38.2 H 03/08/23 04:04 PT INR APTT 102.5 H* A&P - Cardiology (1) HTN (hypertension): Code(s): I10 - Essential (primary) hypertension (2) PAD (peripheral artery disease): Code(s): I73.9 - Peripheral vascular disease, unspecified (3) Critical limb ischemia of right lower extremity: Code(s): I70.221 - Atherosclerosis of barrow arteries of extremities with rest pain, right leg (4) Peripheral vascular disease: Code(s): I73.9 - Peripheral vascular disease, unspecified (5) Abnormal EKG: Code(s): R94.31 - Abnormal electrocardiogram [ECG] [EKG] Plan Mr. Kevin Whitehead is a 62 year old male with no significant medical history who presented with right lower extremity pain and was found to have critical ischemia with no pulses below the groin. Preop EKG showed inferior Q waves with subtle ST depressions and TWI V2-V5. Assessment: PAD-critical limb ischemia s/p fem-dorsalis pedis artery bypass Abnormal EKG Hypertension Recommendations: -No clinical concern for ischemia-patient was fairly functional without any angina or dyspnea. Achieves > 4 METS without limitation however given severe PAD patient has increased likelihood for coronary artery disease. Also noted to have undiagnosed hypertension and has been started on antihypertensives. Check A1c. -Will order echo to evaluate LV and valvular function. -Plan to pursue ischemic work-up as outpatient once recovered from vascular surgery standpoint. -Will follow Documented By: Azul Jimenez MD 03/08/23 1529 Signed By: <Electronically signed by Azul Jimenez MD> 03/08/23 1533 [facility] Work Phone: [phone]) [phone] History general Narrative - Reported* Type Description Date Medical History HTN Medical History Hyperlipidemia Medical History GERD Medical History PAD Surgical History appendectomy Surgical History vasectomy Surgical History Right Leg Bypass 02/2023 Hospitalization History See Above 02/2023 [employer] Other [id number] [facility] Progress note Author Paramjit Miller [facility] March 07, 2023 1:48pm Note Date/Time March 07, 2023 1 :45pm [facility] [address] [place] [address] Anesthesia Progress Note Signed Patient: Mesfin Solis MR #: [id number] : 1960 Acct:[id number] Age/Sex: 62 / M Adm Date: 3 Loc: 4C Room: [address] [place] [address] Type: ADM IN Attending Dr: Justin Deras MD Copies to: ~ Anesthesia Progress Note Narrative Narrative: Chart reviewed. Pt came in with cold leg and treated with tPA, now requiring fem-dorsalis pedis bypass. Dr. Deras spoke to me this afternoon. ECG ordered by him, but not done. Hospitalists consulted for HTN (new diagnosis as pt was not on any home meds.) T&S negative. Labs unremarkable. Unless ischemic changes found on ECG, no apparent contraindication to proceeding. Documented By: Paramjit Miller Jr, MD 03/07/23 1 344 Signed By: <Electronically signed by Paramjit Miller Jr, MD> 03/07/23 1348 [facility] Work Phone: [phone] 278-763510-19-2023 Progress note Author Justin Augusta [facility] March 07, 2023 12:49pm Note Date/Time March 07, 2023 1 2:50pm [facility] [address] [place] [address] Vascular Surgery Progress Note Signed Patient: Mesfin Solis MR #: [id number] : 1960 Acct:[id number] Age/Sex: 62 / M Adm Date: 3 Loc: 4C Room: [address] [place] [address] Type: ADM IN Attending Dr: Justin Deras MD Copies to: ~ Date of Service: 03/07/2023 Subjective Subjective Interval history: Patient is a 62-year-old male postop day 1 with an arteriogram due to right lower critical limb ischemia. Arteriogram showed the right popliteal artery occluded and no tibial vessels or vessels in the foot were identified. EKOS catheter was placed throughout the right lower extremity ranging from the SFA toproximal popliteal artery. tPA and heparin were given with the tPA being held around midnight. Upon presentation this morning the patient was resting in his bed with his in the room. Patient reports he is still in pain but that it is improving. Patient denied any pain in the groin region. This patient was discussed with the ICU nurse who reported they were able to detect flow in the right dorsalis pedis with Doppler. Nurse did report that overnight the patient's oxygen saturation did drop to 89% and that the patient was placed on 2L O2 via nasal cannula. Exam Physical Exam Vital Signs: Temp Pulse Resp BP Pulse Ox O2 Del Method O2 Flow Rate 97.6 F 80 16 160/87 H 99 Nasal Cannula 2 03/07/23 04:00 03/07/23 06:00 03/07/23 06:00 03/07/23 06:00 03/07/23 06:00 03/07/23 06:00 03/07/23 06:00 Narrative: Patient was resting comfortably in bed and did not appear to be in any distress. Focused exam of the bilateral lower extremities revealed that the sheath was fixed with dressings in the left groin region with no surrounding erythema, edema, or bleeding. Left dorsalis pedis pulse remains strong. Right dorsalis pedis pulse was undetectable. The right foot is much warmer today compared to yesterday and the temperature is very similar to the left foot now. Objective Labs 03/07/23 03:47 03/07/23 03:47 Other Labs: Laboratory Results - last 24 hr 03/06/23 03/06/23 03/06/23 12:03 12:03 12:03 Corrected WBC 6.5 Uncorrected WBC Count 6.5 RBC 4.89 Hgb 15.4 Hct 45.4 MCV 92.8 MCH 31.6 MCHC 34.0 RDW 13.7 Plt Count 307 MPV 7.9 Neut % (Auto) 56.2 Lymph % (Auto) 35.2 Benzie % (Auto) 7.3 Eos % (Auto) 0.8 Baso % (Auto) 0.5 Nucleat RBC Rel Count 0.1 Neut # (Auto) 3.7 Lymph # (Auto) 2.3 Benzie # (Auto) 0.5 Eos # (Auto) 0.1 Baso # (Auto) 0.0 Monocyte Dist Width 16.72 PT Cancelled INR Cancelled APTT Cancelled Fibrinogen PHA Creatinine Clear 87.25 Sodium 138 Potassium 3.9 Chloride 105 Carbon Dioxide 25.3 Anion Gap 11.6 BUN 13 Creatinine 0.97 Est GFR (CKD-EPI) > 60.0 Glucose 102 H Calcium 9.5 Total Bilirubin 0.4 AST 34 ALT 54 H Alkaline Phosphatase 108 H Total Protein 7.9 Albumin 4.2 Globulin 3.7 Albumin/Globulin Ratio 1.1 Blood Type Blood Type Recheck Antibody Screen 03/06/23 03/06/23 03/06/23 17:36 17:36 17:36 Corrected WBC 8.7 Uncorrected WBC Count 8.7 RBC 4.85 Hgb 15.3 Hct 45.4 MCV 93.5 MCH 31.6 MCHC 33.8 RDW 14.0 Plt Count 245 MPV 7.9 Neut % (Auto) 72.7 Lymph % (Auto) 22.4 Benzie % (Auto) 4.3 Eos % (Auto) 0.3 Baso % (Auto) 0.3 Nucleat RBC Rel Count 0.1 Neut # (Auto) 6.3 Lymph # (Auto) 1.9 Benzie # (Auto) 0.4 Eos # (Auto) 0.0 Baso # (Auto) 0.0 Monocyte Dist Width PT 11.6 INR 1.0 APTT 32.9 Fibrinogen 313 PHA Creatinine Clear Sodium Potassium Chloride Carbon Dioxide Anion Gap BUN Creatinine Est GFR (CKD-EPI) Glucose Calcium Total Bilirubin AST ALT Alkaline Phosphatase Total Protein Albumin Globulin Albumin/Globulin Ratio Blood Type O Positive Blood Type Recheck Antibody Screen Negative 03/06/23 03/06/23 03/06/23 19:07 22:36 22:36 Corrected WBC 10.2 Uncorrected WBC Count 10.2 RBC 4.50 Hgb 14.2 Hct 41.6 MCV 92.5 MCH 31.5 MCHC 34.1 RDW 14.0 Plt Count 226 MPV 7.2 Neut % (Auto) 86.0 Lymph % (Auto) 7.3 Benzie % (Auto) 6.5 Eos % (Auto) 0.0 Baso % (Auto) 0.2 Nucleat RBC Rel Count 0.0 Neut # (Auto) 8.8 H Lymph # (Auto) 0.7 L Benzie # (Auto) 0.7 Eos # (Auto) 0.0 Baso # (Auto) 0.0 Monocyte Dist Width PT INR APTT Fibrinogen 101 L PHA Creatinine Clear Sodium Potassium Chloride Carbon Dioxide Anion Gap BUN Creatinine Est GFR (CKD-EPI) Glucose Calcium Total Bilirubin AST ALT Alkaline Phosphatase Total Protein Albumin Globulin Albumin/Globulin Ratio Blood Type Blood Type Recheck O Positive Antibody Screen 03/07/23 03/07/23 03/07/23 03:47 03:47 03:47 Corrected WBC 6.9 Uncorrected WBC Count 6.9 RBC 4.38 Hgb 13.7 Hct 40.6 MCV 92.8 MCH 31.3 MCHC 33.7 RDW 13.7 Plt Count 222 MPV 7.7 Neut % (Auto) 70.3 Lymph % (Auto) 21.8 Benzie % (Auto) 7.5 Eos % (Auto) 0.1 Baso % (Auto) 0.3 Nucleat RBC Rel Count 0.1 Neut # (Auto) 4.9 Lymph # (Auto) 1.5 Benzie # (Auto) 0.5 Eos # (Auto) 0.0 Baso # (Auto) 0.0 Monocyte Dist Width PT INR APTT Fibrinogen 141 L PHA Creatinine Clear 96.48 Sodium 136 Potassium 4.0 Chloride 105 Carbon Dioxide 22.9 Anion Gap 12.1 BUN 11 Creatinine 0.89 Est GFR (CKD-EPI) > 60.0 Glucose 132 H Calcium 8.4 L Total Bilirubin AST ALT Alkaline Phosphatase Total Protein Albumin Globulin Albumin/Globulin Ratio Blood Type Blood Type Recheck Antibody Screen A&P - Vascular Assessment/Plan (1) Critical limb ischemia of right lower extremity: Code(s): I70.221 - Atherosclerosis of barrow arteries of extremities with rest pain, right leg Status: Acute Plan tPA was discontinued around midnight and the plan is to do a tPA recheck with arteriogram this morning. I will further discuss this case with Dr. Deras and Dr. Lyons. This is Dr. Deras dictating. The patient's foot looks better today. However it is not yet back to normal. Although the right foot is warm. He still lacks a palpable pulse in the right foot. I suspect his femoropopliteal segment is patent now and his tibial area is occluded still. We will go and plan to move forward with the tPA recheck this morning. Addendum: This is Dr. Ghosh dictating again. The patient will need a above- knee popliteal to dorsalis pedis artery bypass with ipsilateral reverse greater saphenous vein. The patient has occluded popliteal artery with severely diseased tibial arteries in the calf. I explained this to the patient and his . We reviewed we discussed medical surgical alternatives. This patient remains at risk for amputation of the right leg and possibly move forward with this. This patient still has critical limb ischemia and is still at high risk for limb loss. I would prefer to do this procedure today although it does not look like there is any operative time available. This is not a case I want to start at 6 or 9 PM at night. Therefore we will schedule this for tomorrow morning but it absolutely must go tomorrow. I have called Dr. Miller from the department of anesthesia and gave him a heads up about this case tomorrow morning. Hopefully we can identify any potential anesthesia concerns and correct them today if necessary. He agreed to see the patient. Consent was obtained. Documented By: Justin Deras MD 03/07/23 0726 Signed By: <Electronically signed by Justin Deras MD> 03/07/23 1249 [facility] Work Phone: 1(174) 343-261910-19-2023 Progress note Author Curt Balderrama [facility] March 07, 2023 11:40am Note Date/Time March 07, 2023 1 1:40am [facility] [address] [place] [address] Progress Note Signed Patient: Mesfin Solis MR #: [id number] : 1960 Acct:[id number] Age/Sex: 62 / M Adm Date: 3 Loc: Room: [address] [place] [address] Type: ADM IN Attending Dr: Justin Deras MD Copies to: ~ Date of Service: 03/07/2023 Progress Narrative Note PROGRESS NOTE Progress Note: Patient was discussed during critical care rounds, presented with critical limb ischemia treated with EKOS, history of hypertension, evaluated and managed by hospitalist service. I will follow as needed Documented By: Curt Balderrama MD 03/07/23 114 Signed By: <Electronically signed by Curt Balderrama MD> 03/07/23 [address] [facility] Work Phone: 1(537) 556-760510-19-2023 Procedure [facility]10-18-2023 Consult note Author Justin Deras [facility] March 06, 2023 4:56pm Note Date/Time March 06, 2023 4 :56pm [facility] [address] [place] [address] Vascular Surgery Consult Note Signed Patient: Mesfin Solis MR #: [id number] : 1960 Acct:[id number] Age/Sex: 62 / M Adm Date: 3 Loc: [place] Room: Type: [facility] Attending Dr: Justin Deras MD Copies to: MD Elli Gross, CORPORATE TRAVEL COUNSELOR~ HPI Consult HPI Reason for consult: Right lower extremity pain History of present illness: Mr. Kevin Whitehead is a 62 year old male with no significant past medical historywho presented to the [facility] emergency department today with right foot and calf pain. Upon presentation today patient was resting in bed and did not appear to be in any distress. Patient states that he believes his problem beganabout 6 months ago where he started noticing right foot and calf pain. He stated he used to enjoy running but had to stop due to the pain. Patient reports that suddenly 2 weeks ago the pain got worse. Patient states now the pain is worse with walking but still hurts at rest and is noticing that his right foot is colder than his left foot. Patient did report he went to the [place] emergency room on February 27 and had those reports with him today. The reports show a right lower extremity ultrasound was performed and showed no signs of DVT as well as a normal sinus rhythm EKG. Patient said he has an appointment with [facility] vascular surgery tomorrow but that he could not wait any longer due to the pain. Patient states he does not have any medical problemsthat he is aware of and does not take any daily medications. He does state his mom had peripheral artery disease. Patient states he has not had any vascular surgery in the past and that his only surgery was an appendectomy several years ago. Patient denies any history of DVTs and reports he does not smoke. Patientdenies any other concerns at this time including chest pain or shortness of breath. cc:: CC: Data of Consult Consult date: 03/06/2023 [facility] Medical History (Updated 03/06/23 @ 13:45 by Justin Rodriguez) PAD (peripheral artery disease) Surgical History (Updated 03/06/23 @ 11:31 by Ya Frank RN) History of appendectomy Social History Smoking Status: Never smoker Substance Use Type: None Allergies & Active Medications Medications and Allergies Allergies No Known Allergies Allergy (Verified 03/06/23 11:29) Exam Physical Exam Vital Signs: Temp Pulse Resp BP Pulse Ox O2 Del Method 98.5 F 77 20 182/108 H 97 Room Air 03/06/23 11:27 03/06/23 11:27 03/06/23 11:27 03/06/23 11:27 03/06/23 11:27 03/06/23 11:27 Narrative: Patient was resting in bed in no distress. Patient had a normal rate and rhythmin his right radial pulse bilaterally. Focused exam of the bilateral lower extremities revealed a strong left dorsalis pedis pulse. Right dorsalis pedis pulse and Doppler flow were undetectable. Right and left femoral pulse was palpable. The right foot and ankle were colder compared to the left foot. Right foot did appear to look more pale than the left foot. Patient was able tomove all toes on both feet. There are no ulcers or wounds present. Results Labs 03/06/23 12:03 03/06/23 12:03 Labs: Laboratory Results - last 24 hr 03/06/23 03/06/23 03/06/23 12:03 12:03 12:03 Corrected WBC 6.5 Uncorrected WBC Count 6.5 RBC 4.89 Hgb 15.4 Hct 45.4 MCV 92.8 MCH 31.6 MCHC 34.0 RDW 13.7 Plt Count 307 MPV 7.9 Neut % (Auto) 56.2 Lymph % (Auto) 35.2 Benzie % (Auto) 7.3 Eos % (Auto) 0.8 Baso % (Auto) 0.5 Nucleat RBC Rel Count 0.1 Neut # (Auto) 3.7 Lymph # (Auto) 2.3 Benzie # (Auto) 0.5 Eos # (Auto) 0.1 Baso # (Auto) 0.0 Monocyte Dist Width 16.72 PT Cancelled INR Cancelled APTT Cancelled PHA Creatinine Clear 87.25 Sodium 138 Potassium 3.9 Chloride 105 Carbon Dioxide 25.3 Anion Gap 11.6 BUN 13 Creatinine 0.97 Est GFR (CKD-EPI) > 60.0 Glucose 102 H Calcium 9.5 Total Bilirubin 0.4 AST 34 ALT 54 H Alkaline Phosphatase 108 H Total Protein 7.9 Albumin 4.2 Globulin 3.7 Albumin/Globulin Ratio 1.1 PT Cancelled 03/06/23 12:03 APTT Cancelled 03/06/23 12:03 A&P - Vascular (1) Peripheral vascular disease: Code(s): I73.9 - Peripheral vascular disease, unspecified Status: Acute (2) Critical limb ischemia of right lower extremity: Code(s): I70.221 - Atherosclerosis of barrow arteries of extremities with rest pain, right leg Status: Acute Plan This patient has right lower extremity critical limb ischemia secondary to peripheral vascular disease and possible acute thrombus. I would consider takingthis patient for an arteriogram and possible intervention for limb salvage. Patient will need to be started on a high intensity statin, aspirin, and possibly Plavix. This is Dr. Deras dictating. I did see this patient and examined him. I reviewed the records and the labs. This patient has critical limb ischemia and an asymmetrical exam. This appears to have been going on for about 2 weeks. Patient has no palpable pulse in the right popliteal artery nor right pedal location. This patient is at high risk for limb loss. I explained this to him. We will go immediately to the [facility] for limb salvage. Documented By: Justin Deras MD 03/06/23 1333 Signed By: <Electronically signed by Justin Deras MD> 03/06/23 [address] [facility] Work Phone: 1([phone]) 495-927510-18-2023 Consult note Author Adonis Lyons [facility] March 06, 2023 3:34pm Note Date/Time March 06, 2023 3 :34pm [facility] [address] [place] [address] Vascular Surgery Consult Note Signed Patient: Mesfin Solis MR #: [id number] : 1960 Acct:[id number] Age/Sex: 62 / M Adm Date: 3 Loc: [place] Room: Type: [facility] Attending Dr: Justin Deras MD Copies to: MD Justin Rodriguez MD Pamela Sue Cramer, CORPORATE TRAVEL COUNSELOR~ HPI Consult HPI Reason for consult: Right lower extremity pain History of present illness: Mr. Kevin Whitehead is a 62 year old male with no significant past medical historywho presents to the emergency department this morning due to right foot and calfpain. Patient states this pain has been bothering him for about 2 years. Patient stated he used to enjoy running but had to stop 2 years ago due to the pain. He states since then it has hurt with intense walking. Patient states 2 weeks ago he noticed the pain suddenly got worse and is now hurting at rest. Heis also noticing his right foot and ankle are colder than the left. Patient reports he did go to the [facility] emergency room on February 27. Patient did have the reports with him from [place] today which showed right lower extremityultrasound that revealed no DVT and a normal EKG. Patient did have an appointment with [facility] vascular surgery scheduled for tomorrow but that the pain is too bad to wait till then. Patient reports he does not have any medicalconditions that is he aware of and does not take any daily medications. He doesstate that his mom had peripheral artery disease. She denies any vascular surgeries and reports that his only surgery was an appendectomy several years ago. Patient denies any history of DVTs. Patient reports he does not currentlysmoke and does not have a significant past smoking history. This is Dr. Lyons dictating. This patient has a 2-year history of right calf claudication which caused him to stop exercising. However recently he has developed ischemic rest pain and last night was unable to sleep at all due to the exquisite pain in his forefoot. cc:: CC: Data of Consult Consult date: 03/06/2023 Review of Systems Review of Systems All other systems reviewed & are negative unless noted below or in HPI [facility] Medical History (Updated 03/06/23 @ 13:45 by Justin Rodriguez) PAD (peripheral artery disease) Surgical History (Updated 03/06/23 @ 11:31 by Ya Frank RN) History of appendectomy Social History Smoking Status: Never smoker Substance Use Type: None Allergies & Active Medications Medications and Allergies Allergies No Known Allergies Allergy (Verified 03/06/23 11:29) Exam Physical Exam Vital Signs: Temp Pulse Resp BP Pulse Ox O2 Del Method 98.5 F 77 20 182/108 H 97 Room Air 03/06/23 11:27 03/06/23 11:27 03/06/23 11:27 03/06/23 11:27 03/06/23 11:27 03/06/23 11:27 Narrative: Patient was resting comfortably in bed in no acute distress. Radial pulses had regular rate and rhythm on exam. Focused exam of the bilateral lower extremities revealed palpable femoral pulses bilaterally. Left dorsalis pedis pulse was palpable on the left and had strong Doppler flow. Right dorsalis pedis pulse and Doppler flow were not detectable on the right foot. Patient didhave decreased sensation on the right foot. Patient did have good capillary refill bilaterally. Patient did not have any signs of paralysis and was able tomove all toes. This is Dr. Lyons dictating. There is a marked difference in examination between the 2 limbs. There is no motor deficit but there is decreased sensationin the forefoot. There are no palpable right pedal pulses. Left leg pulses arenormal. Results Labs 03/06/23 12:03 03/06/23 12:03 Labs: Laboratory Results - last 24 hr 03/06/23 03/06/23 03/06/23 12:03 12:03 12:03 Corrected WBC 6.5 Uncorrected WBC Count 6.5 RBC 4.89 Hgb 15.4 Hct 45.4 MCV 92.8 MCH 31.6 MCHC 34.0 RDW 13.7 Plt Count 307 MPV 7.9 Neut % (Auto) 56.2 Lymph % (Auto) 35.2 Benzie % (Auto) 7.3 Eos % (Auto) 0.8 Baso % (Auto) 0.5 Nucleat RBC Rel Count 0.1 Neut # (Auto) 3.7 Lymph # (Auto) 2.3 Benzie # (Auto) 0.5 Eos # (Auto) 0.1 Baso # (Auto) 0.0 Monocyte Dist Width 16.72 PT Cancelled INR Cancelled APTT Cancelled PHA Creatinine Clear 87.25 Sodium 138 Potassium 3.9 Chloride 105 Carbon Dioxide 25.3 Anion Gap 11.6 BUN 13 Creatinine 0.97 Est GFR (CKD-EPI) > 60.0 Glucose 102 H Calcium 9.5 Total Bilirubin 0.4 AST 34 ALT 54 H Alkaline Phosphatase 108 H Total Protein 7.9 Albumin 4.2 Globulin 3.7 Albumin/Globulin Ratio 1.1 PT Cancelled 03/06/23 12:03 APTT Cancelled 03/06/23 12:03 A&P - Vascular (1) Peripheral vascular disease: Code(s): I73.9 - Peripheral vascular disease, unspecified Status: Acute (2) Critical limb ischemia of right lower extremity: Code(s): I70.221 - Atherosclerosis of barrow arteries of extremities with rest pain, right leg Status: Acute Plan This patient has right lower extremity critical limb ischemia secondary to peripheral vascular disease and possible acute thrombus. I would consider takingthis patient for an arteriogram and possible intervention for limb salvage. Patient will need to be started on a high intensity statin, aspirin, and possibly Plavix. This is Dr. Lyons dictating. This patient has right limb ischemia. He has minimal risk factors for peripheral vascular disease other than his family history. Given the severity of his symptoms we will proceed with diagnostic arteriogram to look at options for intervention. If endovascular treatment is possible then this will be performed today. He understands and agrees with thatplan. Documented By: Adonis Lyons MD 03/06/23 152 3 Signed By: <Electronically signed by MD Adonis Lyons> 03/06/23 1534 [facility] Work Phone: 1([phone]) 701-285210-18-2023 [facility] Dis[facility] instructions Patient Education 10/12/2022 08:30:23 Prostate Cancer Screening Prostate Cancer Screening Prostate cancer screening is testing that is done to check for the presence of prostate cancer in men. The prostate gland is a walnut-sized gland that is located below the bladder and in front of therectum in males. The function of the prostate is to add fluid to semen during ejaculation. Prostatecancer is one of the most common types of cancer in men. Who should have prostate cancer screening? Screening recommendations vary based on age and other risk factors, as well as between the professional organizations who make the recommendations. In general, screening is recommended if: You are age 50 to 70 and have an average risk for prostate cancer. You should talk with your healthcare provider about your need for screening and how often screening should be done. Because most prostate cancers are slow growing and will not cause , screening in this age group is generally reserved for men who have a 10- to 15-year life expectancy. You are younger than age 50, and you have these risk factors: ?Having a father, brother, or uncle who has been diagnosed with prostate cancer. The risk is higherif your family member's cancer occurred at an early age or if you have multiple family members withprostate cancer at an early age. ?Being a male who is Black or is of [place] or sub-Saharan descent. In general, screening is not recommended if: You are younger than age 40. You are between the ages of 40 and 49 and you have no risk factors. You are 70 years of age or older. At this age, the risks that screening can cause are greater than the benefits that it may provide. If you are at high risk for prostate cancer, your health care provider may recommend that you have screenings more often or that you start screening at a younger age. How is screening for prostate cancer done? The recommended prostate cancer screening test is a blood test called the prostate-specific antigen(PSA) test. PSA is a protein that is made in the prostate. As you age, your prostate naturally produces more PSA. Abnormally high PSA levels may be caused by: Prostate cancer. An enlarged prostate that is not caused by cancer (benign prostatic hyperplasia, or BPH). This condition is very common in older men. A prostate gland infection (prostatitis) or urinary tract infection. Certain medicines such as male hormones (like testosterone) or other medicines that raise testosterone levels. A rectal exam may be done as part of prostate cancer screening to help provide information about the size of your prostate gland. When a rectal exam is performed, it should be done after the PSA level is drawn to avoid any effect on the results. Depending on the PSA results, you may need more tests, such as: A physical exam to check the size of your prostate gland, if not done as part of screening. Blood and imaging tests. A procedure to remove tissue samples from your prostate gland for testing (biopsy). This is the only way to know for certain if you have prostate cancer. What are the benefits of prostate cancer screening? Screening can help to identify cancer at an early stage, before symptoms start and when the cancer can be treated more easily. There is a small chance that screening may lower your risk of dying from prostate cancer. The chance is small because prostate cancer is a slow-growing cancer, and most men with prostate cancer from a different cause. What are the risks of prostate cancer screening? The main risk of prostate cancer screening is diagnosing and treating prostate cancer that would never have caused any symptoms or problems. This is called overdiagnosisand overtreatment. PSA screening cannot tell you if your PSA is high due to cancer or a different cause. A prostate biopsy is the only procedure to diagnose prostate cancer. Even the results of a biopsy may not tell you if your cancer needs to be treated. Slow-growing prostate cancer may not need any treatment other than monitoring, so diagnosing and treating it may cause unnecessary stress or other side effects. Questions to ask your health care provider When should I start prostate cancer screening? What is my risk for prostate cancer? How often do I need screening? What type of screening tests do I need? How do I get my test results? What do my results mean? Do I need treatment? Where to find more information The [place] [employer]: www.cancer.org [employer]: www.auanet.org Contact a health care provider if: You have difficulty urinating. You have pain when you urinate or ejaculate. You have blood in your urine or semen. You have pain in your back or in the area of your prostate. Summary Prostate cancer is a common type of cancer in men. The prostate gland is located below the bladder and in front of the rectum. This gland adds fluid to semen during ejaculation. Prostate cancer screening may identify cancer at an early stage, when the cancer can be treated more easily and is less likely to have spread to other areas of the body. The prostate-specific antigen (PSA) test is the recommended screening test for prostate cancer, butit has associated risks. Discuss the risks and benefits of prostate cancer screening with your health care provider. If you are age 70 or older, the risks that screening can cause are greater than the benefits that it may provide. This information is not intended to replace advice given to you by your health care provider. Make sure you discuss any questions you have with your health care provider. Document Revised: 10/30/2021 Document Reviewed: 10/30/2021 [employer] Patient Education 2022 [place]. Follow Up Care 08/06/2022 10:59:49 With:CHRISTOPH ARAUJO, Jxa Mahoney, URL Address: [facility] [address] [place] [address]- When: Unknown [facility] consult note Author Adonis Lyons [facility] March 06, 2023 3:34pm Note Date/Time March 06, 2023 3 :34pm [facility] [address] [place] [id number] Vascular Surgery Consult Note Signed Patient: Mesfin Solis MR #: [id number] : 1960 Acct:[id number] Age/Sex: 62 / M Adm Date: 3 Loc: [place] Room: Type: [facility] Attending Dr: Justin Deras MD Copies to: MD Justin Rodriguez MD Pamela Sue Cramer, CORPORATE TRAVEL COUNSELOR~ HPI Consult HPI Reason for consult: Right lower extremity pain History of present illness: Mr. Kevin Whitehead is a 62 year old male with no significant past medical historywho presents to the emergency department this morning due to right foot and calfpain. Patient states this pain has been bothering him for about 2 years. Patient stated he used to enjoy running but had to stop 2 years ago due to the pain. He states since then it has hurt with intense walking. Patient states 2 weeks ago he noticed the pain suddenly got worse and is now hurting at rest. Heis also noticing his right foot and ankle are colder than the left. Patient reports he did go to the [facility] emergency room on February 27. Patient did have the reports with him from [place] today which showed right lower extremityultrasound that revealed no DVT and a normal EKG. Patient did have an appointment with [facility] vascular surgery scheduled for tomorrow but that the pain is too bad to wait till then. Patient reports he does not have any medicalconditions that is he aware of and does not take any daily medications. He doesstate that his mom had peripheral artery disease. She denies any vascular surgeries and reports that his only surgery was an appendectomy several years ago. Patient denies any history of DVTs. Patient reports he does not currentlysmoke and does not have a significant past smoking history. This is Dr. Lyons dictvarinder. This patient has a 2-year history of right calf claudication which caused him to stop exercising. However recently he has developed ischemic rest pain and last night was unable to sleep at all due to the exquisite pain in his forefoot. cc:: CC: Data of Consult Consult date: 03/06/2023 Review of Systems Review of Systems All other systems reviewed & are negative unless noted below or in HPI [facility] Medical History (Updated 03/06/23 @ 13:45 by Justin Rodriguez) PAD (peripheral artery disease) Surgical History (Updated 03/06/23 @ 11:31 by Ya Frank RN) History of appendectomy Social History Smoking Status: Never smoker Substance Use Type: None Allergies & Active Medications Medications and Allergies Allergies No Known Allergies Allergy (Verified 03/06/23 11:29) Exam Physical Exam Vital Signs: Temp Pulse Resp BP Pulse Ox O2 Del Method 98.5 F 77 20 182/108 H 97 Room Air 03/06/23 11:27 03/06/23 11:27 03/06/23 11:27 03/06/23 11:27 03/06/23 11:27 03/06/23 11:27 Narrative: Patient was resting comfortably in bed in no acute distress. Radial pulses had regular rate and rhythm on exam. Focused exam of the bilateral lower extremities revealed palpable femoral pulses bilaterally. Left dorsalis pedis pulse was palpable on the left and had strong Doppler flow. Right dorsalis pedis pulse and Doppler flow were not detectable on the right foot. Patient didhave decreased sensation on the right foot. Patient did have good capillary refill bilaterally. Patient did not have any signs of paralysis and was able tomove all toes. This is Dr. Eloy joiner. There is a marked difference in examination between the 2 limbs. There is no motor deficit but there is decreased sensationin the forefoot. There are no palpable right pedal pulses. Left leg pulses arenormal. Results Labs 03/06/23 12:03 03/06/23 12:03 Labs: Laboratory Results - last 24 hr 03/06/23 03/06/23 03/06/23 12:03 12:03 12:03 Corrected WBC 6.5 Uncorrected WBC Count 6.5 RBC 4.89 Hgb 15.4 Hct 45.4 MCV 92.8 MCH 31.6 MCHC 34.0 RDW 13.7 Plt Count 307 MPV 7.9 Neut % (Auto) 56.2 Lymph % (Auto) 35.2 Benzie % (Auto) 7.3 Eos % (Auto) 0.8 Baso % (Auto) 0.5 Nucleat RBC Rel Count 0.1 Neut # (Auto) 3.7 Lymph # (Auto) 2.3 Benzie # (Auto) 0.5 Eos # (Auto) 0.1 Baso # (Auto) 0.0 Monocyte Dist Width 16.72 PT Cancelled INR Cancelled APTT Cancelled PHA Creatinine Clear 87.25 Sodium 138 Potassium 3.9 Chloride 105 Carbon Dioxide 25.3 Anion Gap 11.6 BUN 13 Creatinine 0.97 Est GFR (CKD-EPI) > 60.0 Glucose 102 H Calcium 9.5 Total Bilirubin 0.4 AST 34 ALT 54 H Alkaline Phosphatase 108 H Total Protein 7.9 Albumin 4.2 Globulin 3.7 Albumin/Globulin Ratio 1.1 PT Cancelled 03/06/23 12:03 APTT Cancelled 03/06/23 12:03 A&P - Vascular (1) Peripheral vascular disease: Code(s): I73.9 - Peripheral vascular disease, unspecified Status: Acute (2) Critical limb ischemia of right lower extremity: Code(s): I70.221 - Atherosclerosis of barrow arteries of extremities with rest pain, right leg Status: Acute Plan This patient has right lower extremity critical limb ischemia secondary to peripheral vascular disease and possible acute thrombus. I would consider takingthis patient for an arteriogram and possible intervention for limb salvage. Patient will need to be started on a high intensity statin, aspirin, and possibly Plavix. This is Dr. Lyons dictating. This patient has right limb ischemia. He has minimal risk factors for peripheral vascular disease other than his family history. Given the severity of his symptoms we will proceed with diagnostic arteriogram to look at options for intervention. If endovascular treatment is possible then this will be performed today. He understands and agrees with thatplan. Documented By: Adonis Lyons MD 03/06/23 152 3 Signed By: <Electronically signed by MD Adonis Lyons> 03/06/23 0024 [facility] Work Phone: Discharge summary Author Justin Deras [facility] February 04, 2024 5:02pm Note Date/Time February 04, 2024 5:00pm [facility] [address] [place] [address] Discharge Summary Signed Patient: Mesfin Solis MR #: [id number] : 1960 Acct:[id number] Age/Sex: 63 / M Adm Date: 4 Loc: Room: [address] [place] [address]: Justin Deras MD Copies to: DO Justin Selby MD~ Providers Date of Discharge: 02/04/24 Discharging Provider: Justin Deras Primary Care Provider: Kianna Santiago Discharge Diagnosis (1) Critical limb ischemia of right lower extremity: Final Diagnosis Final Discharge Diagnosis: Severe PAD Summary Hospital Course Hospital course: This patient presented with an occluded right leg bypass. He was complaining ofnumbness in his right foot. He had stopped taking his aspirin. Status at Discharge Cognitive/behavioral status at discharge: Stable Time Spent with Patient Time spent providing/coordinating discharge services (# min): 25 Surgeries and Procedures Operation Date: 02/03/24 13:05 Actual Procedures p IR Aortogram w/Run Off/Thrombectomy/EKOS Rt leg(Not Applicable) - Justin Deras MD Operation Date: 02/04/24 09:05 Actual Procedures p IR TPA Recheck(Not Applicable) - Justin Deras MD Complications Complications: None Discharge Plan Discharge Plan Patient Disposition: Home Activity: No Activity Restriction Diet: Regular Instructions: Know your Meds Prescriptions: No Action lisinopril 10 mg tablet See Rx Instructions .ROUTE .COMPLEX Qty: 90 1RF Dose Instruction: TAKE 1 TABLET BY MOUTH EVERY DAY FOR 30 DAYS Rx Instructions: TAKE 1 TABLET BY MOUTH EVERY DAY FOR 30 DAYS aspirin [Adult Aspirin Regimen] .ROUTE Patient Comments: patient stopped taking about a month ago . Rx Instructions: QD atorvastatin 40 mg tablet 40 mg PO DAILY omeprazole 20 mg capsule,delayed release(DR/EC) 20 mg PO DAILY Qty: 90 3RF amlodipine 10 mg tablet 10 mg PO DAILY 90 Days Qty: 90 1RF Follow Up: Kianna Santiago DO [Primary Care Provider] - 3-5 Days Exam Physical Exam Vital Signs: Temp Pulse Resp BP Pulse Ox O2 Del Method O2 Flow Rate 98.0 F 85 20 156/81 H 91 L Room Air 1 02/04/24 10:00 02/04/24 16:00 02/04/24 16:00 02/04/24 16:00 02/04/24 16:00 02/04/24 16:00 02/04/24 12:00 Const Other: On exam the patient is pleasant polite and appropriate he is following commands he is in no distress. He has complaining of right foot pain. He can move his right foot and toes. His HEENT isatraumatic tongue is midline neck is supple chest is symmetric lungs are clear abdomen soft nontender he has no palpable pulse in the right foot. The bypass is occluded based on clinical exam. I knowthis patient very well instability of the bypass clinically under the skin near the foot. He has mottling of the right foot and toes. He has no palpable rightpopliteal pulse. He has normal groin pulses bilaterally. This is Dr. Deras. This patient does have an ischemic right foot. There is no pulse. He can move his right foot and toes. Diagnostic Studies Completed and Pending Studies Labs on day of discharge: 02/04/24 08:35: Corrected WBC 7.4, Uncorrected WBC Count 7.4, RBC 4.41, Hgb 13.8, Hct 40.5, MCV 91.7, MCH 31.3, MCHC 34.2, RDW 14.5, Plt Count 219, MPV 7.1,Neut % (Auto) 72.4, Lymph % (Auto) 18.6, Benzie % (Auto) 8.5, Eos % (Auto) 0.2, Baso % (Auto) 0.3, Nucleat RBC Rel Count 0.1, Neut # (Auto) 5.3, Lymph # (Auto) 1.4, Benzie # (Auto) 0.6, Eos # (Auto) 0.0, Baso # (Auto) 0.0, PT 13.6 H, INR 1.2,APTT 37.4 H, Fibrinogen 97 L 02/04/24 02:31: Corrected WBC 8.7, Uncorrected WBC Count 8.7, RBC 4.41, Hgb 13.9, Hct 40.5, MCV 91.9, MCH 31.5, MCHC 34.3, RDW 14.6, Plt Count 244, MPV 7.1,Neut % (Auto) 81.2, Lymph % (Auto) 11.2, Benzie % (Auto) 6.9, Eos % (Auto) 0.1, Baso % (Auto) 0.6, Nucleat RBC Rel Count 0.1, Neut # (Auto) 7.1, Lymph # (Auto) 1.0, Benzie # (Auto) 0.6, Eos # (Auto) 0.0, Baso # (Auto) 0.1, PT 13.5 H, INR 1.2,APTT 33.7, Fibrinogen 101 L 02/03/24 20:47: Corrected WBC 12.0 H, Uncorrected WBC Count 12.0 H, RBC 4.53, Hgb 14.1, Hct 41.6, MCV 91.8, MCH 31.2, MCHC 34.0, RDW 14.1, Plt Count 266, MPV 7.5, Neut % (Auto) 86.9, Lymph % (Auto) 6.6, Benzie % (Auto) 6.1, Eos % (Auto) 0.1, Baso % (Auto) 0.3, Nucleat RBC Rel Count 0.1, Neut # (Auto) 10.5 H, Lymph #(Auto) 0.8 L, Benzie # (Auto) 0.7, Eos # (Auto) 0.0, Baso # (Auto) 0.0, PT 12.4, INR 1.1, APTT 30.9, Fibrinogen 152 L 02/03/24 17:44: Corrected WBC 11.0 H, Uncorrected WBC Count 11.0 H, RBC 4.61, Hgb 14.6, Hct 42.7, MCV 92.8, MCH 31.6, MCHC 34.1, RDW 14.0, Plt Count 277, MPV 8.3, Neut % (Auto) 80.4, Lymph % (Auto) 15.8, Benzie % (Auto) 3.2, Eos % (Auto) 0.3, Baso % (Auto) 0.3, Nucleat RBC Rel Count 0.1, Neut # (Auto) 8.8 H, Lymph # (Auto) 1.7, Benzie # (Auto) 0.4, Eos # (Auto) 0.0, Baso # (Auto) 0.0, PT 11.7, INR1.0, APTT 37.6 H, Fibrinogen 239, Blood Type O Positive, Antibody Screen Negative Documented By: Justin Deras MD 02/04/24 1659 Signed By: <Electronically signed by Justin Deras MD> 02/04/24 1702 [facility] Work Phone: Evaluation + Plan note Future Appointments Appointment Date:02/15/2023 08:15:00 AM Scheduled Provider:Jax HAWTHORNE MD Location:[facility] Appointment Type:URO Office Visit Diagnostic Tests Pending * PSA Free & Total 10/12/22 [facility] evaluation note* Diagnosis Onset Date Resolution Status Critical limb ischemia of right lower extremity acute Peripheral vascular disease acute [facility] Work Phone: Evaluation note* Diagnosis Onset Date Resolution Status Abnormal EKG acute Critical limb ischemia of right lower extremity acute HTN (hypertension) acute PAD (peripheral artery disease) acute Peripheral vascular disease acute [facility] Work Phone: Evaluation noteNo InformationNort Breathometer Other evaluation noteNo assessment information available [facility] Work Phone: Evaluation note* Diagnosis Onset Date Resolution Status Essential hypertension acute GERD (gastroesophageal reflux disease) acute Hyperlipidemia acute PAD (peripheral artery disease) acute [facility] Work Phone: Evaluation note* Diagnosis Onset Date Resolution Status Essential hypertension acute GERD (gastroesophageal reflux disease) acute Hyperlipidemia acute PAD (peripheral artery disease) acute PAD (peripheral artery disease) acute [facility] Work Phone: Evaluation note* Diagnosis Onset Date Resolution Status Essential hypertension acute GERD (gastroesophageal reflux disease) acute Hyperlipidemia acute PAD (peripheral artery disease) acute PAD (peripheral artery disease) acute Essential hypertension acute GERD (gastroesophageal reflux disease) acute Hyperlipidemia acute PAD (peripheral artery disease) acute GERD (gastroesophageal reflux disease) acute Prediabetes acute Well adult exam acute [facility] Work Phone: Evaluation note* Diagnosis Onset Date Resolution Status Critical limb ischemia of right lower extremity acute [facility] Work Phone: Evaluation note* Diagnosis PAD (peripheral artery disease) (HCC)- Primary Peripheral vascular disease, unspecified [facility] Diagnosis Peripheral arterial disease (HCC)- Primary Peripheral vascular disease, unspecified Critical lower limb ischemia (HCC) Unspecified circulatory system disorder documented in this encounter [facility] general Narrative - Reported* Type Description Date Medical History HTN Medical History Hyperlipidemia Medical History GERD Surgical History appendectomy Surgical History vasectomy Surgical History Right Leg Bypass Hospitalization History See Above [employer] Other Hospital course Narrative No data available for this section [facility] Hospital Discharge instructions No data available for this section [facility] Hospital Discharge instructionsAmbulatory Orders* DME Home Medical Equipment Time Frame: 1 Day, Location: Determined By Patient Additional Instructions Surgical incision - May shower. Wash with mild soap and water, allow water to run off incision. Do not soak in tub, no swimming, no hot tub. Keep clean, dry, and covered with clean dressing. Observe for signs of infection to include increased redness, drainage, pain. [facility] Work Phone: Progress note No data available for this section [facility] progress note Author Azul Jimenez [facility] March 12, 2023 4:41pm Note Date/Time March 12, 2023 4 :41pm [facility] [address] [place] [address] Cardiology Progress Note Signed Patient: Kevin WhiteheadMesfin MR #: [id number] : 1960 Acct:[id number] Age/Sex: 62 / M Adm Date: 3 Loc: 4N Room: 9M3230-0 Type: ADM IN Attending Dr: Justin Deras MD Copies to: ~ Date of Service: 03/12/2023 Subjective Principal diagnosis: Abnormal ECG/PAD Interval history: -No acute events overnight. Doing well,no complaints. Exam Physical Exam Vital Signs: Temp Pulse Resp BP Pulse Ox O2 Del Method O2 Flow Rate 98.5 F 85 16 142/72 H 95 Room Air 2 03/12/23 15:50 03/12/23 15:50 03/12/23 15:50 03/12/23 15:50 03/12/23 15:50 03/12/23 15:50 03/10/23 08:00 Narrative: GEN: AAOx3. No acute distress. Neck: No JVD. Lungs: Clear to auscultation bilaterally Heart: Regular rate and rhythm. Normal S1 and S2. No murmurs or rubs appreciated. Abdomen: Soft, nontender, nondistended, bowel sounds present. Extremities: No BLE edema. RLE with dressing clean dry and intact Neuro: AAOx3. No focal deficits. Objective Labs 03/09/23 04:03 03/09/23 04:03 A&P - Cardiology (1) Abnormal EKG: Assessment/Problem Details: This is of unknown significance and may require further investigation for underlying ischemic heart disease given the fact that he already has PAD Code(s): R94.31 - Abnormal electrocardiogram [ECG] [EKG] Status: Acute (2) HTN (hypertension): Assessment/Problem Details: Not completely under control Code(s): I10 - Essential (primary) hypertension Status: Acute (3) Critical limb ischemia of right lower extremity: Assessment/Problem Details: Status post revascularization by vascular surgery Code(s): I70.221 - Atherosclerosis of barrow arteries of extremities with rest pain, right leg Status: Acute Plan Mr. Kevin Whitehead is a 62 year old male with no significant medical history who presented with right lower extremity pain and was found to have critical ischemia with no pulses below the groin. Preop EKG showed inferior Q waves with subtle ST depressions and TWI V2-V5. Assessment: PAD-critical limb ischemia s/p fem-dorsalis pedis artery bypass Abnormal EKG Hypertension Recommendations: -Normal stress MPI. -Echo showed EF 65-70% with moderate concentric LVH. Normal wall motion. -BP better controlled continue current regimen. -Okay to discharge home today. Follow-up with [facility] cardiology in 2 months as scheduled Documented By: Azul Jimenez MD 03/12/23 1640 Signed By: <Electronically signed by Azul Jimenez MD> 03/12/23 1641 [facility] Work Phone: Reason for referral (narrative)* Outpatient Procedure (Routine) - New Request Specialty Diagnoses / Procedures Referred By Contac t Referred To [facility] Diagnoses PAD (peripheral artery disease) (HCC) Procedures PVR ANK PRESS MARGUERITE VAS LAB NON-INVAS PHYSIOLOGIC STD EXTREMITY ART 2 LEVEL Rachid Michelle MD [address] [place] [address] [facility] [place] [address] Referral ID Status Reason Start Date Expiration Date Visits Requested Visits Authorized [id number] New Request Auto-Generat ed Referral 02/21/2024 02/20/2025 1 1 [facility] Summary Purpose Family History Relationship Condition Age at Onset Recorded Date/T saba father Hypertension Unknown Unknown Diabetes mellitus Unknown family member Family history of other condition Unknow n Not Specified Hypertension Unknown Relationship Condition Age at Onset Recorded Date/T saba father Hypertension Unknown Unknown Diabetes mellitus Unknown family member Family history of other condition Unknow n mother Hypertension Unknown Advance Directives Advance Directive Response Recorded Date/ Time Advance Directives No March 06, 2023 12:44pm Advance Directive Response Recorded Date/ Time Advance Directives No March 06, 2023 11:44am Chief Complaint and Reason for Visit Chief Complaint right leg/foot pain Reason for Visit Critical limb ischem ia of right lower extremity Peripheral vascular disease Chief Complaint right leg/foot pain Reason for Visit Abnormal EKG Critical limb ischemia of right lower extremity HTN (hypertension) PAD (peripheral artery disease) Peripheral vascular disease Chief Complaint right leg/foot pain i70.213 Reason for Visit Abnormal EKG Critical limb ischemia of right lower extremity HTN (hypertension) PAD (peripheral artery disease) Peripheral vascular disease Chief Complaint 4-6 Wks No Testing R t Leg Pad 6 Week Followup Est Care High BP chest pain Amb Documentation Pt seen in ER still having issues with BP Chief Complaint 6 Week Followup Est Care High BP chest pain Amb Documentation Pt seen in ER still having issues with BP 3 M ONTH F/U PAD; GFS RIGHT LEG W STEVENSON I70.211 Reason for Visit Essential hypertensi on GERD (gastroesophageal reflux disease) Hyperlipidemia PAD (peripheral artery disease) Chief Complaint 6 Week Followup Est Care High BP chest pain Amb Documentation Pt seen in ER still having issues with BP 3 M ONTH F/U PAD; GFS RIGHT LEG W STEVENSON I70.211 4 month follow up Reason for Visit Essential hypertensi on GERD (gastroesophageal reflux disease) Hyperlipidemia PAD (peripheral artery disease) PAD (peripheral artery disease) Chief Complaint 6 Week Followup Est Care High BP chest pain Amb Documentation Pt seen in ER still having issues with BP 3 M ONTH F/U PAD; GFS RIGHT LEG W STEVENSON I70.211 4 month follow up awv Reason for Visit Essential hypertensi on GERD (gastroesophageal reflux disease) Hyperlipidemia PAD (peripheral artery disease) PAD (peripheral artery disease) Essential hypertension GERD (gastroesophageal reflux disease) Hyperlipidemia PAD (peripheral artery disease) GERD (gastroesophageal reflux disease) Prediabetes Well adult exam Chief Complaint loss of sensation in right foot loss of sensation in right foot Reason for Visit Critical limb ischem ia of right lower extremity Additional Source Comments (unrecognized sect ion and content) No Status Records FoundNo Status Records FoundNo Status Records FoundNo Status Records Found INFORMATION SOURCE (unrecogn ized section and content) DATE CREATED AUTHOR 09/25/2022 [facility] DATE CREATED AUTHOR AUTHOR'S ORGANIZ ATION 02/22/2023 [facility] DATE CREATED AUTHOR AUTHOR'S ORGANIZ ATION 02/18/2024 [facility] DATE CREATED AUTHOR AUTHOR'S ORGANIZ ATION 02/26/2024 [facility] Patient Care team informatio n (unrecognized section and content) Team Status: Active Member Role Status Dates [place] Hutch[place] Primary Care Provider Active Team Status: Inactive Member Role Status Dates [place] Primary Care Provider Active Mohamud Block DO Emergency Provider Active Justin Deras MD Admit Provider, Attending Pr ovider Active Roberto Carlos Velazquez MD Other Provider Active Team Status: Active Member Role Status Dates Elli Watson , IOS DEVELOPER-C Primary Care Provider Active Mohamud Block DO Emergency Provider Active Justin Deras MD Attending Provider Active Team Status: Inactive Member Role Status Dates Elli Watson , IOS DEVELOPER-C Primary Care Provider Active Justin Deras MD Attending Provider Active Team Status: Active Member Role Status Dates Kianna Santiago DO Primary Care Provider Active Team Status: Inactive Member Role Status Dates Justin Deras MD Attending Provider Active Start: June 05, 2023 End: June 05, 2023 Team Status: Inactive Member Role Status Dates Azul Jimenez MD Attending Provider Active Sta rt: June 14, 2023 End: June 14, 2023 Team Status: Inactive Member Role Status Dates Kianna Santiago DO Attending Provider Active St art: June 21, 2023 End: June 21, 2023 Team Status: Inactive Member Role Status Dates NON STAFF Primary Care Provider Active Start: July 26, 2023 End: July 26, 2023 Adrian Ivory Jr, MD Emergency Provider Active Start: July 26, 2023 End: July 26, 2023 Team Status: Inactive Member Role Status Dates Josie Ramos [facility]- Emergency Provider Active Start: July 31, 2023 End: July 31, 2023 Kianna Santiago DO Primary Care Provider Active Start: July 31, 2023 End: July 31, 2023 Team Status: Active Member Role Status Dates Kianna Santiago DO Primary Care Provider Active Start: August 01, 2023 Gail Rodriguez LPN Attending Provider Active Sta rt: August 01, 2023 Team Status: Inactive Member Role Status Dates Kianna Santiago DO Primary Care Provider Active Start: August 05, 2023 End: August 05, 2023 Azul Jimenez MD Attending Provider Active Sta rt: August 05, 2023 End: August 05, 2023 Team Status: Inactive Member Role Status Dates Justin Deras MD Attending Provider Active Start: September 04, 2023 End: September 04, 2023 Kianna Santiago DO Primary Care Provider Active Start: September 04, 2023 End: September 04, 2023 Team Status: Active Member Role Status Dates Kianna Santiago DO Primary Care Provider Active Start: September 04, 2023 Justin Deras MD Attending Provider Active Start: September 04, 2023 Team Status: Inactive Member Role Status Dates Azul Jimenez MD Attending Provider Active Sta rt: September 04, 2023 End: September 04, 2023 Kianna Santiago DO Primary Care Provider Active Start: September 04, 2023 End: September 04, 2023 Team Status: Inactive Member Role Status Dates Kianna Santiago DO Primary Care Provide r, Attending Provider Active Start: September 04, 2023 End: September 04, 2023 Team Status: Inactive Member Role Status Dates Kianna Santiago DO Primary Care Provider Active Start: September 04, 2023 End: September 04, 2023 Justin Deras MD Attending Provider Active Start: September 04, 2023 End: September 04, 2023 Team Status: Active Member Role Status Dates Azul Jimenez MD Security Chief Museum Active Kianna Santiago DO Primary Care Provider Active Team Status: Active Member Role Status Dates Kianna Santiago DO Primary Care Provider Active Start: February 03, 2024 Mariah Wolfe DO Emergency Provider Active Sta rt: February 03, 2024 Justin Deras MD Attending Provider Active Start: February 03, 2024 Team Status: Active Member Role Status Dates Kianna Santiago DO Primary Care Provider Active Start: February 03, 2024 Mariah Wolfe DO Emergency Provider Active Sta rt: February 03, 2024 Justin Deras MD Admit Provider , Attending Provider Active Start: February 03, 2024 Team Status: Inactive Member Role Status Dates Kianna Santiago DO Primary Care Provider Active Start: February 03, 2024 End: February 04, 2024 Mariah Wolfe DO Emergency Provider Active Sta rt: February 03, 2024 End: February 04, 2024 Justin Deras MD Admit Provider , Attending Provider Active Start: February 03, 2024 End: February 04, 2024 Airline Pilot/First Officer Relationship Specialty Start Date End Date Kianna Santiago DO [address] [facility] [place] [address] PCP - General Family Medicine 02/05/24 Airline Pilot/First Officer Relationship Specialty Start Date End Date Kianna Santiago DO [address] [facility] [facility] [place] [address] PCP - General Family Medicine 02/05/24 Goals (unrecognized section and content) Goals may be documented in a n alternate section REASON FOR VISIT (unrecogniz ed section and content) Reason Comments Established Patient Specialty Diagnoses / Procedures Referred By Contac t Referred To Contact Vascular Surgery / VASCULAR SURGERY Diagnoses Examination DX Procedures OFFICE/OUTPATIENT NEW MODERATE MDM 45 MINUTES NEW/CON PATIENT Rachid Michelle MD [address] [place] [address] Rachid Michelle MD [address] [id number] Referral ID Status Reason Start Date Expiration Date Visits Re quested Visits Authorized [id number] Closed 02/25/2024 05/19/2024 1 1 Source Comments (unrecognize d section and content) In the event this informatio n is protected by the Federal Confidentiality of Alcohol and Drug Abuse Patient Records regulations: The Federal rules restrict any use of the information to criminally investigate or prosecute any alcohol or drug abuse patient.[facility] the event this information is protected by the Federal Confidentiality of Alcohol and Drug Abuse Patient Records regulations: The Federal rules restrict any use of the information to criminally investigate or prosecute any alcohol or drug abuse patient.[facility] FOR RECORDS PERTAINING TO PATIENTS WHO ARE OR HAVE BEEN ENROLLED IN A CHEMICAL DEPENDENCY/SUBSTANCEABUSE PROGRAM, SOME INFORMATION MAY BE OMITTED. This clinical summary was aggregated from multiple sources. Caution should be exercised in using it in the provision of clinical care. This summary normalizes information from multiple sources, and as a consequence, information in this document may materially change the coding, format and clinical context of patient data. In addition, data may be omitted in some cases. CLINICAL DECISIONS SHOULD BE BASED ON THE PRIMARY CLINICAL RECORDS. [facility] [employer] [facility]. provides no warranty or guarantee of the accuracy or completeness of information in this document.
--- NOTE | 2024-03-01 18:58 | ECG_ITS ---
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
--- NOTE | 2024-03-01 19:12 | CT_ITS ---
The [address] [address] Patient Name: BABAR GILLETTE MRN: [id number] date: 1960 Sex: M Assigned Patient Location: ER Current Patient Location: .[facility] Accession/Order Number: [id number] Exam Date: 03/01/2024 19:29 Report Date: 03/01/2024 21:30 At the request of: BRIAN UGALDE Procedure: CT head/brain wo con EXAM: CT head/brain wo con HISTORY: Headache and dizziness. TECHNIQUE: Axial CT scans through the head were obtained without IV contrast administration. Dose reduction techniques were achieved by using: automated exposure control and/or adjustment of mA and /or kV according to patient size and/or the use of an iterative reconstruction technique. COMPARISON: None. FINDINGS: The cerebral hemispheres have normal corticomedullary differentiation. To the limit of CT, the posterior fossa appears unremarkable. Mild age-related cerebral volume loss with slightly prominent ventricular system and cortical sulci. No area of abnormal mass-effect or edema or intracranial hemorrhage. The visualized orbits show no abnormal mass. The visualized paranasal sinuses show no air-fluid level. Mastoid air cells are clear. CT/CT head/brain wo con IMPRESSION: No acute intracranial process. Mild age-related cerebral volume loss. Electronically authenticated by: KEVEN SNEED Date: 03/01/2024 21:30
[2024-03-01] MEDS: MECLIZINE HCL 12.5 MG TABLET 25 MG PO (19:19)
[2024-03-01] MEDS: ONDANSETRON PF 4 MG/2 ML VIAL IV (19:19)
[2024-03-01 19:20] LABS: Basophils Percent Auto 0.5 % (0.2-2.0); Eosinophils Absolute Auto 0.1 10^3/uL (0.0-0.7); Eosinophils Percent Auto 0.6 % (0.9-7.0); Hematocrit 45.1 % (42.0-54.0); Hemoglobin 15.4 g/dL (14.0-18.0); Immature Granulocytes Abs Auto 0.01 10^3/uL (0.00-0.03); Immature Granulocytes Pct Auto 0.1 % (0.0-0.5); Lymphocytes Absolute Auto 2.6 10^3/uL (1.2-3.8); Lymphocytes Percent Auto 32.8 % (20.5-60.0); Mean Corpuscular HGB Conc 34.1 g/dL (29.9-35.2); Mean Corpuscular Hemoglobin 31.4 pg (25.9-34.0); Mean Platelet Volume 10.1 fL (9.5-13.5); Monocytes Absolute Auto 0.5 10^3/uL (0.3-0.8); Monocytes Percent Auto 5.7 % (1.7-12.0); Neutrophils Absolute Auto 4.8 10^3/uL (1.4-6.5); Neutrophils Percent Auto 60.3 % (43.0-75.0); Platelet Count 343 10^3/uL (150-450); Red Cell Distribution Width 12.9 % (11.0-15.0)
[2024-03-01 19:33] LABS: Prothrombin Time 10.6 sec (9.0-11.6)
[2024-03-01 19:36] LABS: Alanine Aminotransferase 46 U/L (16-63); Albumin Globulin Ratio 0.9; Albumin Level 3.9 g/dL (3.4-5.0); Alkaline Phosphatase 151 U/L (46-116); Anion Gap 15.8; Aspartate Amino Transferase 25 U/L (15-37); BUN Creatinine Ratio 6.8; Bilirubin Total 0.5 mg/dL (0.2-1.0); Calcium 9.4 mg/dL (8.5-10.1); Carbon Dioxide 23.6 mmol/L (21.0-32.0); Chloride 103 mmol/L (98-107); Estimated GFR (African America >60 (>=60 mL/min/1.73m^2); Estimated GFR (Non-African Ame >60 (>=60 mL/min/1.73m^2); Globulin 4.2 g/dL; Glucose 104 mg/dL (74-106); Potassium 3.4 mmol/L (3.5-5.1); Sodium 139 mmol/L (136-145); Total Protein 8.1 g/dL (6.4-8.2); Troponin I High Sensitivity 48.7 pg/mL (4.0-76.1)
--- NOTE | 2024-03-01 19:59 | XR_ITS ---
The [address] [address] Patient Name: BABAR GILLETTE MRN: [id number] date: 1960 Sex: M Assigned Patient Location: ER Current Patient Location: Accession/Order Number: [id number] Exam Date: 03/01/2024 20:01 Report Date: 03/01/2024 22:01 At the request of: BRIAN UGALDE Procedure: XR chest 1V EXAMINATION: XR chest 1V, , 03/01/2024 8:01 PM EDT INDICATION: dizziness HISTORY: Ordering Provider Reason for Exam: dizziness Technologist Note: Additional: COMPARISON: None. TECHNIQUE: Chest x-ray: One view. FINDINGS: No pneumothorax, pleural effusion or focal airspace consolidation. Heart is normal in size. Bony thorax is unremarkable. XR/XR chest 1V IMPRESSION: No acute cardiopulmonary process. Electronically authenticated by: DANYELLE ANGEL Date: 03/01/2024 22:01
--- NOTE | 2024-03-01 20:09 | ED_ITS ---
Documented by User: Vikki Laguerre 03/01/24 21:19 HPI - Dizziness General Chief Complaint: Dizziness Stated Complaint: Dizziness Time Seen by Provider: 03/01/24 18:44 Source: patient Mode of arrival: walk-in Limitations: no limitations History of Present Illness HPI Narrative: 63-year-old male presents here with chief complaint of sudden onset of dizziness. He states he was having a beer and became dizzy. Denies a known history of vertigo. He is alert and oriented no acute distress. No acute nystagmus is noted initially. He is alert and oriented. His dizziness is reproducible. Patient shows no other signs of neurological deficits. He is speaking full sentences. patiient denies headache chest pain or shortness of breath. Related Data Home Medications ?Medication ?Instructions ?Recorded ?Confirmed amlodipine 10 mg tablet 10 mg PO DAILY 08/02/23 03/01/24 aspirin 81 mg tablet,delayed 81 mg PO DAILY 08/02/23 03/01/24 release apixaban 5 mg tablet (Eliquis) 5 mg PO Q12H 03/01/24 03/01/24 Previous Rx's ?Medication ?Instructions ?Recorded meclizine 50 mg tablet (Antivert) 50 mg PO DAILY PRN motion sickness 03/01/24 #10 tabs Allergies Allergy/AdvReac Type Severity Reaction Status Date / Time No Known Drug Allergies Allergy Verified 02/27/23 11:54 Review of Systems ROS Narrative All Systems are negative except as noted/marked.All systems reviewed and otherwise negative PFSH PFSH Social History Smoking status: Never smoker Little interest or pleasure in doing things: not at all Feeling down, depressed, or hopeless: not at all Exam Narrative Exam Narrative: Nurses note and vital signs reviewed and patient is not hypoxic. General: The patient appears well and in no apparent distress. Patient is resting comfortably on cart. Skin: Warm, dry, no pallor noted. There is no rash noted. Head: Normocephalic, atraumatic Eye: Normal conjunctiva, no drainage, EOMI. PERRL Ears, Nose, Mouth, and Throat: oral mucosa is moist. Nares patent. Mouth without vesicles. Ear canals patent. Tm's without Erythema Cardiovascular: Regular Rate and Rhythm Respiratory: Patient is in no distress, no accessory muscle use, lungs are clear to auscultation, no wheezing, rales or rhonchi Back: non-tender, no CVA tenderness bilaterally to percussion. GI: Normal bowel sounds, no tenderness to palpation, no masses appreciated. No rebound, guarding, or rigidity noted. Musculoskeletal: The patient has no evidence of calf tenderness, no pitting edema, symmetrical pulses noted bilaterally Neurological: A&O x4, normal speech Psychiatric: Cooperative Constitutional Vital Signs, click to edit/add: Last Vital Signs Temp 98.2 F 03/01/24 18:46 Pulse 105 H 03/01/24 20:20 Resp 24 H 03/01/24 20:20 BP 163/98 H 03/01/24 18:52 Pulse Ox 91 L 03/01/24 20:20 O2 Del Method Room Air 03/01/24 18:46 Course Vital Signs Vital signs: Vital Signs Temperature 98.2 F 03/01/24 18:46 Pulse Rate 115 H 03/01/24 18:46 Respiratory Rate 18 03/01/24 18:46 Blood Pressure 163/92 H 03/01/24 18:46 Pulse Oximetry 98 03/01/24 18:46 Oxygen Delivery Method Room Air 03/01/24 18:46 Temperature 98.2 F 03/01/24 18:46 Pulse Rate 105 H 03/01/24 20:20 Respiratory Rate 24 H 03/01/24 20:20 Blood Pressure 163/98 H 03/01/24 18:52 Pulse Oximetry 91 L 03/01/24 20:20 Oxygen Delivery Method Room Air 03/01/24 18:46 MDM - Dizziness MDM Narrative Medical decision making narrative: 2014 Chief complaint of dizziness. Upon arrival to the emergency room IV was established blood work was drawn. Patient was taken to CT to due to being slightly hypertensive and dizzy. CT scan is currently pending. Patient was medicated with Zofran and Antivert. He states his symptoms have subsided. Lab work that is back thus far including troponin are negative. Patient should be able to be discharged once CT scan is resulted. Patient looks well at this time asymptomatic. Of care to Dr. Lieberman at 930. CT scans currently pending. Patient feels much improved. Patient will be able to be discharged home with diagnosis of vertigo pending normal ct of head. Discharged home prescription of Antivert. Follow-up primary care physician Differential Diagnosis Differential diagnosis: Likely benign paroxysmal positional vertigo, orthostatic hypotension, cerebrovascular accident, acute vestibular neuronitis and other (Ago) Medical Records Attestation: I reviewed the patient's medical records. Lab Data Attestation: I reviewed the patient's lab results. Labs: Lab Results 03/01/24 Range/Units 18:50 WBC 8.0 (4.0-11.0) 10^3/uL RBC 4.90 (4.70-6.10) 10^6/uL Hgb 15.4 (14.0-18.0) g/dL Hct 45.1 (42.0-54.0) % MCV 92.0 (80.0-94.0) fL MCH 31.4 (25.9-34.0) pg MCHC 34.1 (29.9-35.2) g/dL RDW 12.9 (11.0-15.0) % Plt Count 343 (150-450) 10^3/uL MPV 10.1 (9.5-13.5) fL Neut % (Auto) 60.3 (43.0-75.0) % Lymph % (Auto) 32.8 (20.5-60.0) % [place] % (Auto) 5.7 (1.7-12.0) % Eos % (Auto) 0.6 L (0.9-7.0) % Baso % (Auto) 0.5 (0.2-2.0) % Neut # (Auto) 4.8 (1.4-6.5) 10^3/uL Lymph # (Auto) 2.6 (1.2-3.8) 10^3/uL [place] # (Auto) 0.5 (0.3-0.8) 10^3/uL Eos # (Auto) 0.1 (0.0-0.7) 10^3/uL Baso # (Auto) 0.0 (0.0-0.1) 10^3/uL Abs Immat Gran (auto) 0.01 (0.00-0.03) 10^3/uL Imm/Tot Granulo (auto) 0.1 (0.0-0.5) % PT 10.6 (9.0-11.6) sec INR 1.00 Sodium 139 (136-145) mmol/L Potassium 3.4 L (3.5-5.1) mmol/L Chloride 103 (98-107) mmol/L Carbon Dioxide 23.6 (21.0-32.0) mmol/L Anion Gap 15.8 BUN 8.0 (7.0-18.0) mg/dL Creatinine 1.18 (0.70-1.30) mg/dL Est GFR ( Amer) >60 (>=60 mL/min/1.73m^2) Est GFR (Non-Af Amer) >60 (>=60 mL/min/1.73m^2) BUN/Creatinine Ratio 6.8 Glucose 104 (74-106) mg/dL Calcium 9.4 (8.5-10.1) mg/dL Total Bilirubin 0.5 (0.2-1.0) mg/dL AST 25 (15-37) U/L ALT 46 (16-63) U/L Alkaline Phosphatase 151 H (46-116) U/L Troponin I High Sens 48.7 (4.0-76.1) pg/mL Total Protein 8.1 (6.4-8.2) g/dL Albumin 3.9 (3.4-5.0) g/dL Globulin 4.2 g/dL Albumin/Globulin Ratio 0.9 Imaging Data Chest x-ray: Attestation: I have reviewed the pertinent imaging results. Radiologist's impression: ITS Impressions Head CT 03/01/24 19:12 IMPRESSION: No acute intracranial process. Mild age-related cerebral volume loss. Electronically authenticated by: Stonewedge Date: 03/01/2024 21:30 CT scan - head: Radiologist's impression: ITS Impressions Head CT 03/01/24 19:12 IMPRESSION: No acute intracranial process. Mild age-related cerebral volume loss. Electronically authenticated by: Stonewedge Date: 03/01/2024 21:30 ECG Data Interpretation: 1850 sinus tachycardia 403 bpm CO interval 140 ms QRS duration 92 ms, no STEMI Discharge Plan Discharge Chief Complaint: Dizziness Clinical Impression: Vertigo Patient Disposition: Home, Self-Care Time of Disposition Decision: 21:08 Condition: Good Prescriptions / Home Meds: New meclizine [Antivert] 50 mg tablet 50 mg PO DAILY PRN (Reason: motion sickness) Qty: 10 0RF No Action amlodipine 10 mg tablet 10 mg PO DAILY aspirin 81 mg tablet,delayed release (DR/EC) 81 mg PO DAILY Eliquis 5 mg tablet 5 mg PO Q12H Print Language: Sammarinese Instructions: Vertigo (ED), Dizziness (ED) Referrals: Kianna Simpson DO [Primary Care Provider] - 1 week Documented by User: Vernon Lieberman MD 03/01/24 21:41 HPI - Dizziness General Chief Complaint: Dizziness Stated Complaint: Dizziness Time Seen by Provider: 03/01/24 18:44 Related Data Home Medications ?Medication ?Instructions ?Recorded ?Confirmed amlodipine 10 mg tablet 10 mg PO DAILY 08/02/23 03/01/24 aspirin 81 mg tablet,delayed 81 mg PO DAILY 08/02/23 03/01/24 release apixaban 5 mg tablet (Eliquis) 5 mg PO Q12H 03/01/24 03/01/24 Previous Rx's ?Medication ?Instructions ?Recorded meclizine 50 mg tablet (Antivert) 50 mg PO DAILY PRN motion sickness 03/01/24 #10 tabs Allergies Allergy/AdvReac Type Severity Reaction Status Date / Time No Known Drug Allergies Allergy Verified 02/27/23 11:54 PFSH PFSH Social History Smoking status: Never smoker Little interest or pleasure in doing things: not at all Feeling down, depressed, or hopeless: not at all Exam Constitutional Vital Signs, click to edit/add: Last Vital Signs Temp 98.2 F 03/01/24 18:46 Pulse 105 H 03/01/24 20:20 Resp 24 H 03/01/24 20:20 BP 163/98 H 03/01/24 18:52 Pulse Ox 91 L 03/01/24 20:20 O2 Del Method Room Air 03/01/24 18:46 Course Vital Signs Vital signs: Vital Signs Temperature 98.2 F 03/01/24 18:46 Pulse Rate 115 H 03/01/24 18:46 Respiratory Rate 18 03/01/24 18:46 Blood Pressure 163/92 H 03/01/24 18:46 Pulse Oximetry 98 03/01/24 18:46 Oxygen Delivery Method Room Air 03/01/24 18:46 Temperature 98.2 F 03/01/24 18:46 Pulse Rate 105 H 03/01/24 20:20 Respiratory Rate 24 H 03/01/24 20:20 Blood Pressure 163/98 H 03/01/24 18:52 Pulse Oximetry 91 L 03/01/24 20:20 Oxygen Delivery Method Room Air 03/01/24 18:46 MDM - Dizziness MDM Narrative Medical decision making narrative: 2014 Chief complaint of dizziness. Upon arrival to the emergency room IV was established blood work was drawn. Patient was taken to CT to due to being slightly hypertensive and dizzy. CT scan is currently pending. Patient was medicated with Zofran and Antivert. He states his symptoms have subsided. Lab work that is back thus far including troponin are negative. Patient should be able to be discharged once CT scan is resulted. Patient looks well at this time asymptomatic. Of care to Dr. Lieberman at 930. CT scans currently pending. Patient feels much improved. Patient will be able to be discharged home with diagnosis of vertigo pending normal ct of head. Discharged home prescription of Antivert. Follow-up primary care physician JMateo CAT scan is negative and the patient feels improved and is able to be discharged home with a prescription for Antivert. Findings were discussed with the patient. Lab Data Labs: Lab Results 03/01/24 Range/Units 18:50 WBC 8.0 (4.0-11.0) 10^3/uL RBC 4.90 (4.70-6.10) 10^6/uL Hgb 15.4 (14.0-18.0) g/dL Hct 45.1 (42.0-54.0) % MCV 92.0 (80.0-94.0) fL MCH 31.4 (25.9-34.0) pg MCHC 34.1 (29.9-35.2) g/dL RDW 12.9 (11.0-15.0) % Plt Count 343 (150-450) 10^3/uL MPV 10.1 (9.5-13.5) fL Neut % (Auto) 60.3 (43.0-75.0) % Lymph % (Auto) 32.8 (20.5-60.0) % [place] % (Auto) 5.7 (1.7-12.0) % Eos % (Auto) 0.6 L (0.9-7.0) % Baso % (Auto) 0.5 (0.2-2.0) % Neut # (Auto) 4.8 (1.4-6.5) 10^3/uL Lymph # (Auto) 2.6 (1.2-3.8) 10^3/uL [place] # (Auto) 0.5 (0.3-0.8) 10^3/uL Eos # (Auto) 0.1 (0.0-0.7) 10^3/uL Baso # (Auto) 0.0 (0.0-0.1) 10^3/uL Abs Immat Gran (auto) 0.01 (0.00-0.03) 10^3/uL Imm/Tot Granulo (auto) 0.1 (0.0-0.5) % PT 10.6 (9.0-11.6) sec INR 1.00 Sodium 139 (136-145) mmol/L Potassium 3.4 L (3.5-5.1) mmol/L Chloride 103 (98-107) mmol/L Carbon Dioxide 23.6 (21.0-32.0) mmol/L Anion Gap 15.8 BUN 8.0 (7.0-18.0) mg/dL Creatinine 1.18 (0.70-1.30) mg/dL Est GFR ( Amer) >60 (>=60 mL/min/1.73m^2) Est GFR (Non-Af Amer) >60 (>=60 mL/min/1.73m^2) BUN/Creatinine Ratio 6.8 Glucose 104 (74-106) mg/dL Calcium 9.4 (8.5-10.1) mg/dL Total Bilirubin 0.5 (0.2-1.0) mg/dL AST 25 (15-37) U/L ALT 46 (16-63) U/L Alkaline Phosphatase 151 H (46-116) U/L Troponin I High Sens 48.7 (4.0-76.1) pg/mL Total Protein 8.1 (6.4-8.2) g/dL Albumin 3.9 (3.4-5.0) g/dL Globulin 4.2 g/dL Albumin/Globulin Ratio 0.9 Imaging Data Chest x-ray: Radiologist's impression: ITS Impressions Head CT 03/01/24 19:12 IMPRESSION: No acute intracranial process. Mild age-related cerebral volume loss. Electronically authenticated by: KEVEN SNEED Date: 03/01/2024 21:30 CT scan - head: Radiologist's impression: ITS Impressions Head CT 03/01/24 19:12 IMPRESSION: No acute intracranial process. Mild age-related cerebral volume loss. Electronically authenticated by: KEVEN SNEED Date: 03/01/2024 21:30 Discharge Plan Discharge Chief Complaint: Dizziness Clinical Impression: Vertigo Patient Disposition: Home, Self-Care Time of Disposition Decision: 21:08 Condition: Good Prescriptions / Home Meds: New meclizine [Antivert] 50 mg tablet 50 mg PO DAILY PRN (Reason: motion sickness) Qty: 10 0RF No Action amlodipine 10 mg tablet 10 mg PO DAILY aspirin 81 mg tablet,delayed release (DR/EC) 81 mg PO DAILY Eliquis 5 mg tablet 5 mg PO Q12H Print Language: Sammarinese Instructions: Vertigo (ED), Dizziness (ED) Referrals: Kianna Simpson DO [Primary Care Provider] - 1 week
== END 2024-03-01 21:56 | disposition home or self-care (01) ==
PROVIDERS: Physician Assistant; Emergency Provider Emergency Medicine; PCP Family Medicine
DX: R42 Dizziness and giddiness (principal)
CPT/HCPCS: 36415; 70450; 71045; 80053; 84484; 85025; 85610; 93005; 96374; 99285; J2405